=== PATIENT | male | born 1970 | race Caucasian/White ===

== ENCOUNTER 2021-10-07 09:37 | Outpatient (REF) | payer MEDICAID, SELFPAY ==
--- NOTE | ~2021-10-07 | XR_ITS ---
EXAMINATION: XR CERVICAL SPINE. XR LUMBAR SPINE. CLINICAL INFORMATION: Cervicalgia. Back pain. COMPARISON: Cervical spine 05/23/2016 TECHNIQUE: 5 views of the cervical spine. 3 views of the lumbar spine. FINDINGS: Cervical spine: Normal alignment. No fracture. No prevertebral soft tissue swelling. There is mild degenerative disc disease at C3-C4, C4-C5, and C5-C6 which is similar to the previous study. There is prominent facet arthrosis which has progressed, most prominent on the right at C3-C4 with neural foraminal narrowing. Lumbar spine: Normal alignment and lumbar lordosis with mild to moderate multilevel degenerative disc disease, most prominent at L3-L4. No spondylolisthesis. No acute osseous abnormality. XR/XR lumbar spine 2-3V IMPRESSION: Cervical spine: Mild multilevel degenerative disc disease. Prominent facet arthropathy, particularly on the right at C3-C4 with associated neural foraminal narrowing. Lumbar spine: Mild to moderate multilevel degenerative disc disease. Normal alignment.
--- NOTE | ~2021-10-07 | XR_ITS ---
EXAMINATION: XR CERVICAL SPINE. XR LUMBAR SPINE. CLINICAL INFORMATION: Cervicalgia. Back pain. COMPARISON: Cervical spine 05/23/2016 TECHNIQUE: 5 views of the cervical spine. 3 views of the lumbar spine. FINDINGS: Cervical spine: Normal alignment. No fracture. No prevertebral soft tissue swelling. There is mild degenerative disc disease at C3-C4, C4-C5, and C5-C6 which is similar to the previous study. There is prominent facet arthrosis which has progressed, most prominent on the right at C3-C4 with neural foraminal narrowing. Lumbar spine: Normal alignment and lumbar lordosis with mild to moderate multilevel degenerative disc disease, most prominent at L3-L4. No spondylolisthesis. No acute osseous abnormality. XR/XR cervical spine 4V IMPRESSION: Cervical spine: Mild multilevel degenerative disc disease. Prominent facet arthropathy, particularly on the right at C3-C4 with associated neural foraminal narrowing. Lumbar spine: Mild to moderate multilevel degenerative disc disease. Normal alignment.
--- NOTE | ~2021-10-07 | XR_ITS ---
EXAMINATION: XR KNEE, BILATERAL CLINICAL INFORMATION: Bilateral knee pain. COMPARISON: 04/03/2018 TECHNIQUE: 4 views of each knee. FINDINGS: RIGHT KNEE: Small marginal osteophytes of all 3 compartments with no significant narrowing or joint effusion. No fracture. No focal osseous lesion or soft tissue calcification. No new abnormality. LEFT KNEE: Postsurgical changes related to ACL reconstruction. There is moderate tricompartmental osteoarthritis which appears similar. Small joint effusion. No acute osseous abnormality. XR/XR knee RT 4V IMPRESSION: Degenerative findings of both knees as described, similar to previous. No new abnormality.
--- NOTE | ~2021-10-07 | XR_ITS ---
EXAMINATION: XR KNEE, BILATERAL CLINICAL INFORMATION: Bilateral knee pain. COMPARISON: 04/03/2018 TECHNIQUE: 4 views of each knee. FINDINGS: RIGHT KNEE: Small marginal osteophytes of all 3 compartments with no significant narrowing or joint effusion. No fracture. No focal osseous lesion or soft tissue calcification. No new abnormality. LEFT KNEE: Postsurgical changes related to ACL reconstruction. There is moderate tricompartmental osteoarthritis which appears similar. Small joint effusion. No acute osseous abnormality. XR/XR knee LT 4V IMPRESSION: Degenerative findings of both knees as described, similar to previous. No new abnormality.
== END 2021-10-07 09:38 | disposition home or self-care (01) ==
LOC: HO.XRAY 09:37
PROVIDERS: Visit Provider Emergency Medicine
DX: M25.561 Pain in right knee (principal); M25.562 Pain in left knee; M54.2 Cervicalgia; M54.42 Lumbago with sciatica, left side
CPT/HCPCS: 72050; 72100; 73564

== ENCOUNTER → 2021-11-08 10:17 | Outpatient (BNVA) | payer MEDICAID, SELFPAY | PROVIDERS: Visit Provider Orthopaedic Surgery | DX: M17.12 Unilateral primary osteoarthritis, left knee (principal); Z98.890 Other specified postprocedural states | CPT/HCPCS: 99212; J1100 ==

== ENCOUNTER 2021-11-29 00:40 | Inpatient (IN) | payer MEDICAID, SELFPAY ==
[2021-11-29] VITALS (8 sets, daily range): BP systolic 106–162; BP diastolic 65–87; PULSE 71–114; RESP 15–24; TEMP 36.2–37.3; O2SAT 92–98; BMI 28.1; BMI 27.2
--- NOTE | ~2021-11-29 | CT_ITS ---
EXAMINATION CT CHEST, ABDOMEN AND PELVIS WITH CONTRAST CLINICAL INFORMATION: Fall. Hypoxia and abdominal pain. COMPARISON: None. TECHNIQUE: Multidetector volumetric CT imaging of the chest, abdomen and pelvis was obtained after the administration of 85 mL of intravenous Omnipaque 350 without immediate adverse reactions. Coronal and sagittal reformats were reviewed. This CT examination was performed using dose optimization techniques as appropriate, variously including the following: *Automated exposure control *Adjustment of mA and/or kV according to patient size (this includes techniques or standardized protocols for targeted exams where dose is matched to indication/reason for exam; i.e. extremities or head) *Use of iterative reconstruction technique DLP: 951 mGy-cm. FINDINGS: CHEST LUNGS/PLEURA: Diffuse bronchial wall thickening and scattered endobronchial secretions, more pronounced within the lower lungs. There is consolidation within the lingula and middle lobe concerning for multifocal pneumonia. There is no pleural effusion. No pleural mass or thickening. MEDIASTINUM/JANINE: Normal heart size. No pericardial effusion. Great vessels normal caliber. No mediastinal or hilar lymphadenopathy by size criteria. CHEST WALL/AXILLA: Unremarkable. ABDOMEN/PELVIS HEPATOBILIARY: Liver normal in size, contour and morphology. No suspicious lesions. No intra or extrahepatic biliary dilation. Gallbladder unremarkable. PANCREAS: Unremarkable. SPLEEN: Unremarkable. ADRENAL GLANDS: Unremarkable. KIDNEYS, URETERS AND BLADDER: Kidneys normal in size, axis and morphology demonstrating symmetric enhancement. No hydronephrosis or urinary calculi. Ureters normal in course and caliber. Bladder grossly unremarkable.. GASTROINTESTINAL TRACT: No bowel related abnormalities. PELVIC VISCERA: Unremarkable. LYMPH NODES: No lymphadenopathy. PERITONEUM/BODY WALL: Unremarkable. VASCULAR STRUCTURES: Aorta is atherosclerotic but normal caliber. Patent venous structures. OSSEOUS STRUCTURES No acute or suspicious osseous abnormalities. CT/CT abdomen pelvis w con IMPRESSION: * Multifocal pneumonia with areas of consolidation within the middle lobe and lingula. * Background diffuse bronchial wall thickening and scattered and bronchial secretions, the latter predominating within the lower lobes bilaterally. * No acute findings within the abdomen or pelvis.
--- NOTE | ~2021-11-29 | XR_ITS ---
EXAMINATION: XR CHEST CLINICAL INFORMATION: Hypoxia COMPARISON: 05/22/2009 TECHNIQUE: Frontal view of the chest was obtained. FINDINGS: Streaky opacities particularly within the left lower lung. No pleural effusion or pneumothorax. Pulmonary venous congestion without overt edema. Normal heart size. No acute osseous abnormalities. XR/XR chest 1V IMPRESSION: Bilateral streaky opacities, predominantly perihilar, and within the lower lungs bilaterally most notably at the left lung base. This could represent an atypical pneumonitis and/or bronchitis with more focal infiltrate at the left lung base versus subsegmental atelectasis.
--- NOTE | ~2021-11-29 | CT_ITS ---
EXAMINATION: CT HEAD WITHOUT CONTRAST CLINICAL INFORMATION: History COMPARISON: None TECHNIQUE: Contiguous axial imaging was performed from the skull base to vertex without intravenous administration of contrast. This CT examination was performed using dose optimization techniques as appropriate, variously including the following: *Automated exposure control *Adjustment of mA and/or kV according to patient size (this includes techniques or standardized protocols for targeted exams where dose is matched to indication/reason for exam; i.e. extremities or head) *Use of iterative reconstruction technique DLP: 731 mGy-cm FINDINGS: There is no evidence of acute intracranial hemorrhage or territorial infarction. No abnormal mass effect or midline shift is seen. García to white matter differentiation is well preserved. No extra-axial fluid collections are identified. The ventricles are normal in size. Patchy subcortical and periventricular white matter low-attenuation changes statistically related to chronic microangiopathic gliosis, technically age indeterminate without available comparison. The osseous structures and soft tissues are normal. Mucoperiosteal thickening present within the bilateral maxillary sinuses throughout the paranasal sinuses. Mastoid air cells are clear. CT/CT head/brain wo con IMPRESSION: * No acute intracranial intracranial hemorrhage or extra-axial collection. * No transcortical infarct. * [id number]-[id number] white matter small vessel ischemic changes.
--- NOTE | 2021-11-29 00:59 | ED_ITS ---
HPI - General Adult General Chief complaint: ETOH/Substance Use <GABBY Hung Last Filed: 11/29/21 02:52> Stated complaint: drug use <GABBY Hung Last Filed: 11/29/21 02:52> Time Seen by Provider: 11/29/21 00:59 <GABBY Hung Last Filed: 11/29/21 02:52> Source: patient and EMS <GABBY Hung Last Filed: 11/29/21 02:52> Mode of arrival: EMS <GABBY Hung Last Filed: 11/29/21 02:52> Limitations: other (Patient under the influence of a substance) <GABBY Hung Last Filed: 11/29/21 02:52> History of Present Illness HPI narrative: This is a 51 yo m no significant pmhx presents to ED status post snorting fentanyl earlier today. According to patient and EMS patient snorted fentanyl passed out at the bar unsure if he hit his head or not or loss consciousness. Patient woke up, he walked himself to the police department and asked the police department for Narcan. The police department gave patient Narcan. Patient took the Narcan. EMS was called patient was brought into the hospital. He tells me that he wants to leave and he does not want to be here however he continues to ask for Narcan. He denies SI and HI. He is denying chest pain, shortness of breath, headache, vision changes, neck pain, nausea, vomiting, abdominal pain, weakness. Not on thinners <GABBY Hung Last Filed: 11/29/21 02:52> Onset (ago): day(s) (1) <GABBY Hung Last Filed: 11/29/21 02:52> Severity: mild <GABBY Hung Last Filed: 11/29/21 02:52> Relieving factors: none <GABBY Hung Last Filed: 11/29/21 02:52> Exacerbating factors: none <GABBY Hung Last Filed: 11/29/21 02:52> Associated symptoms: denies other symptoms <GABBY Hung Last Filed: 11/29/21 02:52> Treatments prior to arrival: none <GABBY Hung Last Filed: 11/29/21 02:52> Related Data Home medications: Home Medications Medication Instructions Recorded Confirmed amlodipine 2.5 mg tablet 1 tab PO DAILY 11/29/21 11/29/21 clonidine HCl 0.1 mg tablet 1 tab PO BID 11/29/21 11/29/21 hydroxyzine HCl 25 mg tablet 1 tab PO BID PRN 11/29/21 11/29/21 naloxone 4 mg/actuation nasal INTRANASAL 11/29/21 spray (Narcan) nicotine 21 mg/24 hr daily TOPICAL 11/29/21 transdermal patch ondansetron 4 mg disintegrating 1 tab PO Q8H PRN 11/29/21 11/29/21 tablet quetiapine 200 mg tablet 1 tab PO BEDTIME 11/29/21 11/29/21 <GABBY Hung Last Filed: 11/29/21 02:52> Allergies/adverse reactions: Allergies Allergy/AdvReac Type Severity Reaction Status Date / Time diclofenac [From Voltaren] Allergy Mild NAUSEA, Verified 11/29/21 01:46 nausea and vomiting naproxen Allergy Unknown nausea and Verified 11/29/21 01:46 vomiting fluoxetine [From Prozac] Allergy Rash Verified 11/29/21 01:46 VELVET Allergy Mild HIVES Uncoded 05/14/20 14:58 Diclofenac Sodium Allergy Unknown unknown Uncoded 11/08/21 10:21 <GABBY Hung Last Filed: 11/29/21 02:52> Review of Systems Review of Systems: Constitutional : No Weight loss, No Fever, No Chills, No Fatigue, No Malaise ENT/Mouth : No sore throat, No Rhinorrhea Eyes: No Eye Pain, No Swelling, No Redness Cardiovascular : No Chest Pain, No SOB, No Dyspnea on Exertion, No Orthopnea, No Edema, No Palpitations Respiratory : No Cough, No Sputum, No Wheezing Gastrointestinal : No Nausea, No Vomiting, No Diarrhea, No Constipation, No abdominal Pain, No Hematochezia, No Melena Genitourinary : No Dysuria, No Urinary Frequency, No Hematuria, Musculoskeletal : No joint pain, No Myalgias, No Joint Swelling Skin : No Skin Lesions, No rash Neuro : No Weakness, No Numbness, No Dizziness, No Headache Psych : No Anxiety/Panic, No Depression All other systems reviewed and are negative <GABBY Hung - Last Filed: 11/29/21 02:52> Yes all other systems are reviewed and are negative <GABBY Hung - Last Filed: 11/29/21 02:52> [facility] Past Medical History Attestation statement: The following information was validated with the patient. <GABBY Hung - Last Filed: 11/29/21 02:52> Source: old records reviewed and nursing notes reviewed <GABBY Hung - Last Filed: 11/29/21 02:52> Surgical History: Surgical History S/P ACL reconstruction <GABBY Hung - Last Filed: 11/29/21 02:52> Social History Social History: Social History Advance Directives: No Current occupational status: disabled <GABBY Hung - Last Filed: 11/29/21 02:52> Physical Exam ED Vital Signs: Vital Signs - 24 hr 11/29/21 00:47 11/29/21 01:48 Temperature 98.7 F Pulse Rate 105 H 94 Respiratory Rate 24 H 20 Blood Pressure 139/87 Pulse Oximetry 93 92 BMI result Body Mass Index 28.1 Slightly tachycardic likely secondary to opiate use. Slightly hypoxic. <GABBY Hung - Last Filed: 11/29/21 02:52> Vital Signs - 24 hr 11/29/21 00:47 11/29/21 01:48 Temperature 98.7 F Pulse Rate 105 H 94 Respiratory Rate 24 H 20 Blood Pressure 139/87 Pulse Oximetry 93 92 BMI result Body Mass Index 28.1 <Sandy Bettencourt MD - Last Filed: 11/29/21 03:21> Appearance: Alert.? Oriented X3.? No acute distress.? Head: Normocephalic, atraumatic, no step-offs or deformities Eyes: Pupils equal, round and reactive to light.? ENT: Pharynx normal.? Neck: Normal inspection.? Neck supple.? CVS: Normal heart rate and rhythm.? Pulses normal.? Respiratory: No respiratory distress.? + crackles b/l Abdomen: Soft and nontender.? Skin: Skin warm and dry.? Normal skin color.? Normal skin turgor.? Extremities: No lower extremity edema.? No calf ttp. 5/5 strength to bilateral upper and lower extremities Back: No midline tenderness, no C-spine tenderness, full range of motion, no CVA tenderness bilaterally Neuro: Oriented X 3.? No motor deficit.? No sensory deficit. CN 2-12 intact <GABBY Hung - Last Filed: 11/29/21 02:52> Course Reevaluation(s) Reevaluation #1: patient noted to have a leukocytosis he was given ceftriaxone and Zosyn as I am suspecting aspiration pneumonia. Patient noted to have a potassium of 3.1 he was given 40 of potassium by mouth. BNP 318 given 20 of IV Lasix. OTTO positive for opiates, fentanyl and cocaine. Ethanol negative. COVID negative. Chest x-ray concerning for pneumonia. Lactic within normal limits. Cultures pending. EKG pending, CT of Chest & abd pending. Dimer pending. Sign out given to . <GABBY Hung - Last Filed: 11/29/21 02:52> Time: 02:47 <GABBY Hung - Last Filed: 11/29/21 02:52> Reevaluation #2: Reviewed all imaging results which demonstrate multifocal pneumonia with consolidations. This information was communicated with the inpatient hospitalist. Patient is otherwise admitted. <Sandy Bettencourt MD - Last Filed: 11/29/21 03:21> Time: 03:19 <Sandy Bettencourt MD - Last Filed: 11/29/21 03:21> Medical Decision Making MDM Narrative Medical decision making narrative: 0100 51 yo m presents s/p snorting fentanyl earlier today, passed out at the bar likely hit his head. Denies SI and Hi PE. Patient noted to be 93% on RA. Crackles to b/l lower lobes. RRR. Abdomen soft non tender. Neuro nonfocal Plan- labs, cxr, covid, ethanol, ct head/brain <GABBY Hung - Last Filed: 11/29/21 02:52> Lab Data Result diagrams: : 11/29/21 01:20 11/29/21 01:20 <GABBY Hung - Last Filed: 11/29/21 02:52> Labs: Lab Results 11/29/21 11/29/21 11/29/21 Range/Units 01:20 01:20 01:20 WBC 17.5 H (4.8-10.8) X10*3/uL RBC 3.61 L (4.60-5.80) X10*6/uL Hgb 11.1 L (14.0-18.0) g/dl Hct 32.5 L (42.0-52.0) % MCV 90.0 (80.0-98.0) fL MCH 30.7 (27.0-33.0) pg MCHC 34.2 (31.0-36.0) g/dl RDW 13.2 (11.0-16.0) % Plt Count 262 (160-400) X10*3/uL MPV 8.7 L (9.4-12.4) fL Immature Gran % (Auto) 0.5 H (0.0-0.4) % Neut % (Auto) 85.2 H (45-73) % Lymph % (Auto) 7.9 L (20-40) % [place] % (Auto) 5.5 (2-11) % Eos % (Auto) 0.7 (0-4) % Baso % (Auto) 0.2 (0-2) % Lymph # (Auto) 1.4 (1.2-4.9) X10*3/uL [place] # (Auto) 1.0 (0.1-1.2) X10*3/uL Eos # (Auto) 0.1 (0.0-0.4) X10*3/uL Baso # (Auto) 0.0 (0.0-0.2) X10*3/uL Abs Immat Gran (auto) 0.08 H (0.00-0.03) X10*3/uL Absolute Neuts (auto) 14.9 H (2.0-8.3) x10*3/uL Absolute Nucleated RBC 0.000 (0.0-0.012) X10*3/uL Nucleated RBC % (auto) 0.0 (0.0-0.2) /100WBC D-Dimer High Sensitivty NG/ML Sodium 135 (135-145) mmol/L Potassium 3.1 L (3.3-5.1) mmol/L Chloride 101 (96-108) mmol/L Carbon Dioxide 23 (22-29) mmol/L Anion Gap 14 (12-20) BUN 15 (9-16) mg/dL Creatinine 0.70 (0.5-1.4) mg/dL Estim Creat Clear Calc 124.8 Estimated GFR > 60 Random Glucose 101 (60-115) mg/dL Lactic Acid (0.5-2.0) mmol/L Calcium 8.5 (8.4-10.2) mg/dL Total Bilirubin 0.6 (0.0-1.0) mg/dL AST 25 (5-37) U/L ALT 32 (0-40) U/L Alkaline Phosphatase 73 (39-117) U/L Troponin I High Sens (<3.5-35.0) ng/L B-Natriuretic Peptide (<100) pg/mL Total Protein 6.6 (6.5-8.0) g/dL Albumin 3.9 (3.5-5.0) g/dL Urine Color Urine Appearance Urine pH (5.0-8.0) Ur Specific [place] (1.005-1.025) Urine Protein (NEG-TRACE) MG/DL Urine Glucose (UA) (NEG) MG/DL Urine Ketones (NEG) MG/DL Urine Blood (NEG) Urine Nitrite (NEG) Ur Leukocyte Esterase (NEG) Urine Opiates Screen (Not Detect) Urine Fentanyl Screen (Not Detect) Ur Barbiturates Screen (Not Detect) Ur Phencyclidine Scrn (Not Detect) Ur Amphetamines Screen (Not Detect) U Benzodiazepines Scrn (Not Detect) Urine Cocaine Screen (Not Detect) U Marijuana (THC) Screen (Not Detect) Ethyl Alcohol mg/dL COVID-19 ([facility]) Negative (Negative) COVID-19 Clin Com See Note 11/29/21 11/29/21 11/29/21 Range/Units 01:20 01:20 01:57 WBC (4.8-10.8) X10*3/uL RBC (4.60-5.80) X10*6/uL Hgb (14.0-18.0) g/dl Hct (42.0-52.0) % MCV (80.0-98.0) fL MCH (27.0-33.0) pg MCHC (31.0-36.0) g/dl RDW (11.0-16.0) % Plt Count (160-400) X10*3/uL MPV (9.4-12.4) fL Immature Gran % (Auto) (0.0-0.4) % Neut % (Auto) (45-73) % Lymph % (Auto) (20-40) % [place] % (Auto) (2-11) % Eos % (Auto) (0-4) % Baso % (Auto) (0-2) % Lymph # (Auto) (1.2-4.9) X10*3/uL [place] # (Auto) (0.1-1.2) X10*3/uL Eos # (Auto) (0.0-0.4) X10*3/uL Baso # (Auto) (0.0-0.2) X10*3/uL Abs Immat Gran (auto) (0.00-0.03) X10*3/uL Absolute Neuts (auto) (2.0-8.3) x10*3/uL Absolute Nucleated RBC (0.0-0.012) X10*3/uL Nucleated RBC % (auto) (0.0-0.2) /100WBC D-Dimer High Sensitivty NG/ML Sodium (135-145) mmol/L Potassium (3.3-5.1) mmol/L Chloride (96-108) mmol/L Carbon Dioxide (22-29) mmol/L Anion Gap (12-20) BUN (9-16) mg/dL Creatinine (0.5-1.4) mg/dL Estim Creat Clear Calc Estimated GFR Random Glucose (60-115) mg/dL Lactic Acid 0.8 (0.5-2.0) mmol/L Calcium (8.4-10.2) mg/dL Total Bilirubin (0.0-1.0) mg/dL AST (5-37) U/L ALT (0-40) U/L Alkaline Phosphatase (39-117) U/L Troponin I High Sens 5.4 (<3.5-35.0) ng/L B-Natriuretic Peptide 318 H (<100) pg/mL Total Protein (6.5-8.0) g/dL Albumin (3.5-5.0) g/dL Urine Color Urine Appearance Urine pH (5.0-8.0) Ur Specific [place] (1.005-1.025) Urine Protein (NEG-TRACE) MG/DL Urine Glucose (UA) (NEG) MG/DL Urine Ketones (NEG) MG/DL Urine Blood (NEG) Urine Nitrite (NEG) Ur Leukocyte Esterase (NEG) Urine Opiates Screen (Not Detect) Urine Fentanyl Screen (Not Detect) Ur Barbiturates Screen (Not Detect) Ur Phencyclidine Scrn (Not Detect) Ur Amphetamines Screen (Not Detect) U Benzodiazepines Scrn (Not Detect) Urine Cocaine Screen (Not Detect) U Marijuana (THC) Screen (Not Detect) Ethyl Alcohol < 10 mg/dL COVID-19 ([facility]) (Negative) COVID-19 Clin Com 11/29/21 11/29/21 11/29/21 Range/Units 02:20 02:20 02:35 WBC (4.8-10.8) X10*3/uL RBC (4.60-5.80) X10*6/uL Hgb (14.0-18.0) g/dl Hct (42.0-52.0) % MCV (80.0-98.0) fL MCH (27.0-33.0) pg MCHC (31.0-36.0) g/dl RDW (11.0-16.0) % Plt Count (160-400) X10*3/uL MPV (9.4-12.4) fL Immature Gran % (Auto) (0.0-0.4) % Neut % (Auto) (45-73) % Lymph % (Auto) (20-40) % [place] % (Auto) (2-11) % Eos % (Auto) (0-4) % Baso % (Auto) (0-2) % Lymph # (Auto) (1.2-4.9) X10*3/uL [place] # (Auto) (0.1-1.2) X10*3/uL Eos # (Auto) (0.0-0.4) X10*3/uL Baso # (Auto) (0.0-0.2) X10*3/uL Abs Immat Gran (auto) (0.00-0.03) X10*3/uL Absolute Neuts (auto) (2.0-8.3) x10*3/uL Absolute Nucleated RBC (0.0-0.012) X10*3/uL Nucleated RBC % (auto) (0.0-0.2) /100WBC D-Dimer High Sensitivty 529 NG/ML Sodium (135-145) mmol/L Potassium (3.3-5.1) mmol/L Chloride (96-108) mmol/L Carbon Dioxide (22-29) mmol/L Anion Gap (12-20) BUN (9-16) mg/dL Creatinine (0.5-1.4) mg/dL Estim Creat Clear Calc Estimated GFR Random Glucose (60-115) mg/dL Lactic Acid (0.5-2.0) mmol/L Calcium (8.4-10.2) mg/dL Total Bilirubin (0.0-1.0) mg/dL AST (5-37) U/L ALT (0-40) U/L Alkaline Phosphatase (39-117) U/L Troponin I High Sens (<3.5-35.0) ng/L B-Natriuretic Peptide (<100) pg/mL Total Protein (6.5-8.0) g/dL Albumin (3.5-5.0) g/dL Urine Color YELLOW Urine Appearance CLEAR Urine pH 6.0 (5.0-8.0) Ur Specific [place] 1.015 (1.005-1.025) Urine Protein NEG (NEG-TRACE) MG/DL Urine Glucose (UA) NEG (NEG) MG/DL Urine Ketones 40 (NEG) MG/DL Urine Blood NEG (NEG) Urine Nitrite NEG (NEG) Ur Leukocyte Esterase NEG (NEG) Urine Opiates Screen POSITIVE H (Not Detect) Urine Fentanyl Screen POSITIVE H (Not Detect) Ur Barbiturates Screen Not Detected (Not Detect) Ur Phencyclidine Scrn Not Detected (Not Detect) Ur Amphetamines Screen Not Detected (Not Detect) U Benzodiazepines Scrn Not Detected (Not Detect) Urine Cocaine Screen POSITIVE H (Not Detect) U Marijuana (THC) Screen Not Detected (Not Detect) Ethyl Alcohol mg/dL COVID-19 ([facility]) (Negative) COVID-19 Clin Com <GABBY Hung - Last Filed: 11/29/21 02:52> Lab Results 11/29/21 11/29/21 11/29/21 Range/Units 01:20 01:20 01:20 WBC 17.5 H (4.8-10.8) X10*3/uL RBC 3.61 L (4.60-5.80) X10*6/uL Hgb 11.1 L (14.0-18.0) g/dl Hct 32.5 L (42.0-52.0) % MCV 90.0 (80.0-98.0) fL MCH 30.7 (27.0-33.0) pg MCHC 34.2 (31.0-36.0) g/dl RDW 13.2 (11.0-16.0) % Plt Count 262 (160-400) X10*3/uL MPV 8.7 L (9.4-12.4) fL Immature Gran % (Auto) 0.5 H (0.0-0.4) % Neut % (Auto) 85.2 H (45-73) % Lymph % (Auto) 7.9 L (20-40) % [place] % (Auto) 5.5 (2-11) % Eos % (Auto) 0.7 (0-4) % Baso % (Auto) 0.2 (0-2) % Lymph # (Auto) 1.4 (1.2-4.9) X10*3/uL [place] # (Auto) 1.0 (0.1-1.2) X10*3/uL Eos # (Auto) 0.1 (0.0-0.4) X10*3/uL Baso # (Auto) 0.0 (0.0-0.2) X10*3/uL Abs Immat Gran (auto) 0.08 H (0.00-0.03) X10*3/uL Absolute Neuts (auto) 14.9 H (2.0-8.3) x10*3/uL Absolute Nucleated RBC 0.000 (0.0-0.012) X10*3/uL Nucleated RBC % (auto) 0.0 (0.0-0.2) /100WBC D-Dimer High Sensitivty NG/ML Sodium 135 (135-145) mmol/L Potassium 3.1 L (3.3-5.1) mmol/L Chloride 101 (96-108) mmol/L Carbon Dioxide 23 (22-29) mmol/L Anion Gap 14 (12-20) BUN 15 (9-16) mg/dL Creatinine 0.70 (0.5-1.4) mg/dL Estim Creat Clear Calc 124.8 Estimated GFR > 60 Random Glucose 101 (60-115) mg/dL Lactic Acid (0.5-2.0) mmol/L Calcium 8.5 (8.4-10.2) mg/dL Total Bilirubin 0.6 (0.0-1.0) mg/dL AST 25 (5-37) U/L ALT 32 (0-40) U/L Alkaline Phosphatase 73 (39-117) U/L Troponin I High Sens (<3.5-35.0) ng/L B-Natriuretic Peptide (<100) pg/mL Total Protein 6.6 (6.5-8.0) g/dL Albumin 3.9 (3.5-5.0) g/dL Urine Color Urine Appearance Urine pH (5.0-8.0) Ur Specific [place] (1.005-1.025) Urine Protein (NEG-TRACE) MG/DL Urine Glucose (UA) (NEG) MG/DL Urine Ketones (NEG) MG/DL Urine Blood (NEG) Urine Nitrite (NEG) Ur Leukocyte Esterase (NEG) Urine Opiates Screen (Not Detect) Urine Fentanyl Screen (Not Detect) Ur Barbiturates Screen (Not Detect) Ur Phencyclidine Scrn (Not Detect) Ur Amphetamines Screen (Not Detect) U Benzodiazepines Scrn (Not Detect) Urine Cocaine Screen (Not Detect) U Marijuana (THC) Screen (Not Detect) Ethyl Alcohol mg/dL COVID-19 ([facility]) Negative (Negative) COVID-19 Clin Com See Note 11/29/21 11/29/21 11/29/21 Range/Units 01:20 01:20 01:57 WBC (4.8-10.8) X10*3/uL RBC (4.60-5.80) X10*6/uL Hgb (14.0-18.0) g/dl Hct (42.0-52.0) % MCV (80.0-98.0) fL MCH (27.0-33.0) pg MCHC (31.0-36.0) g/dl RDW (11.0-16.0) % Plt Count (160-400) X10*3/uL MPV (9.4-12.4) fL Immature Gran % (Auto) (0.0-0.4) % Neut % (Auto) (45-73) % Lymph % (Auto) (20-40) % [place] % (Auto) (2-11) % Eos % (Auto) (0-4) % Baso % (Auto) (0-2) % Lymph # (Auto) (1.2-4.9) X10*3/uL [place] # (Auto) (0.1-1.2) X10*3/uL Eos # (Auto) (0.0-0.4) X10*3/uL Baso # (Auto) (0.0-0.2) X10*3/uL Abs Immat Gran (auto) (0.00-0.03) X10*3/uL Absolute Neuts (auto) (2.0-8.3) x10*3/uL Absolute Nucleated RBC (0.0-0.012) X10*3/uL Nucleated RBC % (auto) (0.0-0.2) /100WBC D-Dimer High Sensitivty NG/ML Sodium (135-145) mmol/L Potassium (3.3-5.1) mmol/L Chloride (96-108) mmol/L Carbon Dioxide (22-29) mmol/L Anion Gap (12-20) BUN (9-16) mg/dL Creatinine (0.5-1.4) mg/dL Estim Creat Clear Calc Estimated GFR Random Glucose (60-115) mg/dL Lactic Acid 0.8 (0.5-2.0) mmol/L Calcium (8.4-10.2) mg/dL Total Bilirubin (0.0-1.0) mg/dL AST (5-37) U/L ALT (0-40) U/L Alkaline Phosphatase (39-117) U/L Troponin I High Sens 5.4 (<3.5-35.0) ng/L B-Natriuretic Peptide 318 H (<100) pg/mL Total Protein (6.5-8.0) g/dL Albumin (3.5-5.0) g/dL Urine Color Urine Appearance Urine pH (5.0-8.0) Ur Specific [place] (1.005-1.025) Urine Protein (NEG-TRACE) MG/DL Urine Glucose (UA) (NEG) MG/DL Urine Ketones (NEG) MG/DL Urine Blood (NEG) Urine Nitrite (NEG) Ur Leukocyte Esterase (NEG) Urine Opiates Screen (Not Detect) Urine Fentanyl Screen (Not Detect) Ur Barbiturates Screen (Not Detect) Ur Phencyclidine Scrn (Not Detect) Ur Amphetamines Screen (Not Detect) U Benzodiazepines Scrn (Not Detect) Urine Cocaine Screen (Not Detect) U Marijuana (THC) Screen (Not Detect) Ethyl Alcohol < 10 mg/dL COVID-19 ([facility]) (Negative) COVID-19 Clin Com 11/29/21 11/29/21 11/29/21 Range/Units 02:20 02:20 02:35 WBC (4.8-10.8) X10*3/uL RBC (4.60-5.80) X10*6/uL Hgb (14.0-18.0) g/dl Hct (42.0-52.0) % MCV (80.0-98.0) fL MCH (27.0-33.0) pg MCHC (31.0-36.0) g/dl RDW (11.0-16.0) % Plt Count (160-400) X10*3/uL MPV (9.4-12.4) fL Immature Gran % (Auto) (0.0-0.4) % Neut % (Auto) (45-73) % Lymph % (Auto) (20-40) % [place] % (Auto) (2-11) % Eos % (Auto) (0-4) % Baso % (Auto) (0-2) % Lymph # (Auto) (1.2-4.9) X10*3/uL [place] # (Auto) (0.1-1.2) X10*3/uL Eos # (Auto) (0.0-0.4) X10*3/uL Baso # (Auto) (0.0-0.2) X10*3/uL Abs Immat Gran (auto) (0.00-0.03) X10*3/uL Absolute Neuts (auto) (2.0-8.3) x10*3/uL Absolute Nucleated RBC (0.0-0.012) X10*3/uL Nucleated RBC % (auto) (0.0-0.2) /100WBC D-Dimer High Sensitivty 529 NG/ML Sodium (135-145) mmol/L Potassium (3.3-5.1) mmol/L Chloride (96-108) mmol/L Carbon Dioxide (22-29) mmol/L Anion Gap (12-20) BUN (9-16) mg/dL Creatinine (0.5-1.4) mg/dL Estim Creat Clear Calc Estimated GFR Random Glucose (60-115) mg/dL Lactic Acid (0.5-2.0) mmol/L Calcium (8.4-10.2) mg/dL Total Bilirubin (0.0-1.0) mg/dL AST (5-37) U/L ALT (0-40) U/L Alkaline Phosphatase (39-117) U/L Troponin I High Sens (<3.5-35.0) ng/L B-Natriuretic Peptide (<100) pg/mL Total Protein (6.5-8.0) g/dL Albumin (3.5-5.0) g/dL Urine Color YELLOW Urine Appearance CLEAR Urine pH 6.0 (5.0-8.0) Ur Specific [place] 1.015 (1.005-1.025) Urine Protein NEG (NEG-TRACE) MG/DL Urine Glucose (UA) NEG (NEG) MG/DL Urine Ketones 40 (NEG) MG/DL Urine Blood NEG (NEG) Urine Nitrite NEG (NEG) Ur Leukocyte Esterase NEG (NEG) Urine Opiates Screen POSITIVE H (Not Detect) Urine Fentanyl Screen POSITIVE H (Not Detect) Ur Barbiturates Screen Not Detected (Not Detect) Ur Phencyclidine Scrn Not Detected (Not Detect) Ur Amphetamines Screen Not Detected (Not Detect) U Benzodiazepines Scrn Not Detected (Not Detect) Urine Cocaine Screen POSITIVE H (Not Detect) U Marijuana (THC) Screen Not Detected (Not Detect) Ethyl Alcohol mg/dL COVID-19 ([facility]) (Negative) COVID-19 Clin Com <Sandy Bettencourt MD - Last Filed: 11/29/21 03:21> ECG Data Attestation: I personally reviewed and interpreted this ECG as follows: <Sandy Bettencourt MD - Last Filed: 11/29/21 03:21> Prior ECG tracings: available for review <Sandy Bettencourt MD - Last Filed: 11/29/21 03:21> Interpretation: NSR, HR-88, no STEMI, KS/QRS/QTC are within normal limits. <Sandy Bettencourt MD - Last Filed: 11/29/21 03:21> Critical Care Time Critical Care Time Critical Care Time: No <GABBY Hung - Last Filed: 11/29/21 02:52> Discharge Plan Discharge Clinical Impression: Pneumonia, Hypoxia, Fall, Polysubstance abuse <GABBY Hung - Last Filed: 11/29/21 02:52> Patient Disposition: Admitted As Inpatient <GABBY Hung - Last Filed: 11/29/21 02:52>
--- NOTE | 2021-11-29 01:09 | PC.NURSE ---
PT complaining of SOB and continues to request narcan. PT has rhonchi bilaterally throughout the lungs. Awaiting chest xray.
[2021-11-29 01:28] LABS: Basophils Percent Auto 0.2 % (0-2); Eosinophils Absolute Auto 0.1 X10*3/uL (0.0-0.4); Eosinophils Percent Auto 0.7 % (0-4); Hematocrit 32.5 % (42.0-52.0); Hemoglobin 11.1 g/dl (14.0-18.0); Imm Gran Abs Auto 0.08 X10*3/uL (0.00-0.03); Imm Gran Pct Auto 0.5 % (0.0-0.4); Lymphocytes Absolute Auto 1.4 X10*3/uL (1.2-4.9); Lymphocytes Percent Auto 7.9 % (20-40); MANUAL DIFF FLAG NO; Mean Corpuscular HGB Conc 34.2 g/dl (31.0-36.0); Mean Corpuscular Hemoglobin 30.7 pg (27.0-33.0); Mean Platelet Volume 8.7 fL (9.4-12.4); Monocytes Percent Auto 5.5 % (2-11); Neutrophils Absolute Auto 14.9 x10*3/uL (2.0-8.3); Neutrophils Percent Auto 85.2 % (45-73); Platelet Count 262 X10*3/uL (160-400); Red Blood Count 3.61 X10*6/uL (4.60-5.80); Red Cell Distribution Width 13.2 % (11.0-16.0); White Blood Count 17.5 X10*3/uL (4.8-10.8)
[2021-11-29 01:40] LABS: COVID-19 Test Negative (Negative); Ethanol < 10 mg/dL
[2021-11-29 01:45] LABS: Alanine Aminotransferase 32 U/L (0-40); Albumin Level 3.9 g/dL (3.5-5.0); Alkaline Phosphatase 73 U/L (39-117); Anion Gap 14 (12-20); Aspartate Amino Transferase 25 U/L (5-37); Bilirubin Total 0.6 mg/dL (0.0-1.0); Blood Urea Nitrogen 15 mg/dL (9-16); Calcium 8.5 mg/dL (8.4-10.2); Carbon Dioxide 23 mmol/L (22-29); Chloride 101 mmol/L (96-108); Creatinine Clr Calc Pharmacy 124.8; Estimated Glomerular Filt Rate > 60; Glucose Random 101 mg/dL (60-115); Potassium 3.1 mmol/L (3.3-5.1); Sodium 135 mmol/L (135-145); Total Protein 6.6 g/dL (6.5-8.0)
[2021-11-29] MEDS: Ondansetron ODT 4 MG TAB.RAPDIS TRANSLINGU (01:47)
--- NOTE | 2021-11-29 01:47 | PC.NURSE ---
PT O2 sat decreased to 87% on RA. PT placed on O2 at 4 L/min via NC with sat increased to 92%
[2021-11-29 02:13] LABS: Lactic Acid 0.8 mmol/L (0.5-2.0)
[2021-11-29] MEDS: Potassium Chloride ER 20 MEQ TAB.ER.PRT 40 MEQ PO (02:26)
[2021-11-29] MEDS: 0.9 % Sodium Chloride 1,000 ML 999 ML IV (02:26)
[2021-11-29] MEDS: iohexoL 350 MG/ML 100 ML INFUS..BTL 85 ML IV (02:27)
[2021-11-29 02:28] LABS: B Type Natriuretic Peptide 318 pg/mL (<100)
[2021-11-29] MEDS: cefTRIAXone sodium 1 GM in 0.9 % Sodium Chloride 50 ML IV (02:29)
--- NOTE | 2021-11-29 02:32 | P.HPHOSP_ITS ---
History of Present Illness Date of Service: 11/29/21 Chief Complaint: Syncope 51-year-old male with no significant past medical history presented to the hospital with a chief complaint of fentanyl overdose. Patient reports that for the past 1 week he has been using fentanyl; today if had fentanyl overdose; mentioned he lost consciousness; later mention he received Narcan at the field; EMS was called in and came to the hospital for further evaluation. Reports he has been having shortness of breath, chest discomfort. Denies any cough or sputum production. Denies any chest pain or palpitations. Denies any lightheadedness dizziness. Denies any fever chills cough. Denies any GI symptoms. Review of all other systems is negative except mentioned above ER course: Per ER team mentioned that patient got Narcan by the police; subsequently EMS was called in and brought him to the hospital for further evaluation. Patient on presentation noted to be tachycardic; while he was in the ER he is oxygen dropped to mid 80s; chest x-ray showed bilateral opacities; CT head showed no acute intracranial process. Admitted to the hospital for further management PMFSH Pertinent family history: Father had liver cancer Prostate cancer in the family Surgical History S/P ACL reconstruction Social History Advance Directives: No Current occupational status: disabled Meds Allergies Allergy/AdvReac Type Severity Reaction Status Date / Time diclofenac [From Voltaren] Allergy Mild NAUSEA, Verified 11/29/21 01:46 nausea and vomiting naproxen Allergy Unknown nausea and Verified 11/29/21 01:46 vomiting fluoxetine [From Prozac] Allergy Rash Verified 11/29/21 01:46 VELVET Allergy Mild HIVES Uncoded 05/14/20 14:58 Diclofenac Sodium Allergy Unknown unknown Uncoded 11/08/21 10:21 Active Medications: Current Medications Sodium Chloride (Ns) 1,000 mls @ 999 mls/hr IV .Q1H1M EMIGDIO Stop: 11/29/21 03:15 Last Admin: 11/29/21 02:26 Dose: 999 mls/hr Documented by: Piperacillin Sod/Tazobactam (Sod 3.375 gm/ Sodium Chloride) 50 mls @ 100 mls/hr IV ONCE ONE Stop: 11/29/21 02:43 Home Medications Medication Instructions Recorded Confirmed Last Taken Type amlodipine 2.5 mg tablet 1 tab PO DAILY 11/29/21 11/29/21 Unknown History clonidine HCl 0.1 mg tablet 1 tab PO BID 11/29/21 11/29/21 Unknown History hydroxyzine HCl 25 mg tablet 1 tab PO BID PRN 11/29/21 11/29/21 Unknown History naloxone 4 mg/actuation nasal INTRANASAL 11/29/21 Unknown History spray (Narcan) nicotine 21 mg/24 hr daily TOPICAL 11/29/21 Unknown History transdermal patch ondansetron 4 mg disintegrating 1 tab PO Q8H PRN 11/29/21 11/29/21 Unknown History tablet quetiapine 200 mg tablet 1 tab PO BEDTIME 11/29/21 11/29/21 Unknown History Physical Exam Vital Signs and Narrative: Vital Signs: Last Vital Signs Temp 98.7 F 11/29/21 00:47 Pulse 94 11/29/21 01:48 Resp 20 11/29/21 01:48 BP 139/87 11/29/21 00:47 Pulse Ox 92 11/29/21 01:48 BMI result Body Mass Index 28.1 Gen: Appears be in no acute distress HEENT: NCAT, Moist mucosa. Pulmonary: Coarse breath sounds CVS: Normal S1-S2 Abdomen: BS+, Soft, Nontender Extremities: Warm well perfused Neuro: Alert and awake. Grossly nonfocal Results Labs CBC and Chem 7: 11/29/21 01:20 11/29/21 01:20 Labs: Laboratory Results - last 24 hr 11/29/21 11/29/21 11/29/21 01:20 01:20 01:20 MCV 90.0 MCH 30.7 MCHC 34.2 RDW 13.2 Plt Count 262 MPV 8.7 L Immature Gran % (Auto) 0.5 H Neut % (Auto) 85.2 H Lymph % (Auto) 7.9 L [place] % (Auto) 5.5 Eos % (Auto) 0.7 Baso % (Auto) 0.2 Lymph # (Auto) 1.4 [place] # (Auto) 1.0 Eos # (Auto) 0.1 Baso # (Auto) 0.0 Abs Immat Gran (auto) 0.08 H Absolute Neuts (auto) 14.9 H Absolute Nucleated RBC 0.000 Nucleated RBC % (auto) 0.0 Anion Gap 14 Estim Creat Clear Calc 124.8 Estimated GFR > 60 Random Glucose 101 Lactic Acid Calcium 8.5 Total Bilirubin 0.6 AST 25 ALT 32 Alkaline Phosphatase 73 B-Natriuretic Peptide Total Protein 6.6 Albumin 3.9 Ethyl Alcohol COVID-19 (LAZARA) Negative COVID-19 Clin Com See Note 11/29/21 11/29/21 11/29/21 01:20 01:20 01:57 MCV MCH MCHC RDW Plt Count MPV Immature Gran % (Auto) Neut % (Auto) Lymph % (Auto) [place] % (Auto) Eos % (Auto) Baso % (Auto) Lymph # (Auto) [place] # (Auto) Eos # (Auto) Baso # (Auto) Abs Immat Gran (auto) Absolute Neuts (auto) Absolute Nucleated RBC Nucleated RBC % (auto) Anion Gap Estim Creat Clear Calc Estimated GFR Random Glucose Lactic Acid 0.8 Calcium Total Bilirubin AST ALT Alkaline Phosphatase B-Natriuretic Peptide 318 H Total Protein Albumin Ethyl Alcohol < 10 COVID-19 (LAZARA) COVID-19 Clin Com Imaging Radiologist's Impressions: Impressions Chest X-Ray 11/29/21 01:25 IMPRESSION: Bilateral streaky opacities, predominantly perihilar, and within the lower lungs bilaterally most notably at the left lung base. This could represent an atypical pneumonitis and/or bronchitis with more focal infiltrate at the left lung base versus subsegmental atelectasis. Head CT 11/29/21 01:28 IMPRESSION: * No acute intracranial intracranial hemorrhage or extra-axial collection. * No transcortical infarct. * [id number] white matter small vessel ischemic changes. Assessment and Plan (1) Pneumonia: Status: Acute (2) Hypoxia: Status: Acute Plan 51-year-old male with a past medical history of hypertension, anxiety, depression, opiate dependence, osteoarthritis presented to the hospital with a chief complaint of opiate overdose. Noted to be in acute hypoxia. Admitted for following Acute hypoxic respiratory failure: Chest x-ray showed bilateral opacities concerning for atypical pneumonitis. Patient currently saturating well on supplemental oxygen. Theresa cooper Pneumonitis: Question drug inhalation injury. Empirically cover with ceftriaxone and azithromycin. Will obtain procalcitonin levels. Follow up cultures. Pulmonary consult Syncope: In the setting of drug overdose. U tox positive for cocaine, fentanyl, opiates. CT head showed no acute findings. EKG showed no ischemia or bradycardia. Troponin x2 negative. Telemetry. Opiate dependence: Patient reports he uses fentanyl. Has been using for the past 1 week. Also on methadone maintenance program-reports he takes methadone 50 mg daily. Has not taken dose on 11/28/2021. Addiction Medicine consult History of hypertension: Continue home amlodipine History of anxiety: Continue home Atarax p.r.n. DVT prophylaxis: Lovenox Code status: Full code Quality Stroke Does the patient have a stroke diagnosis?: No VTE Prior VTE?: No VTE Risk Level:: Medical - moderate - high VTE Device Contraindication: Treatment Not Indicated VTE Drug Contraindication: N/A - Med Ordered
[2021-11-29 02:40] LABS: Amphetamine Screen Urine Not Detected (Not Detect); Barbiturates, Urine Not Detected (Not Detect); Benzodiazepines Screen Urine Not Detected (Not Detect); Cannabinoid Screen Urine Not Detected (Not Detect); Cocaine Screen Urine POSITIVE (Not Detect); Fentanyl, urine POSITIVE (Not Detect); Opiate Screen Urine POSITIVE (Not Detect); Phencyclidine Screen Urine Not Detected (Not Detect)
--- NOTE | 2021-11-29 02:45 | ECG_ITS ---
Test Reason : CHEST DISCOMFORT Blood Pressure : / mmHG Vent. Rate : 088 BPM Atrial Rate : 088 BPM P-R Int : 174 ms QRS Dur : 086 ms QT Int : 360 ms P-R-T Axes : 047 058 047 degrees QTc Int : 435 ms Normal sinus rhythm Normal ECG When compared with ECG of 03-APR-2018 08:28, No significant change was found Referred By: Albino Mitchell Electronically Signed By:TONYA MANN MD
[2021-11-29 02:50] LABS: D Dimer High Sensitivity 529 NG/ML
[2021-11-29 03:03] LABS: Troponin-I High Sensitivity 5.4 ng/L (<3.5-35.0)
[2021-11-29 03:09] LABS: Appearance Urine CLEAR; Color Urine YELLOW; Glucose Urine UA NEG (NEG); Leukocyte Esterase Urine NEG (NEG); Nitrite Urine NEG (NEG); Specific Gravity - Urine 1.015 (1.005-1.025); Urine Blood NEG (NEG); Urine Ketones 40 MG/DL (NEG); Urine Protein NEG (NEG-TRACE)
[2021-11-29] MEDS: Furosemide 20 MG/2 ML VIAL IVPUSH (03:19)
[2021-11-29] MEDS: Piperacillin Sodium/Tazobactam 3.375 GM in 0.9 % Sodium Chloride 50 ML IV (03:20)
[2021-11-29 03:43] LABS: Troponin-I High Sensitivity 4.3 ng/L (<3.5-35.0)
[2021-11-29] MEDS: Azithromycin 500 MG TABLET PO (03:52)
[2021-11-29 05:02] LABS: Basophils Percent Auto 0.2 % (0-2); Eosinophils Absolute Auto 0.1 X10*3/uL (0.0-0.4); Eosinophils Percent Auto 0.3 % (0-4); Hematocrit 33.5 % (42.0-52.0); Hemoglobin 11.5 g/dl (14.0-18.0); Imm Gran Abs Auto 0.11 X10*3/uL (0.00-0.03); Imm Gran Pct Auto 0.6 % (0.0-0.4); Lymphocytes Absolute Auto 1.3 X10*3/uL (1.2-4.9); Lymphocytes Percent Auto 7.1 % (20-40); MANUAL DIFF FLAG NO; Mean Corpuscular HGB Conc 34.3 g/dl (31.0-36.0); Mean Corpuscular Hemoglobin 31.2 pg (27.0-33.0); Mean Corpuscular Volume 90.8 fL (80.0-98.0); Mean Platelet Volume 8.4 fL (9.4-12.4); Monocytes Absolute Auto 0.8 X10*3/uL (0.1-1.2); Monocytes Percent Auto 4.6 % (2-11); Neutrophils Absolute Auto 15.9 x10*3/uL (2.0-8.3); Neutrophils Percent Auto 87.2 % (45-73); Platelet Count 273 X10*3/uL (160-400); Red Blood Count 3.69 X10*6/uL (4.60-5.80); Red Cell Distribution Width 13.2 % (11.0-16.0); White Blood Count 18.2 X10*3/uL (4.8-10.8)
[2021-11-29 05:17] LABS: Anion Gap 13 (12-20); Blood Urea Nitrogen 13 mg/dL (9-16); Calcium 8.3 mg/dL (8.4-10.2); Carbon Dioxide 27 mmol/L (22-29); Chloride 99 mmol/L (96-108); Estimated Glomerular Filt Rate > 60; Glucose Random 105 mg/dL (60-115); Potassium 3.4 mmol/L (3.3-5.1); Sodium 136 mmol/L (135-145)
[2021-11-29] MEDS: Enoxaparin Sodium 40 MG/0.4 ML SYRINGE SUBCUT (06:10)
[2021-11-29] MEDS: cloNIDine HCL 0.1 MG TABLET PO (08:53)
[2021-11-29] MEDS: amLODIPine Besylate 2.5 MG TABLET PO (08:53)
[2021-11-29] MEDS: Famotidine/PF 20 MG/2 ML VIAL IVPUSH ×2 (08:53→22:08)
[2021-11-29] MEDS: 0.9 % Sodium Chloride Flush 3 ML SYRINGE IVFLUSH ×2 (08:54→22:15)
--- NOTE | 2021-11-29 09:00 | HO.SUDE ---
SUDE Patient is a 51 year old Iraqi speaking male who presented to [facility] after using fentanyl and requesting narcan. This real estate underwriter met with patient to complete SUDE. Patient reports this is his second overdose, with the first occurring over a year ago. Reports no alcohol or other substances used aside from heroin/fentanyl. Patient reports he started using opiates 8 years ago and has had significant periods of sobriety. Patient indicates he relapsed around 3 months ago due to homelessness and not wanting to live in a residential. Patient states he has been using up to ten bags a day, nasally. Patient is currently on 50mg of methadone and last dosed on 11/28/21. [facility] at [facility] confirms this. Dose verification sent to pharmacy. Patient reports the methadone has been helpful but acknowledges he still uses in addition to the methadone. Patient reports a history of ATS and psychiatric admissions however none within the last year. Patient reports anxiety and depression diagnoses. Patient reports he has been working with his brother on getting into a program however has been unsuccessful. This real estate underwriter discussed CSS level of care with patient. Patient is interested in referrals being made to CSS facilities however understands that a bed may not be available prior to discharge. Recovery Support Team will follow up with patient later on in his hospital stay to provide information on CSS and initiate referrals if appropriate. Discussed case with Syl JEAN-BAPTISTE.
--- NOTE | 2021-11-29 13:23 | MHC.CM.PN ---
reviewed medical record pt has been seen and being followed by care team pt hasa a hcp on file cm will follow
[2021-11-29] MEDS: methADONE HCl 20 MG/2 ML ORAL.CONC 50 MG PO (15:56)
--- NOTE | 2021-11-29 20:07 | PM.CNPUL ---
History of Present Illness History of Present Illness Consult date: 11/29/21 Chief complaint: Acute hypoxia Narrative: This is an inpatient pulmonary consultation. The patient is a 51-year-old male with no significant past medical history presented to the hospital with a chief complaint of fentanyl overdose.?Patient reports that for the past 1 week he has been using fentanyl; today if had fentanyl overdose; mentioned he lost consciousness; later mention he received Narcan at the field; EMS was called in and came to the hospital for further evaluation.? the patient states that he has been having worsening nausea and vomiting. He feels like some of the vomiting did aspirate into the lungs. While he was in the ER he is oxygen dropped to mid 80s; chest x-ray showed bilateral opacities; CT head showed no acute intracranial process.? I personally reviewed his CT scan of the chest really out PE. But, demonstrating bibasilar consolidations likely from aspiration. Patient still coughing. Denies any pleuritic chest discomfort. Review of Systems Review of Systems: Yes all other systems are reviewed and are negative Constitutional: Constitutional: Reports body ache(s), Reports fatigue, Denies fever(s) and Reports weakness Eyes: Eyes: Denies change in vision ENT: Denies dysphagia Cardiovascular: Cardiovascular: Denies chest pain and Reports dyspnea Respiratory: Respiratory: Reports chest congestion, Reports cough, Denies hemoptysis, Denies pain on inspiration, Denies pain with cough and Reports dyspnea Gastrointestinal: Gastrointestinal: Denies dysphagia Musculoskeletal: Musculoskeletal: Reports no additional musculoskeletal complaints Neurologic: Reports weakness Endocrine: Endocrine: Reports fatigue [facility] Surgical History Surgical History S/P ACL reconstruction Social History Social History Household Members: Other Housing: Homeless Do you presently have visiting nurse or other home services: No Patient Tobacco Use Status: Current everyday Tobacco user Tobacco use type: Cigarette Substance Use Type: Crack/Cocaine and Opiates service: No Current occupational status: disabled Meds Allergies Allergy/AdvReac Type Severity Reaction Status Date / Time diclofenac [From Voltaren] Allergy Mild NAUSEA, Verified 11/29/21 01:46 nausea and vomiting naproxen Allergy Unknown nausea and Verified 11/29/21 01:46 vomiting fluoxetine [From Prozac] Allergy Rash Verified 11/29/21 01:46 VELVET Allergy Mild HIVES Uncoded 05/14/20 14:58 Diclofenac Sodium Allergy Unknown unknown Uncoded 11/08/21 10:21 Active Medications: Current Medications Acetaminophen (Acetaminophen 325 Mg Tablet) 650 mg PO Q6H PRN PRN Reason: Pain, Mild (Pain Scale 1-3) Albuterol/Ipratropium (Albuterol/Iprat 2.5/0.5mg 3 Ml Ampul.Neb) 3 ml INHALE RQ4H WHILE AWAKE PRN PRN Reason: Shortness of Breath/Wheezing Amlodipine Besylate (Amlodipine Besylate 2.5 Mg Tablet) 2.5 mg PO DAILY [facility]; Protocol Last Admin: 11/29/21 08:53 Dose: 2.5 mg Documented by: Azithromycin (Azithromycin 500 Mg Tablet) 500 mg PO Q24H [facility] Last Admin: 11/29/21 03:52 Dose: 500 mg Documented by: Clonidine HCl (Clonidine Hcl 0.1 Mg Tablet) 0.1 mg PO BID [facility]; Protocol Last Admin: 11/29/21 08:53 Dose: 0.1 mg Documented by: Enoxaparin Sodium (Enoxaparin Sodium 40 Mg/0.4 Ml Syringe) 40 mg SUBCUT Q24H [facility] Last Admin: 11/29/21 06:10 Dose: 40 mg Documented by: Famotidine (Famotidine/Pf 20 Mg/2 Ml Vial) 20 mg IVPUSH BID [facility] Last Admin: 11/29/21 08:53 Dose: 20 mg Documented by: Hydroxyzine HCl (Hydroxyzine Hcl 25 Mg Tablet) 25 mg PO BID PRN PRN Reason: anxiety Ceftriaxone Sodium 1 gm/ (Sodium Chloride) 100 mls @ 200 mls/hr IV Q24H [facility] Methadone HCl (Methadone Hcl 20 Mg/2 Ml Oral.Conc) 50 mg PO DAILY [facility] Last Admin: 11/29/21 15:56 Dose: 50 mg Documented by: Quetiapine Fumarate (Quetiapine Fumarate 200 Mg Tablet) 200 mg PO BEDTIME EMIGDIO Senna (Sennosides 8.6 Mg Tablet) 17.2 mg PO BEDTIME PRN PRN Reason: Constipation Sodium Chloride (0.9 % Sodium Chloride Flush 3 Ml Syringe) 3 ml IVFLUSH QSHIFT [facility] Last Admin: 11/29/21 15:49 Dose: Not Given Documented by: Home Medications Medication Instructions Recorded Confirmed Last Taken Type amlodipine 2.5 mg tablet 1 tab PO DAILY 11/29/21 11/29/21 Unknown History clonidine HCl 0.1 mg tablet 1 tab PO BID 11/29/21 11/29/21 Unknown History gabapentin 300 mg capsule 300 mg PO TID 11/29/21 11/29/21 Unknown History hydroxyzine HCl 25 mg tablet 1 tab PO BID PRN 11/29/21 11/29/21 Unknown History methadone 10 mg/mL oral concentrate 0 mg PO DAILY 11/29/21 Unknown History naloxone 4 mg/actuation nasal 1 spray INTRANASAL ONCE PRN 11/29/21 11/29/21 Unknown History spray (Narcan) nicotine 21 mg/24 hr daily 21 mg TOPICAL DAILY 11/29/21 11/29/21 Unknown History transdermal patch ondansetron 4 mg disintegrating 1 tab PO Q8H PRN 11/29/21 11/29/21 Unknown History tablet quetiapine 200 mg tablet 1 tab PO BEDTIME 11/29/21 11/29/21 Unknown History Physical Exam Vital Signs: Vital Signs: Last Vital Signs Temp 97.2 F 11/29/21 19:32 Pulse 98 11/29/21 19:32 Resp 17 11/29/21 19:32 BP 123/69 11/29/21 19:32 Pulse Ox 96 11/29/21 19:32 BMI result Body Mass Index 27.2 Const: General: alert Neck: Neck: Yes normal visual inspection, Yes full ROM and Yes no lymphadenopathy Chest: Chest palpation & inspection: normal inspection of the chest Resp: Effort & Inspection: Actively coughing Auscultation: crackles bilateral at the base and diminished lung sounds Cardio: Rate: regular rate Rhythm: regular rhythm Heart sounds: S1 normal heart sound present and S2 normal heart sound present GI: Palpation (GI): Soft to palpation and nontender Auscultation: normal bowel sounds Skin: General skin exam: rashes and/or lesions noted Results Laboratory Findings CBC and BMP: 11/29/21 04:57 11/29/21 04:57 Abnormal lab findings: Abnormal Labs 11/29/21 11/29/21 11/29/21 01:20 01:20 01:20 WBC 17.5 H RBC 3.61 L Hgb 11.1 L Hct 32.5 L MPV 8.7 L Immature Gran % (Auto) 0.5 H Neut % (Auto) 85.2 H Lymph % (Auto) 7.9 L Abs Immat Gran (auto) 0.08 H Absolute Neuts (auto) 14.9 H Potassium 3.1 L Calcium B-Natriuretic Peptide 318 H Urine Opiates Screen Urine Fentanyl Screen Urine Cocaine Screen 11/29/21 11/29/21 11/29/21 02:20 04:57 04:57 WBC 18.2 H RBC 3.69 L Hgb 11.5 L Hct 33.5 L MPV 8.4 L Immature Gran % (Auto) 0.6 H Neut % (Auto) 87.2 H Lymph % (Auto) 7.1 L Abs Immat Gran (auto) 0.11 H Absolute Neuts (auto) 15.9 H Potassium Calcium 8.3 L B-Natriuretic Peptide Urine Opiates Screen POSITIVE H Urine Fentanyl Screen POSITIVE H Urine Cocaine Screen POSITIVE H Assessment and Plan (1) Aspiration pneumonia: Status: Acute (2) Acute respiratory failure: Status: Acute Plan Continue oxygen supplementation to maintain a pulse ox above 90% keep head of bed elevated at least 30 degrees to minimize micro aspirations add Mucinex for cough expectorant continue ceftriaxone and azithromycin. If his white count continues to be elevated will switch his ceftriaxone to Zosyn to have better anaerobic coverage Procedures Date of Service Date of Service: 11/29/21
[2021-11-29] MEDS: QUEtiapine Fumarate 200 MG TABLET PO (22:08)
[2021-11-29] MEDS: cefTRIAXone sodium 1 GM in 0.9 % Sodium Chloride 100 ML IV (22:08)
[2021-11-30] VITALS (7 sets, daily range): BP systolic 98–134; BP diastolic 61–82; PULSE 72–87; RESP 16–20; TEMP 36.4–37.3; O2SAT 93–100
[2021-11-30] MEDS: Azithromycin 500 MG TABLET PO (03:44)
[2021-11-30 07:02] LABS: Hemoglobin 12.3 g/dl (14.0-18.0); Mean Corpuscular HGB Conc 33.2 g/dl (31.0-36.0); Mean Corpuscular Hemoglobin 30.7 pg (27.0-33.0); Mean Corpuscular Volume 92.3 fL (80.0-98.0); Mean Platelet Volume 9.3 fL (9.4-12.4); Platelet Count 307 X10*3/uL (160-400); Red Blood Count 4.01 X10*6/uL (4.60-5.80); Red Cell Distribution Width 13.1 % (11.0-16.0)
[2021-11-30 07:21] LABS: Anion Gap 13 (12-20); Blood Urea Nitrogen 12 mg/dL (9-16); Calcium 8.8 mg/dL (8.4-10.2); Carbon Dioxide 28 mmol/L (22-29); Chloride 105 mmol/L (96-108); Creatinine Clr Calc Pharmacy 106.4; Estimated Glomerular Filt Rate > 60; Glucose Fasting 77 mg/dL (60-99); Potassium 3.8 mmol/L (3.3-5.1); Sodium 142 mmol/L (135-145)
[2021-11-30] MEDS: amLODIPine Besylate 2.5 MG TABLET PO (09:24)
[2021-11-30] MEDS: methADONE HCl 20 MG/2 ML ORAL.CONC 50 MG PO (09:24)
[2021-11-30] MEDS: Famotidine/PF 20 MG/2 ML VIAL IVPUSH ×2 (09:24→21:28)
[2021-11-30] MEDS: 0.9 % Sodium Chloride Flush 3 ML SYRINGE IVFLUSH ×3 (09:25→21:29)
--- NOTE | 2021-11-30 09:35 | PM.PNPUL ---
Subjective Subjective Date of Service: 11/30/21 Interval history: The patient was seen on exam. Having significant coughing and wheezing more than yesterday. Still on oxygen supplementation at 3 L. Objective Data Labs CBC & Chem 7: 11/30/21 06:18 11/30/21 06:18 Labs: Laboratory Results - last 24 hr 11/30/21 11/30/21 06:18 06:18 WBC 11.0 H RBC 4.01 L Hgb 12.3 L Hct 37.0 L MCV 92.3 MCH 30.7 MCHC 33.2 RDW 13.1 Plt Count 307 MPV 9.3 L Absolute Nucleated RBC 0.000 Nucleated RBC % (auto) 0.0 Sodium 142 Potassium 3.8 Chloride 105 Carbon Dioxide 28 Anion Gap 13 BUN 12 Creatinine 0.75 Estim Creat Clear Calc 106.4 Estimated GFR > 60 Fasting Glucose 77 Calcium 8.8 D Microbiology Microbiology Results: Microbiology 11/29/21 01:59 Blood - Venous Blood Culture - Preliminary No growth after 24 hours. 11/29/21 01:57 Blood - Venous Blood Culture - Preliminary No growth after 24 hours. Review of Systems Review of Systems Yes all other systems are reviewed and are negative Constitutional: Reports body ache(s), Reports fatigue, Denies fever(s) and Reports weakness Eyes: Denies change in vision Denies dysphagia Cardiovascular: Denies chest pain and Reports dyspnea Respiratory: Reports chest congestion, Reports cough, Denies hemoptysis, Denies pain on inspiration, Denies pain with cough and Reports dyspnea Gastrointestinal: Denies dysphagia Musculoskeletal: Reports no additional musculoskeletal complaints Reports weakness Endocrine: Reports fatigue Physical Exam Vital Signs: Vital Signs: Last Vital Signs Temp 98.9 F 11/30/21 07:19 Pulse 82 11/30/21 07:19 Resp 20 11/30/21 07:19 BP 125/74 11/30/21 07:19 Pulse Ox 95 11/30/21 07:19 BMI result Body Mass Index 27.2 Const: General: alert Neck: Neck: Yes normal visual inspection, Yes full ROM and Yes no lymphadenopathy Chest: Chest palpation & inspection: normal inspection of the chest Resp: Auscultation: rhonchi, wheezes and diminished lung sounds Cardio: Rate: regular rate Rhythm: regular rhythm Heart sounds: S1 normal heart sound present and S2 normal heart sound present GI: Palpation (GI): Soft to palpation and nontender Auscultation: normal bowel sounds Skin: General skin exam: rashes and/or lesions noted Procedures Date of Service Date of Service: 11/30/21 Assessment and Plan Assessment and plan (1) Acute respiratory failure: Status: Acute (2) Aspiration pneumonia: Status: Acute (3) Polysubstance abuse: Status: Acute (4) COPD exacerbation: Status: Acute Plan Continue antibiotic therapy with ceftriaxone azithromycin. His white count has been coming down Start DuoNebs q.i.d. and as needed Start Solu-Medrol Head of bed elevated Titrate oxygen to maintain a pulse ox above 90% Time Spent With Patient Time: Total time spent is greater than 50% in coordination of care (as documented) at patient's floor/unit and/or counseling patient: Progress Note: Quality Stroke Does the patient have a stroke diagnosis?: No
--- NOTE | 2021-11-30 09:46 | HO.PM.IMPN ---
Subjective Subjective Date of Service: 11/30/21 Interval History: cc: ams, hypxia interval history:weak, sob Cardiovascular Cardiovascular: Reports no additional cardiovascular complaints Gastrointestinal Gastrointestinal: Reports no additional gastrointestinal complaints Physical Exam Vital Signs: Vital Signs: Last Vital Signs Temp 98.9 F 11/30/21 07:19 Pulse 82 11/30/21 07:19 Resp 20 11/30/21 07:19 BP 125/74 11/30/21 07:19 Pulse Ox 95 11/30/21 07:19 BMI result Body Mass Index 27.2 General: lethargic O X 3, dyspneic Resp: Crackles bilateral, mild accessory muscles used CVS: S1,S2,RRR GI: soft, non tender, non distended Neuro: motor grossly intact, alert Psych: appropriate affect, appropriate insight Objective Data Active Medications Acetaminophen (Acetaminophen 325 Mg Tablet) 650 mg PO Q6H PRN PRN Reason: Pain, Mild (Pain Scale 1-3) Albuterol/Ipratropium (Albuterol/Iprat 2.5/0.5mg 3 Ml Ampul.Neb) 3 ml INHALE RQ4H WHILE AWAKE PRN PRN Reason: Shortness of Breath/Wheezing Albuterol/Ipratropium (Albuterol/Iprat 2.5/0.5mg 3 Ml Ampul.Neb) 3 ml INHALE RQ6H WHILE AWAKE [facility] Amlodipine Besylate (Amlodipine Besylate 2.5 Mg Tablet) 2.5 mg PO DAILY [facility]; Protocol Last Admin: 11/30/21 09:24 Dose: 2.5 mg Documented by: MARCELLO Azithromycin (Azithromycin 500 Mg Tablet) 500 mg PO Q24H [facility] Last Admin: 11/30/21 03:44 Dose: 500 mg Documented by: SAM Clonidine HCl (Clonidine Hcl 0.1 Mg Tablet) 0.1 mg PO BID [facility]; Protocol Last Admin: 11/30/21 09:24 Dose: Not Given Documented by: MARCELLO Non-Admin Reason: Patient Refused Enoxaparin Sodium (Enoxaparin Sodium 40 Mg/0.4 Ml Syringe) 40 mg SUBCUT Q24H [facility] Last Admin: 11/30/21 05:37 Dose: Not Given Documented by: SAM Non-Admin Reason: Patient Refused Famotidine (Famotidine/Pf 20 Mg/2 Ml Vial) 20 mg IVPUSH BID [facility] Last Admin: 11/30/21 09:24 Dose: 20 mg Documented by: MARCELLO Hydroxyzine HCl (Hydroxyzine Hcl 25 Mg Tablet) 25 mg PO BID PRN PRN Reason: anxiety Ceftriaxone Sodium 1 gm/ (Sodium Chloride) 100 mls @ 200 mls/hr IV Q24H [facility] Last Infusion: 11/29/21 22:31 Dose: 0 mls/hr Documented by: SAM Methadone HCl (Methadone Hcl 20 Mg/2 Ml Oral.Conc) 50 mg PO DAILY [facility] Last Admin: 11/30/21 09:24 Dose: 50 mg Documented by: MARCELLO Methylprednisolone Sodium Succinate (Methylprednisolone Sod Succ 40 Mg/Ml Vial) 40 mg IVPUSH Q8H [facility] Quetiapine Fumarate (Quetiapine Fumarate 200 Mg Tablet) 200 mg PO BEDTIME [facility] Last Admin: 11/29/21 22:08 Dose: 200 mg Documented by: SAM Senna (Sennosides 8.6 Mg Tablet) 17.2 mg PO BEDTIME PRN PRN Reason: Constipation Sodium Chloride (0.9 % Sodium Chloride Flush 3 Ml Syringe) 3 ml IVFLUSH QSHIFT [facility] Last Admin: 11/30/21 09:25 Dose: 3 ml Documented by: MARCELLO Labs CBC & Chem 7: 11/30/21 06:18 11/30/21 06:18 Labs: Laboratory Results - last 24 hr 11/30/21 11/30/21 06:18 06:18 MCV 92.3 MCH 30.7 MCHC 33.2 RDW 13.1 Plt Count 307 MPV 9.3 L Absolute Nucleated RBC 0.000 Nucleated RBC % (auto) 0.0 Anion Gap 13 Estim Creat Clear Calc 106.4 Estimated GFR > 60 Fasting Glucose 77 Calcium 8.8 D Microbiology Microbiology Results: Microbiology 11/29/21 01:59 Blood Culture - Preliminary Blood - Venous No growth after 24 hours. 11/29/21 01:57 Blood Culture - Preliminary Blood - Venous No growth after 24 hours. Assessment and Plan (1) COPD exacerbation: Status: Acute Plan 51M presented with ams after opiate overdose, found to have hypoxia toxic metabolic encephalopathy due to opiate overdose compllicated by acute hypoxic respiratory failure due to pneumonitis/aspiration pneuomonia, copd with acute decompensation continue rocephin, azithro start solumedrol, duonebs pulm following wean o2 as tolerated mental status back to baseline opiate dependence methadone htn amlodipine clonidine nicotine dependence nicoderm mood disorder seroquel dvt prophylaxis - lovenox full code reason for continued hospitalization: ill appearing with hypoxia still requiring O2 Quality Stroke Does the patient have a stroke diagnosis?: No VTE Prior VTE?: No VTE Risk Level:: Medical - moderate - high VTE Device Contraindication: Treatment Not Indicated VTE Drug Contraindication: N/A - Med Ordered
--- NOTE | 2021-11-30 11:08 | MHC.RECOVRN ---
Met with pt to f/u regarding desire for HEATH tx. Pt reports brother has been assisting to find CSS LOC, specifically at [facility]. Pt aware [facility] may not take pts insurance. Pt informed t/w that brother is willing to help financially and is requesting t/w reach out to [facility] to determine the cost. Will follow up with pt after information is gathered.
[2021-11-30] MEDS: methylPREDNISolone Sod Succ 40 MG/ML VIAL IVPUSH ×2 (11:12→16:46)
--- NOTE | 2021-11-30 14:57 | MHC.RECOVRN ---
Pt provided with information regarding cost of tx at [facility] as well as contact lens inspector if needed. Pt would like to explore other CSS facilities. T/w will assist and send referrals. Will continue to follow.
[2021-11-30] MEDS: Albuterol/Iprat 2.5/0.5MG 3 ML AMPUL.NEB INHALE ×2 (15:04→19:38)
[2021-11-30] MEDS: Gabapentin 300 MG CAPSULE PO ×2 (15:27→21:28)
--- NOTE | 2021-11-30 15:52 | MHC.RECOVRN ---
Referral sent to [facility] for CSS placement. Will continue to follow.
[2021-11-30] MEDS: cefTRIAXone sodium 1 GM in 0.9 % Sodium Chloride 100 ML IV (21:28)
[2021-11-30] MEDS: QUEtiapine Fumarate 200 MG TABLET PO (21:28)
[2021-11-30] MEDS: cloNIDine HCL 0.1 MG TABLET PO (21:28)
[2021-12-01] MEDS: methylPREDNISolone Sod Succ 40 MG/ML VIAL IVPUSH ×3 (01:44→15:56)
[2021-12-01] MEDS: Azithromycin 500 MG TABLET PO (01:44)
[2021-12-01 03:22] VITALS: BP 104/62; PULSE 90; RESP 18; TEMP 37.2; O2SAT 95
[2021-12-01] MEDS: Enoxaparin Sodium 40 MG/0.4 ML SYRINGE SUBCUT (06:03)
[2021-12-01 06:43] LABS: Hematocrit 39.5 % (42.0-52.0); Hemoglobin 13.2 g/dl (14.0-18.0); Mean Corpuscular HGB Conc 33.4 g/dl (31.0-36.0); Mean Corpuscular Hemoglobin 30.3 pg (27.0-33.0); Mean Corpuscular Volume 90.8 fL (80.0-98.0); Mean Platelet Volume 8.8 fL (9.4-12.4); Platelet Count 366 X10*3/uL (160-400); Red Blood Count 4.35 X10*6/uL (4.60-5.80); Red Cell Distribution Width 12.7 % (11.0-16.0); White Blood Count 11.1 X10*3/uL (4.8-10.8)
[2021-12-01 07:06] VITALS: BP 112/67; PULSE 79; RESP 18; TEMP 36.9; O2SAT 93
[2021-12-01 07:32] LABS: Anion Gap 16 (12-20); Blood Urea Nitrogen 17 mg/dL (9-16); Calcium 9.2 mg/dL (8.4-10.2); Carbon Dioxide 23 mmol/L (22-29); Chloride 106 mmol/L (96-108); Creatinine Clr Calc Pharmacy 103.7; Estimated Glomerular Filt Rate > 60; Glucose Fasting 113 mg/dL (60-99); Potassium 4.2 mmol/L (3.3-5.1); Sodium 141 mmol/L (135-145)
[2021-12-01] MEDS: Gabapentin 300 MG CAPSULE PO ×3 (10:12→21:43)
[2021-12-01] MEDS: amLODIPine Besylate 2.5 MG TABLET PO (10:12)
[2021-12-01] MEDS: cloNIDine HCL 0.1 MG TABLET PO ×2 (10:13→21:44)
[2021-12-01] MEDS: Nicotine 21 MG PATCH.TD24 TRANSDERMA (10:13)
[2021-12-01] MEDS: Famotidine/PF 20 MG/2 ML VIAL IVPUSH ×2 (10:13→21:43)
[2021-12-01] MEDS: methADONE HCl 20 MG/2 ML ORAL.CONC 50 MG PO (10:14)
[2021-12-01] MEDS: 0.9 % Sodium Chloride Flush 3 ML SYRINGE IVFLUSH ×3 (10:14→21:46)
[2021-12-01 11:01] VITALS: BP 106/67; PULSE 76; RESP 18; TEMP 36.7; O2SAT 96
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
[2021-12-01] MEDS: Ketorolac Tromethamine 15 MG/ML VIAL IVPUSH (11:43)
[2021-12-01] MEDS: ondansetron HCL 4 MG/2 ML VIAL IVPUSH (11:43)
--- NOTE | 2021-12-01 14:13 | MHC.CM.PN ---
Male 51 DX Acute Hypoxia The Recovery team is actively searching for a Bed. See note Oma Milner flooring sales manager nurse. She reports a facility is looking at him. They have requested 12/02/21 am Labs for review. CM will follow.
--- NOTE | 2021-12-01 14:23 | P.PNIM_ITS ---
Subjective Subjective Date of Service: 12/01/21 Interval History: the patient was seen and evaluated this morning Laying in bed, reported feeling short of breath on Exertion increased anxiety and pain in his abdomen Denies any fever, chills or shortness of breath feels depressed with low mood and thinking about being Systemic review: No fever, chills or weakness No chest pain, palpitation No shortness of breath or coughing but has dyspnea on exertion reporting gallbladder pain No urinary symptoms No any rash or wounds Physical Exam Vital Signs: Vital Signs: Last Vital Signs Temp 98.1 F 12/01/21 11:01 Pulse 76 12/01/21 11:01 Resp 18 12/01/21 11:01 BP 106/67 12/01/21 11:01 Pulse Ox 96 12/01/21 11:01 BMI result Body Mass Index 27.2 Const: Other: Constitutional : Alert, oriented, mildly an distress Neck : Normal inspection, Supple Cardiovascular : RRR, S1 S2, no lower extremity edema Respiratory : Fares bilateral air entry, no crackles, expiratory wheezes or rhonchi Gastrointestinal: soft, lax, Normal bowel sounds, mild epigastric tenderness with no surgical signs Skin : Warm, Dry Neurological : Alert & oriented x3, No focal deficit Objective Data Active Medications Acetaminophen (Acetaminophen 325 Mg Tablet) 650 mg PO Q6H PRN PRN Reason: Pain, Mild (Pain Scale 1-3) Albuterol/Ipratropium (Albuterol/Iprat 2.5/0.5mg 3 Ml Ampul.Neb) 3 ml INHALE RQ4H WHILE AWAKE PRN PRN Reason: Shortness of Breath/Wheezing Albuterol/Ipratropium (Albuterol/Iprat 2.5/0.5mg 3 Ml Ampul.Neb) 3 ml INHALE RQ6H WHILE AWAKE [facility] Last Admin: 12/01/21 07:33 Dose: Not Given Documented by: EDD Non-Admin Reason: Patient Asleep Amlodipine Besylate (Amlodipine Besylate 2.5 Mg Tablet) 2.5 mg PO DAILY [facility]; Protocol Last Admin: 12/01/21 10:12 Dose: 2.5 mg Documented by: DEEDEE Azithromycin (Azithromycin 500 Mg Tablet) 500 mg PO Q24H [facility] Last Admin: 12/01/21 01:44 Dose: 500 mg Documented by: LATOYA Clonidine HCl (Clonidine Hcl 0.1 Mg Tablet) 0.1 mg PO BID [facility]; Protocol Last Admin: 12/01/21 10:13 Dose: 0.1 mg Documented by: DEEDEE Enoxaparin Sodium (Enoxaparin Sodium 40 Mg/0.4 Ml Syringe) 40 mg SUBCUT Q24H [facility] Last Admin: 12/01/21 06:03 Dose: 40 mg Documented by: LATOYA Famotidine (Famotidine/Pf 20 Mg/2 Ml Vial) 20 mg IVPUSH BID [facility] Last Admin: 12/01/21 10:13 Dose: 20 mg Documented by: DEEDEE Gabapentin (Gabapentin 300 Mg Capsule) 300 mg PO TID [facility] Last Admin: 12/01/21 10:12 Dose: 300 mg Documented by: DEEDEE Hydroxyzine HCl (Hydroxyzine Hcl 25 Mg Tablet) 25 mg PO BID PRN PRN Reason: anxiety Ceftriaxone Sodium 1 gm/ (Sodium Chloride) 100 mls @ 200 mls/hr IV Q24H [facility] Last Infusion: 11/30/21 22:11 Dose: 0 mls/hr Documented by: LATOYA Methadone HCl (Methadone Hcl 20 Mg/2 Ml Oral.Conc) 50 mg PO DAILY [facility] Last Admin: 12/01/21 10:14 Dose: 50 mg Documented by: DEEDEE Methylprednisolone Sodium Succinate (Methylprednisolone Sod Succ 40 Mg/Ml Vial) 40 mg IVPUSH Q8H [facility] Last Admin: 12/01/21 10:13 Dose: 40 mg Documented by: DEEDEE Nicotine (Nicotine 21 Mg Patch.Td24) 21 mg TRANSDERMA DAILY [facility] Last Admin: 12/01/21 10:13 Dose: 21 mg Documented by: DEEDEE Quetiapine Fumarate (Quetiapine Fumarate 200 Mg Tablet) 200 mg PO BEDTIME [facility] Last Admin: 11/30/21 21:28 Dose: 200 mg Documented by: LATOYA Senna (Sennosides 8.6 Mg Tablet) 17.2 mg PO BEDTIME PRN PRN Reason: Constipation Sodium Chloride (0.9 % Sodium Chloride Flush 3 Ml Syringe) 3 ml IVFLUSH QSHIFT [facility] Last Admin: 12/01/21 10:14 Dose: 3 ml Documented by: DEEDEE Labs CBC & Chem 7: 12/01/21 06:05 12/01/21 06:05 Labs: Laboratory Results - last 24 hr 12/01/21 12/01/21 06:05 06:05 MCV 90.8 MCH 30.3 MCHC 33.4 RDW 12.7 Plt Count 366 MPV 8.8 L Absolute Nucleated RBC 0.000 Nucleated RBC % (auto) 0.0 Anion Gap 16 Estim Creat Clear Calc 103.7 Estimated GFR > 60 Fasting Glucose 113 H D Calcium 9.2 Microbiology Microbiology Results: Microbiology 11/29/21 01:59 Blood Culture - Preliminary Blood - Venous No growth after 48 hours. 11/29/21 01:57 Blood Culture - Preliminary Blood - Venous No growth after 48 hours. Assessment and Plan (1) COPD exacerbation: Status: Acute (2) Acute respiratory failure: Status: Acute (3) Aspiration pneumonia: Status: Acute Plan 51M presented with ams after opiate overdose, found to have hypoxia toxic metabolic encephalopathy, resolved due to opiate overdose compllicated by acute hypoxic respiratory failure due to pneumonitis/aspiration pneuomonia, copd with acute decompensation continue rocephin, azithro continue solumedrol, duonebs pulm following wean o2 as tolerated mental status back to baseline depression To get care team evaluation opiate dependence Addiction team input appreciated , plan to place in [facility] facility methadone htn amlodipine clonidine nicotine dependence nicoderm mood disorder seroquel dvt prophylaxis - lovenox full code reason for continued hospitalization: increased anxiety and feeling unsafe , still requiring treatment for his respiratory symptoms, pending safe discharge plan and placement. Quality Stroke Does the patient have a stroke diagnosis?: No VTE Prior VTE?: No VTE Risk Level:: Medical - moderate - high VTE Device Contraindication: Treatment Not Indicated VTE Drug Contraindication: N/A - Med Ordered
[2021-12-01] MEDS: hydrOXYzine HCL 25 MG TABLET PO (15:02)
[2021-12-01 15:31] VITALS: BP 123/74; PULSE 64; RESP 16; TEMP 37; O2SAT 96
--- NOTE | 2021-12-01 16:03 | MHC.CARE ---
Patient evaluated by CARE Team, at this time he appears too unstable for discharge to [facility] and wants inpatient psychiatric instead. Will be seen again tomorrow to determine final disposition.
[2021-12-01 19:15] VITALS: BP 116/69; PULSE 64; RESP 16; TEMP 36.8; O2SAT 92
[2021-12-01] MEDS: QUEtiapine Fumarate 200 MG TABLET PO (21:43)
[2021-12-01] MEDS: cefTRIAXone sodium 1 GM in 0.9 % Sodium Chloride 100 ML IV (21:51)
[2021-12-01 23:31] VITALS: BP 103/70; PULSE 72; RESP 18; TEMP 36.4; O2SAT 93
[2021-12-02] MEDS: Azithromycin 500 MG TABLET PO (03:29)
[2021-12-02] MEDS: methylPREDNISolone Sod Succ 40 MG/ML VIAL IVPUSH ×2 (03:29→09:06)
[2021-12-02 03:54] VITALS: PULSE 69; RESP 18; TEMP 37.1; O2SAT 94
[2021-12-02] MEDS: Enoxaparin Sodium 40 MG/0.4 ML SYRINGE SUBCUT (05:32)
[2021-12-02 07:10] VITALS: BP 129/76; PULSE 77; RESP 19; TEMP 36.7; O2SAT 94
--- NOTE | 2021-12-02 08:45 | MHC.CARE ---
Plan for Pt to be psychiatrically admitted.
[2021-12-02] MEDS: amLODIPine Besylate 2.5 MG TABLET PO (09:06)
[2021-12-02] MEDS: Gabapentin 300 MG CAPSULE PO (09:06)
[2021-12-02] MEDS: Famotidine/PF 20 MG/2 ML VIAL IVPUSH (09:06)
[2021-12-02] MEDS: Nicotine 21 MG PATCH.TD24 TRANSDERMA (09:06)
[2021-12-02] MEDS: methADONE HCl 20 MG/2 ML ORAL.CONC 50 MG PO (09:07)
[2021-12-02] MEDS: 0.9 % Sodium Chloride Flush 3 ML SYRINGE IVFLUSH (09:07)
--- NOTE | 2021-12-02 11:21 | MHC.CM.PN ---
Per ROUNDS discussion, Patient will be dc to Psych/[facility] today.
[2021-12-02 11:46] VITALS: BP 124/78; PULSE 69; RESP 19; TEMP 37.1; O2SAT 96
--- NOTE | 2021-12-02 12:07 | PM.DS ---
DS: Providers Provider Date of Service: 12/02/21 Date of admission: 11/29/21 02:29 Primary care physician: [facility] Consults: 11/29/21 01:00 Consult to Care Team Stat Comment: Reason for consultation: SUDS 11/29/21 02:29 Consult to Pulmonology Routine Consulting Provider: Stacey Lockett Reason for consultation: pneumonitis 11/29/21 02:45 Addiction Medicine Routine Consulting Provider: Justa Guillen Reason for consultation: Substance abuse 12/01/21 10:13 Consult to Care Team Routine Comment: Reason for consultation: depressed mode, feels like dying for your kind lorriane DS: Diagnosis Discharge Diagnosis (1) COPD exacerbation: Status: Acute (2) Acute respiratory failure: Status: Acute (3) Aspiration pneumonia: Status: Acute (4) Polysubstance abuse: Status: Acute (5) Anxiety: Status: Acute DS: Summary Hospital Course Hospital Course: admission note HPI 51-year-old male with no significant past medical history presented to the hospital with a chief complaint of fentanyl overdose.? Patient reports that for the past 1 week he has been using fentanyl; today if had fentanyl overdose; mentioned he lost consciousness; later mention he received Narcan at the field; EMS was called in and came to the hospital for further evaluation.? Reports he has been having shortness of breath, chest discomfort.?Denies any cough or sputum production.?Denies ? any chest pain or palpitations.? Denies any lightheadedness dizziness.? Denies any fever chills cough.? Denies any GI symptoms.? Per ER team mentioned that patient got Narcan by the police; subsequently EMS was called in and brought him to the hospital for further evaluation.? Patient on presentation noted to be tachycardic; while he was in the ER he is oxygen dropped to mid 80s; chest x-ray showed bilateral opacities; CT head showed no acute intracranial process.? Admitted to the hospital for further management Hospital course The patient was admitted to the hospital for episode of syncope in altered mentation after abusing fentanyl. Was found to have evidence of aspiration pneumonia and COPD exacerbation that was treated with IV antibiotics, steroids and bronchodilator nebulizers with good response over the course of hospital stay as he was weaned of oxygen and was able to ambulate on room air with no reported shortness of breath. The patient was seen by the Addiction Team for history of polysubstance abuse and continued on his methadone with primary plan to discharge him to facility to help with the abuse but he reported feeling very anxious and worried about so he was evaluated by the care team who decided to take him to the psych unit for further evaluation and treatment. Plan to continue azithromycin, cefuroxime mean and steroids for the next 3 days. Time Spent with Patient Time attestation: Total time spent providing and/or coordinating discharge services: Discharge coordination time: Greater than 30 minutes Quality: Safe Use of Opioids Does Pt have an Active Cancer Diagnosis on the Problem List?: No Quality: Stroke Does the patient have a stroke diagnosis?: No Physical Exam Vital Signs: Vital Signs: Last Vital Signs Temp 98.7 F 12/02/21 11:46 Pulse 69 12/02/21 11:46 Resp 19 12/02/21 11:46 BP 124/78 12/02/21 11:46 Pulse Ox 96 12/02/21 11:46 BMI result Body Mass Index 27.2 Const: Other: Constitutional : Alert, oriented, Not in distress Neck : Normal inspection, Supple Cardiovascular : RRR, S1 S2, no lower extremity edema Respiratory : Fares bilateral air entry, no crackles, expiratory wheezes or rhonchi Gastrointestinal: soft, lax, Normal bowel sounds, no tenderness Skin : Warm, Dry Neurological : Alert & oriented x3, No focal deficit DS: Data Data Completed and Pending Labs on day of discharge: Preliminary micro results at discharge 11/29/21 01:59 Blood Culture - Preliminary Blood - Venous No growth after 48 hours. 11/29/21 01:57 Blood Culture - Preliminary Blood - Venous No growth after 48 hours. Discharge Plan Discharge Disposition: Xfer Psychiatric Hosp Referrals: [facility] [Primary Care Provider] - 1 Week Discharge Medications: New ipratropium-albuterol 0.5 mg-3 mg(2.5 mg base)/3 mL Solution For Nebulization 3 ml inhalation RQ4H WHILE AWAKE PRN (Reason: Shortness Of Breath/Wheezing) 7 Days 0RF azithromycin 500 mg Tablet 500 mg PO Q24H Qty: 3 0RF cefuroxime axetil 250 mg tablet 250 mg PO BID 3 Days Qty: 6 0RF prednisone 20 mg tablet 40 mg PO DAILY 3 Days Qty: 6 0RF omeprazole 20 mg capsule,delayed release(DR/EC) 20 mg PO DAILY Qty: 30 0RF Continued clonidine HCl 0.1 mg tablet 1 tab PO BID 0RF quetiapine 200 mg tablet 1 tab PO BEDTIME 0RF amlodipine 2.5 mg tablet 1 tab PO DAILY 0RF nicotine 21 mg/24 hr patch 24 hour 21 mg topical DAILY 0RF hydroxyzine HCl 25 mg tablet 1 tab PO BID PRN (Reason: anxiety) 0RF ondansetron 4 mg tablet,disintegrating 1 tab PO Q8H PRN (Reason: nausea/vomiting) 0RF naloxone [Narcan] 4 mg/actuation spray,non-aerosol 1 spray intranasal ONCE PRN (Reason: Opioid Overdose) 0RF gabapentin 300 mg Capsule 300 mg PO TID 0RF methadone 10 mg/mL Concentrate 0 mg PO DAILY 0RF Rx Instructions: WILL NEED TO VERIFY WITH [facility] Discharge Orders: Discharge Order (Routine); Ordered 12/02/21 Ordered By: Perico Stephenson Forms: Patient Portal Discharge page
[2021-12-02 12:36] LABS: COVID-19 Test Negative (Negative); IDNOW Serial# 55D5AD1C
== END 2021-12-02 14:24 | DRG 812 ==
LOC: HO.ED 02:52 → HO.EDOVER 03:37 → HO.IMC 16:25
PROVIDERS: Internal Medicine; Physician Assistant; Admitting Provider Hospitalist; Emergency Provider Student in an Organized Health Care Education/Training Program; Visit Provider Student in an Organized Health Care Education/Training Program
DX: T40.411A Poisoning by fentanyl or fentanyl analogs, accidental (unintentional), initial encounter (principal); J96.01 Acute respiratory failure with hypoxia; G92.8 Other toxic encephalopathy; I10 Essential (primary) hypertension; J68.0 Bronchitis and pneumonitis due to chemicals, gases, fumes and vapors; F41.9 Anxiety disorder, unspecified; F39 Unspecified mood [affective] disorder; J44.1 Chronic obstructive pulmonary disease with (acute) exacerbation; F11.20 Opioid dependence, uncomplicated; F17.210 Nicotine dependence, cigarettes, uncomplicated; Z71.6 Tobacco abuse counseling; Z20.822 Contact with and (suspected) exposure to COVID-19; Z59.02 Unsheltered homelessness; Z79.52 Long term (current) use of systemic steroids; Z79.899 Other long term (current) drug therapy
CPT/HCPCS: 36415; 70450; 71045; 71260; 74177; 80048; 80053; 80307; 81003; 82077; 83605; 83880; 84145; 84484; 85025; 85027; 85379; 87040; 87635; 93005; 96365; 96367; 96375; 99285; J0696; J1650; J1885; J1940; J2405; J2543; J2920; Q9967

== ENCOUNTER 2021-12-02 14:34 | Inpatient (IN) | payer OTHER, SELFPAY ==
--- NOTE | ~2021-12-02 | CT_ITS ---
EXAMINATION: CT CHEST WITHOUT CONTRAST CLINICAL INFORMATION: Cough and leukocytosis COMPARISON: CT chest, abdomen and pelvis 11/29/2021 TECHNIQUE: Multidetector volumetric CT imaging of the chest was done. Axial MIP volume rendering provided. Sagittal and coronal reformatted images were obtained. This CT examination was performed using dose optimization techniques as appropriate, variously including the following: *Automated exposure control *Adjustment of mA and/or kV according to patient size (this includes techniques or standardized protocols for targeted exams where dose is matched to indication/reason for exam; i.e. extremities or head) *Use of iterative reconstruction technique DLP: 338 mGy-cm FINDINGS: LUNGS: There is been resolution of the right middle lobe consolidation and lingular consolidation since the prior study. There is new extensive tree-in-bud type opacities in the right upper lobe with surrounding groundglass changes suggestive of bronchopneumonia. Some new similar findings are present in the right lower lobe as well. MEDIASTINUM: A mildly enlarged right precarinal lymph node has decreased in size since the prior study. There is no mediastinal or hilar lymphadenopathy. PLEURA: There is no pleural effusion. No pleural mass or thickening. AXILLA: No lymphadenopathy. UPPER ABDOMEN: Unremarkable. OSSEOUS STRUCTURES: Unremarkable. CT/CT chest wo con IMPRESSION: Resolution of prior consolidations in the lingula and middle lobe with new bronchovascular distribution opacities with surrounding groundglass changes right upper lobe. Findings are suggestive of bronchopneumonia. Fleischner guidelines were followed.
--- NOTE | ~2021-12-02 | XR_ITS ---
EXAMINATION: XR FOOT, RIGHT CLINICAL INFORMATION: Trauma to the small toe COMPARISON: None TECHNIQUE: AP, lateral, and oblique views of the right foot. FINDINGS: The bones and soft tissues are normal. No fracture. Alignment is anatomic. Joint spaces are maintained. XR/XR foot RT 2V IMPRESSION: Normal right foot.
--- NOTE | ~2021-12-02 | XR_ITS ---
EXAMINATION: XR ABDOMEN KUB CLINICAL INDICATION: Bloating; constipation COMPARISON: None TECHNIQUE: AP view of the abdomen. FINDINGS: The bowel gas pattern is normal with no evidence of ileus or obstruction. No unusual soft tissue calcifications are noted. The bones are unremarkable. XR/XR KUB IMPRESSION: Unremarkable examination.
--- NOTE | 2021-12-02 14:50 | HO.PSYADMNOT ---
HPI Date of Service: 12/02/21 Chief Complaint: PTSD Sources of Information: patient interviewed, chart reviewed and crisis/core team assessment reviewed HPI Subjective Notes: Pandey Warning and Conditional Voluntary Narrative: Mr. Rodriguez is a 51 year-old male with hx of opioid use disorder, MDD who was brought via EMS on 11/29/21 to [facility] Per ED note, pt had reported that he used fentanyl and accidentally OD, when woke up he went to police and asked them to give him more narcan. Police sent him to [facility] [place]. In the ED his utox was positive for fentanyl, opioids and cocaine. He was found to have aspiration pneumonia and acute axacerbation of COPD. He was admitted medically, treated with combination of antibiotics, nebulizers and prednisone. Pt has been successfully weaned of oxygen for past 2 days, and able to ambulate on room air without shortness of breath. He is to be continued on azithromycin, cefuroxim and prednisone for next 3 days. While on medical floor, pt reported feeling anxious, passive SI. On the unit, Mr. Rodriguez reports that he feels paranoid. Pt reports that day he was brought to hospital he was feeling as if I was already and people were laughing at me. Pt reports hearing voices since 2009. He reports voices at times independent of substance use. He reports fair sleep. He reports poor appetite. He reports feeling tired. He endorses feeling anxious. He denies SI/HI. He continues to report feeling anxious as he states being on unit with people he does not know makes him feel more anxious. He also becomes tearful as he talks about his brothers with whom he has limited contact due to his ongoing substance use. He endorses feeling depressed. Past Psychiatric History: Inpatient: 2020 [facility]; [facility] 2020; M5 2018 OP: none currently, PCP prescribing seroquel Suicide attempts: 2018 cut his wrist. Past medication trials: seroquel. Medical Evaluation Reviewed: Yes PMFSH Surgical History S/P ACL reconstruction Family History: mother with AD Social History: currently homeless. No children. Completed GED, not working. Source of income is SSI. He has 2 brothers with whom he has limited contact due to ongoing use of substances. Substance History: OPioids- on and off for the past 30 years, reports sniffing fentanyl daily about one bundle a day. reports methadone helps. Cocaine: sporadic use, just one line Alcohol: reports no use for past 9 years. Trauma History: unknown Meds/Allergies Meds Home Medications Acetaminophen (Acetaminophen 325 Mg Tablet) 650 mg PO Q6H PRN PRN Reason: Headache/Pain Mild Scale (1-3) Al Hydroxide/Mg Hydroxide (Magnesium Hydrox/Alum Hydrox 30 Ml Oral.Susp) 30 ml PO Q6H PRN PRN Reason: Heartburn/Nausea Albuterol/Ipratropium (Albuterol/Iprat 2.5/0.5mg 3 Ml Ampul.Neb) 3 ml INHALE RQ4H WHILE AWAKE PRN PRN Reason: Shortness of Breath/Wheezing Amlodipine Besylate (Amlodipine Besylate 2.5 Mg Tablet) 2.5 mg PO DAILY [facility]; Protocol Azithromycin (Azithromycin 500 Mg Tablet) 500 mg PO Q24H [facility] Stop: 12/05/21 09:01 Cefuroxime Axetil (Cefuroxime Axetil 250 Mg Tablet) 250 mg PO Q12H [facility] Stop: 12/05/21 07:01 Clonidine HCl (Clonidine Hcl 0.1 Mg Tablet) 0.1 mg PO BID [facility]; Protocol Gabapentin (Gabapentin 300 Mg Capsule) 300 mg PO TID [facility] Hydroxyzine HCl (Hydroxyzine Hcl 25 Mg Tablet) 25 mg PO BID PRN PRN Reason: anxiety Magnesium Hydroxide (Milk Of Magnesia 30 Ml Oral.Susp) 30 ml PO DAILY PRN PRN Reason: Constipation Methadone HCl (Methadone Hcl 20 Mg/2 Ml Oral.Conc) 50 mg PO DAILY [facility] Nicotine (Nicotine 21 Mg Patch.Td24) 21 mg TRANSDERMA DAILY [facility] Omeprazole (Omeprazole 20 Mg Capsule.Dr) 20 mg PO DAILY@0630 [facility] Prednisone (Prednisone 20 Mg Tablet) 40 mg PO DAILY [facility] Stop: 12/06/21 08:59 Quetiapine Fumarate (Quetiapine Fumarate 200 Mg Tablet) 200 mg PO BEDTIME [facility] Senna (Sennosides 8.6 Mg Tablet) 17.2 mg PO BEDTIME PRN PRN Reason: Constipation Trazodone HCl (Trazodone Hcl 50 Mg Tablet) 50 mg PO BEDTIME PRN PRN Reason: Insomnia Allergies Allergies Allergy/AdvReac Type Severity Reaction Status Date / Time diclofenac [From Voltaren] Allergy Mild NAUSEA, Verified 11/29/21 01:46 nausea and vomiting naproxen Allergy Unknown nausea and Verified 11/29/21 01:46 vomiting fluoxetine [From Prozac] Allergy Rash Verified 11/29/21 01:46 VELVET Allergy Mild HIVES Uncoded 05/14/20 14:58 Diclofenac Sodium Allergy Unknown unknown Uncoded 11/08/21 10:21 Mental Status Exam Mental Status Exam Narrative: Appearance: appears stated age, wearing hospital gown, fair hygiene in NAD Behavior:cooperative psychomotor:no agitation or retardation noted Speech:clear, normal rate/rhythm/volume, spontaneous Thought process:mostly linear Thought content:hearing voices, feeling paranoid Mood: anxious Affect: congruent, somewhat restless SI:passive no plan or intent HI:none VH/AH:AH- no command in nature Delusions:paranoia- more suspiciousness than well formed delusional system Insight/judgment:fair x 2. Memory/cog: alert, oriented x 3. may benefit from MOCA. Assessment & Plan Assessment & Plan (1) Opioid use disorder, severe, dependence: Status: Acute Code(s): F11.20 - Opioid dependence, uncomplicated (2) MDD (major depressive disorder), recurrent, severe, with psychosis: Status: Acute Code(s): F33.3 - Major depressive disorder, recurrent, severe with psychotic symptoms Plan Mr. Rodriguez is a 51 year-old male with hx of opiod use disorder, cocaine use disorder, MDD with psychosis who was brought via ems to [facility] [place] after he contacted police and reported accidental OD on fentanyl. Pt admitted medically for aspiration pneumonia and exacerbation of COPD. Pt presents as anxious, reports he thought he was and people were talking about him. We discussed probable delirium due to hypoxia. However, he also reports he has been hearing voices of people who are not there since 2009. He continues to endorse anxious mood, feeling paranoid, although it appears more suspiciousness than complex delusional system. we discussed risks, benefits and alternative treatment options. Pt agrees to start risperidone for psychosis. He states in the past he has been on seroquel mostly for sleep- although not as effective for voices. PLAN 1. Admit to M3, CV, 15 minutes checks for safety 2. Start risperidone 0.5mg po BID- titrate as tolerated. 3. continue seroquel 100mg po qhs 4. obtain collateral information 5. after care planning. Patient educated on: diagnosis and substance abuse Reason for continued inpatient stay Substantial Risk for: harm to self and inability to function
[2021-12-02] MEDS: polyethylene glycoL 3350 17 GM POWD.PACK PO (16:07)
[2021-12-02] MEDS: risperiDONE 0.5 MG TABLET PO ×2 (16:08→21:07)
[2021-12-02] MEDS: Gabapentin 300 MG CAPSULE PO ×2 (16:08→21:07)
[2021-12-02 16:14] VITALS: PULSE 72; RESP 18; O2SAT 95
[2021-12-02] MEDS: Albuterol/Iprat 2.5/0.5MG 3 ML AMPUL.NEB INHALE (16:14)
[2021-12-02 17:32] VITALS: BMI 26.9
--- NOTE | 2021-12-02 18:05 | PC.NURSE ---
Ronaldo is admitted to M3 on CV from IM at [facility] [place] following an overdose on fentanyl on 11/29/21. He was evaluated in our ED with CAT scans and CXR indicating pnuemonitis, COPD, and moderate white matter ischemic changes. HE was admitted medically for tx of his respiratory issues including nebulizer treatments, IV abx, and IV steroids. He was medically cleared today but assessed to be in need of IPLOC for depression and suicidality. On arrival to the unit Ronaldo is alert, fully oriented, pleasant and cooperative with admission process. He is dressed in hospital garb and belongings were sent to [facility] per hospital policy. Ronaldo confirms a passive wish but no active ideation, plan or intent to harm himself or others. He reports he is struggling with disturbing vivid memories and repetitive thoughts about his experience during his overdose. Ronaldo is homeless, has little contact with family and is unemployed. He quit drinking 9 years ago. He has been on suboxone and methadone in the past and was able to maintain sobriety during that treatment. He is interested in continuing MAT, establishing providers, possibly going to [facility] after discharge. Ronaldo continues to cough, wheeze and report SOB with exertion. He has an albuterol neb treatment at 1614 with little effect on his subjective experience but o2 sat is 96% on room aior.
[2021-12-02 21:04] VITALS: BP 139/84; PULSE 62; RESP 18; TEMP 36.2; O2SAT 98
[2021-12-02] MEDS: QUEtiapine Fumarate 200 MG TABLET PO (21:07)
[2021-12-02] MEDS: cloNIDine HCL 0.1 MG TABLET PO (21:07)
[2021-12-03 08:06] VITALS: BP 112/65; PULSE 68; RESP 18; TEMP 36.7; O2SAT 97
[2021-12-03] MEDS: cloNIDine HCL 0.1 MG TABLET PO ×2 (08:12→20:38)
[2021-12-03] MEDS: risperiDONE 0.5 MG TABLET PO (08:12)
[2021-12-03] MEDS: Azithromycin 500 MG TABLET PO (08:12)
[2021-12-03] MEDS: Gabapentin 300 MG CAPSULE PO ×3 (08:13→20:37)
[2021-12-03] MEDS: Omeprazole 20 MG CAPSULE.DR PO (08:13)
[2021-12-03] MEDS: predniSONE 20 MG TABLET 40 MG PO (08:14)
[2021-12-03] MEDS: amLODIPine Besylate 2.5 MG TABLET PO (08:14)
[2021-12-03] MEDS: Nicotine 21 MG PATCH.TD24 TRANSDERMA (08:15)
[2021-12-03] MEDS: polyethylene glycoL 3350 17 GM POWD.PACK PO (08:15)
[2021-12-03] MEDS: methADONE HCl 20 MG/2 ML ORAL.CONC 50 MG PO (08:19)
[2021-12-03 08:53] LABS: Estimated Average Glucose 103 mg/dL; Hemoglobin A1c % 5.2 %
[2021-12-03 08:56] LABS: Alanine Aminotransferase 30 U/L (0-40); Albumin Level 4.3 g/dL (3.5-5.0); Alkaline Phosphatase 72 U/L (39-117); Anion Gap 11 (12-20); Aspartate Amino Transferase 14 U/L (5-37); Bilirubin Total 0.3 mg/dL (0.0-1.0); Blood Urea Nitrogen 23 mg/dL (9-16); Calcium 9.6 mg/dL (8.4-10.2); Carbon Dioxide 30 mmol/L (22-29); Chloride 103 mmol/L (96-108); Cholesterol 206 mg/dL; Creatinine Clr Calc Pharmacy 87.7; Estimated Glomerular Filt Rate > 60; Glucose Fasting 67 mg/dL (60-99); HDL Cholesterol 32 mg/dL; LDL Cholesterol Calculated 144 mg/dl; Potassium 4.4 mmol/L (3.3-5.1); Sodium 140 mmol/L (135-145); Total Protein 7.6 g/dL (6.5-8.0); Triglycerides 152 mg/dL
[2021-12-03 09:18] LABS: Thyroid Stimulating Hormone 2.92 uIU/mL (0.32-4.0)
[2021-12-03 09:30] LABS: Folate 12.2 ng/mL (> or = 4.0); Vitamin B12 454 pg/mL (200-900)
[2021-12-03] MEDS: hydrOXYzine HCL 25 MG TABLET PO ×2 (11:55→20:37)
--- NOTE | 2021-12-03 12:25 | HO.PSYCHPN ---
Subjective Subjective Date of Service: 12/03/21 Reason For Visit: PTSD Subjective Notes: Conditional Voluntary Interim History: Pt reports feeling slightly calmer today. He reports yesterday was last time he heard voices was yesterday, mostly male voice telling him you're stuck here. He reports he slept better but roommate snores. He reports feeling more optimistic about his future. He denies SI/HI. He reports feeling less paranoia. He reports feeling anxious at times, using atarax with fair effect. Per nursing, no behavioral concerns. Medication Compliance: Yes Review of Systems Constitutional: Reports fatigue and Reports poor appetite Eyes: Reports no additional eye complaints Reports sore throat Cardiovascular: Denies chest pain, Denies leg edema, Denies lightheadedness and Denies dyspnea Respiratory: Reports cough and Denies dyspnea Gastrointestinal: Reports constipation Musculoskeletal: Reports arthralgias (left knee) Endocrine: Reports fatigue Mental Status Exam Mental Status Exam Narrative: Appearance: appears stated age, wearing hospital gown, fair hygiene in NAD Behavior:cooperative psychomotor:no agitation or retardation noted Speech:clear, normal rate/rhythm/volume, spontaneous Thought process:mostly linear Thought content:hearing voices, feeling paranoid Mood: anxious Affect: congruent, somewhat restless SI:passive no plan or intent HI:none VH/AH:AH- no command in nature Delusions:paranoia- more suspiciousness than well formed delusional system Insight/judgment:fair x 2. Memory/cog: alert, oriented x 3. may benefit from MOCA. Diagnostics Vital Signs (24Hr): Vital Signs - 24 hr 12/02/21 16:14 12/02/21 21:04 12/03/21 08:06 Temperature 97.2 F 98.0 F Pulse Rate 72 62 68 Respiratory Rate 18 18 18 Blood Pressure 139/84 112/65 Pulse Oximetry 98 97 BMI result Body Mass Index 26.9 Labs Results: 12/03/21 08:24 Labs: Laboratory Results - last 48 hr 12/03/21 12/03/21 12/03/21 08:24 08:24 08:24 Sodium 140 Potassium 4.4 Chloride 103 Carbon Dioxide 30 H Anion Gap 11 L BUN 23 H Creatinine 0.91 Estim Creat Clear Calc 87.7 Estimated GFR > 60 Fasting Glucose 67 D Estimat Average Glucose 103 Hemoglobin A1c % 5.2 Calcium 9.6 Total Bilirubin 0.3 AST 14 D ALT 30 Alkaline Phosphatase 72 Total Protein 7.6 Albumin 4.3 Triglycerides 152 Cholesterol 206 LDL Cholesterol, Calc 144 HDL Cholesterol 32 Vitamin B12 454 Folate 12.2 TSH 2.92 Medications Medications Current Medications Acetaminophen (Acetaminophen 325 Mg Tablet) 650 mg PO Q6H PRN PRN Reason: Headache/Pain Mild Scale (1-3) Al Hydroxide/Mg Hydroxide (Magnesium Hydrox/Alum Hydrox 30 Ml Oral.Susp) 30 ml PO Q6H PRN PRN Reason: Heartburn/Nausea Albuterol/Ipratropium (Albuterol/Iprat 2.5/0.5mg 3 Ml Ampul.Neb) 3 ml INHALE RQ4H WHILE AWAKE PRN PRN Reason: Shortness of Breath/Wheezing Last Admin: 12/02/21 16:14 Dose: 3 ml Documented by: Amlodipine Besylate (Amlodipine Besylate 2.5 Mg Tablet) 2.5 mg PO DAILY [facility]; Protocol Last Admin: 12/03/21 08:14 Dose: 2.5 mg Documented by: Azithromycin (Azithromycin 500 Mg Tablet) 500 mg PO Q24H [facility] Stop: 12/05/21 09:01 Last Admin: 12/03/21 08:12 Dose: 500 mg Documented by: Cefuroxime Axetil (Cefuroxime Axetil 250 Mg Tablet) 250 mg PO Q12H [facility] Stop: 12/05/21 07:01 Last Admin: 12/03/21 08:14 Dose: 250 mg Documented by: Clonidine HCl (Clonidine Hcl 0.1 Mg Tablet) 0.1 mg PO BID [facility]; Protocol Last Admin: 12/03/21 08:12 Dose: 0.1 mg Documented by: Gabapentin (Gabapentin 300 Mg Capsule) 300 mg PO TID [facility] Last Admin: 12/03/21 08:13 Dose: 300 mg Documented by: Hydroxyzine HCl (Hydroxyzine Hcl 25 Mg Tablet) 25 mg PO BID PRN PRN Reason: anxiety Last Admin: 12/03/21 11:55 Dose: 25 mg Documented by: Magnesium Hydroxide (Milk Of Magnesia 30 Ml Oral.Susp) 30 ml PO DAILY PRN PRN Reason: Constipation Methadone HCl (Methadone Hcl 20 Mg/2 Ml Oral.Conc) 50 mg PO DAILY [facility] Last Admin: 12/03/21 08:19 Dose: 50 mg Documented by: Nicotine (Nicotine 21 Mg Patch.Td24) 21 mg TRANSDERMA DAILY [facility] Last Admin: 12/03/21 08:15 Dose: 21 mg Documented by: Nicotine Polacrilex (Nicotine Polacrilex 2 Mg Gum) 2 mg BUCCAL Q1H PRN PRN Reason: Nicotine Cravings Omeprazole (Omeprazole 20 Mg Capsule.Dr) 20 mg PO DAILY@0630 [facility] Last Admin: 12/03/21 08:13 Dose: 20 mg Documented by: Polyethylene Glycol (Polyethylene Glycol 3350 17 Gm Powd.Pack) 17 gm PO DAILY [facility] Last Admin: 12/03/21 08:15 Dose: 17 gm Documented by: Prednisone (Prednisone 20 Mg Tablet) 40 mg PO DAILY [facility] Stop: 12/06/21 08:59 Last Admin: 12/03/21 08:14 Dose: 40 mg Documented by: Quetiapine Fumarate (Quetiapine Fumarate 200 Mg Tablet) 200 mg PO BEDTIME [facility] Last Admin: 12/02/21 21:07 Dose: 200 mg Documented by: Risperidone (Risperidone 0.5 Mg Tablet) 0.5 mg PO BID [facility] Last Admin: 12/03/21 08:12 Dose: 0.5 mg Documented by: Senna (Sennosides 8.6 Mg Tablet) 17.2 mg PO BEDTIME PRN PRN Reason: Constipation Trazodone HCl (Trazodone Hcl 50 Mg Tablet) 50 mg PO BEDTIME PRN PRN Reason: Insomnia Allergies Allergies Allergy/AdvReac Type Severity Reaction Status Date / Time diclofenac [From Voltaren] Allergy Mild NAUSEA, Verified 11/29/21 01:46 nausea and vomiting naproxen Allergy Unknown nausea and Verified 11/29/21 01:46 vomiting fluoxetine [From Prozac] Allergy Rash Verified 11/29/21 01:46 VELVET Allergy Mild HIVES Uncoded 05/14/20 14:58 Diclofenac Sodium Allergy Unknown unknown Uncoded 11/08/21 10:21 Assessment & Plan Assessment & Plan (1) Opioid use disorder, severe, dependence: Status: Acute Code(s): F11.20 - Opioid dependence, uncomplicated (2) MDD (major depressive disorder), recurrent, severe, with psychosis: Status: Acute Code(s): F33.3 - Major depressive disorder, recurrent, severe with psychotic symptoms Plan Mr. Rodriguez is a 51 year-old male with hx of opiod use disorder, cocaine use disorder, MDD with psychosis who was brought via ems to [facility] ED after he contacted police and reported accidental OD on fentanyl. Pt admitted medically for aspiration pneumonia and exacerbation of COPD. Pt presents as anxious, reports he thought he was and people were talking about him. We discussed probable delirium due to hypoxia. However, he also reports he has been hearing voices of people who are not there since 2009. He continues to endorse anxious mood, feeling paranoid, although it appears more suspiciousness than complex delusional system. we discussed risks, benefits and alternative treatment options. Pt agrees to start risperidone for psychosis. He states in the past he has been on seroquel mostly for sleep- although not as effective for voices. PLAN 1. Admit to M3, CV, 15 minutes checks for safety 2. Start risperidone 0.5mg po BID- titrate as tolerated. 3. continue seroquel 200mg po qhs 4. obtain collateral information 5. after care planning. 12/03- increase risperidone to 1mg po BID, continue seroquel. prn seroquel 12.5mg po q6hrs anxiety and atarax prn. I spent minutes with the patient and/or on the patient floor today, greater than?50% of which was spent counseling/coordinating care. Reason for contiued inpatient stay Substantial Risk for: inability to function
[2021-12-03 20:33] VITALS: BP 138/83; PULSE 66; TEMP 36.4; O2SAT 98
[2021-12-03] MEDS: QUEtiapine Fumarate 200 MG TABLET PO (20:37)
[2021-12-03] MEDS: risperiDONE 1 MG TABLET PO (20:38)
[2021-12-04] MEDS: Omeprazole 20 MG CAPSULE.DR PO (06:44)
[2021-12-04 08:10] VITALS: BP 92/63; PULSE 76; RESP 18; TEMP 36.6; O2SAT 98
[2021-12-04] MEDS: cloNIDine HCL 0.1 MG TABLET PO ×2 (08:12→21:08)
[2021-12-04] MEDS: risperiDONE 1 MG TABLET PO ×2 (08:12→21:08)
[2021-12-04] MEDS: amLODIPine Besylate 2.5 MG TABLET PO (08:12)
[2021-12-04] MEDS: Nicotine 21 MG PATCH.TD24 TRANSDERMA (08:12)
[2021-12-04] MEDS: Gabapentin 300 MG CAPSULE PO ×3 (08:12→21:08)
[2021-12-04] MEDS: polyethylene glycoL 3350 17 GM POWD.PACK PO (08:12)
[2021-12-04] MEDS: Azithromycin 500 MG TABLET PO (08:12)
[2021-12-04] MEDS: predniSONE 20 MG TABLET 40 MG PO (08:12)
[2021-12-04] MEDS: methADONE HCl 20 MG/2 ML ORAL.CONC 50 MG PO (08:13)
--- NOTE | 2021-12-04 12:04 | P.PNPSI_ITS ---
Subjective Subjective Date of Service: 12/04/21 Reason For Visit: PTSD Subjective Notes: Conditional Voluntary Interim History: Pt reports feeling calmer today. He denies auditory hallucintions today. reports yesterday was last time he heard voices was 2 days ago. He reports he slept well. Denies SI or HI Medication Compliance: Yes Side effects from medications: No Attending Groups: No Review of Systems Acute medical concerns: No Review of Systems Review of Systems unchanged Constitutional: Reports fatigue and Reports poor appetite Eyes: Reports no additional eye complaints Reports sore throat Cardiovascular: Denies chest pain, Denies leg edema, Denies lightheadedness and Denies dyspnea Respiratory: Reports cough and Denies dyspnea Gastrointestinal: Reports constipation Musculoskeletal: Reports arthralgias (left knee) Endocrine: Reports fatigue Mental Status Exam Mental Status Exam Narrative: Appearance: appears stated age, wearing hospital gown, fair hygiene in NAD Behavior:cooperative psychomotor:no agitation or retardation noted Speech:clear, normal rate/rhythm/volume, spontaneous Thought process:mostly linear Thought content: not hearing voices today, feel worried about health Mood: anxious Affect: congruent, somewhat restless SI:passive no plan or intent HI:none VH/AH:AH- no command in nature Delusions:paranoia- more suspiciousness than well formed delusional system Insight/judgment:fair x 2. Memory/cog: alert, oriented x 3. Diagnostics Vital Signs (24Hr): Vital Signs - 24 hr 12/03/21 20:33 12/04/21 08:10 Temperature 97.6 F 97.9 F Pulse Rate 66 76 Respiratory Rate 18 Blood Pressure 138/83 92/63 Pulse Oximetry 98 98 BMI result Body Mass Index 26.9 Labs Results: 12/03/21 08:24 Labs: Laboratory Results - last 48 hr 12/03/21 12/03/21 12/03/21 08:24 08:24 08:24 Sodium 140 Potassium 4.4 Chloride 103 Carbon Dioxide 30 H Anion Gap 11 L BUN 23 H Creatinine 0.91 Estim Creat Clear Calc 87.7 Estimated GFR > 60 Fasting Glucose 67 D Estimat Average Glucose 103 Hemoglobin A1c % 5.2 Calcium 9.6 Total Bilirubin 0.3 AST 14 D ALT 30 Alkaline Phosphatase 72 Total Protein 7.6 Albumin 4.3 Triglycerides 152 Cholesterol 206 LDL Cholesterol, Calc 144 HDL Cholesterol 32 Vitamin B12 454 Folate 12.2 TSH 2.92 Medications Medications Current Medications Acetaminophen (Acetaminophen 325 Mg Tablet) 650 mg PO Q6H PRN PRN Reason: Headache/Pain Mild Scale (1-3) Al Hydroxide/Mg Hydroxide (Magnesium Hydrox/Alum Hydrox 30 Ml Oral.Susp) 30 ml PO Q6H PRN PRN Reason: Heartburn/Nausea Albuterol/Ipratropium (Albuterol/Iprat 2.5/0.5mg 3 Ml Ampul.Neb) 3 ml INHALE RQ4H WHILE AWAKE PRN PRN Reason: Shortness of Breath/Wheezing Last Admin: 12/02/21 16:14 Dose: 3 ml Documented by: Amlodipine Besylate (Amlodipine Besylate 2.5 Mg Tablet) 2.5 mg PO DAILY [facility]; Protocol Last Admin: 12/04/21 08:12 Dose: 2.5 mg Documented by: Azithromycin (Azithromycin 500 Mg Tablet) 500 mg PO Q24H [facility] Stop: 12/05/21 09:01 Last Admin: 12/04/21 08:12 Dose: 500 mg Documented by: Cefuroxime Axetil (Cefuroxime Axetil 250 Mg Tablet) 250 mg PO Q12H [facility] Stop: 12/05/21 07:01 Last Admin: 12/04/21 06:44 Dose: 250 mg Documented by: Clonidine HCl (Clonidine Hcl 0.1 Mg Tablet) 0.1 mg PO BID [facility]; Protocol Last Admin: 12/04/21 08:12 Dose: 0.1 mg Documented by: Gabapentin (Gabapentin 300 Mg Capsule) 300 mg PO TID [facility] Last Admin: 12/04/21 08:12 Dose: 300 mg Documented by: Hydroxyzine HCl (Hydroxyzine Hcl 25 Mg Tablet) 25 mg PO BID PRN PRN Reason: anxiety Last Admin: 12/03/21 20:37 Dose: 25 mg Documented by: Magnesium Hydroxide (Milk Of Magnesia 30 Ml Oral.Susp) 30 ml PO DAILY PRN PRN Reason: Constipation Methadone HCl (Methadone Hcl 20 Mg/2 Ml Oral.Conc) 50 mg PO DAILY [facility] Last Admin: 12/04/21 08:13 Dose: 50 mg Documented by: Nicotine (Nicotine 21 Mg Patch.Td24) 21 mg TRANSDERMA DAILY [facility] Last Admin: 12/04/21 08:12 Dose: 21 mg Documented by: Nicotine Polacrilex (Nicotine Polacrilex 2 Mg Gum) 2 mg BUCCAL Q1H PRN PRN Reason: Nicotine Cravings Omeprazole (Omeprazole 20 Mg Capsule.) 20 mg PO DAILY@0630 [facility] Last Admin: 12/04/21 06:44 Dose: 20 mg Documented by: Polyethylene Glycol (Polyethylene Glycol 3350 17 Gm Powd.Pack) 17 gm PO DAILY [facility] Last Admin: 12/04/21 08:12 Dose: 17 gm Documented by: Prednisone (Prednisone 20 Mg Tablet) 40 mg PO DAILY [facility] Stop: 12/06/21 08:59 Last Admin: 12/04/21 08:12 Dose: 40 mg Documented by: Quetiapine Fumarate (Quetiapine Fumarate 200 Mg Tablet) 200 mg PO BEDTIME [facility] Last Admin: 12/03/21 20:37 Dose: 200 mg Documented by: Quetiapine Fumarate (Quetiapine Fumarate 25 Mg Tablet) 12.5 mg PO Q4H PRN PRN Reason: anxiety Risperidone (Risperidone 1 Mg Tablet) 1 mg PO BID [facility] Last Admin: 12/04/21 08:12 Dose: 1 mg Documented by: Senna (Sennosides 8.6 Mg Tablet) 17.2 mg PO BEDTIME PRN PRN Reason: Constipation Trazodone HCl (Trazodone Hcl 50 Mg Tablet) 50 mg PO BEDTIME PRN PRN Reason: Insomnia Allergies Allergies Allergy/AdvReac Type Severity Reaction Status Date / Time diclofenac [From Voltaren] Allergy Mild NAUSEA, Verified 11/29/21 01:46 nausea and vomiting naproxen Allergy Unknown nausea and Verified 11/29/21 01:46 vomiting fluoxetine [From Prozac] Allergy Rash Verified 11/29/21 01:46 VELVET Allergy Mild HIVES Uncoded 05/14/20 14:58 Diclofenac Sodium Allergy Unknown unknown Uncoded 11/08/21 10:21 Assessment & Plan Assessment & Plan (1) Opioid use disorder, severe, dependence: Status: Acute Code(s): F11.20 - Opioid dependence, uncomplicated (2) MDD (major depressive disorder), recurrent, severe, with psychosis: Status: Acute Code(s): F33.3 - Major depressive disorder, recurrent, severe with psychotic symptoms Plan Mr. Rodriguez is a 51 year-old male with hx of opiod use disorder, cocaine use disorder, MDD with psychosis who was brought via ems [place] [facility] [place] he contacted police and reported accidental OD on fentanyl. Pt admitted medically for aspiration pneumonia and exacerbation of COPD. Pt presents as anxious, reports he thought he was and people were talking about him. We discussed probable delirium due to hypoxia. However, he also reports he has been hearing voices of people who are not there since 2009. He continues to endorse anxious mood, feeling paranoid, although it appears more suspiciousness than complex delusional system. we discussed risks, benefits and alternative treatment options. Pt agrees to start risperidone for psychosis. He states in the past he has been on seroquel mostly for sleep- although not as effective for voices. PLAN 1. Admit to M3, CV, 15 minutes checks for safety 2. Start risperidone 0.5mg po BID- titrate as tolerated. 3. continue seroquel 200mg po qhs 4. obtain collateral information 5. after care planning. 12/03- increase risperidone to 1mg po BID, continue seroquel. prn seroquel 12.5mg po q6hrs anxiety and atarax prn. 12/04- continue current treatment plan. I spent ___15___ minutes with the patient and/or on the patient floor today, greater than?50% of which was spent counseling/coordinating care. Reason for contiued inpatient stay Substantial Risk for: harm to self, inability to function, rapid decompensation and med/psych decompensation
[2021-12-04] MEDS: hydrOXYzine HCL 25 MG TABLET PO ×2 (13:28→21:08)
[2021-12-04 21:04] VITALS: BP 109/75; PULSE 65; TEMP 36.4; O2SAT 95
[2021-12-04] MEDS: QUEtiapine Fumarate 200 MG TABLET PO (21:08)
[2021-12-05] MEDS: Omeprazole 20 MG CAPSULE.DR PO (06:49)
[2021-12-05] MEDS: polyethylene glycoL 3350 17 GM POWD.PACK PO (08:49)
[2021-12-05] MEDS: Nicotine 21 MG PATCH.TD24 TRANSDERMA (08:49)
[2021-12-05] MEDS: cloNIDine HCL 0.1 MG TABLET PO ×2 (08:50→21:05)
[2021-12-05] MEDS: Gabapentin 300 MG CAPSULE PO ×3 (08:50→21:04)
[2021-12-05] MEDS: Azithromycin 500 MG TABLET PO (08:50)
[2021-12-05] MEDS: amLODIPine Besylate 2.5 MG TABLET PO (08:50)
[2021-12-05] MEDS: risperiDONE 1 MG TABLET PO ×2 (08:51→21:05)
[2021-12-05] MEDS: predniSONE 20 MG TABLET 40 MG PO (08:51)
[2021-12-05] MEDS: methADONE HCl 20 MG/2 ML ORAL.CONC 50 MG PO (08:51)
[2021-12-05 09:05] VITALS: BP 110/80; PULSE 95; RESP 20; TEMP 36.6; O2SAT 95
[2021-12-05] MEDS: hydrOXYzine HCL 25 MG TABLET PO ×2 (11:20→21:05)
--- NOTE | 2021-12-05 15:51 | HO.PSYCHPN ---
Subjective Subjective Date of Service: 12/05/21 Reason For Visit: PTSD Subjective Notes: Conditional Voluntary Interim History: Pt reports feeling calmer today. He denies auditory hallucinations today. Reports worries and negative thinking about future. He reports he slept well. Denies SI or HI Medication Compliance: Yes Side effects from medications: No Attending Groups: Intermittent Review of Systems Acute medical concerns: No Review of Systems Review of Systems unchanged Constitutional: Reports fatigue and Reports poor appetite Eyes: Reports no additional eye complaints Reports sore throat Cardiovascular: Denies chest pain, Denies leg edema, Denies lightheadedness and Denies dyspnea Respiratory: Reports cough and Denies dyspnea Gastrointestinal: Reports constipation Musculoskeletal: Reports arthralgias (left knee) Endocrine: Reports fatigue Mental Status Exam Mental Status Exam Narrative: Appearance: appears stated age, wearing hospital gown, fair hygiene in NAD Behavior:cooperative psychomotor:no agitation or retardation noted Speech:clear, normal rate/rhythm/volume, spontaneous Thought process:mostly linear Thought content: not hearing voices today, feel worried about health Mood: anxious Affect: congruent, somewhat restless SI:passive no plan or intent HI:none VH/AH:AH- no command in nature Delusions:paranoia- more suspiciousness than well formed delusional system Insight/judgment:fair x 2. Memory/cog: alert, oriented x 3. Diagnostics Vital Signs (24Hr): Vital Signs - 24 hr 12/04/21 21:04 12/05/21 09:05 Temperature 97.6 F 97.8 F Pulse Rate 65 95 Respiratory Rate 20 Blood Pressure 109/75 110/80 Pulse Oximetry 95 95 BMI result Body Mass Index 26.9 Labs Results: 12/03/21 08:24 Medications Medications Current Medications Acetaminophen (Acetaminophen 325 Mg Tablet) 650 mg PO Q6H PRN PRN Reason: Headache/Pain Mild Scale (1-3) Al Hydroxide/Mg Hydroxide (Magnesium Hydrox/Alum Hydrox 30 Ml Oral.Susp) 30 ml PO Q6H PRN PRN Reason: Heartburn/Nausea Albuterol/Ipratropium (Albuterol/Iprat 2.5/0.5mg 3 Ml Ampul.Neb) 3 ml INHALE RQ4H WHILE AWAKE PRN PRN Reason: Shortness of Breath/Wheezing Last Admin: 12/02/21 16:14 Dose: 3 ml Documented by: Amlodipine Besylate (Amlodipine Besylate 2.5 Mg Tablet) 2.5 mg PO DAILY [facility]; Protocol Last Admin: 12/05/21 08:50 Dose: 2.5 mg Documented by: Clonidine HCl (Clonidine Hcl 0.1 Mg Tablet) 0.1 mg PO BID [facility]; Protocol Last Admin: 12/05/21 08:50 Dose: 0.1 mg Documented by: Gabapentin (Gabapentin 300 Mg Capsule) 300 mg PO TID [facility] Last Admin: 12/05/21 15:17 Dose: 300 mg Documented by: Hydroxyzine HCl (Hydroxyzine Hcl 25 Mg Tablet) 25 mg PO BID PRN PRN Reason: anxiety Last Admin: 12/05/21 11:20 Dose: 25 mg Documented by: Magnesium Hydroxide (Milk Of Magnesia 30 Ml Oral.Susp) 30 ml PO DAILY PRN PRN Reason: Constipation Methadone HCl (Methadone Hcl 20 Mg/2 Ml Oral.Conc) 50 mg PO DAILY [facility] Last Admin: 12/05/21 08:51 Dose: 50 mg Documented by: Nicotine (Nicotine 21 Mg Patch.Td24) 21 mg TRANSDERMA DAILY [facility] Last Admin: 12/05/21 08:49 Dose: 21 mg Documented by: Nicotine Polacrilex (Nicotine Polacrilex 2 Mg Gum) 2 mg BUCCAL Q1H PRN PRN Reason: Nicotine Cravings Omeprazole (Omeprazole 20 Mg Capsule.Dr) 20 mg PO DAILY@0630 [facility] Last Admin: 12/05/21 06:49 Dose: 20 mg Documented by: Polyethylene Glycol (Polyethylene Glycol 3350 17 Gm Powd.Pack) 17 gm PO DAILY [facility] Last Admin: 12/05/21 08:49 Dose: 17 gm Documented by: Prednisone (Prednisone 20 Mg Tablet) 40 mg PO DAILY [facility] Stop: 12/06/21 08:59 Last Admin: 12/05/21 08:51 Dose: 40 mg Documented by: Quetiapine Fumarate (Quetiapine Fumarate 200 Mg Tablet) 200 mg PO BEDTIME [facility] Last Admin: 12/04/21 21:08 Dose: 200 mg Documented by: Quetiapine Fumarate (Quetiapine Fumarate 25 Mg Tablet) 12.5 mg PO Q4H PRN PRN Reason: anxiety Risperidone (Risperidone 1 Mg Tablet) 1 mg PO BID [facility] Last Admin: 12/05/21 08:51 Dose: 1 mg Documented by: Senna (Sennosides 8.6 Mg Tablet) 17.2 mg PO BEDTIME PRN PRN Reason: Constipation Trazodone HCl (Trazodone Hcl 50 Mg Tablet) 50 mg PO BEDTIME PRN PRN Reason: Insomnia Allergies Allergies Allergy/AdvReac Type Severity Reaction Status Date / Time diclofenac [From Voltaren] Allergy Mild NAUSEA, Verified 11/29/21 01:46 nausea and vomiting naproxen Allergy Unknown nausea and Verified 11/29/21 01:46 vomiting fluoxetine [From Prozac] Allergy Rash Verified 11/29/21 01:46 VELVET Allergy Mild HIVES Uncoded 05/14/20 14:58 Diclofenac Sodium Allergy Unknown unknown Uncoded 11/08/21 10:21 Assessment & Plan Assessment & Plan (1) Opioid use disorder, severe, dependence: Status: Acute Code(s): F11.20 - Opioid dependence, uncomplicated (2) MDD (major depressive disorder), recurrent, severe, with psychosis: Status: Acute Code(s): F33.3 - Major depressive disorder, recurrent, severe with psychotic symptoms Plan Mr. Rodriguez is a 51 year-old male with hx of opiod use disorder, cocaine use disorder, MDD with psychosis who was brought via ems to [facility] [place] ED after he contacted police and reported accidental OD on fentanyl. Pt admitted medically for aspiration pneumonia and exacerbation of COPD. Pt presents as anxious, reports he thought he was and people were talking about him. We discussed probable delirium due to hypoxia. However, he also reports he has been hearing voices of people who are not there since 2009. He continues to endorse anxious mood, feeling paranoid, although it appears more suspiciousness than complex delusional system. we discussed risks, benefits and alternative treatment options. Pt agrees to start risperidone for psychosis. He states in the past he has been on seroquel mostly for sleep- although not as effective for voices. PLAN 1. Admit to M3, CV, 15 minutes checks for safety 2. Start risperidone 0.5mg po BID- titrate as tolerated. 3. continue seroquel 200mg po qhs 4. obtain collateral information 5. after care planning. 12/03- increase risperidone to 1mg po BID, continue seroquel. prn seroquel 12.5mg po q6hrs anxiety and atarax prn. 12/04- continue current treatment plan. 12/05 continue tx plan I spent minutes with the patient and/or on the patient floor today, greater than?50% of which was spent counseling/coordinating care. Reason for contiued inpatient stay Substantial Risk for: harm to self, inability to function and rapid decompensation
[2021-12-05 21:02] VITALS: BP 140/77; PULSE 71; RESP 16; TEMP 36.3; O2SAT 95
[2021-12-05] MEDS: QUEtiapine Fumarate 200 MG TABLET PO (21:04)
[2021-12-05] MEDS: bisacodyL 5 MG TABLET.DR 10 MG PO (22:09)
[2021-12-06 08:11] VITALS: BP 114/79; PULSE 69; RESP 14; TEMP 36.2; O2SAT 98
[2021-12-06] MEDS: Nicotine 21 MG PATCH.TD24 TRANSDERMA (08:12)
[2021-12-06] MEDS: Gabapentin 300 MG CAPSULE PO ×3 (08:13→21:02)
[2021-12-06] MEDS: cloNIDine HCL 0.1 MG TABLET PO ×2 (08:13→21:02)
[2021-12-06] MEDS: amLODIPine Besylate 2.5 MG TABLET PO (08:13)
[2021-12-06] MEDS: Omeprazole 20 MG CAPSULE.DR PO (08:14)
[2021-12-06] MEDS: methADONE HCl 20 MG/2 ML ORAL.CONC 50 MG PO (08:14)
[2021-12-06] MEDS: risperiDONE 1 MG TABLET PO ×2 (08:14→21:02)
--- NOTE | 2021-12-06 11:57 | HO.PSYCHPN ---
Subjective Subjective Date of Service: 12/06/21 Reason For Visit: PTSD Subjective Notes: Conditional Voluntary Interim History: Pt reports less AH, less anxious mood and less paranoia. He reports sleeping better. Some SOb when walking- using incentive spirometry. He denies SI/HI. Per nursing, he has been visible in the unit, social with select peers. We discussed increasing risperidone but he declines at this moment. He is not sure about going to [facility] as he reports those programs don't work for me. But he is homeless and open to go to one program. Medication Compliance: Yes Side effects from medications: No Review of Systems Review of Systems unchanged Constitutional: Reports fatigue and Reports poor appetite Eyes: Reports no additional eye complaints Reports sore throat Cardiovascular: Denies chest pain, Denies leg edema, Denies lightheadedness and Denies dyspnea Respiratory: Reports cough and Denies dyspnea Gastrointestinal: Reports constipation Musculoskeletal: Reports arthralgias (left knee) Endocrine: Reports fatigue Mental Status Exam Mental Status Exam Narrative: Appearance: appears stated age, wearing hospital gown, fair hygiene in NAD Behavior:cooperative psychomotor:no agitation or retardation noted Speech:clear, normal rate/rhythm/volume, spontaneous Thought process:mostly linear Thought content: not hearing voices today, feel worried about health Mood: anxious Affect: congruent, somewhat restless SI:passive no plan or intent HI:none VH/AH:AH- no command in nature Delusions:paranoia- more suspiciousness than well formed delusional system Insight/judgment:fair x 2. Memory/cog: alert, oriented x 3. Diagnostics Vital Signs (24Hr): Vital Signs - 24 hr 12/05/21 21:02 12/06/21 08:11 Temperature 97.3 F 97.2 F Pulse Rate 71 69 Respiratory Rate 16 14 Blood Pressure 140/77 H 114/79 Pulse Oximetry 95 98 BMI result Body Mass Index 26.9 Labs Results: 12/03/21 08:24 Medications Medications Current Medications Acetaminophen (Acetaminophen 325 Mg Tablet) 650 mg PO Q6H PRN PRN Reason: Headache/Pain Mild Scale (1-3) Al Hydroxide/Mg Hydroxide (Magnesium Hydrox/Alum Hydrox 30 Ml Oral.Susp) 30 ml PO Q6H PRN PRN Reason: Heartburn/Nausea Albuterol/Ipratropium (Albuterol/Iprat 2.5/0.5mg 3 Ml Ampul.Neb) 3 ml INHALE RQ4H WHILE AWAKE PRN PRN Reason: Shortness of Breath/Wheezing Last Admin: 12/02/21 16:14 Dose: 3 ml Documented by: Amlodipine Besylate (Amlodipine Besylate 2.5 Mg Tablet) 2.5 mg PO DAILY [facility]; Protocol Last Admin: 12/06/21 08:13 Dose: 2.5 mg Documented by: Clonidine HCl (Clonidine Hcl 0.1 Mg Tablet) 0.1 mg PO BID [facility]; Protocol Last Admin: 12/06/21 08:13 Dose: 0.1 mg Documented by: Gabapentin (Gabapentin 300 Mg Capsule) 300 mg PO TID [facility] Last Admin: 12/06/21 08:13 Dose: 300 mg Documented by: Guaifenesin (Guaifenesin La 600 Mg Tab.Er.12h) 600 mg PO BID [facility] Hydroxyzine HCl (Hydroxyzine Hcl 25 Mg Tablet) 25 mg PO BID PRN PRN Reason: anxiety Last Admin: 12/05/21 21:05 Dose: 25 mg Documented by: Magnesium Hydroxide (Milk Of Magnesia 30 Ml Oral.Susp) 30 ml PO DAILY PRN PRN Reason: Constipation Methadone HCl (Methadone Hcl 20 Mg/2 Ml Oral.Conc) 50 mg PO DAILY [facility] Last Admin: 12/06/21 08:14 Dose: 50 mg Documented by: Nicotine (Nicotine 21 Mg Patch.Td24) 21 mg TRANSDERMA DAILY [facility] Last Admin: 12/06/21 08:12 Dose: 21 mg Documented by: Nicotine Polacrilex (Nicotine Polacrilex 2 Mg Gum) 2 mg BUCCAL Q1H PRN PRN Reason: Nicotine Cravings Omeprazole (Omeprazole 20 Mg Capsule.Dr) 20 mg PO DAILY@0630 [facility] Last Admin: 12/06/21 08:14 Dose: 20 mg Documented by: Polyethylene Glycol (Polyethylene Glycol 3350 17 Gm Powd.Pack) 17 gm PO DAILY [facility] Last Admin: 12/06/21 08:23 Dose: Not Given Documented by: Quetiapine Fumarate (Quetiapine Fumarate 200 Mg Tablet) 200 mg PO BEDTIME [facility] Last Admin: 12/05/21 21:04 Dose: 200 mg Documented by: Quetiapine Fumarate (Quetiapine Fumarate 25 Mg Tablet) 12.5 mg PO Q4H PRN PRN Reason: anxiety Risperidone (Risperidone 1 Mg Tablet) 1 mg PO BID [facility] Last Admin: 12/06/21 08:14 Dose: 1 mg Documented by: Senna (Sennosides 8.6 Mg Tablet) 17.2 mg PO BEDTIME PRN PRN Reason: Constipation Trazodone HCl (Trazodone Hcl 50 Mg Tablet) 50 mg PO BEDTIME PRN PRN Reason: Insomnia Allergies Allergies Allergy/AdvReac Type Severity Reaction Status Date / Time diclofenac [From Voltaren] Allergy Mild NAUSEA, Verified 11/29/21 01:46 nausea and vomiting naproxen Allergy Unknown nausea and Verified 11/29/21 01:46 vomiting fluoxetine [From Prozac] Allergy Rash Verified 11/29/21 01:46 VELVET Allergy Mild HIVES Uncoded 05/14/20 14:58 Diclofenac Sodium Allergy Unknown unknown Uncoded 11/08/21 10:21 Assessment & Plan Assessment & Plan (1) Opioid use disorder, severe, dependence: Status: Acute Code(s): F11.20 - Opioid dependence, uncomplicated (2) MDD (major depressive disorder), recurrent, severe, with psychosis: Status: Acute Code(s): F33.3 - Major depressive disorder, recurrent, severe with psychotic symptoms Plan Mr. Rodriguez is a 51 year-old male with hx of opiod use disorder, cocaine use disorder, MDD with psychosis who was brought via ems to [facility] ED after he contacted police and reported accidental OD on fentanyl. Pt admitted medically for aspiration pneumonia and exacerbation of COPD. Pt presents as anxious, reports he thought he was and people were talking about him. We discussed probable delirium due to hypoxia. However, he also reports he has been hearing voices of people who are not there since 2009. He continues to endorse anxious mood, feeling paranoid, although it appears more suspiciousness than complex delusional system. we discussed risks, benefits and alternative treatment options. Pt agrees to start risperidone for psychosis. He states in the past he has been on seroquel mostly for sleep- although not as effective for voices. PLAN 1. Admit to M3, CV, 15 minutes checks for safety 2. Start risperidone 0.5mg po BID- titrate as tolerated. 3. continue seroquel 200mg po qhs 4. obtain collateral information 5. after care planning. 12/03- increase risperidone to 1mg po BID, continue seroquel. prn seroquel 12.5mg po q6hrs anxiety and atarax prn. 12/04- continue current treatment plan. 12/05 continue tx plan 12/06 continue current medications, tentative D/C 12/09-12/10 I spent _25 minutes with the patient and/or on the patient floor today, greater than?50% of which was spent counseling/coordinating care. Reason for contiued inpatient stay Substantial Risk for: harm to self and inability to function
[2021-12-06] MEDS: Magnesium Citrate 300 ML SOLUTION PO (12:02)
[2021-12-06] MEDS: guaiFENesin LA 600 MG TAB.ER.12H PO ×2 (12:38→21:02)
[2021-12-06] MEDS: hydrOXYzine HCL 25 MG TABLET PO ×2 (13:43→21:02)
[2021-12-06] MEDS: Acetaminophen 325 MG TABLET 650 MG PO (18:34)
[2021-12-06 20:59] VITALS: BP 103/69; PULSE 69; RESP 16; TEMP 36.4; O2SAT 99
[2021-12-06] MEDS: QUEtiapine Fumarate 200 MG TABLET PO (21:02)
[2021-12-07 08:00] VITALS: BP 107/77; PULSE 75; RESP 16; TEMP 36.6; O2SAT 98
[2021-12-07] MEDS: Nicotine 21 MG PATCH.TD24 TRANSDERMA (08:17)
[2021-12-07] MEDS: polyethylene glycoL 3350 17 GM POWD.PACK PO (08:18)
[2021-12-07] MEDS: Acetaminophen 325 MG TABLET 650 MG PO (08:19)
[2021-12-07] MEDS: Throat Lozenge, Medicated LOZENGE 1 LOZENGE MUCOUS MEM (08:19)
[2021-12-07] MEDS: Omeprazole 20 MG CAPSULE.DR PO (08:20)
[2021-12-07] MEDS: guaiFENesin LA 600 MG TAB.ER.12H PO ×2 (08:20→21:29)
[2021-12-07] MEDS: risperiDONE 1 MG TABLET PO (08:20)
[2021-12-07] MEDS: amLODIPine Besylate 2.5 MG TABLET PO (08:20)
[2021-12-07] MEDS: cloNIDine HCL 0.1 MG TABLET PO ×2 (08:20→21:30)
[2021-12-07] MEDS: Gabapentin 300 MG CAPSULE PO ×3 (08:21→21:29)
[2021-12-07] MEDS: methADONE HCl 20 MG/2 ML ORAL.CONC 50 MG PO (08:22)
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
[2021-12-07] MEDS: hydrOXYzine HCL 25 MG TABLET PO ×2 (11:41→21:33)
[2021-12-07] MEDS: Loratadine 10 MG TABLET PO (16:40)
[2021-12-07] MEDS: Hydrocortisone 1 % Ointment 28.35 GM TUBE 1 APPL TOPICAL ×2 (17:06→21:30)
[2021-12-07 21:00] VITALS: BP 132/82; PULSE 75; RESP 16; TEMP 36.9; O2SAT 99
[2021-12-07] MEDS: QUEtiapine Fumarate 200 MG TABLET PO (21:29)
[2021-12-07] MEDS: risperiDONE 2 MG TABLET PO (21:30)
[2021-12-08 08:45] VITALS: BP 120/82; PULSE 75; RESP 16; TEMP 36.7; O2SAT 97
[2021-12-08] MEDS: Nicotine 21 MG PATCH.TD24 TRANSDERMA (08:45)
[2021-12-08] MEDS: Gabapentin 300 MG CAPSULE PO ×3 (08:45→21:37)
[2021-12-08] MEDS: risperiDONE 1 MG TABLET PO (08:45)
[2021-12-08] MEDS: Loratadine 10 MG TABLET PO (08:46)
[2021-12-08] MEDS: methADONE HCl 20 MG/2 ML ORAL.CONC 50 MG PO (08:46)
[2021-12-08] MEDS: amLODIPine Besylate 2.5 MG TABLET PO (08:46)
[2021-12-08] MEDS: Omeprazole 20 MG CAPSULE.DR PO (08:46)
[2021-12-08] MEDS: cloNIDine HCL 0.1 MG TABLET PO ×2 (08:46→21:37)
[2021-12-08] MEDS: guaiFENesin LA 600 MG TAB.ER.12H PO (08:46)
[2021-12-08] MEDS: polyethylene glycoL 3350 17 GM POWD.PACK PO (08:47)
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
--- NOTE | 2021-12-08 13:47 | HO.PSYCHPN ---
Subjective Subjective Date of Service: 12/08/21 Reason For Visit: PTSD Subjective Notes: Conditional Voluntary Interim History: Pt reports difficulty staying and falling asleep last night, mostly because he has been coughing. Pt reports less AH. Pt reports feeling tired, somewhat hopeless but denies SI/HI. He has been more visible in the unit and ahs attended some groups. we discussed adding remeron for depression/sleep; cough suppressant, O2 sat improving afebrile. Medication Compliance: Yes Side effects from medications: No Review of Systems Review of Systems unchanged Yes all other systems are reviewed and are negative Constitutional: Reports fatigue and Reports poor appetite Eyes: Reports no additional eye complaints Reports sore throat Cardiovascular: Denies chest pain, Denies leg edema, Denies lightheadedness and Denies dyspnea Respiratory: Reports cough and Denies dyspnea Gastrointestinal: Reports constipation Musculoskeletal: Reports arthralgias (left knee) Endocrine: Reports fatigue Mental Status Exam Mental Status Exam Narrative: Appearance: appears stated age, wearing hospital gown, fair hygiene in NAD Behavior:cooperative psychomotor:no agitation or retardation noted Speech:clear, normal rate/rhythm/volume, spontaneous Thought process:mostly linear Thought content: not hearing voices today, feel worried about health Mood: anxious Affect: congruent, somewhat restless SI:passive no plan or intent HI:none VH/AH:AH- no command in nature Delusions:paranoia- more suspiciousness than well formed delusional system Insight/judgment:fair x 2. Memory/cog: alert, oriented x 3. Diagnostics Vital Signs (24Hr): Vital Signs - 24 hr 12/07/21 21:00 Temperature 98.4 F Pulse Rate 75 Respiratory Rate 16 Blood Pressure 132/82 Pulse Oximetry 99 BMI result Body Mass Index 26.9 Labs Results: 12/03/21 08:24 Imaging Radiology Impressions: ITS Impressions Foot X-Ray 12/07/21 11:30 IMPRESSION: Normal right foot. Medications Medications Current Medications Acetaminophen (Acetaminophen 325 Mg Tablet) 650 mg PO Q6H PRN PRN Reason: Headache/Pain Mild Scale (1-3) Last Admin: 12/07/21 08:19 Dose: 650 mg Documented by: Al Hydroxide/Mg Hydroxide (Magnesium Hydrox/Alum Hydrox 30 Ml Oral.Susp) 30 ml PO Q6H PRN PRN Reason: Heartburn/Nausea Albuterol/Ipratropium (Albuterol/Iprat 2.5/0.5mg 3 Ml Ampul.Neb) 3 ml INHALE RQ4H WHILE AWAKE PRN PRN Reason: Shortness of Breath/Wheezing Last Admin: 12/02/21 16:14 Dose: 3 ml Documented by: Amlodipine Besylate (Amlodipine Besylate 2.5 Mg Tablet) 2.5 mg PO DAILY [facility]; Protocol Last Admin: 12/08/21 08:46 Dose: 2.5 mg Documented by: Benzocaine (Throat Lozenge, Medicated Lozenge) 1 lozenge MUCOUS MEM Q2H PRN PRN Reason: Sore Throat Last Admin: 12/07/21 08:19 Dose: 1 lozenge Documented by: Clonidine HCl (Clonidine Hcl 0.1 Mg Tablet) 0.1 mg PO BID [facility]; Protocol Last Admin: 12/08/21 08:46 Dose: 0.1 mg Documented by: Gabapentin (Gabapentin 300 Mg Capsule) 300 mg PO TID [facility] Last Admin: 12/08/21 08:45 Dose: 300 mg Documented by: Guaifenesin/Dextromethorphan (Guaifenesin Dm 600/30 1 Tab Tab.Er.12h) 1 tab PO BID [facility] Hydrocortisone (Hydrocortisone 1 % Ointment 28.35 Gm Tube) 1 appl TOPICAL TID [facility]; Protocol Last Admin: 12/07/21 21:30 Dose: 1 appl Documented by: Hydroxyzine HCl (Hydroxyzine Hcl 25 Mg Tablet) 25 mg PO BID PRN PRN Reason: anxiety Last Admin: 12/07/21 21:33 Dose: 25 mg Documented by: Loratadine (Loratadine 10 Mg Tablet) 10 mg PO DAILY [facility] Last Admin: 12/08/21 08:46 Dose: 10 mg Documented by: Magnesium Hydroxide (Milk Of Magnesia 30 Ml Oral.Susp) 30 ml PO DAILY PRN PRN Reason: Constipation Methadone HCl (Methadone Hcl 20 Mg/2 Ml Oral.Conc) 50 mg PO DAILY [facility] Last Admin: 12/08/21 08:46 Dose: 50 mg Documented by: Mirtazapine (Mirtazapine 15 Mg Tablet) 15 mg PO BEDTIME [facility] Nicotine (Nicotine 21 Mg Patch.Td24) 21 mg TRANSDERMA DAILY [facility] Last Admin: 12/08/21 08:45 Dose: 21 mg Documented by: Nicotine Polacrilex (Nicotine Polacrilex 2 Mg Gum) 2 mg BUCCAL Q1H PRN PRN Reason: Nicotine Cravings Omeprazole (Omeprazole 20 Mg Capsule.Dr) 20 mg PO DAILY@0630 [facility] Last Admin: 12/08/21 08:46 Dose: 20 mg Documented by: Polyethylene Glycol (Polyethylene Glycol 3350 17 Gm Powd.Pack) 17 gm PO DAILY [facility] Last Admin: 12/08/21 08:47 Dose: 17 gm Documented by: Quetiapine Fumarate (Quetiapine Fumarate 200 Mg Tablet) 200 mg PO BEDTIME [facility] Last Admin: 12/07/21 21:29 Dose: 200 mg Documented by: Quetiapine Fumarate (Quetiapine Fumarate 25 Mg Tablet) 12.5 mg PO Q4H PRN PRN Reason: anxiety Risperidone (Risperidone 1 Mg Tablet) 1 mg PO DAILY [facility] Last Admin: 12/08/21 08:45 Dose: 1 mg Documented by: Risperidone (Risperidone 2 Mg Tablet) 2 mg PO BEDTIME [facility] Last Admin: 12/07/21 21:30 Dose: 2 mg Documented by: Senna (Sennosides 8.6 Mg Tablet) 17.2 mg PO BEDTIME PRN PRN Reason: Constipation Trazodone HCl (Trazodone Hcl 50 Mg Tablet) 50 mg PO BEDTIME PRN PRN Reason: Insomnia Allergies Allergies Allergy/AdvReac Type Severity Reaction Status Date / Time diclofenac [From Voltaren] Allergy Mild NAUSEA, Verified 11/29/21 01:46 nausea and vomiting naproxen Allergy Unknown nausea and Verified 11/29/21 01:46 vomiting fluoxetine [From Prozac] Allergy Rash Verified 11/29/21 01:46 VELVET Allergy Mild HIVES Uncoded 05/14/20 14:58 Diclofenac Sodium Allergy Unknown unknown Uncoded 11/08/21 10:21 Assessment & Plan Assessment & Plan (1) MDD (major depressive disorder), recurrent, severe, with psychosis: Status: Acute Code(s): F33.3 - Major depressive disorder, recurrent, severe with psychotic symptoms (2) Opioid use disorder, severe, dependence: Status: Acute Code(s): F11.20 - Opioid dependence, uncomplicated Plan PLAN 1. continue risperidone 1mg po daily and 2 mg po qhs. 2. start remeron 15mg po qhs for depression/sleep 3. cough suppressant, afebrile, o2sat improving on room air 4. aftercare planning. I spent __25____ minutes with the patient and/or on the patient floor today, greater than?50% of which was spent counseling/coordinating care. Reason for contiued inpatient stay Substantial Risk for: harm to self
[2021-12-08] MEDS: Hydrocortisone 1 % Ointment 28.35 GM TUBE 1 APPL TOPICAL ×3 (13:49→22:15)
[2021-12-08] MEDS: hydrOXYzine HCL 25 MG TABLET PO (15:31)
[2021-12-08 15:43] LABS: Syphilis Screen Nonreactive (Nonreactive)
[2021-12-08 16:55] LABS: COVID-19 Test Negative (Negative)
[2021-12-08] MEDS: Throat Lozenge, Medicated LOZENGE 1 LOZENGE MUCOUS MEM (17:16)
[2021-12-08 18:10] LABS: Hematocrit 38.7 % (42.0-52.0); Hemoglobin 13.1 g/dl (14.0-18.0); Mean Corpuscular HGB Conc 33.9 g/dl (31.0-36.0); Mean Corpuscular Hemoglobin 31.2 pg (27.0-33.0); Mean Corpuscular Volume 92.1 fL (80.0-98.0); Platelet Count 332 X10*3/uL (160-400); Red Cell Distribution Width 13.1 % (11.0-16.0); White Blood Count 28.8 X10*3/uL (4.8-10.8)
[2021-12-08 18:50] LABS: Atypical Lymph Absolute Manual 0.3 x10*3/uL; Atypical Lymphs Percent Manual 1 % (0-6); Band Neutrophils Percent 1 % (3-5); Eosinophils Absolute Manual 0.6 X10*3/uL (0.0-0.4); Eosinophils Percent Manual 2 % (0-4); Lymphocytes Absolute Manual 0.9 X10*3/uL (1.2-4.9); Lymphocytes Percent Manual 3 % (20-40); Monocytes Absolute Manual 1.7 X10*3/uL (0.1-1.2); Monocytes Percent Manual 6 % (2-11); Neutrophils Absolute Manual 25.3 X10*3/uL (2.0-8.3); Neutrophils Percent Manual 87 % (45-73)
[2021-12-08 18:51] LABS: Platelet Estimate NORMAL (NORMAL); Platelet Morphology Comment NORMAL; RBC Morphology NORMAL; Smudge Cells PRESENT; Tear Drop Cells 1+ (0-2) /OIF; Toxic Vacuolation PRESENT
[2021-12-08 20:09] LABS: Lactic Acid 2.1 mmol/L (0.5-2.0)
[2021-12-08 20:12] LABS: Alanine Aminotransferase 59 U/L (0-40); Albumin Level 3.9 g/dL (3.5-5.0); Alkaline Phosphatase 82 U/L (39-117); Anion Gap 13 (12-20); Aspartate Amino Transferase 35 U/L (5-37); Bilirubin Total 0.4 mg/dL (0.0-1.0); Blood Urea Nitrogen 18 mg/dL (9-16); Calcium 9.1 mg/dL (8.4-10.2); Carbon Dioxide 29 mmol/L (22-29); Chloride 95 mmol/L (96-108); Estimated Glomerular Filt Rate > 60; Glucose Random 91 mg/dL (60-115); Potassium 4.9 mmol/L (3.3-5.1); Sodium 132 mmol/L (135-145); Total Protein 6.9 g/dL (6.5-8.0)
[2021-12-08 20:23] VITALS: BP 123/73; PULSE 89; RESP 14; TEMP 36.8; O2SAT 96
--- NOTE | 2021-12-08 21:11 | PC.NURSE ---
being sceen by hospitalist
[2021-12-08] MEDS: QUEtiapine Fumarate 200 MG TABLET PO (21:37)
[2021-12-08] MEDS: Mirtazapine 15 MG TABLET PO (21:37)
[2021-12-08] MEDS: risperiDONE 2 MG TABLET PO (21:37)
--- NOTE | 2021-12-08 21:38 | PM.EVENT ---
Event Note Date of Service: 12/09/21 Event Note: ?PNA: Patient reports increased cough with greenish sputum for the past 1 day. Lab showed increased leukocytosis and lactic acidosis of 2.1. CT scan pending. Will empirically start the patient on Augmentin and doxycycline. Id follow-up in the morning. ordered repeat CBC/BMP/Blood cx
[2021-12-08 21:40] VITALS: BP 109/65; PULSE 84; TEMP 36.6; O2SAT 96
[2021-12-08 21:47] LABS: Reflex Lactate? Lactic Acid Added
[2021-12-08] MEDS: Amoxicillin/Potassium Clav 875 MG TABLET PO (22:14)
[2021-12-08] MEDS: guaiFENesin DM 600/30 1 TAB TAB.ER.12H PO (22:14)
[2021-12-08] MEDS: Magnesium Hydrox/Alum Hydrox 30 ML ORAL.SUSP PO (22:15)
--- NOTE | 2021-12-08 22:35 | PC.NURSE ---
dr. sanchez aware of chest CT-bronchopneumonia
[2021-12-09 00:17] VITALS: PULSE 84; RESP 18; O2SAT 95
[2021-12-09] MEDS: Albuterol/Iprat 2.5/0.5MG 3 ML AMPUL.NEB INHALE ×2 (00:17→21:08)
--- NOTE | 2021-12-09 02:42 | PC.NURSE ---
chart reviewed. message sent to hospitalist as WBC on medical floor when being treated for pneumonia at highest was 17.5 and lactic acid 0.8. hospitalist responded that he will f/u with day team members.
[2021-12-09 04:44] LABS: HIV AB/AG Nonreactive (Nonreactive); HIV Num 1 0.14 S/CO (0.00-0.99); ~HepC Num1 0.21 S/CO (0.00-0.79); ~Hepatitis C Antibody Nonreactive (Nonreactive)
[2021-12-09 07:00] VITALS: BMI 28.3
[2021-12-09] MEDS: methADONE HCl 20 MG/2 ML ORAL.CONC 50 MG PO (08:24)
[2021-12-09] MEDS: guaiFENesin DM 600/30 1 TAB TAB.ER.12H PO ×2 (08:28→21:34)
[2021-12-09] MEDS: cloNIDine HCL 0.1 MG TABLET PO ×2 (08:28→21:34)
[2021-12-09] MEDS: Gabapentin 300 MG CAPSULE PO ×3 (08:28→21:35)
[2021-12-09] MEDS: risperiDONE 1 MG TABLET PO (08:29)
[2021-12-09] MEDS: Loratadine 10 MG TABLET PO (08:29)
[2021-12-09] MEDS: Omeprazole 20 MG CAPSULE.DR PO (08:29)
[2021-12-09] MEDS: Amoxicillin/Potassium Clav 875 MG TABLET PO (08:30)
[2021-12-09] MEDS: Milk of Magnesia 30 ML ORAL.SUSP PO (08:32)
[2021-12-09] MEDS: Nicotine 21 MG PATCH.TD24 TRANSDERMA (08:38)
[2021-12-09] MEDS: amLODIPine Besylate 2.5 MG TABLET PO (08:38)
[2021-12-09 08:47] VITALS: BP 116/67; PULSE 66; RESP 14; TEMP 36.5; O2SAT 96
[2021-12-09 09:28] LABS: MANUAL DIFF FLAG NO
[2021-12-09 09:30] LABS: Basophils Percent Auto 0.1 % (0-2); Eosinophils Absolute Auto 0.2 X10*3/uL (0.0-0.4); Hematocrit 40.7 % (42.0-52.0); Hemoglobin 13.5 g/dl (14.0-18.0); Imm Gran Abs Auto 0.24 X10*3/uL (0.00-0.03); Imm Gran Pct Auto 1.2 % (0.0-0.4); Lymphocytes Absolute Auto 2.5 X10*3/uL (1.2-4.9); Lymphocytes Percent Auto 12.4 % (20-40); Mean Corpuscular HGB Conc 33.2 g/dl (31.0-36.0); Mean Corpuscular Hemoglobin 30.8 pg (27.0-33.0); Mean Corpuscular Volume 92.7 fL (80.0-98.0); Mean Platelet Volume 9.2 fL (9.4-12.4); Monocytes Absolute Auto 0.9 X10*3/uL (0.1-1.2); Monocytes Percent Auto 4.6 % (2-11); Neutrophils Absolute Auto 16.5 x10*3/uL (2.0-8.3); Neutrophils Percent Auto 80.7 % (45-73); Platelet Count 324 X10*3/uL (160-400); Red Blood Count 4.39 X10*6/uL (4.60-5.80); Red Cell Distribution Width 13.2 % (11.0-16.0); White Blood Count 20.4 X10*3/uL (4.8-10.8)
[2021-12-09 09:48] LABS: Anion Gap 15 (12-20); Blood Urea Nitrogen 14 mg/dL (9-16); Calcium 9.1 mg/dL (8.4-10.2); Carbon Dioxide 30 mmol/L (22-29); Chloride 97 mmol/L (96-108); Creatinine Clr Calc Pharmacy 99.4; Estimated Glomerular Filt Rate > 60; Glucose Random 103 mg/dL (60-115); Potassium 4.6 mmol/L (3.3-5.1); Sodium 137 mmol/L (135-145)
--- NOTE | 2021-12-09 11:33 | PM.EVENT ---
Event Note Date of Service: 12/09/21 Event Note: To whom it may concern: [facility] Mr. Ronaldo Ramachandran is a 51 year-old admitted to inpatient psychiatric unit for treatment of depression. Currently, Mr. Rodriguez has shown improvement in terms of psychiatric symptoms and there is no acute safety concerns in terms of suicidality. He is also recovering from bronchopneumonia. He is currently not showing any signs of respiratory failure or distress that requires medical admission. His oxygen saturation on room air has been stable in 97 or higher. He is afebrile. Currently on as needed medications for symptoms such as cough, congestion, headache. Please do not hesitate to contact me for further information on his medical and psychiatric conditions. Sincerely, Ciera Huff APRN
[2021-12-09 12:00] VITALS: BP 118/73; PULSE 83; RESP 16; TEMP 36.6; O2SAT 95
--- NOTE | 2021-12-09 12:40 | PM.EVENT ---
Event Note Date of Service: 12/09/21 Event Note: Patient complaining of continue cough. Overall much improved since recent admission for aspiration pneumonia in the setting of overdose. Lungs sound clear. Patient has undiagnosed COPD, continues to smoke. Would do another 5 days of prednisone 40 mg daily, can use albuterol inhaler as needed. Would not recommend further antibiotics at this time.
--- NOTE | 2021-12-09 13:55 | P.PNPSI_ITS ---
Subjective Subjective Date of Service: 12/09/21 Reason For Visit: PTSD Subjective Notes: Conditional Voluntary Interim History: Medically- pt had chest CT yesterday due to WBC 28, although pt afebrile, and o2 sats stable on room air which show new branchovascular opacities R middle lobe and upper. Started on 2 broad spectrum antibiotic, blood cultures ordered (pe nding at the time) due to slight elevation in lactid acid (reflex lactic acid <2). Pt continues afebrile, O2 sat on room air>94. Pt continues to have cough, mostly at night. He feels tired, as expected, but no signs of respiratory failure or acute distress. Pt seen by hospitalist, Dr. Gamez, today as follow up- recommended new course of prednisone 40mg po daily for 5 days, no antibiotics unless fever, WBC today trending down to 20. continue albuterol, VS q6h monitor respiratory fnx- RN aware. Psychiatrically- pt denies hearing voices. He reports feeling disappointed due to medical condition, but denies SI/HI. Pt has been visible in unit, despite recommendation to rest as needed as he recovers and has attended assigned groups. poor sleep last night due to cough. Medication Compliance: Yes Review of Systems Review of Systems unchanged Yes all other systems are reviewed and are negative Constitutional: Reports fatigue and Reports poor appetite Eyes: Reports no additional eye complaints Reports sore throat Cardiovascular: Denies chest pain, Denies leg edema, Denies lightheadedness and Denies dyspnea Respiratory: Reports cough and Denies dyspnea Gastrointestinal: Reports constipation Musculoskeletal: Reports arthralgias (left knee) Endocrine: Reports fatigue Mental Status Exam Mental Status Exam Narrative: Appearance: appears stated age, wearing hospital gown, fair hygiene in NAD Behavior:cooperative psychomotor:no agitation or retardation noted Speech:clear, normal rate/rhythm/volume, spontaneous Thought process:mostly linear Thought content: not hearing voices today, feel worried about health Mood: anxious Affect: congruent, somewhat restless SI:passive no plan or intent HI:none VH/AH:AH- no command in nature Delusions:paranoia- more suspiciousness than well formed delusional system Insight/judgment:fair x 2. Memory/cog: alert, oriented x 3. Diagnostics Vital Signs (24Hr): Vital Signs - 24 hr 12/08/21 20:23 12/08/21 21:40 12/09/21 00:17 Temperature 98.3 F 97.9 F Pulse Rate 89 84 84 Respiratory Rate 14 18 Blood Pressure 123/73 109/65 Pulse Oximetry 96 96 12/09/21 08:47 12/09/21 12:00 Temperature 97.7 F 97.8 F Pulse Rate 66 83 Respiratory Rate 14 16 Blood Pressure 116/67 118/73 Pulse Oximetry 96 95 BMI result Body Mass Index 28.3 Labs Results: 12/09/21 08:34 12/09/21 08:34 Labs: Laboratory Results - last 48 hr 12/08/21 12/08/21 12/08/21 14:38 14:38 16:15 WBC RBC Hgb Hct MCV MCH MCHC RDW Plt Count MPV Immature Gran % (Auto) Neut % (Auto) Lymph % (Auto) [place] % (Auto) Eos % (Auto) Baso % (Auto) Lymph # (Auto) [place] # (Auto) Eos # (Auto) Baso # (Auto) Abs Immat Gran (auto) Absolute Neuts (auto) Absolute Nucleated RBC Nucleated RBC % (auto) Neutrophils % (Manual) Band Neutrophils % Lymphocytes % (Manual) Atypical Lymphs % (Man) Monocytes % (Manual) Eosinophils % (Manual) Abs Neuts (Manual) Lymphocytes # (Manual) Atyp Lymphs # (Manual) Monocytes # (Manual) Eosinophils # (Manual) Smudge Cells Toxic Vacuolation Platelet Estimate Plt Morphology Comment RBC Morphology Tear Drop Cells Sodium Potassium Chloride Carbon Dioxide Anion Gap BUN Creatinine Estim Creat Clear Calc Estimated GFR Random Glucose Lactic Acid Lactic Acid F/U @ 2Hr Calcium Total Bilirubin AST ALT Alkaline Phosphatase Total Protein Albumin T.pallidum Ab (EIA) Nonreactive COVID-19 ([facility]) Negative COVID-19 Clin Com See Note Hepatitis C Ab (EIA) Nonreactive HIV 1&2 Ab/P24 Ag 4thGn Nonreactive 12/08/21 12/08/21 12/08/21 17:43 19:40 19:40 WBC 28.8 H RBC 4.20 L Hgb 13.1 L Hct 38.7 L MCV 92.1 MCH 31.2 MCHC 33.9 RDW 13.1 Plt Count 332 MPV 9.0 L Immature Gran % (Auto) Cancelled Neut % (Auto) Cancelled Lymph % (Auto) Cancelled [place] % (Auto) Cancelled Eos % (Auto) Cancelled Baso % (Auto) Cancelled Lymph # (Auto) Cancelled [place] # (Auto) Cancelled Eos # (Auto) Cancelled Baso # (Auto) Cancelled Abs Immat Gran (auto) Cancelled Absolute Neuts (auto) Cancelled Absolute Nucleated RBC 0.000 Nucleated RBC % (auto) 0.0 Neutrophils % (Manual) 87 H Band Neutrophils % 1 L Lymphocytes % (Manual) 3 L Atypical Lymphs % (Man) 1 Monocytes % (Manual) 6 Eosinophils % (Manual) 2 Abs Neuts (Manual) 25.3 H Lymphocytes # (Manual) 0.9 L Atyp Lymphs # (Manual) 0.3 Monocytes # (Manual) 1.7 H Eosinophils # (Manual) 0.6 H Smudge Cells PRESENT Toxic Vacuolation PRESENT Platelet Estimate NORMAL Plt Morphology Comment NORMAL RBC Morphology NORMAL Tear Drop Cells 1+ (0-2) Sodium 132 L Potassium 4.9 Chloride 95 L Carbon Dioxide 29 Anion Gap 13 BUN 18 H Creatinine 0.95 Estim Creat Clear Calc 84.0 Estimated GFR > 60 Random Glucose 91 Lactic Acid 2.1 H* Lactic Acid F/U @ 2Hr Calcium 9.1 Total Bilirubin 0.4 AST 35 D ALT 59 H Alkaline Phosphatase 82 Total Protein 6.9 Albumin 3.9 T.pallidum Ab (EIA) COVID-19 ([facility]) COVID-19 Clin Com Hepatitis C Ab (EIA) HIV 1&2 Ab/P24 Ag 4thGn 12/08/21 12/09/21 12/09/21 22:12 08:34 08:34 WBC 20.4 H RBC 4.39 L Hgb 13.5 L Hct 40.7 L MCV 92.7 MCH 30.8 MCHC 33.2 RDW 13.2 Plt Count 324 MPV 9.2 L Immature Gran % (Auto) 1.2 H Neut % (Auto) 80.7 H Lymph % (Auto) 12.4 L [place] % (Auto) 4.6 Eos % (Auto) 1.0 Baso % (Auto) 0.1 Lymph # (Auto) 2.5 [place] # (Auto) 0.9 Eos # (Auto) 0.2 Baso # (Auto) 0.0 Abs Immat Gran (auto) 0.24 H Absolute Neuts (auto) 16.5 H Absolute Nucleated RBC 0.000 Nucleated RBC % (auto) 0.0 Neutrophils % (Manual) Band Neutrophils % Lymphocytes % (Manual) Atypical Lymphs % (Man) Monocytes % (Manual) Eosinophils % (Manual) Abs Neuts (Manual) Lymphocytes # (Manual) Atyp Lymphs # (Manual) Monocytes # (Manual) Eosinophils # (Manual) Smudge Cells Toxic Vacuolation Platelet Estimate Plt Morphology Comment RBC Morphology Tear Drop Cells Sodium 137 Potassium 4.6 Chloride 97 Carbon Dioxide 30 H Anion Gap 15 BUN 14 Creatinine 0.88 Estim Creat Clear Calc 99.4 Estimated GFR > 60 Random Glucose 103 Lactic Acid Lactic Acid F/U @ 2Hr 2.0 Calcium 9.1 Total Bilirubin AST ALT Alkaline Phosphatase Total Protein Albumin T.pallidum Ab (EIA) COVID-19 ([facility]) COVID-19 Clin Com Hepatitis C Ab (EIA) HIV 1&2 Ab/P24 Ag 4thGn Imaging Radiology Impressions: ITS Impressions Foot X-Ray 12/07/21 11:30 IMPRESSION: Normal right foot. Chest CT 12/08/21 20:02 IMPRESSION: Resolution of prior consolidations in the lingula and middle lobe with new bronchovascular distribution opacities with surrounding groundglass changes right upper lobe. Findings are suggestive of bronchopneumonia. Fleischner guidelines were followed. Medications Medications Current Medications Acetaminophen (Acetaminophen 325 Mg Tablet) 650 mg PO Q6H PRN PRN Reason: Headache/Pain Mild Scale (1-3) Last Admin: 12/07/21 08:19 Dose: 650 mg Documented by: Al Hydroxide/Mg Hydroxide (Magnesium Hydrox/Alum Hydrox 30 Ml Oral.Susp) 30 ml PO Q6H PRN PRN Reason: Heartburn/Nausea Last Admin: 12/08/21 22:15 Dose: 30 ml Documented by: Albuterol/Ipratropium (Albuterol/Iprat 2.5/0.5mg 3 Ml Ampul.Neb) 3 ml INHALE RQ4H WHILE AWAKE PRN PRN Reason: Shortness of Breath/Wheezing Last Admin: 12/09/21 00:17 Dose: 3 ml Documented by: Amlodipine Besylate (Amlodipine Besylate 2.5 Mg Tablet) 2.5 mg PO DAILY [facility]; Protocol Last Admin: 12/09/21 08:38 Dose: 2.5 mg Documented by: Amoxicillin/Clavulanate Potassium (Amoxicillin/Potassium Clav 875 Mg Tablet) 875 mg PO Q12H EMIGDIO Last Admin: 12/09/21 08:30 Dose: 875 mg Documented by: Benzocaine (Throat Lozenge, Medicated Lozenge) 1 lozenge MUCOUS MEM Q2H PRN PRN Reason: Sore Throat Last Admin: 12/08/21 17:16 Dose: 1 lozenge Documented by: Clonidine HCl (Clonidine Hcl 0.1 Mg Tablet) 0.1 mg PO BID [facility]; Protocol Last Admin: 12/09/21 08:28 Dose: 0.1 mg Documented by: Doxycycline Hyclate (Doxycycline Hyclate 100 Mg Tablet) 100 mg PO Q12H [facility] Last Admin: 12/09/21 08:30 Dose: 100 mg Documented by: Gabapentin (Gabapentin 300 Mg Capsule) 300 mg PO TID [facility] Last Admin: 12/09/21 08:28 Dose: 300 mg Documented by: Guaifenesin/Dextromethorphan (Guaifenesin Dm 600/30 1 Tab Tab.Er.12h) 1 tab PO BID [facility] Last Admin: 12/09/21 08:28 Dose: 1 tab Documented by: Hydrocortisone (Hydrocortisone 1 % Ointment 28.35 Gm Tube) 1 appl TOPICAL TID [facility]; Protocol Last Admin: 12/09/21 09:44 Dose: Not Given Documented by: Hydroxyzine HCl (Hydroxyzine Hcl 25 Mg Tablet) 25 mg PO BID PRN PRN Reason: anxiety Last Admin: 12/08/21 15:31 Dose: 25 mg Documented by: Loratadine (Loratadine 10 Mg Tablet) 10 mg PO DAILY [facility] Last Admin: 12/09/21 08:29 Dose: 10 mg Documented by: Magnesium Hydroxide (Milk Of Magnesia 30 Ml Oral.Susp) 30 ml PO DAILY PRN PRN Reason: Constipation Last Admin: 12/09/21 08:32 Dose: 30 ml Documented by: Methadone HCl (Methadone Hcl 20 Mg/2 Ml Oral.Conc) 50 mg PO DAILY [facility] Last Admin: 12/09/21 08:24 Dose: 50 mg Documented by: Mirtazapine (Mirtazapine 15 Mg Tablet) 15 mg PO BEDTIME [facility] Last Admin: 12/08/21 21:37 Dose: 15 mg Documented by: Nicotine (Nicotine 21 Mg Patch.Td24) 21 mg TRANSDERMA DAILY [facility] Last Admin: 12/09/21 08:38 Dose: 21 mg Documented by: Nicotine Polacrilex (Nicotine Polacrilex 2 Mg Gum) 2 mg BUCCAL Q1H PRN PRN Reason: Nicotine Cravings Omeprazole (Omeprazole 20 Mg Capsule.Dr) 20 mg PO DAILY@0630 [facility] Last Admin: 12/09/21 08:29 Dose: 20 mg Documented by: Polyethylene Glycol (Polyethylene Glycol 3350 17 Gm Powd.Pack) 17 gm PO DAILY [facility] Last Admin: 12/09/21 09:42 Dose: Not Given Documented by: Quetiapine Fumarate (Quetiapine Fumarate 200 Mg Tablet) 200 mg PO BEDTIME [facility] Last Admin: 12/08/21 21:37 Dose: 200 mg Documented by: Quetiapine Fumarate (Quetiapine Fumarate 25 Mg Tablet) 12.5 mg PO Q4H PRN PRN Reason: anxiety Risperidone (Risperidone 1 Mg Tablet) 1 mg PO DAILY [facility] Last Admin: 12/09/21 08:29 Dose: 1 mg Documented by: Risperidone (Risperidone 2 Mg Tablet) 2 mg PO BEDTIME [facility] Last Admin: 12/08/21 21:37 Dose: 2 mg Documented by: Senna (Sennosides 8.6 Mg Tablet) 17.2 mg PO BEDTIME PRN PRN Reason: Constipation Trazodone HCl (Trazodone Hcl 50 Mg Tablet) 50 mg PO BEDTIME PRN PRN Reason: Insomnia Allergies Allergies Allergy/AdvReac Type Severity Reaction Status Date / Time diclofenac [From Voltaren] Allergy Mild NAUSEA, Verified 11/29/21 01:46 nausea and vomiting naproxen Allergy Unknown nausea and Verified 11/29/21 01:46 vomiting fluoxetine [From Prozac] Allergy Rash Verified 11/29/21 01:46 VELVET Allergy Mild HIVES Uncoded 05/14/20 14:58 Diclofenac Sodium Allergy Unknown unknown Uncoded 11/08/21 10:21 Assessment & Plan Assessment & Plan (1) MDD (major depressive disorder), recurrent, severe, with psychosis: Status: Acute Code(s): F33.3 - Major depressive disorder, recurrent, severe with psychotic symptoms (2) Opioid use disorder, severe, dependence: Status: Acute Code(s): F11.20 - Opioid dependence, uncomplicated Plan PLAN 1. continue risperidone 1mg po daily and 2 mg po qhs. 2. start remeron 15mg po qhs for depression/sleep 3. cough suppressant, afebrile, o2sat improving on room air 4. aftercare planning. 12/09/21 Medically- pt had chest CT yesterday due to WBC 28, although pt afebrile, and o2 sats stable on room air which show new branchovascular opacities R middle lobe and upper. Started on 2 broad spectrum antibiotic, blood cultures ordered (pending at the time) due to slight elevation in lactid acid (reflex lactic acid <2). Pt continues afebrile, O2 sat on room air>94. Pt continues to have cough, mostly at night. He feels tired, as expected, but no signs of respiratory failure or acute distress. Pt seen by hospitalist, Dr. Gamez, today as follow up- recommended new course of prednisone 40mg po daily for 5 days, no antibiotics unless fever, WBC today trending down to 20. continue albuterol, VS q6h monitor respiratory fnx- RN aware. psychiatrically- continue current medications. I spent ___25___ minutes with the patient and/or on the patient floor today, greater than?50% of which was spent counseling/coordinating care. Reason for contiued inpatient stay Substantial Risk for: harm to self
[2021-12-09] MEDS: predniSONE 20 MG TABLET 40 MG PO (14:25)
[2021-12-09] MEDS: hydrOXYzine HCL 25 MG TABLET PO (14:26)
[2021-12-09] MEDS: Magnesium Citrate 300 ML SOLUTION PO (15:18)
--- NOTE | 2021-12-09 19:06 | PC.NURSE ---
Pt reports constipation, last bowel movement was 3 days ago. Milk of magnesia and magnesium citrate administered with no effect.
[2021-12-09 20:47] VITALS: BP 118/63; PULSE 76; TEMP 36.4; O2SAT 94
[2021-12-09 21:08] VITALS: PULSE 74; RESP 16; O2SAT 96
[2021-12-09] MEDS: QUEtiapine Fumarate 200 MG TABLET PO (21:34)
[2021-12-09] MEDS: risperiDONE 2 MG TABLET PO (21:35)
[2021-12-09] MEDS: Mirtazapine 15 MG TABLET PO (21:35)
[2021-12-09 21:44] VITALS: BP 129/71; PULSE 109; TEMP 36.6; O2SAT 96
[2021-12-10] MEDS: Omeprazole 20 MG CAPSULE.DR PO (05:21)
[2021-12-10] MEDS: Milk of Magnesia 30 ML ORAL.SUSP PO (05:22)
[2021-12-10] MEDS: Hydrocortisone 1 % Ointment 28.35 GM TUBE 1 APPL TOPICAL ×2 (05:48→15:34)
[2021-12-10 08:44] VITALS: BP 119/68; PULSE 82; RESP 12; TEMP 36.3; O2SAT 94
[2021-12-10] MEDS: Nicotine 21 MG PATCH.TD24 TRANSDERMA (08:47)
[2021-12-10] MEDS: polyethylene glycoL 3350 17 GM POWD.PACK PO (08:48)
[2021-12-10] MEDS: Loratadine 10 MG TABLET PO (08:49)
[2021-12-10] MEDS: cloNIDine HCL 0.1 MG TABLET PO ×2 (08:49→21:29)
[2021-12-10] MEDS: predniSONE 20 MG TABLET 40 MG PO (08:50)
[2021-12-10] MEDS: risperiDONE 1 MG TABLET PO (08:50)
[2021-12-10] MEDS: Gabapentin 300 MG CAPSULE PO ×3 (08:50→21:30)
[2021-12-10] MEDS: amLODIPine Besylate 2.5 MG TABLET PO (08:50)
[2021-12-10] MEDS: guaiFENesin DM 600/30 1 TAB TAB.ER.12H PO ×2 (08:50→21:29)
[2021-12-10] MEDS: methADONE HCl 20 MG/2 ML ORAL.CONC 50 MG PO (08:51)
[2021-12-10] MEDS: hydrOXYzine HCL 25 MG TABLET PO ×2 (12:32→21:29)
[2021-12-10 13:23] VITALS: BP 117/74; PULSE 74; RESP 16; TEMP 36.4; O2SAT 94
--- NOTE | 2021-12-10 14:07 | HO.PSYCHPN ---
Subjective Subjective Date of Service: 12/10/21 Reason For Visit: PTSD Interim History: Medically- O2 sat on room air>94, pt reports SOb when talking, laying down in flat position. He reports feeling tired. Afebrile, less cough, reports sleeping better last night. Psychiatrically- pt continues to denie hearing voices. Pt denies SI/HI. visible in the unit, attends assigned groups. future oriented, hoping he will be able to go to [facility] on Monday. Medication Compliance: Yes Side effects from medications: No Review of Systems Review of Systems unchanged Yes all other systems are reviewed and are negative Constitutional: Reports fatigue and Reports poor appetite Eyes: Reports no additional eye complaints Reports sore throat Cardiovascular: Denies chest pain, Denies leg edema, Denies lightheadedness and Denies dyspnea Respiratory: Reports cough and Denies dyspnea Gastrointestinal: Reports constipation Musculoskeletal: Reports arthralgias (left knee) Endocrine: Reports fatigue Mental Status Exam Mental Status Exam Narrative: Appearance: appears stated age, wearing hospital gown, fair hygiene in NAD Behavior:cooperative psychomotor:no agitation or retardation noted Speech:clear, normal rate/rhythm/volume, spontaneous Thought process:mostly linear Thought content: not hearing voices today, feel worried about health Mood: anxious Affect: congruent, somewhat restless SI:passive no plan or intent HI:none VH/AH:AH- no command in nature Delusions:paranoia- more suspiciousness than well formed delusional system Insight/judgment:fair x 2. Memory/cog: alert, oriented x 3. Diagnostics Vital Signs (24Hr): Vital Signs - 24 hr 12/09/21 20:47 12/09/21 21:08 12/09/21 21:44 Temperature 97.6 F 97.8 F Pulse Rate 76 74 109 H Respiratory Rate 16 Blood Pressure 118/63 129/71 Pulse Oximetry 94 96 12/10/21 08:44 12/10/21 13:23 Temperature 97.4 F 97.6 F Pulse Rate 82 74 Respiratory Rate 12 16 Blood Pressure 119/68 117/74 Pulse Oximetry 94 94 BMI result Body Mass Index 28.3 Labs Results: 12/09/21 08:34 12/09/21 08:34 Labs: Laboratory Results - last 48 hr 12/08/21 12/08/21 12/08/21 14:38 14:38 16:15 WBC RBC Hgb Hct MCV MCH MCHC RDW Plt Count MPV Immature Gran % (Auto) Neut % (Auto) Lymph % (Auto) [place] % (Auto) Eos % (Auto) Baso % (Auto) Lymph # (Auto) [place] # (Auto) Eos # (Auto) Baso # (Auto) Abs Immat Gran (auto) Absolute Neuts (auto) Absolute Nucleated RBC Nucleated RBC % (auto) Neutrophils % (Manual) Band Neutrophils % Lymphocytes % (Manual) Atypical Lymphs % (Man) Monocytes % (Manual) Eosinophils % (Manual) Abs Neuts (Manual) Lymphocytes # (Manual) Atyp Lymphs # (Manual) Monocytes # (Manual) Eosinophils # (Manual) Smudge Cells Toxic Vacuolation Platelet Estimate Plt Morphology Comment RBC Morphology Tear Drop Cells Sodium Potassium Chloride Carbon Dioxide Anion Gap BUN Creatinine Estim Creat Clear Calc Estimated GFR Random Glucose Lactic Acid Lactic Acid F/U @ 2Hr Calcium Total Bilirubin AST ALT Alkaline Phosphatase Total Protein Albumin T.pallidum Ab (EIA) Nonreactive COVID-19 (LAZARA) Negative COVID-19 Clin Com See Note Hepatitis C Ab (EIA) Nonreactive HIV 1&2 Ab/P24 Ag 4thGn Nonreactive 12/08/21 12/08/21 12/08/21 17:43 19:40 19:40 WBC 28.8 H RBC 4.20 L Hgb 13.1 L Hct 38.7 L MCV 92.1 MCH 31.2 MCHC 33.9 RDW 13.1 Plt Count 332 MPV 9.0 L Immature Gran % (Auto) Cancelled Neut % (Auto) Cancelled Lymph % (Auto) Cancelled [place] % (Auto) Cancelled Eos % (Auto) Cancelled Baso % (Auto) Cancelled Lymph # (Auto) Cancelled [place] # (Auto) Cancelled Eos # (Auto) Cancelled Baso # (Auto) Cancelled Abs Immat Gran (auto) Cancelled Absolute Neuts (auto) Cancelled Absolute Nucleated RBC 0.000 Nucleated RBC % (auto) 0.0 Neutrophils % (Manual) 87 H Band Neutrophils % 1 L Lymphocytes % (Manual) 3 L Atypical Lymphs % (Man) 1 Monocytes % (Manual) 6 Eosinophils % (Manual) 2 Abs Neuts (Manual) 25.3 H Lymphocytes # (Manual) 0.9 L Atyp Lymphs # (Manual) 0.3 Monocytes # (Manual) 1.7 H Eosinophils # (Manual) 0.6 H Smudge Cells PRESENT Toxic Vacuolation PRESENT Platelet Estimate NORMAL Plt Morphology Comment NORMAL RBC Morphology NORMAL Tear Drop Cells 1+ (0-2) Sodium 132 L Potassium 4.9 Chloride 95 L Carbon Dioxide 29 Anion Gap 13 BUN 18 H Creatinine 0.95 Estim Creat Clear Calc 84.0 Estimated GFR > 60 Random Glucose 91 Lactic Acid 2.1 H* Lactic Acid F/U @ 2Hr Calcium 9.1 Total Bilirubin 0.4 AST 35 D ALT 59 H Alkaline Phosphatase 82 Total Protein 6.9 Albumin 3.9 T.pallidum Ab (EIA) COVID-19 (LAZARA) COVID-19 Clin Com Hepatitis C Ab (EIA) HIV 1&2 Ab/P24 Ag 4thGn 12/08/21 12/09/21 12/09/21 22:12 08:34 08:34 WBC 20.4 H RBC 4.39 L Hgb 13.5 L Hct 40.7 L MCV 92.7 MCH 30.8 MCHC 33.2 RDW 13.2 Plt Count 324 MPV 9.2 L Immature Gran % (Auto) 1.2 H Neut % (Auto) 80.7 H Lymph % (Auto) 12.4 L [place] % (Auto) 4.6 Eos % (Auto) 1.0 Baso % (Auto) 0.1 Lymph # (Auto) 2.5 [place] # (Auto) 0.9 Eos # (Auto) 0.2 Baso # (Auto) 0.0 Abs Immat Gran (auto) 0.24 H Absolute Neuts (auto) 16.5 H Absolute Nucleated RBC 0.000 Nucleated RBC % (auto) 0.0 Neutrophils % (Manual) Band Neutrophils % Lymphocytes % (Manual) Atypical Lymphs % (Man) Monocytes % (Manual) Eosinophils % (Manual) Abs Neuts (Manual) Lymphocytes # (Manual) Atyp Lymphs # (Manual) Monocytes # (Manual) Eosinophils # (Manual) Smudge Cells Toxic Vacuolation Platelet Estimate Plt Morphology Comment RBC Morphology Tear Drop Cells Sodium 137 Potassium 4.6 Chloride 97 Carbon Dioxide 30 H Anion Gap 15 BUN 14 Creatinine 0.88 Estim Creat Clear Calc 99.4 Estimated GFR > 60 Random Glucose 103 Lactic Acid Lactic Acid F/U @ 2Hr 2.0 Calcium 9.1 Total Bilirubin AST ALT Alkaline Phosphatase Total Protein Albumin T.pallidum Ab (EIA) COVID-19 ([facility]ARA) COVID-19 Clin Com Hepatitis C Ab (EIA) HIV 1&2 Ab/P24 Ag 4thGn Imaging Radiology Impressions: ITS Impressions Foot X-Ray 12/07/21 11:30 IMPRESSION: Normal right foot. Chest CT 12/08/21 20:02 IMPRESSION: Resolution of prior consolidations in the lingula and middle lobe with new bronchovascular distribution opacities with surrounding groundglass changes right upper lobe. Findings are suggestive of bronchopneumonia. Fleischner guidelines were followed. Medications Medications Current Medications Acetaminophen (Acetaminophen 325 Mg Tablet) 650 mg PO Q6H PRN PRN Reason: Headache/Pain Mild Scale (1-3) Last Admin: 12/07/21 08:19 Dose: 650 mg Documented by: Al Hydroxide/Mg Hydroxide (Magnesium Hydrox/Alum Hydrox 30 Ml Oral.Susp) 30 ml PO Q6H PRN PRN Reason: Heartburn/Nausea Last Admin: 12/08/21 22:15 Dose: 30 ml Documented by: Albuterol/Ipratropium (Albuterol/Iprat 2.5/0.5mg 3 Ml Ampul.Neb) 3 ml INHALE RQ4H WHILE AWAKE PRN PRN Reason: Shortness of Breath/Wheezing Last Admin: 12/09/21 21:08 Dose: 3 ml Documented by: Amlodipine Besylate (Amlodipine Besylate 2.5 Mg Tablet) 2.5 mg PO DAILY [facility]IG[facility]IO; Protocol Last Admin: 12/10/21 08:50 Dose: 2.5 mg Documented by: Benzocaine (Throat Lozenge, Medicated Lozenge) 1 lozenge MUCOUS MEM Q2H PRN PRN Reason: Sore Throat Last Admin: 12/08/21 17:16 Dose: 1 lozenge Documented by: Clonidine HCl (Clonidine Hcl 0.1 Mg Tablet) 0.1 mg PO BID [facility]IG[facility]IO; Protocol Last Admin: 12/10/21 08:49 Dose: 0.1 mg Documented by: Gabapentin (Gabapentin 300 Mg Capsule) 300 mg PO TID [facility] Last Admin: 12/10/21 08:50 Dose: 300 mg Documented by: Guaifenesin/Dextromethorphan (Guaifenesin Dm 600/30 1 Tab Tab.Er.12h) 1 tab PO BID [facility]IG[facility] Last Admin: 12/10/21 08:50 Dose: 1 tab Documented by: Hydrocortisone (Hydrocortisone 1 % Ointment 28.35 Gm Tube) 1 appl TOPICAL TID EIMGDIO; Protocol Last Admin: 12/10/21 08:51 Dose: Not Given Documented by: Hydroxyzine HCl (Hydroxyzine Hcl 25 Mg Tablet) 25 mg PO BID PRN PRN Reason: anxiety Last Admin: 12/10/21 12:32 Dose: 25 mg Documented by: Loratadine (Loratadine 10 Mg Tablet) 10 mg PO DAILY [facility] Last Admin: 12/10/21 08:49 Dose: 10 mg Documented by: Magnesium Hydroxide (Milk Of Magnesia 30 Ml Oral.Susp) 30 ml PO DAILY PRN PRN Reason: Constipation Last Admin: 12/10/21 05:22 Dose: 30 ml Documented by: Methadone HCl (Methadone Hcl 20 Mg/2 Ml Oral.Conc) 50 mg PO DAILY [facility] Last Admin: 12/10/21 08:51 Dose: 50 mg Documented by: Mirtazapine (Mirtazapine 15 Mg Tablet) 15 mg PO BEDTIME [facility] Last Admin: 12/09/21 21:35 Dose: 15 mg Documented by: Nicotine (Nicotine 21 Mg Patch.Td24) 21 mg TRANSDERMA DAILY [facility] Last Admin: 12/10/21 08:47 Dose: 21 mg Documented by: Nicotine Polacrilex (Nicotine Polacrilex 2 Mg Gum) 2 mg BUCCAL Q1H PRN PRN Reason: Nicotine Cravings Omeprazole (Omeprazole 20 Mg Capsule.Dr) 20 mg PO DAILY@0630 [facility] Last Admin: 12/10/21 05:21 Dose: 20 mg Documented by: Polyethylene Glycol (Polyethylene Glycol 3350 17 Gm Powd.Pack) 17 gm PO DAILY [facility] Last Admin: 12/10/21 08:48 Dose: 17 gm Documented by: Prednisone (Prednisone 20 Mg Tablet) 40 mg PO DAILY [facility] Stop: 12/14/21 14:09 Last Admin: 12/10/21 08:50 Dose: 40 mg Documented by: Quetiapine Fumarate (Quetiapine Fumarate 200 Mg Tablet) 200 mg PO BEDTIME [facility] Last Admin: 12/09/21 21:34 Dose: 200 mg Documented by: Quetiapine Fumarate (Quetiapine Fumarate 25 Mg Tablet) 12.5 mg PO Q4H PRN PRN Reason: anxiety Risperidone (Risperidone 1 Mg Tablet) 1 mg PO DAILY [facility] Last Admin: 12/10/21 08:50 Dose: 1 mg Documented by: Risperidone (Risperidone 2 Mg Tablet) 2 mg PO BEDTIME [facility] Last Admin: 12/09/21 21:35 Dose: 2 mg Documented by: Senna (Sennosides 8.6 Mg Tablet) 17.2 mg PO BEDTIME PRN PRN Reason: Constipation Trazodone HCl (Trazodone Hcl 50 Mg Tablet) 50 mg PO BEDTIME PRN PRN Reason: Insomnia Allergies Allergies Allergy/AdvReac Type Severity Reaction Status Date / Time diclofenac [From Voltaren] Allergy Mild NAUSEA, Verified 11/29/21 01:46 nausea and vomiting naproxen Allergy Unknown nausea and Verified 11/29/21 01:46 vomiting fluoxetine [From Prozac] Allergy Rash Verified 11/29/21 01:46 VELVET Allergy Mild HIVES Uncoded 05/14/20 14:58 Diclofenac Sodium Allergy Unknown unknown Uncoded 11/08/21 10:21 Assessment & Plan Assessment & Plan (1) MDD (major depressive disorder), recurrent, severe, with psychosis: Status: Acute Code(s): F33.3 - Major depressive disorder, recurrent, severe with psychotic symptoms (2) Opioid use disorder, severe, dependence: Status: Acute Code(s): F11.20 - Opioid dependence, uncomplicated Plan PLAN 1. continue risperidone 1mg po daily and 2 mg po qhs. 2. start remeron 15mg po qhs for depression/sleep 3. cough suppressant, afebrile, o2sat improving on room air 4. aftercare planning. 12/09/21 Medically- pt had chest CT yesterday due to WBC 28, although pt afebrile, and o2 sats stable on room air which show new branchovascular opacities R middle lobe and upper. Started on 2 broad spectrum antibiotic, blood cultures ordered (pending at the time) due to slight elevation in lactid acid (reflex lactic acid <2). Pt continues afebrile, O2 sat on room air>94. Pt continues to have cough, mostly at night. He feels tired, as expected, but no signs of respiratory failure or acute distress. Pt seen by hospitalist, Dr. Gamez, today as follow up- recommended new course of prednisone 40mg po daily for 5 days, no antibiotics unless fever, WBC today trending down to 20. continue albuterol, VS q6h monitor respiratory fnx- RN aware. psychiatrically- continue current medications. 12/10- medically stable, O2sat>94 on RA, no signs of respiratory distress although reports SOB when talking or walking too much. sleeping better, less cough, afebrile. psychiatrically stable. I spent minutes with the patient and/or on the patient floor today, greater than?50% of which was spent counseling/coordinating care. Reason for contiued inpatient stay Substantial Risk for: harm to self
[2021-12-10 15:10] LABS: Basophils Percent Auto 0.1 % (0-2); Eosinophils Percent Auto 0.1 % (0-4); Hematocrit 38.5 % (42.0-52.0); Hemoglobin 12.5 g/dl (14.0-18.0); Imm Gran Abs Auto 0.34 X10*3/uL (0.00-0.03); Imm Gran Pct Auto 1.4 % (0.0-0.4); Lymphocytes Absolute Auto 0.9 X10*3/uL (1.2-4.9); Lymphocytes Percent Auto 3.7 % (20-40); MANUAL DIFF FLAG SCAN; Mean Corpuscular HGB Conc 32.5 g/dl (31.0-36.0); Mean Corpuscular Hemoglobin 30.3 pg (27.0-33.0); Mean Corpuscular Volume 93.2 fL (80.0-98.0); Mean Platelet Volume 9.2 fL (9.4-12.4); Monocytes Absolute Auto 0.5 X10*3/uL (0.1-1.2); Monocytes Percent Auto 1.9 % (2-11); Neutrophils Percent Auto 92.8 % (45-73); Platelet Count 334 X10*3/uL (160-400); Red Blood Count 4.13 X10*6/uL (4.60-5.80); Red Cell Distribution Width 13.5 % (11.0-16.0); SCAN SMEAR FLAG 1; White Blood Count 23.7 X10*3/uL (4.8-10.8)
[2021-12-10 15:30] LABS: Alanine Aminotransferase 90 U/L (0-40); Alkaline Phosphatase 109 U/L (39-117); Anion Gap 16 (12-20); Aspartate Amino Transferase 54 U/L (5-37); Bilirubin Total 0.4 mg/dL (0.0-1.0); Blood Urea Nitrogen 15 mg/dL (9-16); Calcium 9.5 mg/dL (8.4-10.2); Carbon Dioxide 24 mmol/L (22-29); Chloride 102 mmol/L (96-108); Creatinine Clr Calc Pharmacy 104.2; Estimated Glomerular Filt Rate > 60; Glucose Random 142 mg/dL (60-115); Potassium 5.4 mmol/L (3.3-5.1); Sodium 137 mmol/L (135-145); Total Protein 7.4 g/dL (6.5-8.0)
[2021-12-10 15:33] LABS: SLIDE REVIEW VERIFIED
[2021-12-10] MEDS: QUEtiapine Fumarate 25 MG TABLET 12.5 MG PO (18:23)
[2021-12-10 21:25] VITALS: BP 119/75; PULSE 69; RESP 17; TEMP 36.6; O2SAT 96
[2021-12-10] MEDS: risperiDONE 2 MG TABLET PO (21:29)
[2021-12-10] MEDS: Mirtazapine 15 MG TABLET PO (21:29)
[2021-12-10] MEDS: QUEtiapine Fumarate 200 MG TABLET PO (21:30)
[2021-12-11 08:28] VITALS: BP 133/76; PULSE 75; RESP 18; TEMP 36.1; O2SAT 97
[2021-12-11] MEDS: predniSONE 20 MG TABLET 40 MG PO (08:29)
[2021-12-11] MEDS: Omeprazole 20 MG CAPSULE.DR PO (08:30)
[2021-12-11] MEDS: cloNIDine HCL 0.1 MG TABLET PO ×2 (08:30→21:17)
[2021-12-11] MEDS: guaiFENesin DM 600/30 1 TAB TAB.ER.12H PO ×2 (08:31→21:16)
[2021-12-11] MEDS: Gabapentin 300 MG CAPSULE PO ×3 (08:31→21:17)
[2021-12-11] MEDS: risperiDONE 1 MG TABLET PO (08:31)
[2021-12-11] MEDS: polyethylene glycoL 3350 17 GM POWD.PACK PO (08:32)
[2021-12-11] MEDS: amLODIPine Besylate 2.5 MG TABLET PO (08:32)
[2021-12-11] MEDS: Nicotine 21 MG PATCH.TD24 TRANSDERMA (08:32)
[2021-12-11] MEDS: Loratadine 10 MG TABLET PO (08:32)
[2021-12-11] MEDS: methADONE HCl 20 MG/2 ML ORAL.CONC 50 MG PO (08:34)
[2021-12-11] MEDS: hydrOXYzine HCL 25 MG TABLET PO (12:17)
[2021-12-11 14:00] VITALS: BP 142/76; PULSE 77; RESP 20; TEMP 36.4; O2SAT 97
[2021-12-11] MEDS: QUEtiapine Fumarate 25 MG TABLET 12.5 MG PO (15:16)
--- NOTE | 2021-12-11 18:07 | P.PNPSI_ITS ---
Subjective Subjective Date of Service: 12/11/21 Reason For Visit: PTSD Interim History: Afebrile, reports feeling weak at times in recovery from recent pneumonia. Pt known to this lead technical writer, he reviewed current symptoms, circumstances. Reports poor sleep due to cough and room-mate activity. Believes that at times he awakens due to shortness of breath and worry about if he will be able to fully participate at [facility] due to rigorous schedule, however, acknowledged need for treatment. Reports medications are intact and requests no changes at this time. Medication Compliance: Yes Side effects from medications: No Attending Groups: Yes Review of Systems Recovering from pneumonia Medical Review of Systems: unchanged Mental Status Exam Mental Status Exam Narrative: Appearance: appears stated age, wearing hospital gown, fair hygiene in NAD Behavior:cooperative psychomotor:no agitation or retardation noted Speech:clear, normal rate/rhythm/volume, spontaneous Thought process:mostly linear Thought content: not hearing voices today, feel worried about health Mood: anxious Affect: congruent, somewhat restless SI:passive no plan or intent HI:none VH/AH:AH- no command in nature Delusions:paranoia- more suspiciousness than well formed delusional system Insight/judgment:fair x 2. Memory/cog: alert, oriented x 3. Diagnostics Vital Signs (24Hr): Vital Signs - 24 hr 12/10/21 21:25 12/11/21 08:28 12/11/21 14:00 Temperature 97.8 F 97.0 F 97.6 F Pulse Rate 69 75 77 Respiratory Rate 17 18 20 Blood Pressure 119/75 133/76 142/76 H Pulse Oximetry 96 97 97 BMI result Body Mass Index 28.3 Labs Results: 12/10/21 14:56 12/10/21 14:56 Labs: Laboratory Results - last 48 hr 12/10/21 12/10/21 14:56 14:56 WBC 23.7 H RBC 4.13 L Hgb 12.5 L Hct 38.5 L MCV 93.2 MCH 30.3 MCHC 32.5 RDW 13.5 Plt Count 334 MPV 9.2 L Immature Gran % (Auto) 1.4 H Neut % (Auto) 92.8 H Lymph % (Auto) 3.7 L [place] % (Auto) 1.9 L Eos % (Auto) 0.1 Baso % (Auto) 0.1 Lymph # (Auto) 0.9 L [place] # (Auto) 0.5 Eos # (Auto) 0.0 Baso # (Auto) 0.0 Abs Immat Gran (auto) 0.34 H Absolute Neuts (auto) 22.0 H Absolute Nucleated RBC 0.000 Nucleated RBC % (auto) 0.0 Smear Tech's Comments VERIFIED Sodium 137 Potassium 5.4 H Chloride 102 Carbon Dioxide 24 Anion Gap 16 BUN 15 Creatinine 0.84 Estim Creat Clear Calc 104.2 Estimated GFR > 60 Random Glucose 142 H D Calcium 9.5 Total Bilirubin 0.4 AST 54 H ALT 90 H Alkaline Phosphatase 109 D Total Protein 7.4 Albumin 4.0 Imaging Radiology Impressions: ITS Impressions Foot X-Ray 12/07/21 11:30 IMPRESSION: Normal right foot. Chest CT 12/08/21 20:02 IMPRESSION: Resolution of prior consolidations in the lingula and middle lobe with new bronchovascular distribution opacities with surrounding groundglass changes right upper lobe. Findings are suggestive of bronchopneumonia. Fleischner guidelines were followed. Medications Medications Current Medications Acetaminophen (Acetaminophen 325 Mg Tablet) 650 mg PO Q6H PRN PRN Reason: Headache/Pain Mild Scale (1-3) Last Admin: 12/07/21 08:19 Dose: 650 mg Documented by: Al Hydroxide/Mg Hydroxide (Magnesium Hydrox/Alum Hydrox 30 Ml Oral.Susp) 30 ml PO Q6H PRN PRN Reason: Heartburn/Nausea Last Admin: 12/08/21 22:15 Dose: 30 ml Documented by: Albuterol Sulfate (Albuterol Sulfate 90 Mcg 8 Gm Inhaler) 1 puff INHALE Q4H PRN PRN Reason: SOB/wheezing Albuterol/Ipratropium (Albuterol/Iprat 2.5/0.5mg 3 Ml Ampul.Neb) 3 ml INHALE RQ4H WHILE AWAKE PRN PRN Reason: Shortness of Breath/Wheezing Last Admin: 12/09/21 21:08 Dose: 3 ml Documented by: Amlodipine Besylate (Amlodipine Besylate 2.5 Mg Tablet) 2.5 mg PO DAILY [facility]; Protocol Last Admin: 12/11/21 08:32 Dose: 2.5 mg Documented by: Benzocaine (Throat Lozenge, Medicated Lozenge) 1 lozenge MUCOUS MEM Q2H PRN PRN Reason: Sore Throat Last Admin: 12/08/21 17:16 Dose: 1 lozenge Documented by: Clonidine HCl (Clonidine Hcl 0.1 Mg Tablet) 0.1 mg PO BID [facility]; Protocol Last Admin: 12/11/21 08:30 Dose: 0.1 mg Documented by: Gabapentin (Gabapentin 300 Mg Capsule) 300 mg PO TID [facility] Last Admin: 12/11/21 14:19 Dose: 300 mg Documented by: Guaifenesin/Dextromethorphan (Guaifenesin Dm 600/30 1 Tab Tab.Er.12h) 1 tab PO BID [facility] Last Admin: 12/11/21 08:31 Dose: 1 tab Documented by: Hydrocortisone (Hydrocortisone 1 % Ointment 28.35 Gm Tube) 1 appl TOPICAL TID [facility]; Protocol Last Admin: 12/11/21 16:53 Dose: Not Given Documented by: Hydroxyzine HCl (Hydroxyzine Hcl 25 Mg Tablet) 25 mg PO BID PRN PRN Reason: anxiety Last Admin: 12/11/21 12:17 Dose: 25 mg Documented by: Loratadine (Loratadine 10 Mg Tablet) 10 mg PO DAILY [facility] Last Admin: 12/11/21 08:32 Dose: 10 mg Documented by: Magnesium Hydroxide (Milk Of Magnesia 30 Ml Oral.Susp) 30 ml PO DAILY PRN PRN Reason: Constipation Last Admin: 12/10/21 05:22 Dose: 30 ml Documented by: Methadone HCl (Methadone Hcl 20 Mg/2 Ml Oral.Conc) 50 mg PO DAILY [facility] Last Admin: 12/11/21 08:34 Dose: 50 mg Documented by: Mirtazapine (Mirtazapine 15 Mg Tablet) 15 mg PO BEDTIME [facility] Last Admin: 12/10/21 21:29 Dose: 15 mg Documented by: Nicotine (Nicotine 21 Mg Patch.Td24) 21 mg TRANSDERMA DAILY [facility] Last Admin: 12/11/21 08:32 Dose: 21 mg Documented by: Nicotine Polacrilex (Nicotine Polacrilex 2 Mg Gum) 2 mg BUCCAL Q1H PRN PRN Reason: Nicotine Cravings Omeprazole (Omeprazole 20 Mg Capsule.Dr) 20 mg PO DAILY@0630 [facility] Last Admin: 12/11/21 08:30 Dose: 20 mg Documented by: Polyethylene Glycol (Polyethylene Glycol 3350 17 Gm Powd.Pack) 17 gm PO DAILY [facility] Last Admin: 12/11/21 08:32 Dose: 17 gm Documented by: Prednisone (Prednisone 20 Mg Tablet) 40 mg PO DAILY [facility] Stop: 12/14/21 14:09 Last Admin: 12/11/21 08:29 Dose: 40 mg Documented by: Quetiapine Fumarate (Quetiapine Fumarate 200 Mg Tablet) 200 mg PO BEDTIME [facility] Last Admin: 12/10/21 21:30 Dose: 200 mg Documented by: Quetiapine Fumarate (Quetiapine Fumarate 25 Mg Tablet) 12.5 mg PO Q4H PRN PRN Reason: anxiety Last Admin: 12/11/21 15:16 Dose: 12.5 mg Documented by: Risperidone (Risperidone 1 Mg Tablet) 1 mg PO DAILY [facility] Last Admin: 12/11/21 08:31 Dose: 1 mg Documented by: Risperidone (Risperidone 2 Mg Tablet) 2 mg PO BEDTIME [facility] Last Admin: 12/10/21 21:29 Dose: 2 mg Documented by: Senna (Sennosides 8.6 Mg Tablet) 17.2 mg PO BEDTIME PRN PRN Reason: Constipation Trazodone HCl (Trazodone Hcl 50 Mg Tablet) 50 mg PO BEDTIME PRN PRN Reason: Insomnia Allergies Allergies Allergy/AdvReac Type Severity Reaction Status Date / Time diclofenac [From Voltaren] Allergy Mild NAUSEA, Verified 11/29/21 01:46 nausea and vomiting naproxen Allergy Unknown nausea and Verified 11/29/21 01:46 vomiting fluoxetine [From Prozac] Allergy Rash Verified 11/29/21 01:46 VELVET Allergy Mild HIVES Uncoded 05/14/20 14:58 Diclofenac Sodium Allergy Unknown unknown Uncoded 11/08/21 10:21 Assessment & Plan Assessment & Plan (1) MDD (major depressive disorder), recurrent, severe, with psychosis: Status: Acute Code(s): F33.3 - Major depressive disorder, recurrent, severe with psychotic symptoms (2) Opioid use disorder, severe, dependence: Status: Acute Code(s): F11.20 - Opioid dependence, uncomplicated Plan PLAN 1. continue risperidone 1mg po daily and 2 mg po qhs. 2. start remeron 15mg po qhs for depression/sleep 3. cough suppressant, afebrile, o2sat improving on room air 4. aftercare planning. 12/09/21 Medically- pt had chest CT yesterday due to WBC 28, although pt afebrile, and o2 sats stable on room air which show new branchovascular opacities R middle lobe and upper. Started on 2 broad spectrum antibiotic, blood cultures ordered (pending at the time) due to slight elevation in lactid acid (reflex lactic acid <2). Pt continues afebrile, O2 sat on room air>94. Pt continues to have cough, mostly at night. He feels tired, as expected, but no signs of respiratory failure or acute distress. Pt seen by hospitalist, Dr. Gamez, today as follow up- recommended new course of prednisone 40mg po daily for 5 days, no antibiotics unless fever, WBC today trending down to 20. continue albuterol, VS q6h monitor respiratory fnx- RN aware. psychiatrically- continue current medications. 12/10- medically stable, O2sat>94 on RA, no signs of respiratory distress altho ugh reports SOB when talking or walking too much. sleeping better, less cough, afebrile. psychiatrically stable. 12/11/21- continue current plan of care. Currently afebrile, no respiratory distress. Psychiatrically stable. I spent minutes with the patient and/or on the patient floor today, greater than?50% of which was spent counseling/coordinating care. Patient educated on: medication risk/benefits, therapeutic strategies and medical condition Informed Consent: understands and further education needed Reason for contiued inpatient stay Substantial Risk for: harm to self, inability to function, rapid decompensation and med/psych decompensation
[2021-12-11 21:09] VITALS: BP 117/78; PULSE 73; RESP 18; TEMP 36.7; O2SAT 93
[2021-12-11] MEDS: Mirtazapine 15 MG TABLET PO (21:16)
[2021-12-11] MEDS: risperiDONE 2 MG TABLET PO (21:16)
[2021-12-11] MEDS: QUEtiapine Fumarate 200 MG TABLET PO (21:17)
[2021-12-12 00:25] VITALS: RESP 18
[2021-12-12] MEDS: Loratadine 10 MG TABLET PO (08:29)
[2021-12-12 08:30] VITALS: BP 132/81; PULSE 74; RESP 20; TEMP 36.7; O2SAT 97
[2021-12-12] MEDS: guaiFENesin DM 600/30 1 TAB TAB.ER.12H PO ×2 (08:30→21:51)
[2021-12-12] MEDS: amLODIPine Besylate 2.5 MG TABLET PO (08:30)
[2021-12-12] MEDS: Gabapentin 300 MG CAPSULE PO ×3 (08:30→21:50)
[2021-12-12] MEDS: cloNIDine HCL 0.1 MG TABLET PO ×2 (08:30→21:50)
[2021-12-12] MEDS: risperiDONE 1 MG TABLET PO (08:31)
[2021-12-12] MEDS: predniSONE 20 MG TABLET 40 MG PO (08:31)
[2021-12-12] MEDS: Nicotine 21 MG PATCH.TD24 TRANSDERMA (08:32)
[2021-12-12] MEDS: polyethylene glycoL 3350 17 GM POWD.PACK PO (08:32)
[2021-12-12] MEDS: methADONE HCl 20 MG/2 ML ORAL.CONC 50 MG PO (08:33)
[2021-12-12] MEDS: Omeprazole 20 MG CAPSULE.DR PO (09:00)
[2021-12-12 12:00] VITALS: BP 118/73; PULSE 85; RESP 18; TEMP 36.7; O2SAT 95
[2021-12-12] MEDS: hydrOXYzine HCL 25 MG TABLET PO ×2 (12:24→21:51)
--- NOTE | 2021-12-12 16:18 | P.PNPSI_ITS ---
Subjective Subjective Date of Service: 12/12/21 Reason For Visit: PTSD Interim History: Ronaldo continues to struggle with respiratory sx. T 98.1; O2 saturation ranges 93- 97 this weekend. WBC remains at 23.7 from 12/09. Ronaldo reports SOB, with exertion, dialogue, and when lying flat. Respiratory treatments he finds helpful but with resulting vertigo. Reports poor sleep last night due to room-mate being up and flushing the toilet several times. He has moved to a different room today. States I feel dizzy all of the time and winded . Throat is sore- COVID negative 12/08. Medication Compliance: Yes Side effects from medications: No Attending Groups: Yes Review of Systems Acute medical concerns: Yes as noted above Medical Review of Systems: unchanged Mental Status Exam Mental Status Exam Patient Appearance: Appropriate Patient Orientation: Person, Place, Time and Situation Level of Consciousness: Alert Patient Behavior: Talkative and Good Eye Contact Mood Description: Flat Affect Description: Flat Patient Cognition Impaired: No Ability to Follow Directions: Good Speech Pattern: Spontaneous Speech Memory Description: Intact Hallucinations: None Delusions: Not Present Thought Process: Intact Thought Content: positive for Intact Depressive Symptoms: Increased Anxiety Judgement: Good Diagnostics Vital Signs (24Hr): Vital Signs - 24 hr 12/11/21 21:09 12/12/21 00:25 12/12/21 08:30 Temperature 98.0 F 98.0 F Pulse Rate 73 74 Respiratory Rate 18 18 20 Blood Pressure 117/78 132/81 Pulse Oximetry 93 97 12/12/21 12:00 Temperature 98.1 F Pulse Rate 85 Respiratory Rate 18 Blood Pressure 118/73 Pulse Oximetry 95 BMI result Body Mass Index 28.3 Labs Results: 12/13/21 08:05 12/13/21 08:05 Imaging Radiology Impressions: ITS Impressions Foot X-Ray 12/07/21 11:30 IMPRESSION: Normal right foot. Chest CT 12/08/21 20:02 IMPRESSION: Resolution of prior consolidations in the lingula and middle lobe with new bronchovascular distribution opacities with surrounding groundglass changes right upper lobe. Findings are suggestive of bronchopneumonia. Fleischner guidelines were followed. Medications Medications Current Medications Acetaminophen (Acetaminophen 325 Mg Tablet) 650 mg PO Q6H PRN PRN Reason: Headache/Pain Mild Scale (1-3) Last Admin: 12/07/21 08:19 Dose: 650 mg Documented by: Al Hydroxide/Mg Hydroxide (Magnesium Hydrox/Alum Hydrox 30 Ml Oral.Susp) 30 ml PO Q6H PRN PRN Reason: Heartburn/Nausea Last Admin: 12/08/21 22:15 Dose: 30 ml Documented by: Albuterol Sulfate (Albuterol Sulfate 90 Mcg 8 Gm Inhaler) 1 puff INHALE Q4H PRN PRN Reason: SOB/wheezing Albuterol/Ipratropium (Albuterol/Iprat 2.5/0.5mg 3 Ml Ampul.Neb) 3 ml INHALE RQ4H WHILE AWAKE PRN PRN Reason: Shortness of Breath/Wheezing Last Admin: 12/09/21 21:08 Dose: 3 ml Documented by: Amlodipine Besylate (Amlodipine Besylate 2.5 Mg Tablet) 2.5 mg PO DAILY [facility]; Protocol Last Admin: 12/12/21 08:30 Dose: 2.5 mg Documented by: Benzocaine (Throat Lozenge, Medicated Lozenge) 1 lozenge MUCOUS MEM Q2H PRN PRN Reason: Sore Throat Last Admin: 12/08/21 17:16 Dose: 1 lozenge Documented by: Clonidine HCl (Clonidine Hcl 0.1 Mg Tablet) 0.1 mg PO BID [facility]; Protocol Last Admin: 12/12/21 08:30 Dose: 0.1 mg Documented by: Gabapentin (Gabapentin 300 Mg Capsule) 300 mg PO TID [facility] Last Admin: 12/12/21 14:39 Dose: 300 mg Documented by: Guaifenesin/Dextromethorphan (Guaifenesin Dm 600/30 1 Tab Tab.Er.12h) 1 tab PO BID [facility] Last Admin: 12/12/21 08:30 Dose: 1 tab Documented by: Hydrocortisone (Hydrocortisone 1 % Ointment 28.35 Gm Tube) 1 appl TOPICAL TID [facility]; Protocol Last Admin: 12/12/21 12:26 Dose: Not Given Documented by: Hydroxyzine HCl (Hydroxyzine Hcl 25 Mg Tablet) 25 mg PO BID PRN PRN Reason: anxiety Last Admin: 12/12/21 12:24 Dose: 25 mg Documented by: Loratadine (Loratadine 10 Mg Tablet) 10 mg PO DAILY [facility] Last Admin: 12/12/21 08:29 Dose: 10 mg Documented by: Magnesium Hydroxide (Milk Of Magnesia 30 Ml Oral.Susp) 30 ml PO DAILY PRN PRN Reason: Constipation Last Admin: 12/10/21 05:22 Dose: 30 ml Documented by: Methadone HCl (Methadone Hcl 20 Mg/2 Ml Oral.Conc) 50 mg PO DAILY [facility] Last Admin: 12/12/21 08:33 Dose: 50 mg Documented by: Mirtazapine (Mirtazapine 15 Mg Tablet) 15 mg PO BEDTIME [facility] Last Admin: 12/11/21 21:16 Dose: 15 mg Documented by: Nicotine (Nicotine 21 Mg Patch.Td24) 21 mg TRANSDERMA DAILY [facility] Last Admin: 12/12/21 08:32 Dose: 21 mg Documented by: Nicotine Polacrilex (Nicotine Polacrilex 2 Mg Gum) 2 mg BUCCAL Q1H PRN PRN Reason: Nicotine Cravings Omeprazole (Omeprazole 20 Mg Capsule.Dr) 20 mg PO DAILY@0630 [facility] Last Admin: 12/12/21 09:00 Dose: 20 mg Documented by: Polyethylene Glycol (Polyethylene Glycol 3350 17 Gm Powd.Pack) 17 gm PO DAILY [facility] Last Admin: 12/12/21 08:32 Dose: 17 gm Documented by: Prednisone (Prednisone 20 Mg Tablet) 40 mg PO DAILY [facility] Stop: 12/14/21 14:09 Last Admin: 12/12/21 08:31 Dose: 40 mg Documented by: Quetiapine Fumarate (Quetiapine Fumarate 200 Mg Tablet) 200 mg PO BEDTIME [facility] Last Admin: 12/11/21 21:17 Dose: 200 mg Documented by: Quetiapine Fumarate (Quetiapine Fumarate 25 Mg Tablet) 12.5 mg PO Q4H PRN PRN Reason: anxiety Last Admin: 12/11/21 15:16 Dose: 12.5 mg Documented by: Risperidone (Risperidone 1 Mg Tablet) 1 mg PO DAILY [facility] Last Admin: 12/12/21 08:31 Dose: 1 mg Documented by: Risperidone (Risperidone 2 Mg Tablet) 2 mg PO BEDTIME [facility] Last Admin: 12/11/21 21:16 Dose: 2 mg Documented by: Senna (Sennosides 8.6 Mg Tablet) 17.2 mg PO BEDTIME PRN PRN Reason: Constipation Trazodone HCl (Trazodone Hcl 50 Mg Tablet) 50 mg PO BEDTIME PRN PRN Reason: Insomnia Allergies Allergies Allergy/AdvReac Type Severity Reaction Status Date / Time diclofenac [From Voltaren] Allergy Mild NAUSEA, Verified 11/29/21 01:46 nausea and vomiting naproxen Allergy Unknown nausea and Verified 11/29/21 01:46 vomiting fluoxetine [From Prozac] Allergy Rash Verified 11/29/21 01:46 VELVET Allergy Mild HIVES Uncoded 05/14/20 14:58 Diclofenac Sodium Allergy Unknown unknown Uncoded 11/08/21 10:21 Assessment & Plan Assessment & Plan (1) MDD (major depressive disorder), recurrent, severe, with psychosis: Status: Acute Code(s): F33.3 - Major depressive disorder, recurrent, severe with psychotic symptoms (2) Opioid use disorder, severe, dependence: Status: Acute Code(s): F11.20 - Opioid dependence, uncomplicated Plan PLAN 1. continue risperidone 1mg po daily and 2 mg po qhs. 2. start remeron 15mg po qhs for depression/sleep 3. cough suppressant, afebrile, o2sat improving on room air 4. aftercare planning. 12/09/21 Medically- pt had chest CT yesterday due to WBC 28, although pt afebrile, and o2 sats stable on room air which show new branchovascular opacities R middle lobe and upper. Started on 2 broad spectrum antibiotic, blood cultures ordered (pending at the time) due to slight elevation in lactid acid (reflex lactic acid <2). Pt continues afebrile, O2 sat on room air>94. Pt continues to have cough, mostly at night. He feels tired, as expected, but no signs of respiratory failure or acute distress. Pt seen by hospitalist, Dr. Gamez, today as follow up- recommended new course of prednisone 40mg po daily for 5 days, no antibiotics unless fever, WBC today trending down to 20. continue albuterol, VS q6h monitor respiratory fnx- RN aware. psychiatrically- continue current medications. 12/10- medically stable, O2sat>94 on RA, no signs of respiratory distress although reports SOB when talking or walking too much. sleeping better, less cough, afebrile. psychiatrically stable. 12/11/21- continue current plan of care. Currently afebrile, no respiratory d istress. Psychiatrically stable. 12/12/21- continue to monitor respiratory status. Tentative discharge for 12/13 which is uncertain with current sx. I spent minutes with the patient and/or on the patient floor today, greater than?50% of which was spent counseling/coordinating care. Patient educated on: therapeutic strategies and medical condition Informed Consent: understands Reason for contiued inpatient stay Substantial Risk for: inability to function and med/psych decompensation
[2021-12-12 21:50] VITALS: BP 139/88; PULSE 76; RESP 18; TEMP 36.4; O2SAT 96
[2021-12-12] MEDS: Mirtazapine 15 MG TABLET PO (21:50)
[2021-12-12] MEDS: risperiDONE 2 MG TABLET PO (21:50)
[2021-12-12] MEDS: QUEtiapine Fumarate 200 MG TABLET PO (21:51)
[2021-12-12] MEDS: Albuterol Sulfate 90 MCG 8 GM INHALER 1 PUFF INHALE (21:52)
[2021-12-13] VITALS: RESP 17
[2021-12-13] MEDS: guaiFENesin 100 MG/5 ML LIQUID PO ×3 (00:53→21:13)
[2021-12-13 08:17] LABS: MANUAL DIFF FLAG NO
[2021-12-13 08:25] VITALS: BP 114/73; PULSE 92; RESP 20; TEMP 36.7; O2SAT 95
[2021-12-13 08:25] LABS: Basophils Percent Auto 0.1 % (0-2); Eosinophils Absolute Auto 0.1 X10*3/uL (0.0-0.4); Eosinophils Percent Auto 0.3 % (0-4); Hematocrit 39.4 % (42.0-52.0); Hemoglobin 12.9 g/dl (14.0-18.0); Imm Gran Pct Auto 1.3 % (0.0-0.4); Lymphocytes Absolute Auto 3.8 X10*3/uL (1.2-4.9); Lymphocytes Percent Auto 16.7 % (20-40); Mean Corpuscular HGB Conc 32.7 g/dl (31.0-36.0); Mean Corpuscular Hemoglobin 30.6 pg (27.0-33.0); Mean Corpuscular Volume 93.4 fL (80.0-98.0); Mean Platelet Volume 8.8 fL (9.4-12.4); Monocytes Absolute Auto 1.3 X10*3/uL (0.1-1.2); Monocytes Percent Auto 5.5 % (2-11); Neutrophils Absolute Auto 17.5 x10*3/uL (2.0-8.3); Neutrophils Percent Auto 76.1 % (45-73); Platelet Count 343 X10*3/uL (160-400); Red Blood Count 4.22 X10*6/uL (4.60-5.80); Red Cell Distribution Width 13.4 % (11.0-16.0); White Blood Count 22.9 X10*3/uL (4.8-10.8)
[2021-12-13] MEDS: methADONE HCl 20 MG/2 ML ORAL.CONC 50 MG PO (08:37)
[2021-12-13] MEDS: polyethylene glycoL 3350 17 GM POWD.PACK PO (08:37)
[2021-12-13] MEDS: cloNIDine HCL 0.1 MG TABLET PO ×2 (08:40→21:13)
[2021-12-13] MEDS: guaiFENesin DM 600/30 1 TAB TAB.ER.12H PO ×2 (08:40→21:14)
[2021-12-13] MEDS: Loratadine 10 MG TABLET PO (08:40)
[2021-12-13] MEDS: predniSONE 20 MG TABLET 40 MG PO (08:41)
[2021-12-13] MEDS: risperiDONE 1 MG TABLET PO (08:41)
[2021-12-13] MEDS: Gabapentin 300 MG CAPSULE PO ×3 (08:41→21:13)
[2021-12-13] MEDS: Nicotine 21 MG PATCH.TD24 TRANSDERMA (08:42)
[2021-12-13] MEDS: amLODIPine Besylate 2.5 MG TABLET PO (08:42)
[2021-12-13] MEDS: Albuterol Sulfate 90 MCG 8 GM INHALER 1 PUFF INHALE ×2 (08:43→13:51)
[2021-12-13] MEDS: Omeprazole 20 MG CAPSULE.DR PO (08:47)
[2021-12-13 08:56] LABS: Alanine Aminotransferase 108 U/L (0-40); Albumin Level 3.6 g/dL (3.5-5.0); Alkaline Phosphatase 91 U/L (39-117); Anion Gap 14 (12-20); Aspartate Amino Transferase 26 U/L (5-37); Bilirubin Total 0.4 mg/dL (0.0-1.0); Blood Urea Nitrogen 14 mg/dL (9-16); Calcium 9.2 mg/dL (8.4-10.2); Carbon Dioxide 29 mmol/L (22-29); Chloride 102 mmol/L (96-108); Creatinine Clr Calc Pharmacy 106.7; Estimated Glomerular Filt Rate > 60; Glucose Random 86 mg/dL (60-115); Potassium 4.8 mmol/L (3.3-5.1); Sodium 140 mmol/L (135-145); Total Protein 6.4 g/dL (6.5-8.0)
--- NOTE | 2021-12-13 09:00 | ECG_ITS ---
Test Reason : SOB Blood Pressure : / mmHG Vent. Rate : 076 BPM Atrial Rate : 076 BPM P-R Int : 154 ms QRS Dur : 086 ms QT Int : 384 ms P-R-T Axes : 058 053 035 degrees QTc Int : 432 ms Normal sinus rhythm Normal ECG When compared with ECG of 29-NOV-2021 02:58, No significant change was found Referred By: Josey Camacho Electronically Signed By:TONYA MANN MD
[2021-12-13 12:00] VITALS: BP 121/73; PULSE 92; RESP 24; TEMP 36.3; O2SAT 97
[2021-12-13] MEDS: hydrOXYzine HCL 25 MG TABLET PO ×2 (12:22→21:14)
[2021-12-13] MEDS: Magnesium Citrate 300 ML SOLUTION PO (12:58)
--- NOTE | 2021-12-13 17:21 | P.PNPSI_ITS ---
Subjective Subjective Date of Service: 12/13/21 Reason For Visit: PTSD Interim History: Ronaldo reports another difficult night with SOB, poor sleep, sensations of choking, vertigo/dizziness, feeling like he is not getting enough air. Cough is productive he reports. T 97.4 R24, O2Sat 97. EKG WNL, WBC 22.9 a decrease from 23.7. Pulmonary consult requested. Discharge postponed due to pt's report of feeling physically ill. Medication Compliance: Yes Side effects from medications: No Attending Groups: Yes Review of Systems Acute medical concerns: Yes Respiratory distress Medical Review of Systems: unchanged Mental Status Exam Mental Status Exam Patient Appearance: Appropriate Patient Orientation: Person, Place, Time and Situation Level of Consciousness: Alert Patient Behavior: Talkative and Good Eye Contact Mood Description: Flat Affect Description: Flat Patient Cognition Impaired: No Ability to Follow Directions: Good Speech Pattern: Spontaneous Speech Memory Description: Intact Hallucinations: None Delusions: Not Present Thought Process: Intact Thought Content: positive for Intact Depressive Symptoms: Increased Anxiety Judgement: Good Diagnostics Vital Signs (24Hr): Vital Signs - 24 hr 12/12/21 21:50 12/13/21 00:00 12/13/21 08:25 Temperature 97.6 F 98.1 F Pulse Rate 76 92 Respiratory Rate 18 17 20 Blood Pressure 139/88 114/73 Pulse Oximetry 96 95 12/13/21 12:00 Temperature 97.4 F Pulse Rate 92 Respiratory Rate 24 H Blood Pressure 121/73 Pulse Oximetry 97 BMI result Body Mass Index 28.3 Labs Results: 12/13/21 08:05 12/13/21 08:05 Labs: Laboratory Results - last 48 hr 12/13/21 12/13/21 08:05 08:05 WBC 22.9 H RBC 4.22 L Hgb 12.9 L Hct 39.4 L MCV 93.4 MCH 30.6 MCHC 32.7 RDW 13.4 Plt Count 343 MPV 8.8 L Immature Gran % (Auto) 1.3 H Neut % (Auto) 76.1 H Lymph % (Auto) 16.7 L [place] % (Auto) 5.5 Eos % (Auto) 0.3 Baso % (Auto) 0.1 Lymph # (Auto) 3.8 [place] # (Auto) 1.3 H Eos # (Auto) 0.1 Baso # (Auto) 0.0 Abs Immat Gran (auto) 0.30 H Absolute Neuts (auto) 17.5 H Absolute Nucleated RBC 0.000 Nucleated RBC % (auto) 0.0 Sodium 140 Potassium 4.8 Chloride 102 Carbon Dioxide 29 Anion Gap 14 BUN 14 Creatinine 0.82 Estim Creat Clear Calc 106.7 Estimated GFR > 60 Random Glucose 86 D Calcium 9.2 Total Bilirubin 0.4 AST 26 D ALT 108 H Alkaline Phosphatase 91 Total Protein 6.4 L Albumin 3.6 Imaging Radiology Impressions: ITS Impressions Foot X-Ray 12/07/21 11:30 IMPRESSION: Normal right foot. Chest CT 12/08/21 20:02 IMPRESSION: Resolution of prior consolidations in the lingula and middle lobe with new bronchovascular distribution opacities with surrounding groundglass changes right upper lobe. Findings are suggestive of bronchopneumonia. Fleischner guidelines were followed. Medications Medications Current Medications Acetaminophen (Acetaminophen 325 Mg Tablet) 650 mg PO Q6H PRN PRN Reason: Headache/Pain Mild Scale (1-3) Last Admin: 12/07/21 08:19 Dose: 650 mg Documented by: Al Hydroxide/Mg Hydroxide (Magnesium Hydrox/Alum Hydrox 30 Ml Oral.Susp) 30 ml PO Q6H PRN PRN Reason: Heartburn/Nausea Last Admin: 12/08/21 22:15 Dose: 30 ml Documented by: Albuterol Sulfate (Albuterol Sulfate 90 Mcg 8 Gm Inhaler) 1 puff INHALE Q4H PRN PRN Reason: SOB/wheezing Last Admin: 12/13/21 13:51 Dose: 1 puff Documented by: Albuterol/Ipratropium (Albuterol/Iprat 2.5/0.5mg 3 Ml Ampul.Neb) 3 ml INHALE RQ4H WHILE AWAKE PRN PRN Reason: Shortness of Breath/Wheezing Last Admin: 12/09/21 21:08 Dose: 3 ml Documented by: Amlodipine Besylate (Amlodipine Besylate 2.5 Mg Tablet) 2.5 mg PO DAILY [facility]; Protocol Last Admin: 12/13/21 08:42 Dose: 2.5 mg Documented by: Benzocaine (Throat Lozenge, Medicated Lozenge) 1 lozenge MUCOUS MEM Q2H PRN PRN Reason: Sore Throat Last Admin: 12/08/21 17:16 Dose: 1 lozenge Documented by: Clonidine HCl (Clonidine Hcl 0.1 Mg Tablet) 0.1 mg PO BID [facility]; Protocol Last Admin: 12/13/21 08:40 Dose: 0.1 mg Documented by: Gabapentin (Gabapentin 300 Mg Capsule) 300 mg PO TID [facility] Last Admin: 12/13/21 14:21 Dose: 300 mg Documented by: Guaifenesin (Guaifenesin 100 Mg/5 Ml Liquid) 5 ml PO Q4H PRN PRN Reason: Cough Last Admin: 12/13/21 12:22 Dose: 5 ml Documented by: Guaifenesin/Dextromethorphan (Guaifenesin Dm 600/30 1 Tab Tab.Er.12h) 1 tab PO BID [facility] Last Admin: 12/13/21 08:40 Dose: 1 tab Documented by: Hydrocortisone (Hydrocortisone 1 % Ointment 28.35 Gm Tube) 1 appl TOPICAL TID [facility]; Protocol Last Admin: 12/13/21 16:21 Dose: Not Given Documented by: Hydroxyzine HCl (Hydroxyzine Hcl 25 Mg Tablet) 25 mg PO BID PRN PRN Reason: anxiety Last Admin: 12/13/21 12:22 Dose: 25 mg Documented by: Loratadine (Loratadine 10 Mg Tablet) 10 mg PO DAILY [facility] Last Admin: 12/13/21 08:40 Dose: 10 mg Documented by: Magnesium Hydroxide (Milk Of Magnesia 30 Ml Oral.Susp) 30 ml PO DAILY PRN PRN Reason: Constipation Last Admin: 12/10/21 05:22 Dose: 30 ml Documented by: Methadone HCl (Methadone Hcl 20 Mg/2 Ml Oral.Conc) 50 mg PO DAILY [facility] Last Admin: 12/13/21 08:37 Dose: 50 mg Documented by: Mirtazapine (Mirtazapine 15 Mg Tablet) 15 mg PO BEDTIME [facility] Last Admin: 12/12/21 21:50 Dose: 15 mg Documented by: Nicotine (Nicotine 21 Mg Patch.Td24) 21 mg TRANSDERMA DAILY [facility] Last Admin: 12/13/21 08:42 Dose: 21 mg Documented by: Nicotine Polacrilex (Nicotine Polacrilex 2 Mg Gum) 2 mg BUCCAL Q1H PRN PRN Reason: Nicotine Cravings Omeprazole (Omeprazole 20 Mg Capsule.Dr) 20 mg PO DAILY@0630 [facility] Last Admin: 12/13/21 08:47 Dose: 20 mg Documented by: Polyethylene Glycol (Polyethylene Glycol 3350 17 Gm Powd.Pack) 17 gm PO DAILY [facility] Last Admin: 12/13/21 08:37 Dose: 17 gm Documented by: Prednisone (Prednisone 20 Mg Tablet) 40 mg PO DAILY [facility] Stop: 12/14/21 14:09 Last Admin: 12/13/21 08:41 Dose: 40 mg Documented by: Quetiapine Fumarate (Quetiapine Fumarate 200 Mg Tablet) 200 mg PO BEDTIME [facility] Last Admin: 12/12/21 21:51 Dose: 200 mg Documented by: Quetiapine Fumarate (Quetiapine Fumarate 25 Mg Tablet) 12.5 mg PO Q4H PRN PRN Reason: anxiety Last Admin: 12/11/21 15:16 Dose: 12.5 mg Documented by: Risperidone (Risperidone 1 Mg Tablet) 1 mg PO DAILY [facility] Last Admin: 12/13/21 08:41 Dose: 1 mg Documented by: Risperidone (Risperidone 2 Mg Tablet) 2 mg PO BEDTIME [facility] Last Admin: 12/12/21 21:50 Dose: 2 mg Documented by: Senna (Sennosides 8.6 Mg Tablet) 17.2 mg PO BEDTIME PRN PRN Reason: Constipation Trazodone HCl (Trazodone Hcl 50 Mg Tablet) 50 mg PO BEDTIME PRN PRN Reason: Insomnia Allergies Allergies Allergy/AdvReac Type Severity Reaction Status Date / Time diclofenac [From Voltaren] Allergy Mild NAUSEA, Verified 11/29/21 01:46 nausea and vomiting naproxen Allergy Unknown nausea and Verified 11/29/21 01:46 vomiting fluoxetine [From Prozac] Allergy Rash Verified 11/29/21 01:46 VELVET Allergy Mild HIVES Uncoded 05/14/20 14:58 Diclofenac Sodium Allergy Unknown unknown Uncoded 11/08/21 10:21 Assessment & Plan Assessment & Plan (1) MDD (major depressive disorder), recurrent, severe, with psychosis: Status: Acute Code(s): F33.3 - Major depressive disorder, recurrent, severe with psychotic symptoms (2) Opioid use disorder, severe, dependence: Status: Acute Code(s): F11.20 - Opioid dependence, uncomplicated Plan PLAN 1. continue risperidone 1mg po daily and 2 mg po qhs. 2. start remeron 15mg po qhs for depression/sleep 3. cough suppressant, afebrile, o2sat improving on room air 4. aftercare planning. 12/09/21 Medically- pt had chest CT yesterday due to WBC 28, although pt afebrile, and o2 sats stable on room air which show new branchovascular opacities R middle lobe and upper. Started on 2 broad spectrum antibiotic, blood cultures ordered (pending at the time) due to slight elevation in lactid acid (reflex lactic acid <2). Pt continues afebrile, O2 sat on room air>94. Pt continues to have cough, mostly at night. He feels tired, as expected, but no signs of respiratory failure or acute distress. Pt seen by hospitalist, Dr. Gamez, today as follow up- recommended new course of prednisone 40mg po daily for 5 days, no antibiotics unless fever, WBC today trending down to 20. continue albuterol, VS q6h monitor respiratory fnx- RN aware. psychiatrically- continue current medications. 12/10- medically stable, O2sat>94 on RA, no signs of respiratory distress although reports SOB when talking or walking too much. sleeping better, less cough, afebrile. psychiatrically stable. 12/11/21- continue current plan of care. Currently afebrile, no respiratory distress. Psychiatrically stable. 12/13/21- Monitor respiratory status. Pulmonary consultation requested. I spent minutes with the patient and/or on the patient floor today, greater than?50% of which was spent counseling/coordinating care. Patient educated on: therapeutic strategies and medical condition Informed Consent: understands Reason for contiued inpatient stay Substantial Risk for: med/psych decompensation
[2021-12-13 17:36] VITALS: PULSE 71; RESP 18; O2SAT 99
[2021-12-13] MEDS: Albuterol/Iprat 2.5/0.5MG 3 ML AMPUL.NEB INHALE (17:36)
[2021-12-13 18:00] VITALS: BP 124/71; PULSE 70; RESP 18; TEMP 36.6; O2SAT 98
--- NOTE | 2021-12-13 19:29 | PC.NURSE ---
Late entry: Patient reported in the afternoon continued SOB. Resp unlabored, lungs clear, respiratory called for nebulizer w/ good effect, patient using incentive spirometer as ordered. Patient reporting constipation and bloating, provider contacted, Magnesium citrate given without effect. Provider contacted, patient to Xray for KUB, returned without incident.
[2021-12-13] MEDS: Mirtazapine 15 MG TABLET PO (21:13)
[2021-12-13] MEDS: QUEtiapine Fumarate 200 MG TABLET PO (21:13)
[2021-12-13] MEDS: Milk of Magnesia 30 ML ORAL.SUSP PO (21:13)
[2021-12-13] MEDS: risperiDONE 2 MG TABLET PO (21:14)
[2021-12-13] MEDS: Sennosides 8.6 MG TABLET 17.2 MG PO (21:14)
[2021-12-14] VITALS: RESP 16
[2021-12-14] MEDS: Gabapentin 300 MG CAPSULE PO ×3 (08:35→20:44)
[2021-12-14] MEDS: cloNIDine HCL 0.1 MG TABLET PO ×2 (08:35→20:43)
[2021-12-14] MEDS: Omeprazole 20 MG CAPSULE.DR PO (08:35)
[2021-12-14] MEDS: guaiFENesin DM 600/30 1 TAB TAB.ER.12H PO ×2 (08:35→20:44)
[2021-12-14] MEDS: Loratadine 10 MG TABLET PO (08:35)
[2021-12-14] MEDS: amLODIPine Besylate 2.5 MG TABLET PO (08:35)
[2021-12-14] MEDS: risperiDONE 1 MG TABLET PO (08:35)
[2021-12-14] MEDS: predniSONE 20 MG TABLET 40 MG PO (08:35)
[2021-12-14] MEDS: methADONE HCl 20 MG/2 ML ORAL.CONC 50 MG PO (08:36)
[2021-12-14] MEDS: polyethylene glycoL 3350 17 GM POWD.PACK PO (08:36)
[2021-12-14] MEDS: Nicotine 21 MG PATCH.TD24 TRANSDERMA (08:36)
[2021-12-14 08:47] VITALS: BP 122/74; PULSE 77; TEMP 36.3; O2SAT 95
[2021-12-14 12:00] VITALS: BP 103/65; PULSE 76; TEMP 36.4; O2SAT 96
[2021-12-14] MEDS: hydrOXYzine HCL 25 MG TABLET PO (12:49)
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
[2021-12-14] MEDS: Amoxicillin/Potassium Clav 875 MG TABLET PO (17:19)
[2021-12-14] MEDS: QUEtiapine Fumarate 25 MG TABLET 12.5 MG PO (17:28)
[2021-12-14] MEDS: Albuterol Sulfate 90 MCG 8 GM INHALER 1 PUFF INHALE (17:30)
[2021-12-14 18:00] VITALS: BP 123/79; PULSE 75; RESP 18; TEMP 36.4; O2SAT 94
--- NOTE | 2021-12-14 18:27 | P.PNPSI_ITS ---
Subjective Subjective Date of Service: 12/14/21 Reason For Visit: PTSD Interim History: pt c/o feling unwell physically. SOB and dizziness, Sx not getting better despite being on antibiotics the past several days. emphasizes her came here for mental health treatment and he remains suicidal and he needs help. he states, i'd rather be . he endorses a plan to overdose on drugs. he is ambivalent about his life. per staff, c/o SOB, especially in the morning. pulmonary consult pending. passive SI. attending art [employer]. med-compliant. WBC remains elevated at 22.9K. per pulm bilingual sales consultant, pt should remain under observation for the near term as additional antibx are started. Mental Status Exam Mental Status Exam Patient Appearance: Appropriate Patient Orientation: Person, Place, Time and Situation Level of Consciousness: Alert Patient Behavior: Talkative and Good Eye Contact Mood Description: Depressed Affect Description: Constricted and Labile Patient Cognition Impaired: No Ability to Follow Directions: Good Speech Pattern: Spontaneous Speech Memory Description: Intact Hallucinations: None Delusions: Not Present Thought Process: Intact Thought Content: positive for Suicidal Ideation Depressive Symptoms: Increased Anxiety, Increased Irritability, Crying Spells, Unhappiness and Thoughts of /Suicide Diagnostics Vital Signs (24Hr): Vital Signs - 24 hr 12/14/21 00:00 12/14/21 08:47 12/14/21 12:00 Temperature 97.3 F 97.6 F Pulse Rate 77 76 Respiratory Rate 16 Blood Pressure 122/74 103/65 Pulse Oximetry 95 96 BMI result Body Mass Index 28.3 Labs Results: 12/13/21 08:05 12/13/21 08:05 Labs: Laboratory Results - last 48 hr 12/13/21 12/13/21 08:05 08:05 WBC 22.9 H RBC 4.22 L Hgb 12.9 L Hct 39.4 L MCV 93.4 MCH 30.6 MCHC 32.7 RDW 13.4 Plt Count 343 MPV 8.8 L Immature Gran % (Auto) 1.3 H Neut % (Auto) 76.1 H Lymph % (Auto) 16.7 L [place] % (Auto) 5.5 Eos % (Auto) 0.3 Baso % (Auto) 0.1 Lymph # (Auto) 3.8 [place] # (Auto) 1.3 H Eos # (Auto) 0.1 Baso # (Auto) 0.0 Abs Immat Gran (auto) 0.30 H Absolute Neuts (auto) 17.5 H Absolute Nucleated RBC 0.000 Nucleated RBC % (auto) 0.0 Sodium 140 Potassium 4.8 Chloride 102 Carbon Dioxide 29 Anion Gap 14 BUN 14 Creatinine 0.82 Estim Creat Clear Calc 106.7 Estimated GFR > 60 Random Glucose 86 D Calcium 9.2 Total Bilirubin 0.4 AST 26 D ALT 108 H Alkaline Phosphatase 91 Total Protein 6.4 L Albumin 3.6 Imaging Radiology Impressions: ITS Impressions Foot X-Ray 12/07/21 11:30 IMPRESSION: Normal right foot. Chest CT 12/08/21 20:02 IMPRESSION: Resolution of prior consolidations in the lingula and middle lobe with new bronchovascular distribution opacities with surrounding groundglass changes right upper lobe. Findings are suggestive of bronchopneumonia. Fleischner guidelines were followed. KUB X-Ray 12/13/21 19:15 IMPRESSION: Unremarkable examination. Medications Medications Current Medications Acetaminophen (Acetaminophen 325 Mg Tablet) 650 mg PO Q6H PRN PRN Reason: Headache/Pain Mild Scale (1-3) Last Admin: 12/07/21 08:19 Dose: 650 mg Documented by: Al Hydroxide/Mg Hydroxide (Magnesium Hydrox/Alum Hydrox 30 Ml Oral.Susp) 30 ml PO Q6H PRN PRN Reason: Heartburn/Nausea Last Admin: 12/08/21 22:15 Dose: 30 ml Documented by: Albuterol Sulfate (Albuterol Sulfate 90 Mcg 8 Gm Inhaler) 1 puff INHALE Q4H PRN PRN Reason: SOB/wheezing Last Admin: 12/14/21 17:30 Dose: 1 puff Documented by: Albuterol/Ipratropium (Albuterol/Iprat 2.5/0.5mg 3 Ml Ampul.Neb) 3 ml INHALE RQ4H WHILE AWAKE PRN PRN Reason: Shortness of Breath/Wheezing Last Admin: 12/13/21 17:36 Dose: 3 ml Documented by: Amlodipine Besylate (Amlodipine Besylate 2.5 Mg Tablet) 2.5 mg PO DAILY [facility]IG[facility]; Protocol Last Admin: 12/14/21 08:35 Dose: 2.5 mg Documented by: Amoxicillin/Clavulanate Potassium (Amoxicillin/Potassium Clav 875 Mg Tablet) 875 mg PO Q12H EMIGDIO Last Admin: 12/14/21 17:19 Dose: 875 mg Documented by: Benzocaine (Throat Lozenge, Medicated Lozenge) 1 lozenge MUCOUS MEM Q2H PRN PRN Reason: Sore Throat Last Admin: 12/08/21 17:16 Dose: 1 lozenge Documented by: Bisacodyl (Bisacodyl 10 Mg Supp.Rect) 10 mg OH ONCE PRN PRN Reason: constipation,bloating Clonidine HCl (Clonidine Hcl 0.1 Mg Tablet) 0.1 mg PO BID [facility]; Protocol Last Admin: 12/14/21 08:35 Dose: 0.1 mg Documented by: Gabapentin (Gabapentin 300 Mg Capsule) 300 mg PO TID [facility] Last Admin: 12/14/21 14:55 Dose: 300 mg Documented by: Guaifenesin (Guaifenesin 100 Mg/5 Ml Liquid) 5 ml PO Q4H PRN PRN Reason: Cough Last Admin: 12/13/21 21:13 Dose: 5 ml Documented by: Guaifenesin/Dextromethorphan (Guaifenesin Dm 600/30 1 Tab Tab.Er.12h) 1 tab PO BID [facility] Last Admin: 12/14/21 08:35 Dose: 1 tab Documented by: Hydrocortisone (Hydrocortisone 1 % Ointment 28.35 Gm Tube) 1 appl TOPICAL TID [facility]; Protocol Last Admin: 12/14/21 14:57 Dose: Not Given Documented by: Hydroxyzine HCl (Hydroxyzine Hcl 25 Mg Tablet) 25 mg PO BID PRN PRN Reason: anxiety Last Admin: 12/14/21 12:49 Dose: 25 mg Documented by: Loratadine (Loratadine 10 Mg Tablet) 10 mg PO DAILY [facility] Last Admin: 12/14/21 08:35 Dose: 10 mg Documented by: Magnesium Hydroxide (Milk Of Magnesia 30 Ml Oral.Susp) 30 ml PO DAILY PRN PRN Reason: Constipation Last Admin: 12/13/21 21:13 Dose: 30 ml Documented by: Methadone HCl (Methadone Hcl 20 Mg/2 Ml Oral.Conc) 50 mg PO DAILY [facility] Last Admin: 12/14/21 08:36 Dose: 50 mg Documented by: Mirtazapine (Mirtazapine 15 Mg Tablet) 15 mg PO BEDTIME [facility] Last Admin: 12/13/21 21:13 Dose: 15 mg Documented by: Nicotine (Nicotine 21 Mg Patch.Td24) 21 mg TRANSDERMA DAILY [facility] Last Admin: 12/14/21 08:36 Dose: 21 mg Documented by: Nicotine Polacrilex (Nicotine Polacrilex 2 Mg Gum) 2 mg BUCCAL Q1H PRN PRN Reason: Nicotine Cravings Omeprazole (Omeprazole 20 Mg Capsule.Dr) 20 mg PO DAILY@0630 [facility] Last Admin: 12/14/21 08:35 Dose: 20 mg Documented by: Polyethylene Glycol (Polyethylene Glycol 3350 17 Gm Powd.Pack) 17 gm PO DAILY [facility] Last Admin: 12/14/21 08:36 Dose: 17 gm Documented by: Quetiapine Fumarate (Quetiapine Fumarate 200 Mg Tablet) 200 mg PO BEDTIME [facility] Last Admin: 12/13/21 21:13 Dose: 200 mg Documented by: Quetiapine Fumarate (Quetiapine Fumarate 25 Mg Tablet) 12.5 mg PO Q4H PRN PRN Reason: anxiety Last Admin: 12/14/21 17:28 Dose: 12.5 mg Documented by: Risperidone (Risperidone 1 Mg Tablet) 1 mg PO DAILY [facility] Last Admin: 12/14/21 08:35 Dose: 1 mg Documented by: Risperidone (Risperidone 2 Mg Tablet) 2 mg PO BEDTIME [facility] Last Admin: 12/13/21 21:14 Dose: 2 mg Documented by: Senna (Sennosides 8.6 Mg Tablet) 17.2 mg PO BEDTIME PRN PRN Reason: Constipation Last Admin: 12/13/21 21:14 Dose: 17.2 mg Documented by: Trazodone HCl (Trazodone Hcl 50 Mg Tablet) 50 mg PO BEDTIME PRN PRN Reason: Insomnia Allergies Allergies Allergy/AdvReac Type Severity Reaction Status Date / Time diclofenac [From Voltaren] Allergy Mild NAUSEA, Verified 11/29/21 01:46 nausea and vomiting naproxen Allergy Unknown nausea and Verified 11/29/21 01:46 vomiting fluoxetine [From Prozac] Allergy Rash Verified 11/29/21 01:46 VELVET Allergy Mild HIVES Uncoded 05/14/20 14:58 Assessment & Plan Assessment & Plan (1) Bronchopneumonia: Status: Acute Code(s): J18.0 - Bronchopneumonia, unspecified organism Assessment and Plan: This patient had infiltrates in the right middle lobe and lingula about 2 weeks ago, and was treated for possible aspiration pneumonia. He has history of intermittent spells of dysphagia. Current CT scan shows bronchopneumonia right upper lobe, I think he may have had a silent aspiration event, resulting in bronchopneumonia right upper lobe. His symptoms are relatively minimal at this time,( mild cough and feeling warm ) He does have leukocytosis. RECC . I think he should be treated with a course of antibiotic. I would suggest Augmentin 875 mg b.i.d. for 10 days, if he can tolerate it without any significant gastric side effects. He should be counseled to stop smoking completely. He may benefit from speech therapy, to instruct him for the proper consistency of the diet and proper swallowing technique. The above noted treatment plan can be undertaken as outpatient, provided the patient can be followed as outpatient . After completion of the course of antibiotic he should have a repeat CT scan of the chest to make sure that the infiltrates have resolved. (2) MDD (major depressive disorder), recurrent, severe, with psychosis: Status: Acute Code(s): F33.3 - Major depressive disorder, recurrent, severe with psychotic symptoms Plan 1. continue risperidone 1mg po daily and 2 mg po qhs. 2. start remeron 15mg po qhs for depression/sleep 3. cough suppressant, afebrile, o2sat improving on room air 4. aftercare planning. 12/09/21 Medically- pt had chest CT yesterday due to WBC 28, although pt afebrile, and o2 sats stable on room air which show new branchovascular opacities R middle lobe and upper. Started on 2 broad spectrum antibiotic, blood cultures ordered (pending at the time) due to slight elevation in lactid acid (reflex lactic acid <2). Pt continues afebrile, O2 sat on room air>94. Pt continues to have cough, mostly at night. He feels tired, as expected, but no signs of respiratory failure or acute distress. Pt seen by hospitalist, Dr. Gamez, today as follow up- recommended new course of prednisone 40mg po daily for 5 days, no antibiotics unless fever, WBC today trending down to 20. continue albuterol, VS q6h monitor respiratory fnx- RN aware. psychiatrically- continue current medications. 12/10- medically stable, O2sat>94 on RA, no signs of respiratory distress although reports SOB when talking or walking too much. sleeping better, less cough, afebrile. psychiatrically stable. 12/11/21- continue current plan of care. Currently afebrile, no respiratory distress. Psychiatrically stable. 12/13/21- Monitor respiratory status. Pulmonary consultation requested. 12/14: pulm started on additional antibiotic. pt c/o SI with plan to overdose. D/C on hold for the moment. I spent __35____ minutes with the patient and/or on the patient floor today, greater than?50% of which was spent counseling/coordinating care. Reason for contiued inpatient stay Substantial Risk for: harm to self, inability to function, rapid decompensation and med/psych decompensation
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
[2021-12-14 20:40] VITALS: BP 119/80; PULSE 73; RESP 18; TEMP 36.4; O2SAT 95
[2021-12-14] MEDS: risperiDONE 2 MG TABLET PO (20:44)
[2021-12-14] MEDS: QUEtiapine Fumarate 200 MG TABLET PO (20:44)
[2021-12-14] MEDS: Mirtazapine 15 MG TABLET PO (20:45)
[2021-12-14] MEDS: bisacodyL 10 MG SUPP.RECT PR (20:53)
[2021-12-15] MEDS: Omeprazole 20 MG CAPSULE.DR PO (06:06)
[2021-12-15] MEDS: Amoxicillin/Potassium Clav 875 MG TABLET PO (06:06)
[2021-12-15 08:26] VITALS: BP 131/84; PULSE 84; RESP 18; TEMP 36.3; O2SAT 96
[2021-12-15] MEDS: Nicotine 21 MG PATCH.TD24 TRANSDERMA (08:35)
[2021-12-15] MEDS: methADONE HCl 20 MG/2 ML ORAL.CONC 50 MG PO (08:36)
[2021-12-15] MEDS: polyethylene glycoL 3350 17 GM POWD.PACK PO (08:37)
[2021-12-15] MEDS: amLODIPine Besylate 2.5 MG TABLET PO (08:38)
[2021-12-15] MEDS: cloNIDine HCL 0.1 MG TABLET PO (08:38)
[2021-12-15] MEDS: Gabapentin 300 MG CAPSULE PO (08:38)
[2021-12-15] MEDS: Loratadine 10 MG TABLET PO (08:38)
[2021-12-15] MEDS: guaiFENesin DM 600/30 1 TAB TAB.ER.12H PO (08:38)
[2021-12-15] MEDS: risperiDONE 1 MG TABLET PO (08:38)
[2021-12-15] MEDS: Albuterol Sulfate 90 MCG 8 GM INHALER 1 PUFF INHALE (09:15)
--- NOTE | 2021-12-15 11:37 | PM.PSYDC ---
DS: Providers Provider Date of Service: 12/15/21 Date of admission: 12/02/21 14:34 Primary care physician: Unknown Physician Consults: 12/08/21 10:46 Consult to Infectious Diseases Routine Consulting Provider: Moni Naik Reason for consultation: back rash- staph infection? Has provider been notified: Yes 12/13/21 11:26 Consult to Pulmonology Routine Consulting Provider: Romulo Davis Reason for consultation: SOB, no response to breathing rx, high WBC, fatigue Has provider been notified: No DS: Diagnosis Discharge Diagnosis (1) MDD (major depressive disorder), recurrent, severe, with psychosis: Status: Acute (2) Opioid use disorder, severe, dependence: Status: Acute (3) Bronchopneumonia: Status: Acute DS: Medications Discharge Medications Home Medications: Home Medications Medication Instructions Recorded Confirmed methadone 10 mg/mL oral concentrate 0 mg PO DAILY 11/29/21 naloxone 4 mg/actuation nasal 1 spray INTRANASAL ONCE PRN 11/29/21 11/29/21 spray (Narcan) Previous Rx's Medication Instructions Recorded albuterol sulfate 90 mcg/actuation 1 puff INHALATION Q4H PRN 30 Days 12/15/21 aerosol inhaler (Ventolin HFA) #1 g amlodipine 2.5 mg tablet 2.5 mg PO DAILY 30 Days #30 tab 12/15/21 amoxicillin 875 mg-potassium 875 mg PO Q12H 9 Days #16 tab 12/15/21 clavulanate 125 mg tablet benzocaine 15 mg-menthol 3.6 mg 1 dary MUCOUS MEMBRANE Q2H PRN 30 12/15/21 lozenges (Cepacol Sore Throat Days #60 ea (benzocaine-menthol)) bisacodyl 5 mg tablet,delayed 5 mg PO BEDTIME PRN 30 Days #30 tab 12/15/21 release (Dulcolax (bisacodyl)) clonidine HCl 0.1 mg tablet 0.1 mg PO BID 30 Days #60 tab 12/15/21 dextromethorphan-guaifenesin 30 1 tab PO BID 10 Days #20 tab 12/15/21 mg-600 mg tablet extended [id number] hr (Mucus DM) gabapentin 300 mg capsule 300 mg PO TID 30 Days #90 cap 12/15/21 hydrocortisone 1 % topical ointment 1 appl TOPICAL TID #0 g 04/20/22 loratadine 10 mg tablet 10 mg PO DAILY 30 Days #30 tab 12/15/21 mirtazapine 15 mg tablet 15 mg PO BEDTIME 30 Days #30 tab 12/15/21 nicotine (polacrilex) 2 mg gum 2 mg BUCCAL Q1H PRN 30 Days #60 ea 12/15/21 nicotine 21 mg/24 hr daily 21 mg TRANSDERMAL DAILY 28 Days 12/15/21 transdermal patch #28 ea omeprazole 20 mg capsule,delayed 20 mg PO DAILY@0630 30 Days #30 cap 12/15/21 release quetiapine 200 mg tablet 200 mg PO BEDTIME 30 Days #30 tab 12/15/21 risperidone 1 mg tablet 1 mg PO DAILY 30 Days #30 tab 12/15/21 risperidone 2 mg tablet 2 mg PO BEDTIME 30 Days #30 tab 12/15/21 Mental Status Exam Mental Status Exam Patient Appearance: Appropriate Patient Orientation: Person, Place, Time and Situation Level of Consciousness: Alert Patient Behavior: Talkative and Good Eye Contact Mood Description: Depressed Affect Description: Constricted and Labile Patient Cognition Impaired: No Ability to Follow Directions: Good Speech Pattern: Spontaneous Speech Memory Description: Intact Hallucinations: None Delusions: Not Present Thought Process: Intact Thought Content: positive for Suicidal Ideation (chronic, at baseline. having thoughts to overdose. no intent.) Depressive Symptoms: Increased Anxiety, Increased Irritability, Crying Spells, Unhappiness and Thoughts of /Suicide Data Data Completed and Pending Completed studies during hospitalization [Text1]: 12/08/21 12/08/21 12/08/21 14:38 14:38 16:15 WBC RBC Hgb Hct MCV MCH MCHC RDW Plt Count MPV Immature Gran % (Auto) Neut % (Auto) Lymph % (Auto) Kaufman % (Auto) Eos % (Auto) Baso % (Auto) Lymph # (Auto) Kaufman # (Auto) Eos # (Auto) Baso # (Auto) Abs Immat Gran (auto) Absolute Neuts (auto) Absolute Nucleated RBC Nucleated RBC % (auto) Neutrophils % (Manual) Band Neutrophils % Lymphocytes % (Manual) Atypical Lymphs % (Man) Monocytes % (Manual) Eosinophils % (Manual) Abs Neuts (Manual) Lymphocytes # (Manual) Atyp Lymphs # (Manual) Monocytes # (Manual) Eosinophils # (Manual) Smudge Cells Toxic Vacuolation Platelet Estimate Plt Morphology Comment RBC Morphology Tear Drop Cells Smear Tech's Comments Sodium Potassium Chloride Carbon Dioxide Anion Gap BUN Creatinine Estim Creat Clear Calc Estimated GFR Random Glucose Lactic Acid Lactic Acid F/U @ 2Hr Calcium Total Bilirubin AST ALT Alkaline Phosphatase Total Protein Albumin T.pallidum Ab (EIA) Nonreactive COVID-19 (LAZARA) Negative COVID-19 Clin Com See Note Hepatitis C Ab (EIA) Nonreactive HIV 1&2 Ab/P24 Ag 4thGn Nonreactive 12/08/21 12/08/21 12/08/21 17:43 19:40 19:40 WBC 28.8 H RBC 4.20 L Hgb 13.1 L Hct 38.7 L MCV 92.1 MCH 31.2 MCHC 33.9 RDW 13.1 Plt Count 332 MPV 9.0 L Immature Gran % (Auto) Cancelled Neut % (Auto) Cancelled Lymph % (Auto) Cancelled Kaufman % (Auto) Cancelled Eos % (Auto) Cancelled Baso % (Auto) Cancelled Lymph # (Auto) Cancelled Kaufman # (Auto) Cancelled Eos # (Auto) Cancelled Baso # (Auto) Cancelled Abs Immat Gran (auto) Cancelled Absolute Neuts (auto) Cancelled Absolute Nucleated RBC 0.000 Nucleated RBC % (auto) 0.0 Neutrophils % (Manual) 87 H Band Neutrophils % 1 L Lymphocytes % (Manual) 3 L Atypical Lymphs % (Man) 1 Monocytes % (Manual) 6 Eosinophils % (Manual) 2 Abs Neuts (Manual) 25.3 H Lymphocytes # (Manual) 0.9 L Atyp Lymphs # (Manual) 0.3 Monocytes # (Manual) 1.7 H Eosinophils # (Manual) 0.6 H Smudge Cells PRESENT Toxic Vacuolation PRESENT Platelet Estimate NORMAL Plt Morphology Comment NORMAL RBC Morphology NORMAL Tear Drop Cells 1+ (0-2) Smear Tech's Comments Sodium 132 L Potassium 4.9 Chloride 95 L Carbon Dioxide 29 Anion Gap 13 BUN 18 H Creatinine 0.95 Estim Creat Clear Calc 84.0 Estimated GFR > 60 Random Glucose 91 Lactic Acid 2.1 H* Lactic Acid F/U @ 2Hr Calcium 9.1 Total Bilirubin 0.4 AST 35 D ALT 59 H Alkaline Phosphatase 82 Total Protein 6.9 Albumin 3.9 T.pallidum Ab (EIA) COVID-19 (LAZARA) COVID-19 Clin Com Hepatitis C Ab (EIA) HIV 1&2 Ab/P24 Ag 4thGn 12/08/21 12/09/21 12/09/21 22:12 08:34 08:34 WBC 20.4 H RBC 4.39 L Hgb 13.5 L Hct 40.7 L MCV 92.7 MCH 30.8 MCHC 33.2 RDW 13.2 Plt Count 324 MPV 9.2 L Immature Gran % (Auto) 1.2 H Neut % (Auto) 80.7 H Lymph % (Auto) 12.4 L Kaufman % (Auto) 4.6 Eos % (Auto) 1.0 Baso % (Auto) 0.1 Lymph # (Auto) 2.5 Kaufman # (Auto) 0.9 Eos # (Auto) 0.2 Baso # (Auto) 0.0 Abs Immat Gran (auto) 0.24 H Absolute Neuts (auto) 16.5 H Absolute Nucleated RBC 0.000 Nucleated RBC % (auto) 0.0 Neutrophils % (Manual) Band Neutrophils % Lymphocytes % (Manual) Atypical Lymphs % (Man) Monocytes % (Manual) Eosinophils % (Manual) Abs Neuts (Manual) Lymphocytes # (Manual) Atyp Lymphs # (Manual) Monocytes # (Manual) Eosinophils # (Manual) Smudge Cells Toxic Vacuolation Platelet Estimate Plt Morphology Comment RBC Morphology Tear Drop Cells Smear Tech's Comments Sodium 137 Potassium 4.6 Chloride 97 Carbon Dioxide 30 H Anion Gap 15 BUN 14 Creatinine 0.88 Estim Creat Clear Calc 99.4 Estimated GFR > 60 Random Glucose 103 Lactic Acid Lactic Acid F/U @ 2Hr 2.0 Calcium 9.1 Total Bilirubin AST ALT Alkaline Phosphatase Total Protein Albumin T.pallidum Ab (EIA) COVID-19 (LAZARA) COVID-19 Clin Com Hepatitis C Ab (EIA) HIV 1&2 Ab/P24 Ag 4thGn 12/10/21 12/10/21 12/13/21 14:56 14:56 08:05 WBC 23.7 H RBC 4.13 L Hgb 12.5 L Hct 38.5 L MCV 93.2 MCH 30.3 MCHC 32.5 RDW 13.5 Plt Count 334 MPV 9.2 L Immature Gran % (Auto) 1.4 H Neut % (Auto) 92.8 H Lymph % (Auto) 3.7 L Kaufman % (Auto) 1.9 L Eos % (Auto) 0.1 Baso % (Auto) 0.1 Lymph # (Auto) 0.9 L Kaufman # (Auto) 0.5 Eos # (Auto) 0.0 Baso # (Auto) 0.0 Abs Immat Gran (auto) 0.34 H Absolute Neuts (auto) 22.0 H Absolute Nucleated RBC 0.000 Nucleated RBC % (auto) 0.0 Neutrophils % (Manual) Band Neutrophils % Lymphocytes % (Manual) Atypical Lymphs % (Man) Monocytes % (Manual) Eosinophils % (Manual) Abs Neuts (Manual) Lymphocytes # (Manual) Atyp Lymphs # (Manual) Monocytes # (Manual) Eosinophils # (Manual) Smudge Cells Toxic Vacuolation Platelet Estimate Plt Morphology Comment RBC Morphology Tear Drop Cells Smear Tech's Comments VERIFIED Sodium 137 140 Potassium 5.4 H 4.8 Chloride 102 102 Carbon Dioxide 24 29 Anion Gap 16 14 BUN 15 14 Creatinine 0.84 0.82 Estim Creat Clear Calc 104.2 106.7 Estimated GFR > 60 > 60 Random Glucose 142 H D 86 D Lactic Acid Lactic Acid F/U @ 2Hr Calcium 9.5 9.2 Total Bilirubin 0.4 0.4 AST 54 H 26 D ALT 90 H 108 H Alkaline Phosphatase 109 D 91 Total Protein 7.4 6.4 L Albumin 4.0 3.6 T.pallidum Ab (EIA) COVID-19 (LAZARA) COVID-19 Clin Com Hepatitis C Ab (EIA) HIV 1&2 Ab/P24 Ag 4thGn 12/13/21 08:05 WBC 22.9 H RBC 4.22 L Hgb 12.9 L Hct 39.4 L MCV 93.4 MCH 30.6 MCHC 32.7 RDW 13.4 Plt Count 343 MPV 8.8 L Immature Gran % (Auto) 1.3 H Neut % (Auto) 76.1 H Lymph % (Auto) 16.7 L Kaufman % (Auto) 5.5 Eos % (Auto) 0.3 Baso % (Auto) 0.1 Lymph # (Auto) 3.8 Kaufman # (Auto) 1.3 H Eos # (Auto) 0.1 Baso # (Auto) 0.0 Abs Immat Gran (auto) 0.30 H Absolute Neuts (auto) 17.5 H Absolute Nucleated RBC 0.000 Nucleated RBC % (auto) 0.0 Neutrophils % (Manual) Band Neutrophils % Lymphocytes % (Manual) Atypical Lymphs % (Man) Monocytes % (Manual) Eosinophils % (Manual) Abs Neuts (Manual) Lymphocytes # (Manual) Atyp Lymphs # (Manual) Monocytes # (Manual) Eosinophils # (Manual) Smudge Cells Toxic Vacuolation Platelet Estimate Plt Morphology Comment RBC Morphology Tear Drop Cells Smear Tech's Comments Sodium Potassium Chloride Carbon Dioxide Anion Gap BUN Creatinine Estim Creat Clear Calc Estimated GFR Random Glucose Lactic Acid Lactic Acid F/U @ 2Hr Calcium Total Bilirubin AST ALT Alkaline Phosphatase Total Protein Albumin T.pallidum Ab (EIA) COVID-19 (LAZARA) COVID-19 Clin Com Hepatitis C Ab (EIA) HIV 1&2 Ab/P24 Ag 4thGn 12/09/21 08:34 Blood - Venous Blood Culture - Final No growth after 5 days. 12/09/21 08:34 Blood - Venous Blood Culture - Final No growth after 5 days. Imaging Diagnostic Imaging Impressions Foot X-Ray 12/07/21 11:30 IMPRESSION: Normal right foot. Chest CT 12/08/21 20:02 IMPRESSION: Resolution of prior consolidations in the lingula and middle lobe with new bronchovascular distribution opacities with surrounding groundglass changes right upper lobe. Findings are suggestive of bronchopneumonia. Fleischner guidelines were followed. KUB X-Ray 12/13/21 19:15 IMPRESSION: Unremarkable examination. DS: Summary Hospital Course Hospital Course: per 12/02 admission note: Mr. Rodriguez is a 51 year-old male with hx of opioid use disorder, MDD who was brought via EMS on 11/29/21 to [facility]. Per ED note, pt had reported that he used fentanyl and accidentally OD, when woke up he went to police and asked them to give him more narcan. Police sent him to [facility] ED. In the ED his utox was positive for fentanyl, opioids and cocaine. He was found to have aspiration pneumonia and acute axacerbation of COPD. He was admitted medically, treated with combination of antibiotics, nebulizers and prednisone. Pt has been successfully weaned of oxygen for past 2 days, and able to ambulate on room air without shortness of breath. He is to be continued on azithromycin, cefuroxim and prednisone for next 3 days. While on medical floor, pt reported feeling anxious, passive SI. On the unit, Mr. Rodriguez reports that he feels paranoid. Pt reports that day he was brought to hospital he was feeling as if I was already and people were laughing at me. Pt reports hearing voices since 2009. He reports voices at times independent of substance use. He reports fair sleep. He reports poor appetite. He reports feeling tired. He endorses feeling anxious. He denies SI/HI. He continues to report feeling anxious as he states being on unit with people he does not know makes him feel more anxious. He also becomes tearful as he talks about his brothers with whom he has limited contact due to his ongoing substance use. He endorses feeling depressed. Past Psychiatric History: Inpatient: 2019 [facility]; APTU 2019; M5 2017 ? OP: none currently, PCP prescribing seroquel ? Suicide attempts: 2018 cut his wrist. Past medication trials: seroquel. Medical Evaluation Reviewed: Yes [facility] Surgical History? S/P ACL reconstruction Family History: mother with AD Social History: currently homeless. No children. Completed GED, not working. Source of income is [employer]. He has 2 brothers with whom he has limited contact due to ongoing use of substances. Substance History: OPioids- on and off for the past 30 years, reports sniffing fentanyl daily about one bundle a day. reports methadone helps.? Cocaine: sporadic use, just one line Alcohol: reports no use for past 9 years. Trauma History: unknown Precis: MDD (major depressive disorder), recurrent, severe, with psychosis: Major depressive disorder, recurrent, severe with psychotic symptoms 1. continued risperidone 1mg po daily and 2 mg po qhs. 2. started remeron 15mg po qhs for depression/sleep 3. cough suppressant, afebrile, o2sat improving on room air 4. aftercare planning. 12/09/21 Medically- pt had chest CT yesterday due to WBC 28, although pt afebrile, and o2 sats stable on room air which show new branchovascular opacities R middle lobe and upper. Started on 2 broad spectrum antibiotic, blood cultures ordered (pending at the time) due to slight elevation in lactid acid (reflex lactic acid <2). Pt continues afebrile, O2 sat on room air>94. Pt continues to have cough, mostly at night. He feels tired, as expected, but no signs of respiratory failure or acute distress. Pt seen by hospitalist, Dr. Gamez, today as follow up- recommended new course of prednisone 40mg po daily for 5 days, no antibiotics unless fever, WBC today trending down to 20. continue albuterol, VS q6h monitor respiratory fnx- RN aware. psychiatrically- continue current medications. 12/10- medically stable, O2sat>94 on RA, no signs of respiratory distress although reports SOB when talking or walking too much. sleeping better, less cough, afebrile. psychiatrically stable. 12/11/21- continue current plan of care. Currently afebrile, no respiratory distress. Psychiatrically stable. 12/13/21- Monitor respiratory status. Pulmonary consultation requested. 12/14: pulm started on additional antibiotic.? pt c/o SI with plan to overdose.? D/C on hold for the moment. 12/15: discharged to [facility]. chronic SI/SIBI, at baseline. Bronchopneumonia: This patient had infiltrates in the right middle lobe and lingula about 2 weeks ago, and was treated for possible aspiration pneumonia. He has history of intermittent spells of dysphagia. Current CT scan shows bronchopneumonia right upper lobe, I think he may have had a silent aspiration event, resulting in bronchopneumonia right upper lobe. His symptoms are relatively minimal at this time,( mild cough and feeling warm ) He does have leukocytosis. RECC .? I think he should be treated with a course of antibiotic. ? I would suggest Augmentin 875 mg b.i.d. for 10 days,? if he can tolerate it without any significant gastric side effects. ? He should be counseled to stop smoking completely. ? He may benefit from speech therapy, to instruct him for the proper consistency of the diet and proper swallowing technique. ? The above noted treatment plan can be undertaken as outpatient, provided the patient can be followed as outpatient . ? After completion of the course of antibiotic he should have a repeat CT scan of the chest to make sure that the infiltrates have resolved. Time Spent with Patient Time attestation: Total time spent providing and/or coordinating discharge services: Time spent: Greater than 30 minutes Discharge Plan Discharge Patient Disposition: er Other Discharge Diagnosis: Major Depressive Disorder, Severe, Recurrent Referrals: Therapy & Psychiatry [Other] (A referral was submitted from the hospital. As you are nearing the end of the CSS program, have staff reach out to [facility] to let them know when you will finish the program and they can provide therapy & psychiatry appointments) [facility] CSS [Other] [facility] (correction) [Other] Department of Mental Health ([facility]) [Other] - 1 Week (Application submitted, they will be following up via phone to conduct a needs assessment and discuss services. Please reach out if you do not hear from them within one week of discharge) Catherine Conklin FNP [Nurse Practitioner] - 12/17/21 9:00 am Discharge Medications: New clonidine HCl 0.1 mg Tablet 0.1 mg PO BID 30 Days Qty: 60 0RF Protocol: Hold for SBP< HOLD for SBP < : 90 nicotine (polacrilex) 2 mg Gum 2 mg buccal Q1H PRN (Reason: Nicotine Cravings) 30 Days Qty: 60 0RF quetiapine 200 mg Tablet 200 mg PO BEDTIME 30 Days Qty: 30 0RF amlodipine 2.5 mg Tablet 2.5 mg PO DAILY 30 Days Qty: 30 0RF Protocol: Hold for SBP< HOLD for SBP < : 90 risperidone 2 mg Tablet 2 mg PO BEDTIME 30 Days Qty: 30 0RF nicotine 21 mg/24 hr Patch 24 Hour 21 mg transdermal DAILY 28 Days Qty: 28 0RF gabapentin 300 mg Capsule 300 mg PO TID 30 Days Qty: 90 0RF mirtazapine 15 mg Tablet 15 mg PO BEDTIME 30 Days Qty: 30 0RF albuterol sulfate [Ventolin HFA] 90 mcg/actuation Hfa Aerosol Inhaler 1 puff inhalation Q4H PRN (Reason: SOB/wheezing) 30 Days Qty: 1 0RF risperidone 1 mg Tablet 1 mg PO DAILY 30 Days Qty: 30 0RF loratadine 10 mg Tablet 10 mg PO DAILY 30 Days Qty: 30 0RF amoxicillin-pot clavulanate 875-125 mg Tablet 875 mg PO Q12H 9 Days Qty: 16 0RF hydrocortisone 1 % Ointment 1 appl topical TID Qty: 0 0RF Protocol: Apply to: Apply to: back on rash Rx Instructions: provide pt with open tube from unit omeprazole 20 mg Capsule,Delayed Release(Dr/Ec) 20 mg PO DAILY@0630 30 Days Qty: 30 0RF Mucus DM 30-600 mg Tablet Extended Release 12 Hr 1 tab PO BID 10 Days Qty: 20 0RF Cepacol Sore Throat (alonzo-men) 15-3.6 mg Lozenge 1 dary mucous membrane Q2H PRN (Reason: Sore Throat) 30 Days Qty: 60 0RF bisacodyl [Dulcolax (bisacodyl)] 5 mg tablet,delayed release (DR/EC) 5 mg PO BEDTIME PRN (Reason: constipation) 30 Days Qty: 30 0RF Continued methadone 10 mg/mL Concentrate 0 mg PO DAILY 0RF Rx Instructions: WILL NEED TO VERIFY WITH [facility]ETHADONE CLINIC naloxone [Narcan] 4 mg/actuation spray,non-aerosol 1 spray intranasal ONCE PRN (Reason: Opioid Overdose) 1 Days Qty: 1 0RF Discontinued clonidine HCl 0.1 mg tablet 1 tab PO BID 0RF quetiapine 200 mg tablet 1 tab PO BEDTIME 0RF amlodipine 2.5 mg tablet 1 tab PO DAILY 0RF nicotine 21 mg/24 hr patch 24 hour 21 mg topical DAILY 0RF hydroxyzine HCl 25 mg tablet 1 tab PO BID PRN (Reason: anxiety) 0RF ondansetron 4 mg tablet,disintegrating 1 tab PO Q8H PRN (Reason: nausea/vomiting) 0RF gabapentin 300 mg Capsule 300 mg PO TID 0RF ipratropium-albuterol 0.5 mg-3 mg(2.5 mg base)/3 mL Solution For Nebulization 3 ml inhalation RQ4H WHILE AWAKE PRN (Reason: Shortness Of Breath/Wheezing) 7 Days 0RF azithromycin 500 mg Tablet 500 mg PO Q24H Qty: 3 0RF cefuroxime axetil 250 mg tablet 250 mg PO BID 3 Days Qty: 6 0RF prednisone 20 mg tablet 40 mg PO DAILY 3 Days Qty: 6 0RF omeprazole 20 mg capsule,delayed release(DR/EC) 20 mg PO DAILY Qty: 30 0RF Discharge Orders: Discharge Order (Routine); Ordered 12/15/21 Ordered By: Ciera Huff Diet: advance to usual diet Activity on Discharge: As tolerated Stand Alone Forms: Patient Portal Discharge page, Community Support Care Plan Goals: maintain safe and sober living in the outpatient treatment setting Health Concerns: bronchopneumonia Plan of Treatment: take medications as prescribed, attend appointments as scheduled Assessment: not at imminent risk of harm to self or others Patient Instructions: Pneumonia (DC) Discharge Date/Time: 12/15/21 13:23
--- NOTE | 2021-12-15 14:19 | PC.NURSE ---
Patient is alert and oriented x4. Patient is pleasant and cooperative upon approach. Patient denies SI/HI/AH/VH. Patient is reporting that he has mild anxiety. Patients is looking forward to getting some assistance with furthering appointment arrangements at the [facility]. Patient denies acute physical complainants at this time.
== END 2021-12-15 13:23 | disposition other institution (70) | DRG 751 ==
PROVIDERS: Clinical Nurse Specialist Psychiatric/Mental Health, Adult; Hospitalist; Internal Medicine; Admitting Provider Psychiatry & Neurology Psychiatry; Visit Provider Social Worker
DX: F33.3 Major depressive disorder, recurrent, severe with psychotic symptoms (principal); J18.0 Bronchopneumonia, unspecified organism; F11.20 Opioid dependence, uncomplicated; Z59.02 Unsheltered homelessness; F43.10 Post-traumatic stress disorder, unspecified; R21 Rash and other nonspecific skin eruption; Z20.822 Contact with and (suspected) exposure to COVID-19; F17.290 Nicotine dependence, other tobacco product, uncomplicated; Z91.51 Personal history of suicidal behavior; Z71.6 Tobacco abuse counseling; Z88.5 Allergy status to narcotic agent; Z88.8 Allergy status to other drugs, medicaments and biological substances; Z79.899 Other long term (current) drug therapy
CPT/HCPCS: 36415; 71250; 73620; 74018; 80048; 80053; 80061; 82607; 82746; 83036; 83605; 84443; 85007; 85025; 85027; 86780; 86803; 87040; 87389; 87635; 93005

== ENCOUNTER 2022-02-11 18:29 | Emergency (ER) | payer MEDICAID, SELFPAY ==
--- NOTE | ~2022-02-11 | XR_ITS ---
EXAMINATION: XR CHEST CLINICAL INFORMATION: Cough COMPARISON: 11/29/2021 TECHNIQUE: 2 views of the chest were obtained. FINDINGS: Heart and pulmonary vessels appear normal. Some patchy densities seen at both lung bases have improved since the prior study. There is some minimal linear atelectasis at the left lung base. No infiltrates, effusions or lung masses are seen XR/XR chest 2V IMPRESSION: No acute intrathoracic disease.
[2022-02-11 18:36] VITALS: BP 123/74; PULSE 87; RESP 18; TEMP 37.1; O2SAT 96; BMI 31.3
--- NOTE | 2022-02-11 19:13 | ED.GENADULT ---
HPI - General Adult General Chief complaint: General Medical Stated complaint: Bronchopneumonia Time Seen by Provider: 02/11/22 18:48 Source: patient Limitations: no limitations History of Present Illness HPI narrative: This is a 51-year-old male with a history of opioid use disorder, who was diagnosed in November with pneumonia. The patient had a follow-up CT done 2 days ago, and was called by his primary care physician today since the CT showed bronchopneumonia. Patient has noted in the last 3 or 4 days he has had a productive cough and has had sweats out of the blue. He denies fever per se. Feels mildly short of breath at times. He denies any pain or swelling in his leg. He denies any vomiting or diarrhea, or abdominal pain. Related Data Home Medications Medication Instructions Recorded Confirmed methadone 10 mg/mL oral concentrate 0 mg PO DAILY 11/29/21 Previous Rx's Medication Instructions Recorded albuterol sulfate 90 mcg/actuation 1 puff inhalation Q4H PRN 12/15/21 aerosol inhaler (Ventolin HFA) SOB/wheezing 30 days #1 g amlodipine 2.5 mg tablet 2.5 mg PO DAILY 30 days #30 tabs 12/15/21 amoxicillin 875 mg-potassium 875 mg PO Q12H 9 days #16 tabs 12/15/21 clavulanate 125 mg tablet benzocaine 15 mg-menthol 3.6 mg 1 dary mucous membrane Q2H PRN Sore 12/15/21 lozenges (Cepacol Sore Throat Throat 30 days #60 ea (benzocaine-menthol)) bisacodyl 5 mg tablet,delayed 5 mg PO BEDTIME PRN constipation 12/15/21 release (Dulcolax (bisacodyl)) 30 days #30 tabs clonidine HCl 0.1 mg tablet 0.1 mg PO BID 30 days #60 tabs 12/15/21 dextromethorphan-guaifenesin 30 1 tab PO BID 10 days #20 tabs 12/15/21 mg-600 mg tablet extended hr (Mucus DM) gabapentin 300 mg capsule 300 mg PO TID 30 days #90 caps 12/15/21 hydrocortisone 1 % topical ointment 1 appl topical TID #0 grams 12/15/21 loratadine 10 mg tablet 10 mg PO DAILY 30 days #30 tabs 12/15/21 mirtazapine 15 mg tablet 15 mg PO BEDTIME 30 days #30 tabs 12/15/21 naloxone 4 mg/actuation nasal 1 spray intranasal ONCE PRN Opioid 12/15/21 spray (Narcan) Overdose 1 day #1 ea nicotine (polacrilex) 2 mg gum 2 mg buccal Q1H PRN Nicotine 12/15/21 Cravings 30 days #60 ea nicotine 21 mg/24 hr daily 21 mg transdermal DAILY 28 days 12/15/21 transdermal patch #28 ea omeprazole 20 mg capsule,delayed 20 mg PO DAILY@0630 30 days #30 12/15/21 release caps quetiapine 200 mg tablet 200 mg PO BEDTIME 30 days #30 tabs 12/15/21 risperidone 1 mg tablet 1 mg PO DAILY 30 days #30 tabs 12/15/21 risperidone 2 mg tablet 2 mg PO BEDTIME 30 days #30 tabs 12/15/21 azithromycin 250 mg tablet See Rx Instructions PO .COMPLEX #6 02/11/22 (Zithromax Z-Nikko) tabs cefpodoxime 200 mg tablet 200 mg PO BID #14 tabs 02/11/22 Allergies Allergy/AdvReac Type Severity Reaction Status Date / Time diclofenac [From Voltaren] Allergy Mild NAUSEA, Verified 11/29/21 01:46 nausea and vomiting naproxen Allergy Unknown nausea and Verified 11/29/21 01:46 vomiting fluoxetine [From Prozac] Allergy Rash Verified 11/29/21 01:46 VELVET Allergy Mild HIVES Uncoded 05/14/20 14:58 Review of Systems Review of Systems: Yes all other systems are reviewed and are negative Constitutional: Constitutional: Reports as per HPI and Denies fever(s) Comments: Sweats Eyes: Eyes: Reports as per HPI and Reports no additional eye complaints ENT: Reports system reviewed and no additional complaints, except as documented, Reports as per HPI, Denies nasal congestion, Denies nasal discharge and Denies sore throat Cardiovascular: Cardiovascular: Reports as per HPI, Denies chest pain and Denies dyspnea Respiratory: Respiratory: Reports as per HPI, Denies cough, Denies hemoptysis and Denies dyspnea Gastrointestinal: Gastrointestinal: Reports as per HPI, Denies abdominal pain, Denies diarrhea and Denies vomiting Genitourinary: Genitourinary: Reports as per HPI, Denies hematuria, Denies dysuria and Denies urinary frequency Musculoskeletal: Musculoskeletal: Reports no additional musculoskeletal complaints and Denies numbness Integumentary/Breasts: Skin/Breast: Reports as per HPI and Denies rash Neurologic: Reports as per HPI, Denies focal weakness and Denies numbness Psychiatric: Psychiatric: Reports no additional psychiatric complaints and Reports as per HPI Endocrine: Endocrine: Reports no additional endocrine complaints and Reports as per HPI Hematologic/Lymphatic: Hematologic/Lymphatic: Reports no additional hematologic/lymphatic complaints, Reports as per HPI and Reports other (No peripheral edema) [facility] Past Medical History Medical History (Updated 02/11/22 @ 19:13 by Walter Tay MD) Fall Polysubstance abuse Rash Social History Social History Household Members: None Housing: Homeless Do you presently have visiting nurse or other home services: No Patient Tobacco Use Status: Current everyday Tobacco user Tobacco use type: Cigarette and Cigar Cigarette Packs Per Day: 1 Cigarettes Per Day: 20.0 Years Smoked: 34 e-Cigarette/Vaping Use: Never Used Second Hand Smoke Exposure: No Substance Use Type: Crack/Cocaine and Opiates Advance Directives: No Advance Directives Information Provided: No service: No Current occupational status: disabled Sexual orientation: Straight/Heterosexual Physical Exam ED Vital Signs: Vital Signs - 24 hr 02/11/22 18:36 Temperature 98.8 F Pulse Rate 87 Respiratory Rate 18 Blood Pressure 123/74 Pulse Oximetry 96 Oxygen Delivery Method Room Air BMI result Body Mass Index 31.3 Const General: no acute distress Orientation/consciousness: patient oriented x3 HENMT Head: Yes normal to inspection General nose exam: Normal external nose present Mouth: moist mucous membranes Throat: Yes posterior oropharynx normal, Yes tonsils normal and Yes uvula midline Eyes Eyelids: Yes eyelids normal Conjunctivae: conjunctivae normal Pupils: Equal, round and reactive pupils present Neck Neck: Yes supple Resp Effort & Inspection: normal respiratory effort Auscultation: clear to auscultation bilaterally Cardio Rate: regular rate Rhythm: regular rhythm Heart sounds: S1 normal heart sound present, S2 normal heart sound present, no gallops, no murmurs and no rubs GI Inspection: No distended Palpation (GI): Soft to palpation and nontender Auscultation: normal bowel sounds Skin General skin exam: other (Warm and dry) Neuro General: patient oriented x3 and CN's II-XI intact bilaterally Cranial nerves: Yes Equal, round and reactive pupils present Extrem General: Yes no pedal edema Psych Affect: normal affect Attitude: cooperative Medical Decision Making MDM Narrative Medical decision making narrative: CT scan report was faxed over. It was done at [facility] radiology on February 09 and was compared to 1 dated 12/08/2021. Was dizzy CT the chest without contrast. Impression: There is significant interim improvement in previously noted bronchovascular opacities and tree-in-bud and peribronchiolar nodules, consistent with resolving bronchopneumonia. There is mild residual, improved broncho pneumonia within the right upper and lower lobes. There is a stable mildly enlarged paratracheal lymph node. No pleural effusion is seen. This CT does not show any new pneumonia but rather improvement in the prior pneumonia. Given the patient has some recurrence of symptoms in the last 4 days, will prescribe another course of antibiotics. Patient appears well clinically, has normal vital signs, normal pulse oximetry. Discharge Plan Discharge Clinical Impression: Bronchopneumonia Patient Disposition: Home, Self-Care Instructions: Pneumonia (ED) Additional Instructions: Your CT from a few days ago showed that your broncho pneumonia is improving compared to your prior CT from November. He still have some residual broncho pneumonia. Given your recent worsening of symptoms, we will re-treat you with antibiotics. Return for any new or worsened symptoms. Follow up with your primary care physician. Prescriptions: New cefpodoxime 200 mg tablet 200 mg PO BID Qty: 14 0RF Rx Instructions: must administer with a meal/food azithromycin [Zithromax Z-Nikko] 250 mg tablet See Rx Instructions .ROUTE .COMPLEX Qty: 6 0RF Rx Instructions: For 250 mg dose pack: take 500 mg today (day 1), then 250 mg for 4 days (days 2-5) No Action methadone 10 mg/mL Concentrate 0 mg PO DAILY Rx Instructions: WILL NEED TO VERIFY WITH [facility] clonidine HCl 0.1 mg Tablet 0.1 mg PO BID 30 Days Qty: 60 0RF Protocol: Hold for SBP< HOLD for SBP < : 90 nicotine (polacrilex) 2 mg Gum 2 mg buccal Q1H PRN (Reason: Nicotine Cravings) 30 Days Qty: 60 0RF quetiapine 200 mg Tablet 200 mg PO BEDTIME 30 Days Qty: 30 0RF amlodipine 2.5 mg Tablet 2.5 mg PO DAILY 30 Days Qty: 30 0RF Protocol: Hold for SBP< HOLD for SBP < : 90 risperidone 2 mg Tablet 2 mg PO BEDTIME 30 Days Qty: 30 0RF nicotine 21 mg/24 hr Patch 24 Hour 21 mg transdermal DAILY 28 Days Qty: 28 0RF gabapentin 300 mg Capsule 300 mg PO TID 30 Days Qty: 90 0RF mirtazapine 15 mg Tablet 15 mg PO BEDTIME 30 Days Qty: 30 0RF albuterol sulfate [Ventolin HFA] 90 mcg/actuation Hfa Aerosol Inhaler 1 puff inhalation Q4H PRN (Reason: SOB/wheezing) 30 Days Qty: 1 0RF risperidone 1 mg Tablet 1 mg PO DAILY 30 Days Qty: 30 0RF loratadine 10 mg Tablet 10 mg PO DAILY 30 Days Qty: 30 0RF amoxicillin-pot clavulanate 875-125 mg Tablet 875 mg PO Q12H 9 Days Qty: 16 0RF hydrocortisone 1 % Ointment 1 appl topical TID Qty: 0 0RF Protocol: Apply to: Apply to: back on rash Rx Instructions: provide pt with open tube from unit omeprazole 20 mg Capsule,Delayed Release(Dr/Ec) 20 mg PO DAILY@0630 30 Days Qty: 30 0RF Mucus DM 30-600 mg Tablet Extended Release 12 Hr 1 tab PO BID 10 Days Qty: 20 0RF Cepacol Sore Throat (alonzo-men) 15-3.6 mg Lozenge 1 dary mucous membrane Q2H PRN (Reason: Sore Throat) 30 Days Qty: 60 0RF bisacodyl [Dulcolax (bisacodyl)] 5 mg tablet,delayed release (DR/EC) 5 mg PO BEDTIME PRN (Reason: constipation) 30 Days Qty: 30 0RF naloxone [Narcan] 4 mg/actuation spray,non-aerosol 1 spray intranasal ONCE PRN (Reason: Opioid Overdose) 1 Days Qty: 1 0RF
== END 2022-02-11 19:26 | disposition home or self-care (01) ==
PROVIDERS: Emergency Provider Emergency Medicine
DX: J18.0 Bronchopneumonia, unspecified organism (principal)
CPT/HCPCS: 71046; 99282; 99283

== ENCOUNTER 2023-07-13 08:14 | Outpatient (REF) | payer MEDICAID, SELFPAY ==
--- NOTE | 2023-07-13 | ECG_ITS ---
Test Reason : opoid use disorder Blood Pressure : / mmHG Vent. Rate : 067 BPM Atrial Rate : 067 BPM P-R Int : 218 ms QRS Dur : 084 ms QT Int : 382 ms P-R-T Axes : 061 059 055 degrees QTc Int : 403 ms Sinus rhythm with 1st degree A-V block Otherwise normal ECG When compared with ECG of 13-DEC-2021 09:20, SD interval has increased Referred By: Debo Addison Electronically Signed By:VIOLET MONTE MD
[2023-07-13 08:35] LABS: MANUAL DIFF FLAG NO
[2023-07-13 10:33] LABS: Basophils Percent Auto 0.3 % (0-2); Eosinophils Absolute Auto 0.1 X10*3/uL (0.0-0.4); Eosinophils Percent Auto 1.7 % (0-4); Hematocrit 43.3 % (42.0-52.0); Hemoglobin 15.2 g/dl (14.0-18.0); Imm Gran Abs Auto 0.03 X10*3/uL (0.00-0.03); Imm Gran Pct Auto 0.4 % (0.0-0.4); Lymphocytes Percent Auto 25.4 % (20-40); Mean Corpuscular HGB Conc 35.1 g/dl (31.0-36.0); Mean Corpuscular Hemoglobin 30.4 pg (27.0-33.0); Mean Corpuscular Volume 86.6 fL (80.0-98.0); Mean Platelet Volume 8.6 fL (9.4-12.4); Monocytes Absolute Auto 0.6 X10*3/uL (0.1-1.2); Monocytes Percent Auto 8.2 % (2-11); Platelet Count 318 X10*3/uL (160-400); Red Cell Distribution Width 12.4 % (11.0-16.0); White Blood Count 7.8 X10*3/uL (4.8-10.8)
[2023-07-13 11:05] LABS: Alanine Aminotransferase 18 U/L (0-40); Albumin Level 4.5 g/dL (3.5-5.0); Alkaline Phosphatase 87 U/L (39-117); Anion Gap 12 (12-20); Aspartate Amino Transferase 19 U/L (5-37); Bilirubin Total 0.3 mg/dL (0.0-1.0); Blood Urea Nitrogen 9 mg/dL (9-16); Calcium 9.2 mg/dL (8.4-10.2); Carbon Dioxide 29 mmol/L (22-29); Chloride 94 mmol/L (96-108); Estimated Glomerular Filt Rate > 60; Glucose Random 89 mg/dL (60-115); Potassium 4.5 mmol/L (3.3-5.1); Sodium 130 mmol/L (135-145); Total Protein 7.3 g/dL (6.5-8.0)
== END 2023-07-13 08:15 | disposition home or self-care (01) ==
LOC: HO.LAB 08:14
PROVIDERS: Visit Provider Nurse Practitioner Psychiatric/Mental Health
DX: F11.20 Opioid dependence, uncomplicated (principal); F19.259 Other psychoactive substance dependence with psychoactive substance-induced psychotic disorder, unspecified; F31.9 Bipolar disorder, unspecified; F41.1 Generalized anxiety disorder
CPT/HCPCS: 36415; 80053; 85025; 93005

== ENCOUNTER 2023-07-31 13:57 | Outpatient (AMB) | payer MEDICAID, SELFPAY ==
--- NOTE | 2023-07-31 14:02 | A.OFFVIS_ITS ---
Intake Intake Visit Reasons: OV- B/L knee OA last one-11/08/21 Left knee worse Intake Note: Ronaldo is a 53 year old male who presents today for a follow up of his bilateral knee pain. Left Knee injection done 11/08/22. He reports that this injection was not very helpful. He would like to repeat left knee cortisone today, and he would like to also discuss gel. Allergies diclofenac [From Voltaren] Allergy (Mild, Verified 11/29/21 01:46) NAUSEA, nausea and vomiting naproxen Allergy (Unknown, Verified 11/29/21 01:46) nausea and vomiting fluoxetine [From Prozac] Allergy (Verified 11/29/21 01:46) Rash VELVET Allergy (Mild, Uncoded 05/14/20 14:58) HIVES HPI OV- B/L knee OA last one-11/08/21 Left knee worse HPI Details Ronaldo is a 53 year old man who returns with complaints of left knee pain. He complains of pain with daily activity, along with swelling. His pain is worse with activity, especially prolonged walking. He says he doesn't own a car and has to walk everywhere. He walks ~[address] to the grocery store regularly, which increases his pain. He says his pain is worst at the end of the day, where he has swelling and a sharp & throbbing pain that radiates from his knee down into his ankle. He has a hx of a left ACL reconstruction ~25-30 years ago, and a torn right ACL from an injury ~6 years ago. He has some increased right knee pain at times, but not as bad as his left knee. He found little to no relief from a previous steroid injection on 11/08/21, saying he had only several days without pain. He is unsure if he would like a repeat steroid injection or to discuss possible gel injections. He is under stress as a recent fecal test showed markers for possible colon cancer, but he is not able to get a colonoscopy done for ~2 months still. He has a family hx of cancer so he is more concerned about this. [facility] Medical History (Updated 02/11/22 @ 19:13 by Walter Tay MD) Bronchopneumonia Rash Polysubstance abuse Fall Surgical History S/P ACL reconstruction Social History Household Members: None Housing: Homeless Do you presently have visiting nurse or other home services: No Comment: Pt refusing bed alarm Patient Tobacco Use Status: Current everyday Tobacco user Tobacco use type: Cigarette and Cigar Cigarette Packs Per Day: 1 Cigarettes Per Day: 20.0 Years Smoked: 34 e-Cigarette/Vaping Use: Never Used Second Hand Smoke Exposure: No Substance Use Type: Crack/Cocaine and Opiates service: No Current occupational status: disabled Sexual orientation: Straight/Heterosexual Review of Systems Const All systems reviewed & are unremarkable except as noted in HPI and below Physical Exam Const General: no acute distress, alert and awake Orientation/consciousness: patient oriented x3 HEENT Head: Yes normocephalic and Yes atraumatic Eyes EOM: EOMs intact bilaterally Resp Effort & Inspection: normal respiratory effort and able to speak in complete sentences Cardio Jugular venous distension: no JVD Skin General skin exam: turgor normal Rashes: no rashes Neuro General: patient oriented x3 Extrem Other: left knee with mild effusion ttp medial compartment with negative steinmen's Psych Appearance: grossly normal Affect: normal affect Attitude: cooperative Office Procedures Joint Injection/Drain Joint Injection/Drain Details: Injected 1 mL of Decadron and 3 mL 1% lidocaine and 3 mL of 0.25% Marcaine. Site was prepped using aseptic technique. Patient tolerated the procedure well. Primary Site: left knee Approach Used: anterolateral Coding - Large joint Procedure code (CPT) selection complete Results Reviewed Results Reviewed: I personally reviewed relevant radiographs. Prior ACL interference screws and moderate arthritic changes of the medial and anterior compartment most notably. Assessment & Plan Assessment & Plan (1) Osteoarthritis of left knee: Code(s): M17.12 - Unilateral primary osteoarthritis, left knee Plan: Left knee OA that has responded to steroids I injected his left knee again He will contact me as needed Plan Scribed for Isreal Lal MD by Franklin Teixeira, spanish medical interpreter, on 07/31/23 at 2:20 PM, EST. Coding Level of Care Code Est Pt Level 3 (97861) Diagnoses Osteoarthritis of left knee M17.12 CPT Codes Coding - Large joint: 27506 - Large joint ([id number])
== END 2023-07-31 15:03 | disposition home or self-care (01) ==
PROVIDERS: Visit Provider Orthopaedic Surgery
DX: M17.12 Unilateral primary osteoarthritis, left knee (principal)
CPT/HCPCS: 20610; 99213

== ENCOUNTER → 2023-07-31 13:57 | Outpatient (BNVA) | payer MEDICAID, SELFPAY | PROVIDERS: Visit Provider Orthopaedic Surgery | DX: M17.12 Unilateral primary osteoarthritis, left knee (principal) | CPT/HCPCS: 20610; 99212; J0665; J1100 ==

== ENCOUNTER 2023-09-06 12:07 | Day surgery (SDC) | payer MEDICAID, SELFPAY ==
--- NOTE | 2023-09-05 09:49 | HO.ANESPROP2 ---
Documented by User: Ksenia Dnagelo NP 09/05/23 09:51 HPI - Anesthesia Eval Consult details Narrative: 53yo M for Upper Endoscopy and Colonoscopy Methadone daily PMFSH Active Problems Active Problems: All Active Problems (Updated 02/11/22 @ 19:13 by Walter Tay MD) Bronchopneumonia (Acute) MDD (major depressive disorder), recurrent, severe, with psychosis (Acute) Opioid use disorder, severe, dependence (Acute) MDD (major depressive disorder), recurrent episode, moderate (Acute) Anxiety (Acute) S/P ACL reconstruction (Acute) Osteoarthritis of left knee (Acute) Past Medical History Medical History Bronchopneumonia Rash Polysubstance abuse Fall Surgical History Surgical History S/P ACL reconstruction Social History Social History Household Members: None Housing: Homeless Do you presently have visiting nurse or other home services: No Comment: Pt refusing bed alarm Patient Tobacco Use Status: Current everyday Tobacco user Tobacco use type: Cigarette Cigarette Packs Per Day: 1 Cigarettes Per Day: 20.0 Years Smoked: 34 e-Cigarette/Vaping Use: Never Used Second Hand Smoke Exposure: No Substance Use Type: Crack/Cocaine and Opiates service: No Current occupational status: disabled Sexual orientation: Straight/Heterosexual Meds Allergies Allergy/AdvReac Type Severity Reaction Status Date / Time diclofenac [From Voltaren] Allergy Mild NAUSEA, Verified 11/29/21 01:46 nausea and vomiting naproxen Allergy Unknown nausea and Verified 11/29/21 01:46 vomiting fluoxetine [From Prozac] Allergy Rash Verified 11/29/21 01:46 VELVET Allergy Mild HIVES Uncoded 05/14/20 14:58 Home Medications Medication Instructions Recorded Confirmed Last Taken Type methadone 10 mg/mL oral concentrate 0 mg PO DAILY 11/29/21 Unknown History buprenorphine 8 mg-naloxone 2 mg 10 mg sublingual DAILY 09/06/23 09/06/23 09/06/23 08:30 History sublingual film (Suboxone) Exam Pertinent Lab Results Pertinent Lab Results: Laboratory Tests 07/13/23 08:34 WBC 7.8 Hgb 15.2 Hct 43.3 Plt Count 318 Sodium 130 L Potassium 4.5 Chloride 94 L Carbon Dioxide 29 BUN 9 Creatinine 0.79 Narrative Narrative: EKG 06/2023 Vent. Rate : 067 BPM Atrial Rate : 067 BPM P-R Int : 218 ms QRS Dur : 084 ms QT Int : 382 ms P-R-T Axes : 061 059 055 degrees QTc Int : 403 ms Sinus rhythm with 1st degree A-V block Otherwise normal ECG When compared with ECG of 13-DEC-2021 09:20, DE interval has increased Assessment and Plan Assessment Anesthesia Assessment: Chart Reviewed Documented by User: Bakari Walden MD 09/06/23 13:27 PMFSH Past Medical History Medical History Bronchopneumonia Rash Polysubstance abuse Fall Functional capacity: uses cane/walker Family History Family history of problems with anesthesia: No Surgical History Surgical History S/P ACL reconstruction History of Problems with Anesthesia: No Social History Social History Household Members: None Housing: Homeless Do you presently have visiting nurse or other home services: No Comment: Pt refusing bed alarm Patient Tobacco Use Status: Current everyday Tobacco user Tobacco use type: Cigarette Cigarette Packs Per Day: 1 Cigarettes Per Day: 20.0 Years Smoked: 34 e-Cigarette/Vaping Use: Never Used Second Hand Smoke Exposure: No Substance Use Type: Crack/Cocaine and Opiates service: No Current occupational status: disabled Sexual orientation: Straight/Heterosexual Meds Allergies Allergy/AdvReac Type Severity Reaction Status Date / Time diclofenac [From Voltaren] Allergy Mild NAUSEA, Verified 11/29/21 01:46 nausea and vomiting naproxen Allergy Unknown nausea and Verified 11/29/21 01:46 vomiting fluoxetine [From Prozac] Allergy Rash Verified 11/29/21 01:46 VELVET Allergy Mild HIVES Uncoded 05/14/20 14:58 Home Medications Medication Instructions Recorded Confirmed Last Taken Type methadone 10 mg/mL oral concentrate 0 mg PO DAILY 11/29/21 Unknown History buprenorphine 8 mg-naloxone 2 mg 10 mg sublingual DAILY 09/06/23 09/06/23 09/06/23 08:30 History sublingual film (Suboxone) Exam Airway Mallampati Class: II TM Dist: <=3cm Neck ROM: Full Loose/Missing/Broken Teeth: Yes and Upper Heart: ok Lungs: ok Assessment and Plan Assessment Anesthesia Assessment: Anesthesia Plan Discussed Final Anesthetic Review Family History of Problems with Anesthesia: No History of Problems with Anesthesia: No NPO: Yes ASA Class: III Final Preanesthetic Review: No Changes in Pt Med Stat, Meds/Allgs Chart Reviewed, Consent Obtained/Reviewed and Anes Risks/Benef Reviewed Patient Risk: Intermediate Procedure Risk: Intermediate Anesthetic Plan Anesthetic Plan: Agree w/ Assess. and Plan and TIVA Disposition: Standard PACU
[2023-09-06 12:24] VITALS: BMI 30.1
[2023-09-06 12:28] VITALS: BMI 30.1
[2023-09-06 12:42] VITALS: BP 126/81; PULSE 78; RESP 16; TEMP 36.5; O2SAT 98
[2023-09-06] MEDS: Lactated Ringers 1,000 ML 100 ML IVCONT (12:54)
--- NOTE | 2023-09-06 13:05 | MHC.SHP ---
Pre-Procedural Eval Section A Date of Service: 09/06/23 Section B Chief Complaint: Gastro-esophageal reflux disease without esophagit Details of Present Illness: see H&P no changes Relevant Family History (Specify if Yes): No Relevant Social History: None Present Medications: see Short Stay Collaborative assessment Medical History: No relevant PMH History of Previous Operations: No relevant previous surgery Allergies: Allergies Allergy/AdvReac Type Severity Reaction Status Date / Time diclofenac [From Voltaren] Allergy Mild NAUSEA, Verified 11/29/21 01:46 nausea and vomiting naproxen Allergy Unknown nausea and Verified 11/29/21 01:46 vomiting fluoxetine [From Prozac] Allergy Rash Verified 11/29/21 01:46 VELVET Allergy Mild HIVES Uncoded 05/14/20 14:58 Review of Systems Sugical H&P ROS: Negative: Constitution, Cardiovascular, Respiratory, Neurological, Psychiatric, Hem-Onc, Allergic/Immunologic, Gastrointestinal, Genitourinary, Musculoskeletal, Integumentary, Endocrine and Eyes/Ears/Nose/Throat Exam Surgical H&P Exam: Normal: HEENT, Normal: Heart, Normal: Lungs, Normal: Extremities, Normal: Abdomen, Normal: Skin and Normal: Neurological Plan Diagnosis/Plan: Unchanged I have reviewed the history and physical and performed a pertinent physical examination on my patient. No changes have occurred unless specified. Time Spent With Patient Time: Total time managing care of this patient today ____ minutes.
[2023-09-06 14:04] VITALS: BP 119/68; PULSE 78; RESP 18; TEMP 36.1; O2SAT 97
[2023-09-06 14:19] VITALS: BP 137/91; PULSE 72; RESP 16; TEMP 36.1; O2SAT 97
--- NOTE | 2023-09-06 21:44 | OP_ITS ---
DATE OF SERVICE: 09/06/2023 SURGEON: Christiano Boswell MD INDICATIONS: Gastroesophageal reflux disease and abnormal findings in stool. PREOPERATIVE DIAGNOSIS: POSTOPERATIVE DIAGNOSIS: PROCEDURE PERFORMED: Upper endoscopy with biopsy, colonoscopy to the terminal ileum with biopsy and snare polypectomy. ESTIMATED BLOOD LOSS: COMPLICATIONS: ANESTHESIA: Monitored anesthesia care. ASSISTANTS: SPECIMENS: DESCRIPTION OF PROCEDURE: A history and physical was performed. The risks and benefits of the procedure were explained to the patient. Informed consent was obtained. The patient was placed in the left lateral decubitus position. The Olympus video gastroscope was introduced into the esophagus, stomach, and duodenum. Examination was performed. The scope was removed. He was repositioned for colonoscopy. Digital rectal exam was performed, and was found to be normal. The Olympus pediatric video colonoscope was introduced into the rectum and advanced to the cecum. The cecum was identified by transillumination, palpation, identification of ileocecal valve. Examination was performed. The scope was removed. He tolerated the procedure well and was taken to the recovery area in stable condition. FINDINGS: Upper endoscopy: 1. Esophagus: The esophagus was normal. There was no esophagitis. Biopsies were obtained from the EG junction which were slightly irregular. 2. Stomach: The stomach showed mild diffuse erythema consistent with gastritis. Biopsies were obtained from the antrum. 3. Duodenum: The bulb and 2nd portion were normal. Colonoscopy: The terminal ileum was normal. The visualized colonic mucosa was normal. The quality of the prep was good. Two polyps were identified. The 1st was located at 45 cm, measuring less than 5 mm was removed with the biopsy forceps. The 2nd was located at 30 cm, measuring approximately 8 mm was removed with a hot snare. There was scattered diverticulosis. Retroflexed examination showed moderate-sized internal hemorrhoids. IMPRESSION: 1. Gastroesophageal reflux disease. 2. Gastritis. 3. Colon polyps. RECOMMENDATION: Follow up the biopsy results. MD GARTH Gregory/BERNARD / [id number]
== END 2023-09-06 15:11 | disposition home or self-care (01) ==
PROVIDERS: Visit Provider Internal Medicine Gastroenterology
PROC: (CPT 45385; principal; 2023-09-06 13:50)
DX: R19.5 Other fecal abnormalities (principal); R19.7 Diarrhea, unspecified; K59.00 Constipation, unspecified; K63.5 Polyp of colon; K57.30 Diverticulosis of large intestine without perforation or abscess without bleeding; K64.8 Other hemorrhoids; R10.84 Generalized abdominal pain; K21.9 Gastro-esophageal reflux disease without esophagitis; K29.50 Unspecified chronic gastritis without bleeding; I10 Essential (primary) hypertension; F41.8 Other specified anxiety disorders; Z79.899 Other long term (current) drug therapy; F11.20 Opioid dependence, uncomplicated; F17.210 Nicotine dependence, cigarettes, uncomplicated
CPT/HCPCS: 45385; 45380; 43239; 88305; 88342; J1596; J2704

== ENCOUNTER 2023-10-25 10:43 | Outpatient (REF) | payer MEDICAID, SELFPAY ==
[2023-10-25 11:51] LABS: Prostate Specific Antigen 0.73 ng/mL (<0.05-4.0)
== END 2023-10-25 10:44 | disposition home or self-care (01) ==
LOC: HO.HHCL 10:43
PROVIDERS: Visit Provider Registered Nurse
DX: Z12.5 Encounter for screening for malignant neoplasm of prostate (principal)
CPT/HCPCS: 36415; 84153

== ENCOUNTER 2023-12-26 08:04 | Outpatient (AMB) | payer MEDICAID, SELFPAY ==
--- OUTSIDE RECORDS SUMMARY | 2023-12-26 08:06 | XMS_ITS | Patient Health Record ---
Author Organization [facility] Address [address] [facility] [address] [place] [phone] Care Team Providers Care Operations Program Manager Name Role Phone JEFFREY METZ, HEVER Primary Care Provider Unavaila ble Christiano Boswell Jr Unavailable ALLERGIES Allergen (clinical drug ingredient) Drug/Non Drug Allergy documented on EMR Reaction Allergy Type Onset Date Status PROzac Unknown Drug Allergy Active RESULTS Component Value Reference Range Notes Pathology Reviewed date:09/21/2023 09:23:16 AM Interpretation: Performing Lab:[facility], [address] [place] [phone] Notes/Report: REASON FOR REFERRAL Referring Provider First Name HEVER Referring Provider Last Name JEFFREY Referred Organization [facility] Referred Provider Christiano Boswell Jr Referred Address [address] [place] [address],[address],[phone], Referred Provider Specialty Gastroentero logy Referral Priority Routine MEDICATIONS Medication SIG (Take, Route, Frequency, Duration) Notes Start Date End Date Status MiraLax (colon prep) 8.3 ounce ((238) grams mixed with Gatorade or Crystal Light orally begin at 5:00 p.m. the day before the procedure for 1 day 08/03/2023 Active Omeprazole 20 MG Oral for 30 A ctive amLODIPine Besylate 2.5 MG Oral for 30 Active Remeron Active Trileptal Active BuSpar Active KlonoPIN Active Suboxone 4-1 MG Sublingual for 14 Active OLANZapine 5 MG Oral for 30 Ac tive Gabapentin 300 MG Oral for 30 Active SOCIAL HISTORY Tobacco Use: Social History Observation Description Date Details (start date - stop date) Current Smoker NA - NA Sex Assigned At : Social History Observation Description Sex Assigned At Unknown Tobacco Use/Smoking Question Answer Notes Patient is a current smoker How often do you smoke cigarettes? every day How many cigarettes a day do you smoke? 31 or mo re Alcohol Screen Question Answer Notes Did you have a drink containing alcohol in the p ast year? No Points 0 Interpretation Negative PROBLEMS Problem Type ICD Code Onset Dates Problem Status W/U Status Risk SNOMED Code Notes Problem Gastroesophageal reflux disease, unspecified whether esophagitis present (K21.9) Active confirmed 114904893 Problem Abnormal findings in stool (R19.5) Active confirmed 990456228 Problem Gastritis (K29.70) Active confirmed Gas tritis (3539364) Problem Chronic GERD (K21.9) Active confirmed Gastroesophagea l reflux disease (276729753) VITAL SIGNS Temperature 98.9 degrees Fahrenheit 08/03/2023 Blood pressure diastolic 00 mm Hg 08/03/2023 Height 5 ft 7 in in 08/03/2023 Blood pressure systolic 00 mm Hg 08/03/2023 Weight 195 lbs 08/03/2023 BMI 30.54 kg/m2 08/03/2023 Encounters Encounter Location Date Provider Diagnosis [facility] Outpatient [address] [place] [phone] 09/06/2023 Christiano Boswell Jr Colon polyps K63.5 ; Heme + stool R19.5 ; Gastritis K29.70 and Chronic GERD K21.9 [facility] [address] [place] [phone] 08/03/2023 Christiano Boswell Jr Gastroesophageal reflux disease, unspecified whether esophagitis present K21.9 and Abnormal findings in stool R19.5 [facility] [address] [place] [phone] 08/04/2023 Christiano Boswell Jr [facility] [address] [place] [phone] 09/21/2023 Christiano Boswell Jr ASSESSMENTS Encounter Date Diagnosis Assessment Notes Treatment Notes Treatment Clinical Notes 09/06/2023 Colon polyps (ICD-10 - K63.5) 09/06/2023 Heme + stool (ICD-10 - R19.5) 08/03/2023 Abnormal findings in stool (ICD-10 - R19.5) 08/03/2023 Gastroesophageal reflux disease, unspecified whether esophagitis present (ICD-10 - K21.9) Fecal immunochemical test (FIT) material was printed 09/06/2023 Gastritis (ICD-10 - K29.70) 09/06/2023 Chronic GERD (ICD-10 - K21.9) PLAN OF TREATMENT Future Test Test Name Order Date UPPER GI ENDOSCOPY 08/03/2023 COLONOSCOPY 08/03/2023 Insurance Providers Payer Name Payer Address Payer Phone Subscriber Number Group Number Insured Name Patient Relationship to Insured Coverage Start Date Coverage End Date MEDICAID OF [employer] [address] [place] [phone] [id number] TAHMINA LEIVA Self - patient is the insured MEDICAL (GENERAL) HISTORY Medical History History ICD Code Hypertension Anxiety/depression Constipation Osteoarthritis Gastroesophageal reflux disease Opioid dependence Surgical History Surgery Date(Month/Year) left knee ACL repair 1992
--- NOTE | 2023-12-26 08:13 | MHC.OFFWIV ---
Intake Vital Signs 12/26/23 08:23 Height 5 ft 7 in BP 132/80 Blood Pressure Location Rt brachial Position Sitting Pulse 78 Pulse Source Pulse Oximeter Temp 97.9 F Temp Source Temporal Artery Scan Pulse Oximetry (%) 97 Intake Visit Reasons: EP UTI Intake Note: pt is here for possible uti, states he has urgency but doesnt always urine Patient Tobacco Use Status: Current everyday Tobacco user Allergies diclofenac [From Voltaren] Allergy (Mild, Verified 12/26/23 09:06) NAUSEA, nausea and vomiting naproxen Allergy (Unknown, Verified 12/26/23 09:06) nausea and vomiting fluoxetine [From Prozac] Allergy (Verified 12/26/23 09:06) Rash VELVET Allergy (Mild, Uncoded 12/26/23 09:06) HIVES Medication List - Last Reconciled 12/26/23 by NEPTALI Decker amlodipine 2.5 mg See Protocol PO DAILY 30 days buprenorphine-naloxone 4-1 mg (Suboxone) 1 film sublingual DAILY buprenorphine-naloxone 8-2 mg (Suboxone) 4 film sublingual DAILY buspirone 7.5 mg PO TID melatonin mg PO mirtazapine 45 mg PO BEDTIME olanzapine 10 mg PO BEDTIME omeprazole 20 mg PO DAILY@30 30 days Do you need a note to return to daycare/school/sports/work: No HPI HPI Comments History of Present Illness Details Patient is a 53-year-old male in today for sick visit. The patient states that 1 day prior he developed symptoms of urinary urgency. Patient states that he has history of urinary tract infections in this feels similar. Patient denies fevers, chest pain, shortness a breath, nausea, vomiting, diarrhea patient denies back pain. Patient denies blood in his urine but states he has a hard time identifying is he is cover color blind. In office urinalysis demonstrated +15 leukocyte esterase. ON LICENSE OF [facility] Medical History Bronchopneumonia Rash Polysubstance abuse Fall Surgical History S/P ACL reconstruction Social History Household Members: None Housing: Homeless Do you presently have visiting nurse or other home services: No Comment: Pt refusing bed alarm Patient Tobacco Use Status: Current everyday Tobacco user Tobacco use type: Cigarette Cigarette Packs Per Day: 1 Cigarettes Per Day: 20.0 Years Smoked: 34 e-Cigarette/Vaping Use: Never Used Second Hand Smoke Exposure: No Substance Use Type: Crack/Cocaine and Opiates service: No Current occupational status: disabled Sexual orientation: Straight/Heterosexual Review of Systems Const All systems reviewed & are unremarkable except as noted in HPI and below Denies dysuria, Denies penile discharge, Denies testicular pain and Reports urinary urgency Physical Exam Vital Signs: Last Vital Signs Temp 97.9 F 12/26/23 08:23 Pulse 78 12/26/23 08:23 BP 132/80 12/26/23 08:23 Pulse Ox 97 12/26/23 08:23 Const Other: Appearance: Alert.? Oriented X3.? No acute distress.? Head: Normocephalic, atraumatic CVS: Normal heart rate and rhythm.? Pulses normal.? Respiratory: No respiratory distress.? Breath sounds normal.? Abdomen: Soft and nontender.? Back: No CVA tenderness bilaterally Neuro: Oriented X 3.? Results AMB Urinalysis, Automated UA Leukoctes 15 Claudine/uL Last Edit by Bruno Haines CMA on 12/26/23 08:35 UA Nitrite Negative Last Edit by Bruno Haines CMA on 12/26/23 08:35 UA Urobilinogen 0.2 mg/dL Last Edit by Bruno Haines CMA on 12/26/23 08:35 UA Protein 0 mg/dL Last Edit by Bruno Haines CMA on 12/26/23 08:35 UA pH 6.5 Last Edit by Bruno Haines CMA on 12/26/23 08:35 UA Blood 0 Jun/uL Last Edit by Bruno Haines CMA on 12/26/23 08:35 UA Specific [place] 1.015 Last Edit by Bruno Haines CMA on 12/26/23 08:35 UA Ketone Negative Last Edit by Bruno Haines CMA on 12/26/23 08:35 UA Bilirubin mg/dL Last Edit by Bruno Haines CMA on 12/26/23 08:35 UA Glucose 0 mg/dL Last Edit by Bruno Haines CMA on 12/26/23 08:35 Results Reviewed Results Reviewed: Laboratory Last Values Urine pH (Auto) 6.5 12/26/23 08:34 Specific [place] (Auto) 1.015 12/26/23 08:34 Urine Protein (Auto) 0 mg/dL 12/26/23 08:34 Glucose (UA)(Auto) 0 mg/dL 12/26/23 08:34 Urine Ketones (Auto) Negative 12/26/23 08:34 Urine Blood (Auto) 0 Jun/uL 12/26/23 08:34 Urine Nitrite (Auto) Negative 12/26/23 08:34 Urine Urobilinogen (Auto) 0.2 mg/dL 12/26/23 08:34 Leukocyte Esterase (Auto) 15 Claudine/uL 12/26/23 08:34 Assessment & Plan Assessment & Plan (1) UTI (urinary tract infection): Comment: Patient will be given Bactrim to be taken as prescribed. Patient understands he needs to take the entire course of the medication. Patient has been educated on signs of worsening symptoms and when to report to the emergency room or when to report back to the walk-in Code(s): N39.0 - Urinary tract infection, site not specified Qualifiers: Urinary tract infection type: site unspecified Hematuria presence: without hematuria Qualified Code(s): N39.0 - Urinary tract infection, site not specified Plan: Take your medications as prescribed. If you were prescribed antibiotics today, it is important that you take your medication to their entirety, do not skip any doses, do not finish them early. Follow-up with your primary care provider this week. Return to the emergency department with new or worsening symptoms. Such as fevers, chills, chest pain, shortness of breath, nausea, vomiting, dizziness, headache, vision changes, lethargy In case of emergency call 911 Plan Follow-up with PCP Orders: Orders AMB Urinalysis Automated Today Z13.9 - Encounter for screening, unspecified Medications: New sulfamethoxazole-trimethoprim 800-160 mg (Bactrim DS) 1 tab PO Q12H 14 tabs 0RF Coding Level of Care Code Est Pt Level 3 (38158) Diagnoses Urinary tract infection without hematuria, site unspecified N39.0 Urinary tract infection type: site unspecified Hematuria presence: without hematuria Time Spent (min) 21
[2023-12-26 08:23] VITALS: BP 132/80; PULSE 78; TEMP 36.6; O2SAT 97
== END 2023-12-26 09:20 | disposition home or self-care (01) ==
PROVIDERS: PCP Registered Nurse; Visit Provider Nurse Practitioner Primary Care
DX: N39.0 Urinary tract infection, site not specified (principal)
CPT/HCPCS: 81003; 99213

== ENCOUNTER 2023-12-27 15:03 | Inpatient (IN) | payer MEDICAID, SELFPAY ==
[2023-12-27] VITALS (7 sets, daily range): BP systolic 149–169; BP diastolic 83–103; PULSE 71–88; RESP 13–18; TEMP 36.4–37.2; O2SAT 92–94; BMI 30.5
--- NOTE | ~2023-12-27 | CT_ITS ---
EXAMINATION: CT ABDOMEN AND PELVIS WITHOUT CONTRAST CLINICAL INFORMATION: Abdominal pain. Unable to urinate. Rule out obstructive uropathy. COMPARISON: Previous CT of the abdomen and pelvis from 2021 TECHNIQUE: Multidetector volumetric imaging was performed from the superior aspect of the liver through the pubic symphysis. Sagittal and coronal reformatted images were obtained on the technologist's workstation. This CT examination was performed using dose optimization techniques as appropriate, variously including the following: *Automated exposure control *Adjustment of mA and/or kV according to patient size (this includes techniques or standardized protocols for targeted exams where dose is matched to indication/reason for exam; i.e. extremities or head) *Use of iterative reconstruction technique DLP: 613 mGy-cm FINDINGS: LUNG BASES: The visualized lung bases are unremarkable. LIVER, GALLBLADDER, AND BILIARY TREE: The liver is normal in size, shape, and attenuation. No focal hepatic lesion or biliary ductal dilatation is present. The gallbladder is unremarkable with no evidence of radiopaque gallstones, gallbladder wall thickening, or obvious pericholecystic inflammatory changes. PANCREAS: Unremarkable. SPLEEN: Unremarkable. ADRENAL GLANDS: Unremarkable. KIDNEYS AND URETERS: The kidneys are normal in size, shape, and attenuation. No hydronephrosis, hydroureter, or calculi seen. No perinephric stranding. BLADDER: Unremarkable. GASTROINTESTINAL TRACT: Mild diverticulosis of the colon. No evidence of diverticulitis. The small and large bowel are otherwise unremarkable. The appendix is unremarkable. ABDOMINAL WALL: Umbilical and bilateral inguinal hernias containing fat, right greater than left. LYMPH NODES: Normal. VASCULAR: Unremarkable. PELVIC VISCERA: Unremarkable. OSSEOUS STRUCTURES: Degenerative changes of the spine. CT/CT abdomen pelvis wo IV con IMPRESSION: Normal-appearing kidneys, prostate gland and bladder. Mild diverticulosis of the colon. Small umbilical and bilateral inguinal hernias containing fat. Fleischner guidelines were followed.
[2023-12-27 16:45] LABS: Basophils Percent Auto 0.2 % (0-2); Eosinophils Absolute Auto 0.1 X10*3/uL (0.0-0.4); Eosinophils Percent Auto 0.6 % (0-4); Hematocrit 37.1 % (42.0-52.0); Imm Gran Abs Auto 0.13 X10*3/uL (0.00-0.03); Imm Gran Pct Auto 1.1 % (0.0-0.4); Lymphocytes Absolute Auto 2.7 X10*3/uL (1.2-4.9); Lymphocytes Percent Auto 22.2 % (20-40); MANUAL DIFF FLAG SCAN; Mean Corpuscular Hemoglobin 32.3 pg (27.0-33.0); Mean Corpuscular Volume 85.5 fL (80.0-98.0); Mean Platelet Volume 8.1 fL (9.4-12.4); Neutrophils Absolute Auto 8.3 x10*3/uL (2.0-8.3); Neutrophils Percent Auto 67.9 % (45-73); Platelet Count 355 X10*3/uL (160-400); Red Blood Count 4.34 X10*6/uL (4.60-5.80); SCAN SMEAR FLAG 1; White Blood Count 12.2 X10*3/uL (4.8-10.8)
[2023-12-27 16:47] LABS: Appearance Urine Clear; Color Urine Yellow; Glucose Urine UA Negative (Negative); Leukocyte Esterase Urine Negative (Negative); Nitrite Urine Negative (Negative); PH 6.5 (5.0-9.0); Specific Gravity - Urine 1.025 (1.005-1.025); Urine Blood Negative (Negative); Urine Ketones Trace mg/dL (Negative); Urine Protein Trace mg/dL (Neg-Trace)
[2023-12-27 16:48] LABS: Alanine Aminotransferase 29 U/L (0-40); Albumin Level 4.7 g/dL (3.5-5.0); Alkaline Phosphatase 93 U/L (39-117); Anion Gap 13 (12-20); Aspartate Amino Transferase 22 U/L (5-37); Bilirubin Total 0.2 mg/dL (0.0-1.0); Blood Urea Nitrogen 10 mg/dL (9-16); Calcium 9.1 mg/dL (8.4-10.2); Carbon Dioxide 25 mmol/L (22-29); Chloride 87 mmol/L (96-108); Creatinine Clr Calc Pharmacy 105.4; Estimated Glomerular Filt Rate > 60; Glucose Random 97 mg/dL (60-115); Potassium 4.4 mmol/L (3.3-5.1); Sodium 121 mmol/L (135-145); Total Protein 8.1 g/dL (6.5-8.0)
[2023-12-27 16:56] LABS: Mean Corpuscular HGB Conc 37.7 g/dl (31.0-36.0)
[2023-12-27 17:03] LABS: SLIDE REVIEW VERIFIED
--- OUTSIDE RECORDS SUMMARY | 2023-12-27 18:51 | XMS_ITS | Continuity of Care Document ---
Author Organization [facility] Address [address] [place] [phone]- Care Team Providers Care Contact Person Name Role Phone Not on Staff, PCP Primary Care Physician Unavail able Encounter [facility] Date(s): 08/22/19 - 10/17/[address] [address]- [facility] Attending Physician: Ad Weiner MD Admitting Physician: Ad Weiner MD Referring Physician: Ad Weiner MD Allergies, Adverse Reactions, Alerts Substance Reaction Severity Status Other Environmental Allergy 1 Active PROzac Active 1Allergic to velvet and velour. Immunizations Not Given Vaccine Date Status Refusal Reason pneumococcal 23-valent vaccine 04/08/19 Not Given Patient Refuses Medications Bisacodyl Tablet 10 mg, By Mouth, Once, PRN, Refills 0, Maintenance, constipation, 09/19/19 16:32:00 EST Start Date: 09/19/19 Status: Ordered buPROPion 300 mg/24 hours (XL) oral tablet, extended release 1 tablet = 300 mg, By Mouth, Daily, # 30 tablet, 1 Refills, Maintenance, 04/12/19 14:46:41 EDT, ER Tablet Start Date: 04/12/19 Status: Ordered Cogentin Tablet 1 mg, By Mouth, 2 times a day, Refills 0, Maintenance, 09/19/19 16:36:00 EST Start Date: 09/19/19 Status: Ordered docusate sodium 100 mg oral capsule 200 mg, 2, capsule, By Mouth, Daily at bedtime, PRN, # 20 capsule, Refills 0, Maintenance, for constipation, 04/07/19 2:01:17 EDT Start Date: 04/07/19 Status: Ordered fenofibrate 160 mg oral tablet 1 tablet = 160 mg, By Mouth, Daily, # 30 tablet, 2 Refills, Maintenance, 04/12/19 14:46:15 EDT, Tablet Start Date: 04/12/19 Status: Ordered Golytely - oral powder for reconstitution 240 mL, By Mouth, Daily, PRN Constipation, # 480 mL, 0 Refills, Maintenance, 09/19/19 19:30:00 EST,REC Powder, [facility], 240 mL By Mouth Daily,PRN:Constipation, 170, cm, 09/19/19 16:59:00 EST, Height, 81.7, kg, 09/19/19 16:59:00 EST,... Start Date: 09/19/19 Status: Ordered melatonin 3 mg oral tablet 3 tablet = 9 mg, By Mouth, Daily at bedtime, PRN for insomnia, # 60 tablet, 0 Refills, Maintenance,09/19/19 16:37:00 EST, Tablet Start Date: 09/19/19 Status: Ordered Milk of Magnesia See Instructions, PRN constipation, 30 mL By Mouth daily, 0 Refills, Maintenance, 05/29/19 9:56:11 EDT Start Date: 05/29/19 Status: Ordered nicotine 21 mg/24 hr transdermal film, extended release 1 patch, Topically, Daily, # 30 patch, 1 Refills, Maintenance, 04/12/19 14:47:41 EDT, Patch, 1 patch Topically Daily Start Date: 04/12/19 Status: Ordered senna - oral tablet 2 tablet, By Mouth, Daily at bedtime, PRN for constipation, # 60 tablet, 0 Refills, Maintenance, 04/07/19 0:58:30 EDT, Tablet Start Date: 04/07/19 Status: Ordered SEROquel 300 mg oral tablet 1 tablet = 300 mg, By Mouth, Daily at bedtime, # 30 tablet, 0 Refills, Maintenance, 04/07/19 0:55:54 EDT, Tablet Start Date: 04/07/19 Status: Ordered tamsulosin 0.4 mg oral capsule 0.4 mg, 1, capsule, By Mouth, Daily, # 14 capsule, Refills 0, Tot. Refills 0, Maintenance, 09/19/2018:30:00 EST, Route to Pharmacy Electronically, [facility], 170, cm, 09/19/19 16:59:00 EST, Height, 81.7, kg, 09/19/19 16:59:00 EST, Dry... Start Date: 09/19/19 Status: Ordered thioridazine 25 mg oral tablet 1 tablet = 25 mg, By Mouth, Every 2 hours, max 3 pills per 24 hours; for racing thoughts, # 90 tablet, 0 Refills, Maintenance, 09/19/19 16:38:00 EST, Tablet Start Date: 09/19/19 Status: Ordered Tylenol 325 mg oral tablet 650 mg, By Mouth, Every 6 hours, PRN, # 35 tablet, Refills 0, Tot. Refills 0, Maintenance, Pain , Moderate, 04/12/19 14:47:03 EDT, Route to Pharmacy Electronically, [id number], [facility] Start Date: 04/12/19 Status: Ordered Social History Social History Type Response Tobacco Use: Current smoker. . Sex Male
--- OUTSIDE RECORDS SUMMARY | 2023-12-27 18:51 | XMS_ITS | Continuity of Care Document ---
Author Organization [facility] Address Unknown Care Team Providers Care Atomic Welder Name Role Phone Not on Staff, PCP Primary Care Physician Unavail able Encounter [facility] Date(s): 09/21/21 - 11/03/21 [facility] Attending Physician: Wolfgang Escobar Referring Physician: Bandar Min Allergies, Adverse Reactions, Alerts Substance Reaction Severity Status Other Environmental Allergy 1 Active PROzac Active 1Allergic to velvet and velour. Immunizations Not Given Vaccine Date Status Refusal Reason pneumococcal 23-valent vaccine 04/08/19 Not Given Patient Refuses Medications cloNIDine 0.1 mg oral tablet 0.1 mg, 1, tablet, By Mouth, 2 times a day, # 60 tablet, Refills 0, Tot. Refills 0, Maintenance, 09/19/21 11:28:00 EST, Route to Pharmacy Electronically, [facility]/pharmacy #[id number], Partial fill upon patientrequest if the prescription is for a schedule II op... Start Date: 09/19/21 Status: Ordered gabapentin 300 mg oral capsule 300 mg, 1, capsule, By Mouth, 3 times a day, # 90 capsule, Refills 0, Tot. Refills 0, Maintenance, 09/19/21 11:28:00 EST, Route to Pharmacy Electronically, [facility]/pharmacy #[id number], Partial fill upon patient request if the prescription is for a schedule II... Start Date: 09/19/21 Status: Ordered ondansetron 4 mg oral tablet, disintegrating 1 tablet = 4 mg, By Mouth, Every 8 hours, PRN as needed for nausea/vomiting, # 8 tablet, 0 Refills,Maintenance, 09/19/21 11:28:00 EST, DIS Tablet, [id number], Partial fill upon patient request if the prescription is for a schedule II opioid d... Start Date: 09/19/21 Status: Ordered QUEtiapine 300 mg oral tablet 1 tablet = 300 mg, By Mouth, Daily at bedtime, # 30 tablet, 0 Refills, Maintenance, 09/19/21 11:29:00 EST, Tablet, [facility]/pharmacy #[id number], Partial fill upon patient request if the prescription is for a schedule II opioid drug., 170, cm, 09/19/21 11:16:00... Start Date: 09/19/21 Status: Ordered Problem List Condition Effective Dates Status Health Status Inform ant Hypertrophy of prostate with urinary retention(Confirmed) Active Chronic idiopathic constipation(Confirmed) Active Homeless(Confirmed) Active Alcohol use disorder severe in remission(Confirmed) Active Opioid use disorder, moderate(Confirmed) Active MDD (major depressive disord er), recurrent episode, severe(Confirmed) Active Suicidal ideations(Confirmed) Active Urinary urgency(Confirmed) Active Social History Social History Type Response Smoking Status 10 or more cigarette s (1/2 pack or more)/day in last 30 days; Type: Cigarettes; Tobacco use times per day: Reports 1/2 ppd; entered on: 11/06/19 Sex
--- OUTSIDE RECORDS SUMMARY | 2023-12-27 18:51 | XMS_ITS | Patient Health Record ---
Author Organization [facility] Address [address] [facility] [address] [place] [phone] Care Team Providers Care Program Manager Name Role Phone JEFFREY METZ, HEVER Primary Care Provider Unavaila ble Christiano Boswell Jr Unavailable [phone] ALLERGIES Allergen (clinical drug ingredient) Drug/Non Drug Allergy documented on EMR Reaction Allergy Type Onset Date Status fluoxetine PROzac Unknown Drug Allergy Active RESULTS Component Value Reference Range Notes Pathology Reviewed date:09/21/2023 09:23:16 AM Interpretation: Performing Lab:[facility], [address] [place] [phone] Notes/Report: REASON FOR REFERRAL Referring Provider First Name HEVER Referring Provider Last Name JEFFREY Referred Organization [facility] Referred Provider Christiano Boswell Jr Referred Address [address] [place] [address],[address],[phone], Referred Provider Specialty Gastroentero logy Referral Priority [...] unspecified whether esophagitis present (K21.9) Active confirmed 558934708 Problem Abnormal findings in stool (R19.5) Active confirmed 969084768 Problem Gastritis (K29.70) Active confirmed Gas tritis (1295103) Problem Chronic GERD (K21.9) Active confirmed Gastroesophagea l reflux disease (263936791) VITAL SIGNS Temperature 98.9 degrees Fahrenheit 08/03/2023 Blood pressure diastolic 00 mm Hg 08/03/2023 Height 5 ft 7 in in 08/03/2023 Blood pressure systolic 00 mm Hg 08/03/2023 Weight 195 lbs 08/03/2023 BMI 30.54 kg/m2 08/03/2023 Encounters Encounter Location Date Provider Diagnosis [facility] [address] [place] [phone] 09/06/2023 Christiano Boswell Jr Colon polyps K63.5 ; Heme + stool R19.5 ; Gastritis K29.70 and Chronic GERD K21.9 [facility] [address] [place] [phone] 08/03/2023 Christiano Boswell Jr Gastroesophageal reflux disease, unspecified whether esophagitis present K21.9 and Abnormal findings in stool R19.5 [facility] [address] [place] [phone] 08/04/2023 Christiano Boswell Jr [facility] [address] [place] [phone] 09/21/2023 Christiano Boswell Jr ASSESSMENTS Encounter Date [...] Start Date Coverage End Date MED[place] OF [employer] [address] [place] [phone] [id number] TAHMINA LEIVA Self - patient is the insured MEDICAL (GENERAL) HISTORY Medical History History ICD Code Hypertension Anxiety/depression Constipation Osteoarthritis Gastroesophageal reflux disease Opioid dependence Surgical History Surgery Date(Month/Year) left knee ACL repair 1992
--- OUTSIDE RECORDS SUMMARY | 2023-12-27 18:51 | XMS_ITS | Continuity of Care Document ---
Author Organization [facility] ter Address [address] [place] [address]- Care Team Providers Care Director Meetings Name Role Phone Not on Staff, PCP Primary Care Physician Unavail able Encounter [facility] Date(s): 04/15/22 - 04/15/[address] [address]- Encounter Diagnosis Opioid overdose(Final) - 04/15/22 Discharge Disposition: A-D/C Home Attending Physician: Lamonte Pacheco DO Admitting Physician: Lamonte Pacheco DO Referring Physician: Not on Staff, Referring MD Allergies, Adverse Reactions, Alerts Substance Reaction Severity Status Other Environmental Allergy 1 Active PROzac Active 1Allergic to velvet and velour. Immunizations Not Given Vaccine Date Status Refusal Reason pneumococcal 23-valent vaccine 04/08/19 Not Given Patient Refuses Medications QUEtiapine 300 mg oral tablet 1 tablet = 300 mg, By Mouth, Daily at bedtime, # 30 tablet, 0 Refills, Maintenance, 09/19/21 11:29:00 EST, Tablet, [id number], Partial fill upon patient [...] Active Suicidal ideations(Confirmed) Active Urinary urgency(Confirmed) Active Vital Signs Most recent to oldest [Reference Range]: 1 2 3 Oxygen Saturation [94-100 %] 97 % (04/15/22 6:19 PM) 96 % (04/15/22 4:54 PM) 94 % (04/15/22 2:55 PM) Pulse Rate [55-90 bpm] 79 bpm (04/15/22 6:19 PM) 77 bpm (04/15/22 4:54 PM) 90 bpm (04/15/22 2:55 PM) Blood Pressure [90-138/55-84 mm Hg] 133/88mm Hg (04/15/22 6:19 PM) 121/79mm Hg (04/15/22 4:54 PM) 126/97mm Hg (04/15/22 2:55 PM) Respiratory Rate [16-30 br/min] 17 br/min (04/15/22 6:19 PM) 15 br/min *L* (04/15/22 4:54 PM) 17 br/min (04/15/22 2:55 PM) Temperature [96.8-100.4 DegF] 98.3 DegF (04/15/22 6:19 PM) 98.5 DegF (04/15/22 2:55 PM) Mode of Delivery (Oxygen) Room air (04/15/22 6:19 PM) Room air (04/15/22 4:54 PM) Room air (04/15/22 2:55 PM) Blood pressure sites Arm, right (04/15/22 6:19 PM) Arm, right (04/15/22 4:54 PM) Arm, right (04/15/22 2:55 PM) Temperature Route Oral (04/15/22 6:19 PM) Oral (04/15/22 2:55 PM) Social History Social History Type Response Smoking Status 10 or more cigarette s (1/2 pack or more)/day in last 30 days; Type: Cigarettes; Tobacco use times per day: Reports 1/2 ppd; entered on: 11/06/19 Sex
--- OUTSIDE RECORDS SUMMARY | 2023-12-27 18:52 | XMS_ITS | Continuity of Care Document ---
Author Organization [facility] Address Unknown Care Team Providers Care Aluminum Pourer Name Role Phone Not on Staff, PCP Primary Care Physician Unavail able Encounter [facility] Date(s): 10/04/21 - 11/03/21 [facility] Attending Physician: Deirdre Calderon Admitting Physician: Deirdre Calderon Referring Physician: Deirdre Calderon Allergies, Adverse Reactions, Alerts Substance Reaction Severity [...] 09/19/21 11:28:00 EST, Route to Pharmacy Electronically, [facility]/pharmacy #[id number], Partial fill upon patientrequest if the prescription is for a schedule II op... Start Date: 09/19/21 Status: Ordered gabapentin 300 mg oral capsule 300 mg, 1, capsule, By Mouth, 3 times a day, # 90 capsule, Refills 0, Tot. Refills 0, Maintenance, 09/19/21 11:28:00 EST, Route to Pharmacy Electronically, [id number], Partial fill upon patient request [...] 0 Refills, Maintenance, 09/19/21 11:29:00 EST, Tablet, [facility]/pharmacy #[id number], Partial fill upon patient request [...]
--- OUTSIDE RECORDS SUMMARY | 2023-12-27 18:52 | XMS_ITS | Continuity of Care Document ---
Author Organization [facility] Address [address] [place] [id number]- Care Team Providers Care Weigher Operator Name Role Phone Not on Staff, PCP Primary Care Physician Unavail able [place] [facility] [place] - 08/30/[address] [address]- [facility] Attending Physician: Deirdre Calderon Admitting Physician: Deirdre Calderon Referring Physician: AdmtrDeirdre Allergies, Adverse Reactions, Alerts Substance Reaction Severity Status Other Environmental Allergy 1 Active 1Allergic to velvet and velour. Immunizations Not Given Vaccine Date Status Refusal Reason pneumococcal 23-valent vaccine 04/08/19 Not Given Patient Refuses Medications buPROPion 300 mg/24 hours (XL) oral tablet, extended release 1 tablet = 300 mg, By Mouth, Daily, # 30 tablet, 1 Refills, Maintenance, 04/12/19 14:46:41 EDT, ER Tablet Start Date: 04/12/19 Status: Ordered clonazePAM 0.5 mg oral tablet 1 tablet = 0.5 mg, By Mouth, 4 times a day, PRN Anxiety, 0 Refills, Maintenance, 04/07/19 0:55:41 EDT, Tablet Start Date: 04/07/19 Status: Ordered docusate sodium 100 mg oral capsule 200 mg, 2, capsule, By Mouth, Daily at bedtime, PRN, # 20 capsule, Refills 0, Maintenance, for constipation, 04/07/19 2:01:17 EDT Start Date: 04/07/19 Status: Ordered fenofibrate 160 mg oral tablet 1 tablet = 160 mg, By Mouth, Daily, # 30 tablet, 2 Refills, Maintenance, 04/12/19 14:46:15 EDT, Tablet Start Date: 04/12/19 Status: Ordered gabapentin 300 mg oral capsule 300 mg, 1, capsule, By Mouth, Daily, # 90 capsule, Refills 0, Maintenance, 04/07/19 0:54:43 EDT Start Date: 04/07/19 Status: Ordered gabapentin 300 mg oral capsule 600 mg, 2, capsule, By Mouth, Daily at bedtime, # 90 capsule, Refills 0, Maintenance, 04/07/19 0:55:03 EDT Start Date: 04/07/19 Status: Ordered meloxicam 15 mg oral tablet 1 tablet = 15 mg, By Mouth, prn, # 30 tablet, 0 Refills, Maintenance, 04/07/19 2:00:30 EDT, Tablet Start Date: 04/07/19 Status: Ordered Milk of Magnesia By Mouth, prn, 0 Refills, Maintenance, 05/29/19 9:56:11 EDT Start Date: 05/29/19 Status: Ordered Nicorette Gum 4 mg Nicorette Gum 4 mg, Refills 0, Maintenance, every 2 to 4 hours as needed, 05/29/19 9:57:22 EDT, Compound Start Date: 05/29/19 Status: Ordered nicotine 21 [...] EDT, Tablet Start Date: 04/07/19 Status: Ordered Tylenol 325 mg oral tablet 650 mg, By Mouth, Every 6 hours, PRN, # 35 tablet, Refills 0, Tot. Refills 0, Maintenance, Pain , Moderate, 04/12/19 14:47:03 EDT, Route to Pharmacy Electronically, [id number], [facility] Start Date: 04/12/19 Status: Ordered Social History Social History Type Response Tobacco Use: Current smoker. . Sex Male
--- OUTSIDE RECORDS SUMMARY | 2023-12-27 18:52 | XMS_ITS | Continuity of Care Document ---
Author Organization [facility] Address [address] [place] [id number]- Care Team Providers Care Brazer Assembler Name Role Phone Not on Staff, PCP Primary Care Physician Unavail able Encounter [facility] Date(s): 09/19/19 - 09/19/[address] [address]- [facility] Encounter Diagnosis Urinary retention(Final) - 09/19/19 Urinary retention(Final) - 09/19/19 Discharge Disposition: A-D/C Home Attending Physician: Kelvin Camacho MD Admitting Physician: Kelvin Camacho MD Referring Physician: Not on Staff, Referring MD [...] 0 Refills, Maintenance, 09/19/19 19:30:00 EST,REC Powder, [facility], 240 mL By Mouth Daily,PRN:Constipation, 170, [...] Maintenance, 09/19/2018:30:00 EST, Route to Pharmacy Electronically, [facility], 170, cm, 09/19/19 16:59:00 EST, Height, [...] 04/12/19 14:47:03 EDT, Route to Pharmacy Electronically, [id number], [facility] Start Date: 04/12/19 Status: Ordered Vital Signs Most recent to oldest [Reference Range]: 1 2 Height 170 cm (09/19/19 4:59 PM) 170 cm (09/19/19 10:41 AM) Weight 81.7 kg (09/19/19 4:59 PM) 81.7 kg (09/19/19 10:40 AM) Oxygen Saturation [94-100 %] 100 % (09/19/19 4:59 PM) 100 % (09/19/19 10:40 AM) Pulse Rate [55-90 bpm] 97 bpm *H* (09/19/19 4:59 PM) 103 bpm *H* (09/19/19 10:40 AM) Body Mass Index [18.5-24.99] 28.27 *H* (09/19/19 4:59 PM) Blood Pressure [90-138/55-84 mm Hg] 137/ 88mm Hg (09/19/19 4:59 PM) 124/73mm Hg (09/19/19 10:40 AM) Respiratory Rate [16-30 br/min] 16 br/mi n (09/19/19 4:59 PM) 20 br/min (09/19/19 10:40 AM) Temperature [96.8-100.4 DegF] 98.2 DegF (09/19/19 10:40 AM) Mode of Delivery (Oxygen) Room air (09/19/19 4:59 PM) Room air (09/19/19 10:40 AM) Blood pressure sites Arm, right (09/19/19 4:59 PM) Arm, right (09/19/19 10:40 AM) Temperature Route Oral (09/19/19 10:40 AM) Dry Weight 81.7 kg (09/19/19 4:59 PM) 81.7 kg (09/19/19 10:40 AM) Weight Obtained Via Standing scale (09/19/19 10:40 AM) Dry Weight Obtained Via Standing scale (09/19/19 10:40 AM) Social History Social History Type Response Tobacco Use: Current smoker. . Sex Male
--- NOTE | 2023-12-27 19:08 | PC.NURSE ---
alert and oriented. comes to ED with dysuria - says he feels like he has to pee, but is unable to pee well. went to yesterday and was given a script for bactrim. comes back from [facility] after sodium comes back 121. On teletypesetter monitor, IV placed 20g to right AC
--- NOTE | 2023-12-27 19:15 | ED.MALEGU ---
HPI - Male Genitourinary General Chief complaint: Urogenital-Male Stated complaint: UTI, unable to urinate Time Seen by Provider: 12/27/23 18:55 Source: patient Mode of arrival: ambulatory Limitations: no limitations History of Present Illness HPI Narrative: 53-year-old male with no significant past medical history presented with complaint of 2-3 days of frequency urination with urgency to urinate with small amount of urination over the past 3 days patient stated that some days he does not urinate at all, feels bladder is distended which urge him to go to the bathroom but either past no urine or small amount, patient stated that he drinks normal amount of fluids throughout the day to cup of coffee and 4-5 cups of juice, patient like to eat salty pretzel which usually make him feels thirsty with dry mouth. Patient declined hematuria, history of kidney stone. Arrival to the ED patient had bladder scan showed 110 cc of urine and patient was able to give a urine sample for testing. Patient was seen at urgent care clinic yesterday was told that he has UTI and was started on Bactrim. Related Data Home Medications ?Medication ?Instructions ?Recorded ?Confirmed buprenorphine 4 mg-naloxone 1 mg 1 film sublingual DAILY 12/26/23 12/27/23 sublingual film (Suboxone) buprenorphine 8 mg-naloxone 2 mg 4 film sublingual DAILY 12/26/23 12/26/23 sublingual film (Suboxone) buspirone 7.5 mg tablet 7.5 mg PO TID 12/26/23 12/26/23 melatonin 5 mg tablet 10 mg PO BEDTIME PRN Insomnia 12/26/23 12/27/23 mirtazapine 45 mg tablet 45 mg PO BEDTIME 12/26/23 12/27/23 clonazepam 0.5 mg tablet mg PO 12/27/23 12/27/23 gabapentin 300 mg capsule mg PO 12/27/23 olanzapine 5 mg tablet mg PO 12/27/23 oxcarbazepine 300 mg tablet 300 mg PO TID 12/27/23 12/27/23 Previous Rx's ?Medication ?Instructions ?Recorded amlodipine 2.5 mg tablet 2.5 mg PO DAILY 30 days #30 tabs 12/15/21 omeprazole 20 mg capsule,delayed 20 mg PO DAILY@0630 30 days #30 12/15/21 release caps sulfamethoxazole 800 1 tab PO Q12H #14 tabs 12/26/23 mg-trimethoprim 160 mg tablet (Bactrim DS) Allergies Allergy/AdvReac Type Severity Reaction Status Date / Time diclofenac [From Voltaren] Allergy Mild NAUSEA, Verified 12/27/23 15:53 nausea and vomiting naproxen Allergy Unknown nausea and Verified 12/27/23 15:53 vomiting fluoxetine [From Prozac] Allergy Rash Verified 12/27/23 15:53 VELVET Allergy Mild HIVES Uncoded 12/26/23 09:06 Review of Systems Review of Systems: All other systems are reviewed and are negative Constitutional: Reports as per HPI and Reports no additional constitutional complaints Eyes: Reports as per HPI and Reports no additional eye complaints Reports system reviewed and no additional complaints, except as documented Cardiovascular: Reports as per HPI and Reports no additional cardiovascular complaints Respiratory: Reports as per HPI and Reports no additional respiratory complaints Gastrointestinal: Reports as per HPI and Reports no additional gastrointestinal complaints Genitourinary: Reports no additional female genitourinary complaints Musculoskeletal: Reports no additional musculoskeletal complaints Skin/Breast: Reports system reviewed and no additional complaints, except as docu Psychiatric: Reports no additional psychiatric complaints Endocrine: Reports no additional endocrine complaints Hematologic/Lymphatic: Reports no additional hematologic/lymphatic complaints Allergic/Immunologic: Reports no additional allergic/immunologic complaints Reports system reviewed and no additional complaints, except as documented and Reports Abnormal speech present [facility] Past Medical History Medical History Bronchopneumonia Rash Polysubstance abuse Fall Surgical History S/P ACL reconstruction Social History Social History Household Members: None Housing: Homeless Do you presently have visiting nurse or other home services: No Comment: Pt refusing bed alarm Patient Tobacco Use Status: Current everyday Tobacco user Tobacco use type: Cigarette Cigarette Packs Per Day: 1 Cigarettes Per Day: 20.0 Years Smoked: 34 Smoked in Last 30 Days: Yes e-Cigarette/Vaping Use: Never Used Second Hand Smoke Exposure: No Use of substances other than those prescribed or required for medical reasons: No Substance Use Type: Crack/Cocaine and Opiates Advance Directives: No Advance Directives Information Provided: No Do you have a plan to hurt others: No Plan service: No Current occupational status: disabled Sexual orientation: Straight/Heterosexual Physical Exam Vital Signs: Vital Signs: Last Vital Signs Temp 98.1 F 12/27/23 18:43 Pulse 80 12/27/23 18:43 Resp 16 12/27/23 18:43 BP 169/103 H 12/27/23 18:43 Pulse Ox 94 12/27/23 18:43 O2 Del Method Room Air 12/27/23 18:43 BMI result Body Mass Index 30.5 Vital signs have been reviewed and appear to be correct. Blood pressure elevated. Heart rate normal. Respiratory rate normal. Temperature normal. Oxygen saturation normal. Appearance: Alert. Oriented X3. No acute distress. Head: Normal external exam. Normocephalic. Atraumatic. No Valenzuela signs noted. No raccoon eyes noted Eyes: PERRLA. EOMI. Conjunctiva and sclera normal. Eyelids normal. ENT: TM's Normal. Pharynx normal. Uvula midline. Moist mucous membranes. No trismus noted. No drooling noted. No muffled voice noted. Neck: Normal inspection. Neck supple. FROM. No adenopathy. Thyroid Normal. No meningeal signs. No neck mass noted. CVS: Normal heart rate and rhythm. Heart sound normal. No murmurs noted. Pulses normal throughout. Respiratory: No respiratory distress. Painless inspiration. Breath sounds normal. No wheezes/rales/rhonchi noted. Chest nontender. No accessory muscle usage noted or decreased air movement noted. Abdomen: Soft and nontender. Bowel sounds normal in all 4 quadrants. No distention noted. No organomegaly noted. No visible injury noted. Back: No CVA tenderness. Full range of motion noted. Skin: Skin warm and dry. Normal skin color. Normal skin turgor. No rashes/lesions/lacerations noted. Extremities: No lower extremity edema. Extremities exhibit normal range of motion. Extremities nontender. Neuro: Oriented X 3. Cranial nerve exam: II-XII are grossly intact No motor deficit. No sensory deficit. Reflexes normal. Course Reevaluation(s) Reevaluation #1: 53-year-old male presented with hyponatremia with no neurological symptoms patient been having urogenital symptoms of frequency urination and hesitancy with some dysuria patient was started on Bactrim for possible UTI diagnosed 2 days ago at an urgent care, patient declined using any new medication, no psychogenic polydipsia issue, renal function with a normal, CT abdomen pelvis showing no obstructive uropathy. Will start the patient on normal saline at 100 cc/hour for slow correction of hyponatremia. Will admit for serial CMP. Time: 20:23 Medications Administered Generic Name Dose Route Start Last Admin Trade Name Freq PRN Reason Stop Dose Admin Enoxaparin Sodium 40 mg 12/27/23 20:00 12/27/23 20:41 Enoxaparin Sodium 40 Mg/0.4 Ml Syringe SUBCUT 40 mg Q24H EMIGDIO Administration Sodium Chloride 1,000 mls @ 100 mls/hr 12/27/23 19:15 12/27/23 20:28 Ns IVCONT 100 mls/hr .Q10H EMIGDIO Administration Medical Decision Making Differential Diagnosis Differential Diagnoses: The differential diagnosis associated with the presentation includes ( Obstructive uropathy, UTI, pyelonephritis, ASHIA, psychogenic polydipsia, SIADH, electrolyte derangement, severe anemia.) Admission/Observation Consideration of admission/observation: Escalation of care including admission/observation considered Consult Healthcare Provider Management of the patient was discussed with: Hospitalist (Dr. Iniguez) Lab Data MDM Lab Attestation statement: I reviewed the patient's lab results. 12/27/23 16:05 12/27/23 16:05 Labs: Lab Results 12/27/23 12/27/23 Range/Units 16:05 16:35 WBC 12.2 H (4.8-10.8) X10*3/uL RBC 4.34 L (4.60-5.80) X10*6/uL Hgb 14.0 (14.0-18.0) g/dl Hct 37.1 L (42.0-52.0) % MCV 85.5 (80.0-98.0) fL MCH 32.3 (27.0-33.0) pg MCHC 37.7 H (31.0-36.0) g/dl RDW 12.0 (11.0-16.0) % Plt Count 355 (160-400) X10*3/uL MPV 8.1 L (9.4-12.4) fL Immature Gran % (Auto) 1.1 H (0.0-0.4) % Neut % (Auto) 67.9 (45-73) % Lymph % (Auto) 22.2 (20-40) % Wilkes % (Auto) 8.0 (2-11) % Eos % (Auto) 0.6 (0-4) % Baso % (Auto) 0.2 (0-2) % Lymph # (Auto) 2.7 (1.2-4.9) X10*3/uL Wilkes # (Auto) 1.0 (0.1-1.2) X10*3/uL Eos # (Auto) 0.1 (0.0-0.4) X10*3/uL Baso # (Auto) 0.0 (0.0-0.2) X10*3/uL Abs Immat Gran (auto) 0.13 H (0.00-0.03) X10*3/uL Absolute Neuts (auto) 8.3 (2.0-8.3) x10*3/uL Absolute Nucleated RBC 0.000 (0.0-0.012) X10*3/uL Nucleated RBC % (auto) 0.0 (0.0-0.2) /100WBC Smear Tech's Comments VERIFIED Sodium 121 L (135-145) mmol/L Potassium 4.4 (3.3-5.1) mmol/L Chloride 87 L (96-108) mmol/L Carbon Dioxide 25 (22-29) mmol/L Anion Gap 13 (12-20) BUN 10 (9-16) mg/dL Creatinine 0.84 (0.5-1.4) mg/dL Estim Creat Clear Calc 105.4 Estimated GFR > 60 Random Glucose 97 (60-115) mg/dL Osmolality Cancelled Calcium 9.1 (8.4-10.2) mg/dL Total Bilirubin 0.2 (0.0-1.0) mg/dL AST 22 (5-37) U/L ALT 29 (0-40) U/L Alkaline Phosphatase 93 (39-117) U/L Total Protein 8.1 H (6.5-8.0) g/dL Albumin 4.7 (3.5-5.0) g/dL Urine Color Yellow Urine Appearance Clear Urine pH 6.5 (5.0-9.0) Ur Specific [place] 1.025 (1.005-1.025) Urine Protein Trace (Neg-Trace) mg/dL Urine Glucose (UA) Negative (Negative) mg/dL Urine Ketones Trace (Negative) mg/dL Urine Blood Negative (Negative) Urine Nitrite Negative (Negative) Ur Leukocyte Esterase Negative (Negative) Ur Random Sodium 73.0 mmol/L Ur Random Potassium 71.0 mmol/L Ur Random Chloride 47.0 mmol/L Independent Interpretation I performed an independent interpretation of an: CT Scan ( abdomen and pelvis:Normal-appearing kidneys, prostate gland and bladder. Mild diverticulosis of the colon. Small umbilical and bilateral inguinal hernias containing fat.) Discharge Plan Discharge Clinical Impression: Acute hyponatremia Patient Disposition: Admitted As Inpatient
[2023-12-27] MEDS: 0.9 % Sodium Chloride 1,000 ML 100 ML IVCONT (20:28)
--- NOTE | 2023-12-27 20:28 | PC.NURSE ---
IVF infusing per MAR. Pt extremely upset due to urinary frequency. Pt had an appt with Urology last Monday but was unable to make it due to an illness. Pt states his rescheduled appt isn't until 02/13. Pt ambulating to the bathroom with a steady gait.
[2023-12-27] MEDS: Enoxaparin Sodium 40 MG/0.4 ML SYRINGE SUBCUT (20:41)
[2023-12-27 20:45] LABS: Osmolality Urine 595 mosm/kg (373-1093)
--- NOTE | 2023-12-27 21:05 | PM.IMHP ---
History of Present Illness Date of Service: 12/27/23 Attending physician on admission: Monet Iniguez Chief Complaint: Difficulty urinating, polyuria Pt is a 53-year-old male with a PMH significant for?HTN, GERD, opiate use disorder on suboxone, MDD, and schizophrenia who presents to the ED for evaluation of urinary hesitancy and polyuria. Patient states has been experiencing urinary hesitancy and dribbling for a number of months, but since Monday has felt a constant urge to urinate yet has found it difficult to initiate urination. Reports feeling a ?dull soreness? in his bladder and penis, and is ?running to the bathroom every 15 minutes?. Does not feel like he is fully emptying his bladder. Presented to urgent care yesterday and was started on Bactrim for a UTI. Symptoms worsened further this morning when he found he could not urinate at all and decided to come to the ED for further evaluation. While here states he has been able to urinate 3 times. Has a strong family hx of prostate cancer -- a brother and half-brother diagnosed around his age -- though PSA on 10/25/2023 was WNL. Was scheduled to visit a urologist last week but missed appointment. Of note, reports was noted to be hyponatremic in June of last year, but does not recall any treatment or follow up. Most recent medication changes include starting oxcarbazepine in January 2024 and switching from Seroquel to olazapine in June 2024. Pt denies chest pain/pressure, palpitations. No SOB or difficulty breathing. Denies fever, chills, N/V/D, or abdominal pain. In the ED pt was hypertensive up to 169/103, vitals otherwise WNL. Labs were significant for leukocytosis of 12.2 (chronically elevated), sodium of 121, and chloride 87. Stable H&H. Renal and hepatic function WNL.UA negative for UTI. CT?of abd/pelvis negative for acute abdomen, finding normal-appearing kidneys, prostate gland, and bladder. Pt was treated with IVF. Pt will be admitted to the hospital for treatment and further evaluation of hyponatremia. Review of Systems Review of Systems: Negative except for that stated in the HPI. [facility] Medical History (Updated 12/27/23 @ 22:00 by GABBY Pizarro) Chronic constipation Schizophrenia Bronchopneumonia Rash Polysubstance abuse Fall Surgical History S/P ACL reconstruction Social History Household Members: None Housing: Homeless Do you presently have visiting nurse or other home services: No Comment: Pt refusing bed alarm Patient Tobacco Use Status: Current everyday Tobacco user Tobacco use type: Cigarette Cigarette Packs Per Day: 1 Cigarettes Per Day: 20.0 Years Smoked: 34 Smoked in Last 30 Days: Yes e-Cigarette/Vaping Use: Never Used Second Hand Smoke Exposure: No Use of substances other than those prescribed or required for medical reasons: No Substance Use Type: Crack/Cocaine and Opiates Advance Directives: No Advance Directives Information Provided: No Do you have a plan to hurt others: No Plan service: No Current occupational status: disabled Sexual orientation: Straight/Heterosexual Meds Allergies Allergy/AdvReac Type Severity Reaction Status Date / Time diclofenac [From Voltaren] Allergy Mild NAUSEA, Verified 12/27/23 15:53 nausea and vomiting naproxen Allergy Unknown nausea and Verified 12/27/23 15:53 vomiting fluoxetine [From Prozac] Allergy Rash Verified 12/27/23 15:53 VELVET Allergy Mild HIVES Uncoded 12/26/23 09:06 Active Medications: Current Medications Acetaminophen (Acetaminophen 325 Mg Tablet) 650 mg PO Q6H PRN PRN Reason: Pain, Mild (Pain Scale 1-3) Enoxaparin Sodium (Enoxaparin Sodium 40 Mg/0.4 Ml Syringe) 40 mg SUBCUT Q24H [facility] Last Admin: 12/27/23 20:41 Dose: 40 mg Melatonin (Melatonin 3 Mg Tablet) 6 mg PO BEDTIME PRN PRN Reason: Insomnia Ondansetron HCl (Ondansetron Hcl 4 Mg/2 Ml Vial) 4 mg IVPUSH Q8H PRN PRN Reason: Nausea and Vomiting Sodium Chloride (0.9 % Sodium Chloride Flush 3 Ml Syringe) 3 ml IVFLUSH QSHIFT [facility] Home Medications ?Medication ?Instructions ?Recorded ?Confirmed ?Last Taken ?Type buprenorphine 4 mg-naloxone 1 mg 1 film sublingual DAILY 12/26/23 12/27/23 12/27/23 History sublingual film (Suboxone) melatonin 5 mg tablet 10 mg PO BEDTIME Insomnia 12/26/23 12/27/23 12/26/23 History mirtazapine 45 mg tablet 45 mg PO BEDTIME 12/26/23 12/27/23 12/26/23 History clonazepam 0.5 mg tablet 0.5 mg PO DAILY@1200 12/27/23 12/27/23 12/27/23 History gabapentin 300 mg capsule 600 mg PO TID 12/27/23 12/27/23 12/27/23 History olanzapine 10 mg tablet 10 mg PO BEDTIME 12/27/23 12/27/23 12/26/23 History olanzapine 5 mg tablet 5 mg PO BID@1200,2100 12/27/23 12/27/23 12/27/23 History oxcarbazepine 300 mg tablet 300 mg PO DAILY@1200 12/27/23 12/27/23 12/27/23 History oxcarbazepine 300 mg tablet 600 mg PO BID 12/27/23 12/27/23 12/27/23 History Physical Exam Vital Signs and Narrative: Vital Signs: Last Vital Signs Temp 98.1 F 12/27/23 18:43 Pulse 80 12/27/23 18:43 Resp 16 12/27/23 18:43 BP 169/103 H 12/27/23 18:43 Pulse Ox 94 12/27/23 18:43 O2 Del Method Room Air 12/27/23 18:43 BMI result Body Mass Index 30.5 Constitutional: Alert, in no acute distress. Mental Status: Oriented to person, place and time. Eyes: Pupils are equal, round, and reactive to light. Ear, Nose, and Throat: Oropharynx clear, mucous membranes moist. Ears and nose without deformities. Trachea midline. Respiratory: Diffuse coarse expiratory breath sounds bilaterally. Cardiovascular: S1, S2 regular. No murmurs, rubs, or gallops. Gastrointestinal: Abdomen soft, non-tender, non-distended. Normal bowel sounds. Neurologic: Cranial nerves II-XII are grossly intact bilaterally. No focal neurological deficits. Moves all extremities spontaneously. Skin: Warm, dry. Extremities: No edema. Psychiatric: Normal mood and affect. Results Labs 12/27/23 16:05 12/27/23 16:05 Labs: Laboratory Results - last 24 hr 12/27/23 12/27/23 16:05 16:35 MCV 85.5 MCH 32.3 MCHC 37.7 H RDW 12.0 Plt Count 355 MPV 8.1 L Immature Gran % (Auto) 1.1 H Neut % (Auto) 67.9 Lymph % (Auto) 22.2 [place] % (Auto) 8.0 Eos % (Auto) 0.6 Baso % (Auto) 0.2 Lymph # (Auto) 2.7 [place] # (Auto) 1.0 Eos # (Auto) 0.1 Baso # (Auto) 0.0 Abs Immat Gran (auto) 0.13 H Absolute Neuts (auto) 8.3 Absolute Nucleated RBC 0.000 Nucleated RBC % (auto) 0.0 Smear Tech's Comments VERIFIED Anion Gap 13 Estim Creat Clear Calc 105.4 Estimated GFR > 60 Random Glucose 97 Osmolality Cancelled Calcium 9.1 Total Bilirubin 0.2 AST 22 ALT 29 Alkaline Phosphatase 93 Total Protein 8.1 H Albumin 4.7 Urine Color Yellow Urine Appearance Clear Urine pH 6.5 Ur Specific [place] 1.025 Urine Protein Trace Urine Glucose (UA) Negative Urine Ketones Trace Urine Blood Negative Urine Nitrite Negative Ur Leukocyte Esterase Negative Urine Osmolality 595 Ur Random Sodium 73.0 Ur Random Potassium 71.0 Ur Random Chloride 47.0 Imaging Radiologist's Impressions: Impressions Abdomen/Pelvis CT 12/27/23 19:28 IMPRESSION: Normal-appearing kidneys, prostate gland and bladder. Mild diverticulosis of the colon. Small umbilical and bilateral inguinal hernias containing fat. Fleischner guidelines were followed. Assessment and Plan (1) Acute hyponatremia: Status: Acute Plan Pt is a 53-year-old male with a PMH significant for?HTN, GERD, opiate use disorder on suboxone, MDD, and schizophrenia who presents to the ED for evaluation of urinary hesitancy and polyuria. Pt will be admitted to the hospital for treatment and further evaluation of hyponatremia. Hyponatremia Patient's sodium 121 at time of presentation Likely secondary to SIADH in the setting of oxcarbazepine use Urine osmolality 595, urine sodium 73.0, urine potassium 71.0, urine chloride 47.0 Patient received 1 L NS in ED Patient will be placed on fluid restriction of 1 L daily Monitor sodium levels Hold oxcarbazepine Nephrology consult Urinary hesitancy Patient with urinary hesitancy and dribbling for many months, significantly worse past two days Unclear etiology: pt with strong family hx of prostate cancer, PSA WNL at 0.73 on 10/25/23, CT of abd/pelvis negative for acute abd Treat as above Consider urology consult if symptoms persist Otherwise f/u outpatient with urology Chronic constipation Continue Miralax Mood disorder Hold oxcarbazepine due to hyponatremia Continue mirtazapine and olanzapine Psychiatry consult for med reconciliation/alternatives to oxcarbazepine HTN Continue amlodipine Full Code Attending:?Dr. Iniguez DVT Prophylaxis: Lovenox Pt will require a hospitalization of at least two nights for treatment of?hyponatremia likely secondary to oxcarbazepine use. Given the severity of patient's hyponatremia, patient will require hospitalization for carefully monitored sodium correction. Patient require close monitoring of electrolytes and specialist consultation with Nephrology. Quality Stroke Does the patient have a stroke diagnosis?: No VTE Prior VTE?: No VTE Risk Level:: Medical - moderate - high VTE Device Contraindication: Treatment Not Indicated VTE Drug Contraindication: N/A - Med Ordered
--- NOTE | 2023-12-27 21:06 | PHA.MEDREC ---
Pharmacy Consult ? Medication Reconciliation Pharmacy has completed the medication reconciliation. Patient reports all dose of his medications. Madison Maria, AliciaD
[2023-12-27] MEDS: OLANZapine 5 MG TABLET PO (22:33)
[2023-12-27] MEDS: Gabapentin 300 MG CAPSULE 600 MG PO (22:33)
[2023-12-27] MEDS: OLANZapine 10 MG TABLET PO (22:34)
[2023-12-27] MEDS: Mirtazapine 15 MG TABLET 45 MG PO (22:34)
[2023-12-27] MEDS: polyethylene glycoL 3350 17 GM POWD.PACK PO (22:34)
[2023-12-28 02:03] LABS: Anion Gap 14 (12-20); Blood Urea Nitrogen 8 mg/dL (9-16); Calcium 9.7 mg/dL (8.4-10.2); Carbon Dioxide 24 mmol/L (22-29); Chloride 90 mmol/L (96-108); Creatinine Clr Calc Pharmacy 119.7; Estimated Glomerular Filt Rate > 60; Glucose Random 95 mg/dL (60-115); Potassium 3.7 mmol/L (3.3-5.1); Sodium 124 mmol/L (135-145)
[2023-12-28] MEDS: Omeprazole 20 MG CAPSULE.DR PO (05:35)
[2023-12-28 05:58] LABS: MANUAL DIFF FLAG NO
[2023-12-28 06:00] VITALS: BP 128/72; PULSE 67; RESP 17; TEMP 36.4; O2SAT 94
[2023-12-28 06:01] LABS: Basophils Percent Auto 0.4 % (0-2); Eosinophils Absolute Auto 0.1 X10*3/uL (0.0-0.4); Eosinophils Percent Auto 1.5 % (0-4); Hematocrit 39.7 % (42.0-52.0); Hemoglobin 14.6 g/dl (14.0-18.0); Imm Gran Abs Auto 0.07 X10*3/uL (0.00-0.03); Imm Gran Pct Auto 0.9 % (0.0-0.4); Lymphocytes Absolute Auto 2.3 X10*3/uL (1.2-4.9); Lymphocytes Percent Auto 29.3 % (20-40); Mean Corpuscular HGB Conc 36.8 g/dl (31.0-36.0); Mean Corpuscular Hemoglobin 31.5 pg (27.0-33.0); Mean Corpuscular Volume 85.6 fL (80.0-98.0); Mean Platelet Volume 8.2 fL (9.4-12.4); Monocytes Absolute Auto 0.9 X10*3/uL (0.1-1.2); Monocytes Percent Auto 10.7 % (2-11); Neutrophils Absolute Auto 4.5 x10*3/uL (2.0-8.3); Neutrophils Percent Auto 57.2 % (45-73); Platelet Count 302 X10*3/uL (160-400); Red Blood Count 4.64 X10*6/uL (4.60-5.80); White Blood Count 7.9 X10*3/uL (4.8-10.8)
[2023-12-28 06:29] LABS: Anion Gap 17 (12-20); Blood Urea Nitrogen 8 mg/dL (9-16); Calcium 9.6 mg/dL (8.4-10.2); Carbon Dioxide 20 mmol/L (22-29); Chloride 92 mmol/L (96-108); Creatinine Clr Calc Pharmacy 118.1; Estimated Glomerular Filt Rate > 60; Glucose Random 89 mg/dL (60-115); Potassium 3.8 mmol/L (3.3-5.1); Sodium 125 mmol/L (135-145)
[2023-12-28 06:43] LABS: Cortisol Random 18.5 ug/dL
[2023-12-28 06:46] LABS: Thyroid Stimulating Hormone 1.86 uIU/mL (0.32-4.0)
[2023-12-28 08:10] VITALS: BP 126/78
[2023-12-28] MEDS: amLODIPine Besylate 2.5 MG TABLET PO (08:10)
[2023-12-28] MEDS: Gabapentin 300 MG CAPSULE 600 MG PO ×3 (08:10→19:28)
[2023-12-28] MEDS: Nicotine 21 MG PATCH.TD24 TRANSDERMA (08:10)
[2023-12-28] MEDS: 0.9 % Sodium Chloride Flush 3 ML SYRINGE IVFLUSH ×3 (08:13→23:57)
[2023-12-28 08:19] VITALS: BP 126/78; PULSE 72; RESP 16; TEMP 36.4; O2SAT 92
[2023-12-28] MEDS: Buprenorphine/Naloxone 4/1 mg FILM 1 FILM SUBLINGUAL (09:08)
[2023-12-28 09:29] LABS: Anion Gap 16 (12-20); Blood Urea Nitrogen 9 mg/dL (9-16); Calcium 10.7 mg/dL (8.4-10.2); Carbon Dioxide 24 mmol/L (22-29); Chloride 92 mmol/L (96-108); Creatinine Clr Calc Pharmacy 105.4; Estimated Glomerular Filt Rate > 60; Glucose Random 91 mg/dL (60-115); Potassium 4.2 mmol/L (3.3-5.1); Sodium 128 mmol/L (135-145)
[2023-12-28] MEDS: OLANZapine 5 MG TABLET PO ×2 (11:50→19:28)
[2023-12-28] MEDS: clonazePAM 0.5 MG TABLET PO (11:50)
--- NOTE | 2023-12-28 12:59 | PM.CNNEP ---
History of Present Illness Reason for Consult Consult date: 01/03/24 Reason for consult: Hyponatremia Chief Complaint Chief complaint: Abnormal labs History of Present Illness Narrative: 53-year-old male with ?HTN, GERD, opiate use disorder on suboxone, MDD, and schizophrenia who presents to the ED for evaluation of urinary hesitancy and polyuria. Patient states has been experiencing urinary hesitancy and dribbling for a number of months, but since Monday has felt a constant urge to urinate yet has found it difficult to initiate urination. He was diagnosed with UTI and prescribed Bactrim. At the time of admission he was found to have severe hyponatremia and in this consultation. Prior to admission he was also on gabapentin 600 mg t.i.d. and oxcarbazepine. Urine studies reveal urine sodium of 73 osmolality of a 575. Review of Systems Constitutional: Denies anorexia, Denies fever(s) and Denies weakness Eyes: Denies blurry vision Cardiovascular: Denies no additional cardiovascular complaints and Denies dyspnea Respiratory: Reports no additional respiratory complaints, Reports cough and Denies dyspnea Gastrointestinal: Denies melena and Denies diarrhea Genitourinary: Denies hematuria and Reports urinary frequency Musculoskeletal: Denies tingling Skin/Breast: Denies rash Denies focal weakness, Denies tingling, Denies tremor(s) and Denies weakness PMFSH Past Medical History Medical History (Updated 01/03/24 @ 00:03 by Background Daemon) Chronic constipation Schizophrenia Bronchopneumonia Rash Polysubstance abuse Fall Surgical History Surgical History (Updated 01/03/24 @ 00:03 by Background Daemon) S/P ACL reconstruction Social History Social History Household Members: None Housing: Apartment Do you presently have visiting nurse or other home services: Yes Comment: Pt refusing bed alarm Patient Tobacco Use Status: Current everyday Tobacco user Tobacco use type: Cigarette Cigarette Packs Per Day: 1 Cigarettes Per Day: 20.0 Years Smoked: 34 e-Cigarette/Vaping Use: Never Used Second Hand Smoke Exposure: No Substance Use Type: Crack/Cocaine and Opiates service: No Current occupational status: disabled Sexual orientation: Straight/Heterosexual Meds Allergies Allergy/AdvReac Type Severity Reaction Status Date / Time diclofenac [From Voltaren] Allergy Mild NAUSEA, Verified 12/27/23 15:53 nausea and vomiting naproxen Allergy Unknown nausea and Verified 12/27/23 15:53 vomiting fluoxetine [From Prozac] Allergy Rash Verified 12/27/23 15:53 VELVET Allergy Mild HIVES Uncoded 12/26/23 09:06 Active Medications: Current Medications Acetaminophen (Acetaminophen 325 Mg Tablet) 650 mg PO Q6H PRN PRN Reason: Pain, Mild (Pain Scale 1-3) Amlodipine Besylate (Amlodipine Besylate 2.5 Mg Tablet) 2.5 mg PO DAILY [facility]; Protocol Last Admin: 12/28/23 08:10 Dose: 2.5 mg Buprenorphine/Naloxone (Buprenorphine/Naloxone 4/1 Mg Film) 1 film SUBLINGUAL DAILY [facility] Last Admin: 12/28/23 09:08 Dose: 1 film Clonazepam (Clonazepam 0.5 Mg Tablet) 0.5 mg PO DAILY@1200 [facility] Last Admin: 12/28/23 11:50 Dose: 0.5 mg Enoxaparin Sodium (Enoxaparin Sodium 40 Mg/0.4 Ml Syringe) 40 mg SUBCUT Q24H [facility] Last Admin: 12/27/23 20:41 Dose: 40 mg Gabapentin (Gabapentin 300 Mg Capsule) 600 mg PO TID [facility] Last Admin: 12/28/23 08:10 Dose: 600 mg Melatonin (Melatonin 3 Mg Tablet) 6 mg PO BEDTIME PRN PRN Reason: Insomnia Mirtazapine (Mirtazapine 15 Mg Tablet) 45 mg PO BEDTIME [facility] Last Admin: 12/27/23 22:34 Dose: 45 mg Nicotine (Nicotine 21 Mg Patch.Td24) 21 mg TRANSDERMA DAILY [facility] Last Admin: 12/28/23 08:10 Dose: 21 mg Olanzapine (Olanzapine 5 Mg Tablet) 5 mg PO BID@1200,2100 [facility] Last Admin: 12/28/23 11:50 Dose: 5 mg Olanzapine (Olanzapine 10 Mg Tablet) 10 mg PO BEDTIME [facility] Last Admin: 12/27/23 22:34 Dose: 10 mg Omeprazole (Omeprazole 20 Mg Capsule.Dr) 20 mg PO DAILY@0630 [facility] Last Admin: 12/28/23 05:35 Dose: 20 mg Ondansetron HCl (Ondansetron Hcl 4 Mg/2 Ml Vial) 4 mg IVPUSH Q8H PRN PRN Reason: Nausea and Vomiting Polyethylene Glycol (Polyethylene Glycol 3350 17 Gm Powd.Pack) 17 gm PO BEDTIME [facility] Last Admin: 12/27/23 22:34 Dose: 17 gm Sodium Chloride (0.9 % Sodium Chloride Flush 3 Ml Syringe) 3 ml IVFLUSH QSHIFT [facility] Last Admin: 12/28/23 08:13 Dose: 3 ml Home Medications ?Medication ?Instructions ?Recorded ?Confirmed ?Last Taken ?Type buprenorphine 4 mg-naloxone 1 mg 1 film sublingual DAILY 12/26/23 12/27/23 12/27/23 History sublingual film (Suboxone) melatonin 5 mg tablet 10 mg PO BEDTIME Insomnia 12/26/23 12/27/23 12/26/23 History mirtazapine 45 mg tablet 45 mg PO BEDTIME 12/26/23 12/27/23 12/26/23 History clonazepam 0.5 mg tablet 0.5 mg PO DAILY@1200 12/27/23 12/27/23 12/27/23 History gabapentin 300 mg capsule 600 mg PO TID 12/27/23 12/27/23 12/27/23 History olanzapine 10 mg tablet 10 mg PO BEDTIME 12/27/23 12/27/23 12/26/23 History olanzapine 5 mg tablet 5 mg PO BID@1200,2100 12/27/23 12/27/23 12/27/23 History oxcarbazepine 300 mg tablet 300 mg PO DAILY@1200 12/27/23 12/27/23 12/27/23 History oxcarbazepine 300 mg tablet 600 mg PO BID 12/27/23 12/27/23 12/27/23 History clonidine HCl 0.1 mg tablet 0.1 mg PO BEDTIME PRN Anxiety 12/28/23 12/28/23 Unknown History Physical Exam Vital Signs: Last Vital Signs Temp 97.5 F 12/28/23 08:19 Pulse 72 12/28/23 08:19 Resp 16 12/28/23 08:19 BP 126/78 12/28/23 08:19 Pulse Ox 92 12/28/23 08:19 O2 Del Method Room Air 12/28/23 08:19 BMI result Body Mass Index 30.5 Const General: comfortable Nutritional Appearance: well nourished Orientation/consciousness: patient oriented x3 HEENT Head: No normal to inspection Mouth: moist mucous membranes Neck Neck: Yes supple and Yes no JVD Resp Auscultation: clear to auscultation bilaterally, no rales and rub present Cardio Jugular venous distension: no JVD Palpation: no palpable S3 and no palpable S4 Heart sounds: no rubs GI Palpation (GI): Soft to palpation and nontender Percussion: No Fluid wave present General: Yes no CVA tenderness Back/Spine/Pelvis Back: no CVA tenderness Skin General skin exam: no rashes or lesions noted Neuro General: patient oriented x3 Extrem General: Yes no pedal edema and No clubbing Results Lab Results 12/28/23 04:46 12/29/23 07:27 Lab results: Chemistry 12/27/23 12/28/23 12/28/23 16:05 01:44 04:46 Sodium 121 L 124 L 125 L Potassium 4.4 3.7 3.8 Carbon Dioxide 25 24 20 L BUN 10 8 L 8 L Creatinine 0.84 0.74 0.75 Calcium 9.1 9.7 D 9.6 12/28/23 08:45 Sodium 128 L Potassium 4.2 Carbon Dioxide 24 BUN 9 Creatinine 0.84 Calcium 10.7 H D Hematology 12/27/23 12/28/23 16:05 04:46 WBC 12.2 H 7.9 Hgb 14.0 14.6 Plt Count 355 302 Urinalysis 12/27/23 16:35 Urine Color Yellow Urine Appearance Clear Urine pH 6.5 Ur Specific [place] 1.025 Urine Protein Trace Urine Glucose (UA) Negative Urine Ketones Trace Urine Blood Negative Urine Nitrite Negative Ur Leukocyte Esterase Negative Urine Studies 12/27/23 16:35 Urine Osmolality 595 Assessment and Plan (1) Acute hyponatremia: Status: Acute Plan Middle-aged man with a significant hyponatremia due to decreased free water clearance secondary to non osmotic ADH release/medication induced. He was prescribed Bactrim while he was already on both carbazepine and gabapentin . This combined with increased free water intake has probably precipitated the hyponatremia. Recommendation discontinue Bactrim. Hold gabapentin and oxcarbazepine mental serum sodium normalizes. Restrict all free water intake to 1.2 L per 24 hours. Watch serum sodium every 4-6 hours to avoid rapid correction. Will start serum sodium rate of 0.5-1 millimole per L/hr not more than 10 millimoles in a 10 hour. Recheck the urine culture Follow urine output. She will follow along with the team. Thank you Procedures Date of Service Date of Service: 01/03/24
--- NOTE | 2023-12-28 13:27 | MHC.CM.PN ---
Met with patient in regards to discharge planning. Patient lives alone, ambulates independently and is active with [facility] for medication administration. Patient denies the need for additional services at d/c. PCP verified. Patient denies having a HCP. Information provided. Patient not interested in completing one at this time. When medically stable patient will arrange a ride or book an Uber. Continue to monitor for d/c needs.
[2023-12-28] MEDS: Acetaminophen 325 MG TABLET 650 MG PO (14:42)
--- NOTE | 2023-12-28 15:37 | HO.PM.IMPN ---
Subjective Subjective Date of Service: 12/28/23 Interval History: hyponatremia Review of Systems Denies any chest pain or shortness of breath Mental status seems fine no weakness or numbness Physical Exam Vital Signs: Vital Signs: Last Vital Signs Temp 97.5 F 12/28/23 08:19 Pulse 72 12/28/23 08:19 Resp 16 12/28/23 08:19 BP 126/78 12/28/23 08:19 Pulse Ox 92 12/28/23 08:19 O2 Del Method Room Air 12/28/23 08:19 BMI result Body Mass Index 30.5 Appearance: Alert.? Oriented X3.? cvs: rrr, [id number] , no murmur res: clear to auscultation ,no rhonchii or wheezing abd: no rebound or guarding ,nt, bs present. ext pulses present , no cyanosis . neuro: axo3 , nonfocal. Objective Data Active Medications Acetaminophen (Acetaminophen 325 Mg Tablet) 650 mg PO Q6H PRN PRN Reason: Pain, Mild (Pain Scale 1-3) Last Admin: 12/28/23 14:42 Dose: 650 mg Documented By: SAHIL Amlodipine Besylate (Amlodipine Besylate 2.5 Mg Tablet) 2.5 mg PO DAILY [facility]; Protocol Last Admin: 12/28/23 08:10 Dose: 2.5 mg Documented By: SAHIL Buprenorphine/Naloxone (Buprenorphine/Naloxone 4/1 Mg Film) 1 film SUBLINGUAL DAILY [facility] Last Admin: 12/28/23 09:08 Dose: 1 film Documented By: SAHIL Clonazepam (Clonazepam 0.5 Mg Tablet) 0.5 mg PO DAILY@1200 [facility] Last Admin: 12/28/23 11:50 Dose: 0.5 mg Documented By: SAHIL Enoxaparin Sodium (Enoxaparin Sodium 40 Mg/0.4 Ml Syringe) 40 mg SUBCUT Q24H [facility] Last Admin: 12/27/23 20:41 Dose: 40 mg Documented By: DARIEN Gabapentin (Gabapentin 300 Mg Capsule) 600 mg PO TID [facility] Last Admin: 12/28/23 14:43 Dose: 600 mg Documented By: SAHIL Melatonin (Melatonin 3 Mg Tablet) 6 mg PO BEDTIME PRN PRN Reason: Insomnia Mirtazapine (Mirtazapine 15 Mg Tablet) 45 mg PO BEDTIME [facility] Last Admin: 12/27/23 22:34 Dose: 45 mg Documented By: CHANEL Nicotine (Nicotine 21 Mg Patch.Td24) 21 mg TRANSDERMA DAILY [facility] Last Admin: 12/28/23 08:10 Dose: 21 mg Documented By: SAHIL Olanzapine (Olanzapine 5 Mg Tablet) 5 mg PO BID@1200,2100 [facility] Last Admin: 12/28/23 11:50 Dose: 5 mg Documented By: SAHIL Olanzapine (Olanzapine 10 Mg Tablet) 10 mg PO BEDTIME [facility] Last Admin: 12/27/23 22:34 Dose: 10 mg Documented By: CHANEL Omeprazole (Omeprazole 20 Mg Capsule.Dr) 20 mg PO DAILY@0630 [facility] Last Admin: 12/28/23 05:35 Dose: 20 mg Documented By: GAVIN Ondansetron HCl (Ondansetron Hcl 4 Mg/2 Ml Vial) 4 mg IVPUSH Q8H PRN PRN Reason: Nausea and Vomiting Polyethylene Glycol (Polyethylene Glycol 3350 17 Gm Powd.Pack) 17 gm PO BEDTIME [facility] Last Admin: 12/27/23 22:34 Dose: 17 gm Documented By: CHANEL Sodium Chloride (0.9 % Sodium Chloride Flush 3 Ml Syringe) 3 ml IVFLUSH QSHIFT [facility] Last Admin: 12/28/23 08:13 Dose: 3 ml Documented By: SAHIL Labs 12/28/23 04:46 12/28/23 08:45 Labs: Laboratory Results - last 24 hr 12/27/23 12/27/23 12/28/23 16:05 16:35 01:44 MCV 85.5 MCH 32.3 MCHC 37.7 H RDW 12.0 Plt Count 355 MPV 8.1 L Immature Gran % (Auto) 1.1 H Neut % (Auto) 67.9 Lymph % (Auto) 22.2 [place] % (Auto) 8.0 Eos % (Auto) 0.6 Baso % (Auto) 0.2 Lymph # (Auto) 2.7 [place] # (Auto) 1.0 Eos # (Auto) 0.1 Baso # (Auto) 0.0 Abs Immat Gran (auto) 0.13 H Absolute Neuts (auto) 8.3 Absolute Nucleated RBC 0.000 Nucleated RBC % (auto) 0.0 Smear Tech's Comments VERIFIED Anion Gap 13 14 Estim Creat Clear Calc 105.4 119.7 Estimated GFR > 60 > 60 Random Glucose 97 95 Osmolality Cancelled Calcium 9.1 9.7 D Total Bilirubin 0.2 AST 22 ALT 29 Alkaline Phosphatase 93 Total Protein 8.1 H Albumin 4.7 TSH Random Cortisol Urine Color Yellow Urine Appearance Clear Urine pH 6.5 Ur Specific [place] 1.025 Urine Protein Trace Urine Glucose (UA) Negative Urine Ketones Trace Urine Blood Negative Urine Nitrite Negative Ur Leukocyte Esterase Negative Urine Osmolality 595 Ur Random Sodium 73.0 Ur Random Potassium 71.0 Ur Random Chloride 47.0 12/28/23 12/28/23 04:46 08:45 MCV 85.6 MCH 31.5 MCHC 36.8 H RDW 12.0 Plt Count 302 MPV 8.2 L Immature Gran % (Auto) 0.9 H Neut % (Auto) 57.2 Lymph % (Auto) 29.3 [place] % (Auto) 10.7 Eos % (Auto) 1.5 Baso % (Auto) 0.4 Lymph # (Auto) 2.3 [place] # (Auto) 0.9 Eos # (Auto) 0.1 Baso # (Auto) 0.0 Abs Immat Gran (auto) 0.07 H Absolute Neuts (auto) 4.5 Absolute Nucleated RBC 0.000 Nucleated RBC % (auto) 0.0 Smear Tech's Comments Anion Gap 17 16 Estim Creat Clear Calc 118.1 105.4 Estimated GFR > 60 > 60 Random Glucose 89 91 Osmolality Calcium 9.6 10.7 H D Total Bilirubin AST ALT Alkaline Phosphatase Total Protein Albumin TSH 1.86 Random Cortisol 18.5 Urine Color Urine Appearance Urine pH Ur Specific [place] Urine Protein Urine Glucose (UA) Urine Ketones Urine Blood Urine Nitrite Ur Leukocyte Esterase Urine Osmolality Ur Random Sodium Ur Random Potassium Ur Random Chloride Assessment and Plan (1) Acute hyponatremia: Status: Acute Assessment and Plan: 53-year-old male with a PMH significant for?HTN, GERD, opiate use disorder on suboxone, MDD, and schizophrenia who presents to the ED for evaluation of urinary hesitancy and polyuria. Pt will be admitted to the hospital for treatment and further evaluation of hyponatremia. 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 Chronic constipation Continue Miralax Mood disorder Hold oxcarbazepine due to hyponatremia Continue mirtazapine and olanzapine Psychiatry consult for med reconciliation/alternatives to oxcarbazepine HTN Continue amlodipine Full Code DVT Prophylaxis: Lovenox ongoing hospitalization o for treatment of?hyponatremia likely secondary to oxcarbazepine use. Given the severity of patient's hyponatremia, patient will require hospitalization for carefully monitored sodium correction. Patient require close monitoring of electrolytes and specialist consultation with Nephrology. Quality Stroke Does the patient have a stroke diagnosis?: No VTE Prior VTE?: No VTE Risk Level:: Medical - moderate - high VTE Device Contraindication: Treatment Not Indicated VTE Drug Contraindication: N/A - Med Ordered
--- NOTE | 2023-12-28 15:39 | PC.NURSE ---
Pt A/Ox4. Independently walking to bathroom. Seen by Nephrology and MD, updated on plan of care. Transferred to [facility]3 at ~1540. Report given to CAMRYN Irby
[2023-12-28 15:51] VITALS: BP 122/76; PULSE 76; RESP 16; TEMP 36.1; O2SAT 95
[2023-12-28 16:27] LABS: Anion Gap 15 (12-20); Blood Urea Nitrogen 12 mg/dL (9-16); Calcium 9.5 mg/dL (8.4-10.2); Carbon Dioxide 22 mmol/L (22-29); Chloride 94 mmol/L (96-108); Creatinine Clr Calc Pharmacy 109.3; Estimated Glomerular Filt Rate > 60; Glucose Random 91 mg/dL (60-115); Potassium 4.3 mmol/L (3.3-5.1); Sodium 127 mmol/L (135-145)
[2023-12-28] MEDS: Mirtazapine 15 MG TABLET 45 MG PO (19:28)
[2023-12-28] MEDS: OLANZapine 10 MG TABLET PO (19:28)
[2023-12-28] MEDS: Enoxaparin Sodium 40 MG/0.4 ML SYRINGE SUBCUT (19:28)
[2023-12-28] MEDS: polyethylene glycoL 3350 17 GM POWD.PACK PO (19:29)
[2023-12-28 20:00] VITALS: BP 124/74; PULSE 65; RESP 20; TEMP 36.2; O2SAT 95
[2023-12-28 21:55] LABS: Anion Gap 17 (12-20); Blood Urea Nitrogen 15 mg/dL (9-16); Calcium 9.9 mg/dL (8.4-10.2); Carbon Dioxide 21 mmol/L (22-29); Chloride 95 mmol/L (96-108); Estimated Glomerular Filt Rate > 60; Glucose Random 98 mg/dL (60-115); Potassium 4.5 mmol/L (3.3-5.1); Sodium 128 mmol/L (135-145)
[2023-12-29 03:34] VITALS: BP 126/74; PULSE 67; RESP 20; TEMP 36.3; O2SAT 95
[2023-12-29] MEDS: Omeprazole 20 MG CAPSULE.DR PO (06:09)
[2023-12-29 08:00] VITALS: BP 121/88; PULSE 85; RESP 18; TEMP 36.2; O2SAT 99
[2023-12-29 08:54] VITALS: BP 121/88
[2023-12-29] MEDS: Nicotine 21 MG PATCH.TD24 TRANSDERMA (08:54)
[2023-12-29] MEDS: Buprenorphine/Naloxone 4/1 mg FILM 1 FILM SUBLINGUAL (08:54)
[2023-12-29] MEDS: amLODIPine Besylate 2.5 MG TABLET PO (08:54)
[2023-12-29] MEDS: Gabapentin 300 MG CAPSULE 600 MG PO (08:54)
[2023-12-29] MEDS: 0.9 % Sodium Chloride Flush 3 ML SYRINGE IVFLUSH (08:56)
[2023-12-29 09:29] LABS: Anion Gap 17 (12-20); Blood Urea Nitrogen 15 mg/dL (9-16); Calcium 10.5 mg/dL (8.4-10.2); Carbon Dioxide 25 mmol/L (22-29); Chloride 95 mmol/L (96-108); Estimated Glomerular Filt Rate > 60; Glucose Random 88 mg/dL (60-115); Potassium 4.5 mmol/L (3.3-5.1); Sodium 132 mmol/L (135-145)
[2023-12-29] MEDS: clonazePAM 0.5 MG TABLET PO (11:51)
[2023-12-29] MEDS: OLANZapine 5 MG TABLET PO (11:51)
--- NOTE | 2023-12-29 12:02 | PM.DS ---
DS: Providers Provider Date of Service: 12/29/23 Date of admission: 12/27/23 19:34 Date of discharge: 12/29/23 Primary care physician: NEPTALI Tyson Consults: 12/27/23 21:04 Consult to Psychiatry Routine Consulting Provider: Psych Covering Reason for consultation: Medical management; holding Trileptal d/t hyponatremia 12/27/23 22:03 Consult to Nephrology Routine Consulting Provider: [facility] Reason for consultation: Hyponatremia 12/29/23 11:19 Addiction Medicine Routine Consulting Provider: Addiction Covering Reason for consultation: on subaxone Has provider been notified: No Attending physician on discharge: Regina Fortune Discharging clinician: Regina Fortune DS: Diagnosis Discharge Diagnosis (1) Acute hyponatremia: Status: Acute DS: Summary Hospital Course Hospital Course: 53-year-old male with a PMH significant for?HTN, GERD, opiate use disorder on suboxone, MDD, and schizophrenia who presents to the ED for evaluation of urinary hesitancy and polyuria. Patient states has been experiencing urinary hesitancy and dribbling for a number of months, but since Monday has felt a constant urge to urinate yet has found it difficult to initiate urination. Reports feeling a ?dull soreness? in his bladder and penis, and is ?running to the bathroom every 15 minutes?. Does not feel like he is fully emptying his bladder. Presented to urgent care yesterday and was started on Bactrim for a UTI. Symptoms worsened further this morning when he found he could not urinate at all and decided to come to the ED for further evaluation. While here states he has been able to urinate 3 times. Has a strong family hx of prostate cancer -- a brother and half-brother diagnosed around his age -- though PSA on 10/25/2023 was WNL. Was scheduled to visit a urologist last week but missed appointment. Of note, reports was noted to be hyponatremic in June of last year, but does not recall any treatment or follow up. Most recent medication changes include starting oxcarbazepine in January 2024 and switching from Seroquel to olazapine in June 2024. Pt denies chest pain/pressure, palpitations. No SOB or difficulty breathing. Denies fever, chills, N/V/D, or abdominal pain. In the ED pt was hypertensive up to 169/103, vitals otherwise WNL. Labs were significant for leukocytosis of 12.2 (chronically elevated), sodium of 121, and chloride 87. Stable H&H. Renal and hepatic function WNL.UA negative for UTI. CT?of abd/pelvis negative for acute abdomen, finding normal-appearing kidneys, prostate gland, and bladder. Pt was treated with IVF. Pt will be admitted to the hospital for treatment and further evaluation of hyponatremia. Hospital course: Patient was admitted to for hyponatremia possibly secondary to Trileptal: Patient was strongly advised to hold off Trileptal for now and follow-up with psych outpatient. With holding Trileptal and fluid restrictions-patient's sodium seems to be improved, monitor BMP outpatient. advised fluid resrictions around 1.8 to 2 liters until bmp repeated. Follow-up with psych also. plan: hold off Trileptal for now and follow-up with psych outpatient. moniter bmp outpatient Above management discussed with the patient in detail length he understand and in agreement with the above plan, time spent 40 min. Time Attestation Total time managing care of this patient today: 40 mintues. Discharge Coordination Time (in mins): 40 min Quality: Safe Use of Opioids Does Pt have an Active Cancer Diagnosis on the Problem List?: No Quality: Stroke Does the patient have a stroke diagnosis?: No Physical Exam Vital Signs: Vital Signs: Last Vital Signs Temp 97.2 F 12/29/23 08:00 Pulse 85 12/29/23 08:00 Resp 18 12/29/23 08:00 BP 121/88 12/29/23 08:54 Pulse Ox 99 12/29/23 08:00 O2 Del Method Room Air 12/29/23 08:00 BMI result Body Mass Index 30.5 Appearance: Alert.? Oriented X3.? cvs: rrr, [id number] , no murmur res: clear to auscultation ,no rhonchii or wheezing abd: no rebound or guarding ,nt, bs present. ext pulses present , no cyanosis . neuro: axo3 , nonfocal. DS: Data Data Completed and Pending Labs on day of discharge: Laboratory Results - last 24 hr 12/28/23 12/28/23 12/29/23 16:05 21:25 07:27 Sodium 127 L 128 L 132 L Potassium 4.3 4.5 4.5 Chloride 94 L 95 L 95 L Carbon Dioxide 22 21 L 25 Anion Gap 15 17 17 BUN 12 15 15 Creatinine 0.81 0.77 0.82 Estim Creat Clear Calc 109.3 115.0 108.0 Estimated GFR > 60 > 60 > 60 Random Glucose 91 98 88 Calcium 9.5 D 9.9 10.5 H D Imaging Chest x-ray: Radiologist's impression: ITS Impressions Abdomen/Pelvis CT 12/27/23 19:28 IMPRESSION: Normal-appearing kidneys, prostate gland and bladder. Mild diverticulosis of the colon. Small umbilical and bilateral inguinal hernias containing fat. Fleischner guidelines were followed. Discharge Plan Discharge Anticipated Discharge Date/Time: 12/29/23 11:56 Patient Disposition: Home, Self-Care Discharge Diagnosis: Hyponatremia Referrals: Catherine Conklin FNP [Primary Care Provider] - 1 Week Discharge Medications: New buprenorphine-naloxone [Suboxone] 4-1 mg film 1 film buccal Q24H Qty: 5 0RF Rx Instructions: place 1 strip/tab under (each) side of tongue nicotine 21 mg/24 hr Patch 24 Hour 21 mg transdermal DAILY Qty: 7 0RF Continued amlodipine 2.5 mg Tablet 2.5 mg PO DAILY 30 Days Qty: 30 0RF Protocol: Hold for SBP< HOLD for SBP < : 90 omeprazole 20 mg Capsule,Delayed Release(Dr/Ec) 20 mg PO DAILY@0630 30 Days Qty: 30 0RF clonazepam 0.5 mg tablet 0.5 mg PO DAILY@1200 olanzapine 5 mg tablet 5 mg PO BID@1200,2100 gabapentin 300 mg capsule 600 mg PO TID olanzapine 10 mg tablet 10 mg PO BEDTIME clonidine HCl 0.1 mg tablet 0.1 mg PO BEDTIME PRN (Reason: Anxiety) buprenorphine-naloxone [Suboxone] 4-1 mg film 1 film sublingual DAILY mirtazapine 45 mg tablet 45 mg PO BEDTIME melatonin 5 mg tablet 10 mg PO BEDTIME sulfamethoxazole-trimethoprim [Bactrim DS] 800-160 mg tablet 1 tab PO Q12H Qty: 14 0RF Held oxcarbazepine 300 mg tablet 600 mg PO BID Hold Instructions: Resume on 01/23/24. oxcarbazepine 300 mg tablet 300 mg PO DAILY@1200 Hold Instructions: Resume on 01/23/24. Discharge Orders: Discharge Order (Routine); Ordered 12/29/23 Ordered By: Regina Fortune Diet: Advance to usual diet Activity on Discharge: As tolerated Stand Alone Forms: Patient Portal Discharge page Print Language: Romanian Other Ambulatory Orders: Basic Metabolic Panel (Routine) Timeframe: 1 Week Facility: [facility] - Location: Laboratory Ordered By: Regina Fortune Care Plan Goals: Patient was admitted to for hyponatremia possibly secondary to Trileptal: Patient was strongly advised to hold off Trileptal for now and follow-up with psych outpatient. With holding Trileptal and fluid restrictions-patient's sodium seems to be improved, monitor BMP outpatient. advised fluid resrictions around 1.8 to 2 liters until bmp repeated. Follow-up with psych also. Health Concerns: as above Plan of Treatment: as above.. Assessment: as above.
--- NOTE | 2023-12-29 12:28 | MHC.CM.PN ---
pt dcd home [facility] notified of dcarranged own transport home
--- NOTE | 2023-12-29 12:36 | P.CNPS_ITS ---
History of Present Illness Date of Service: Chief Complaint: Abnormal labs Reason for Consult: anxiety and medication recommendations Requesting physician: Regina Fortune Discussed with referring provider: Yes Sources of Information: patient interviewed and chart reviewed HPI Narrative: 53-year-old male with a PMH significant for?HTN, GERD, opiate use disorder on suboxone, MDD, and schizophrenia who presents to the ED for evaluation of urinary hesitancy and polyuria. Patient states has been experiencing urinary hesitancy and dribbling for a number of months, but since Monday has felt a constant urge to urinate yet has found it difficult to initiate urination. Reports feeling a ?dull soreness? in his bladder and penis, and is ?running to the bathroom every 15 minutes?. Does not feel like he is fully emptying his bladder. Presented to urgent care yesterday and was started on Bactrim for a UTI. Symptoms worsened when he found he could not urinate at all and decided to come to the ED for further evaluation. While here states he has been able to urinate 3 times. Has a strong family hx of prostate cancer -- a brother and half-brother diagnosed around his age -- though PSA on 10/25/2023 was WNL. Was scheduled to visit a urologist last week but missed appointment. Of note, reports was noted to be hyponatremic in June of last year, but does not recall any treatment or follow up. Most recent medication changes include starting oxcarbazepine in January 2024 and switching from Seroquel to olazapine in June 2024. Pt denies chest pain/pressure, palpitations. No SOB or difficulty breathing. Denies fever, chills, N/V/D, or abdominal pain. In the ED pt was hypertensive up to 169/103, vitals otherwise WNL. Labs were significant for leukocytosis of 12.2 (chronically elevated), sodium of 121, and chloride 87. Stable H&H. Renal and hepatic function WNL.UA negative for UTI. CT?of abd/pelvis negative for acute abdomen, finding normal-appearing kidneys, prostate gland, and bladder. Pt was treated with IVF. Pt will be admitted to the hospital for treatment and further evaluation of hyponatremia. Patient was admitted to for hyponatremia possibly secondary to Trileptal: Patient was strongly advised to hold off Trileptal for now and follow-up with psych outpatient. With holding Trileptal and fluid restrictions-patient's sodium seems to be improved, monitor BMP outpatient. advised fluid resrictions around 1.8 to 2 liters until bmp repeated. Past Psychiatric History: Inpatient: 2019 [facility]; [facility] 2020; M5 2018 OP: none currently, PCP prescribing seroquel Suicide attempts: 2018 cut his wrist. Past medication trials: seroquel. hyponatremai, urinary retention possibly due to trileptal Personal & Social History: lives alone, has VNA, and [facility] supports [facility] Medical History (Updated 12/29/23 @ 12:58 by Michelle Dewitt APRN) Chronic constipation Schizophrenia Bronchopneumonia Rash Polysubstance abuse Fall Surgical History S/P ACL reconstruction Family History: mother with AD Social History: currently homeless. No children. Completed GED, not working. Source of income is [employer]. He has 2 brothers with whom he has limited contact due to ongoing use of substances. Trauma History: unknown Diagnostics Vital Signs (24Hr): Vital Signs - 24 hr 12/28/23 15:51 12/28/23 20:00 12/29/23 03:34 Temperature 96.9 F 97.2 F 97.3 F Pulse Rate 76 65 67 Respiratory Rate 16 20 20 Blood Pressure 122/76 124/74 126/74 Pulse Oximetry 95 95 95 Oxygen Delivery Method Room Air Room Air Room Air 12/29/23 08:00 12/29/23 08:54 Temperature 97.2 F Pulse Rate 85 Respiratory Rate 18 Blood Pressure 121/88 121/88 Pulse Oximetry 99 Oxygen Delivery Method Room Air BMI result Body Mass Index 30.5 Labs 12/28/23 04:46 12/29/23 07:27 Labs: Laboratory Results - last 48 hr 12/27/23 12/27/23 12/28/23 16:05 16:35 01:44 WBC 12.2 H RBC 4.34 L Hgb 14.0 Hct 37.1 L MCV 85.5 MCH 32.3 MCHC 37.7 H RDW 12.0 Plt Count 355 MPV 8.1 L Immature Gran % (Auto) 1.1 H Neut % (Auto) 67.9 Lymph % (Auto) 22.2 [place] % (Auto) 8.0 Eos % (Auto) 0.6 Baso % (Auto) 0.2 Lymph # (Auto) 2.7 [place] # (Auto) 1.0 Eos # (Auto) 0.1 Baso # (Auto) 0.0 Abs Immat Gran (auto) 0.13 H Absolute Neuts (auto) 8.3 Absolute Nucleated RBC 0.000 Nucleated RBC % (auto) 0.0 Smear Tech's Comments VERIFIED Sodium 121 L 124 L Potassium 4.4 3.7 Chloride 87 L 90 L Carbon Dioxide 25 24 Anion Gap 13 14 BUN 10 8 L Creatinine 0.84 0.74 Estim Creat Clear Calc 105.4 119.7 Estimated GFR > 60 > 60 Random Glucose 97 95 Osmolality Cancelled Calcium 9.1 9.7 D Total Bilirubin 0.2 AST 22 ALT 29 Alkaline Phosphatase 93 Total Protein 8.1 H Albumin 4.7 TSH Random Cortisol Urine Color Yellow Urine Appearance Clear Urine pH 6.5 Ur Specific [place] 1.025 Urine Protein Trace Urine Glucose (UA) Negative Urine Ketones Trace Urine Blood Negative Urine Nitrite Negative Ur Leukocyte Esterase Negative Urine Osmolality 595 Ur Random Sodium 73.0 Ur Random Potassium 71.0 Ur Random Chloride 47.0 12/28/23 12/28/23 12/28/23 04:46 08:45 16:05 WBC 7.9 RBC 4.64 Hgb 14.6 Hct 39.7 L MCV 85.6 MCH 31.5 MCHC 36.8 H RDW 12.0 Plt Count 302 MPV 8.2 L Immature Gran % (Auto) 0.9 H Neut % (Auto) 57.2 Lymph % (Auto) 29.3 [place] % (Auto) 10.7 Eos % (Auto) 1.5 Baso % (Auto) 0.4 Lymph # (Auto) 2.3 [place] # (Auto) 0.9 Eos # (Auto) 0.1 Baso # (Auto) 0.0 Abs Immat Gran (auto) 0.07 H Absolute Neuts (auto) 4.5 Absolute Nucleated RBC 0.000 Nucleated RBC % (auto) 0.0 Smear Tech's Comments Sodium 125 L 128 L 127 L Potassium 3.8 4.2 4.3 Chloride 92 L 92 L 94 L Carbon Dioxide 20 L 24 22 Anion Gap 17 16 15 BUN 8 L 9 12 Creatinine 0.75 0.84 0.81 Estim Creat Clear Calc 118.1 105.4 109.3 Estimated GFR > 60 > 60 > 60 Random Glucose 89 91 91 Osmolality Calcium 9.6 10.7 H D 9.5 D Total Bilirubin AST ALT Alkaline Phosphatase Total Protein Albumin TSH 1.86 Random Cortisol 18.5 Urine Color Urine Appearance Urine pH Ur Specific [place] Urine Protein Urine Glucose (UA) Urine Ketones Urine Blood Urine Nitrite Ur Leukocyte Esterase Urine Osmolality Ur Random Sodium Ur Random Potassium Ur Random Chloride 12/28/23 12/29/23 21:25 07:27 WBC RBC Hgb Hct MCV MCH MCHC RDW Plt Count MPV Immature Gran % (Auto) Neut % (Auto) Lymph % (Auto) [place] % (Auto) Eos % (Auto) Baso % (Auto) Lymph # (Auto) [place] # (Auto) Eos # (Auto) Baso # (Auto) Abs Immat Gran (auto) Absolute Neuts (auto) Absolute Nucleated RBC Nucleated RBC % (auto) Smear Tech's Comments Sodium 128 L 132 L Potassium 4.5 4.5 Chloride 95 L 95 L Carbon Dioxide 21 L 25 Anion Gap 17 17 BUN 15 15 Creatinine 0.77 0.82 Estim Creat Clear Calc 115.0 108.0 Estimated GFR > 60 > 60 Random Glucose 98 88 Osmolality Calcium 9.9 10.5 H D Total Bilirubin AST ALT Alkaline Phosphatase Total Protein Albumin TSH Random Cortisol Urine Color Urine Appearance Urine pH Ur Specific [place] Urine Protein Urine Glucose (UA) Urine Ketones Urine Blood Urine Nitrite Ur Leukocyte Esterase Urine Osmolality Ur Random Sodium Ur Random Potassium Ur Random Chloride Imaging Radiology Impressions: ITS Impressions Abdomen/Pelvis CT 12/27/23 19:28 IMPRESSION: Normal-appearing kidneys, prostate gland and bladder. Mild diverticulosis of the colon. Small umbilical and bilateral inguinal hernias containing fat. Fleischner guidelines were followed. Mental Status Exam Mental Status Exam Patient Appearance: Well Grooomed and Appropriate Patient Orientation: Person and Time Level of Consciousness: Awake Patient Behavior: Appropriate Mood Description: Anxious Affect Description: Anxious Patient Cognition Impaired: No Ability to Follow Directions: Good Speech Pattern: Clear Memory Description: Intact Hallucinations: None Delusions: Not Present Thought Process: Intact, Distracted (wanting to leave because ride was waiting for him) and Goal Oriented Thought Content: positive for Intact and positive for Goal Oriented Judgement: Good Medications Medications Current Medications Acetaminophen (Acetaminophen 325 Mg Tablet) 650 mg PO Q6H PRN PRN Reason: Pain, Mild (Pain Scale 1-3) Last Admin: 12/28/23 14:42 Dose: 650 mg Amlodipine Besylate (Amlodipine Besylate 2.5 Mg Tablet) 2.5 mg PO DAILY ON LICENSE OF [facility]; Protocol Last Admin: 12/29/23 08:54 Dose: 2.5 mg Buprenorphine/Naloxone (Buprenorphine/Naloxone 4/1 Mg Film) 1 film SUBLINGUAL DAILY ON LICENSE OF [facility] Last Admin: 12/29/23 08:54 Dose: 1 film Clonazepam (Clonazepam 0.5 Mg Tablet) 0.5 mg PO DAILY@1200 ON LICENSE OF [facility] Last Admin: 12/29/23 11:51 Dose: 0.5 mg Enoxaparin Sodium (Enoxaparin Sodium 40 Mg/0.4 Ml Syringe) 40 mg SUBCUT Q24H ON LICENSE OF [facility] Last Admin: 12/28/23 19:28 Dose: 40 mg Gabapentin (Gabapentin 300 Mg Capsule) 600 mg PO TID ON LICENSE OF [facility] Last Admin: 12/29/23 08:54 Dose: 600 mg Melatonin (Melatonin 3 Mg Tablet) 6 mg PO BEDTIME PRN PRN Reason: Insomnia Mirtazapine (Mirtazapine 15 Mg Tablet) 45 mg PO BEDTIME ON LICENSE OF [facility] Last Admin: 12/28/23 19:28 Dose: 45 mg Nicotine (Nicotine 21 Mg Patch.Td24) 21 mg TRANSDERMA DAILY ON LICENSE OF [facility] Last Admin: 12/29/23 08:54 Dose: 21 mg Olanzapine (Olanzapine 5 Mg Tablet) 5 mg PO BID@1200,2100 ON LICENSE OF [facility] Last Admin: 12/29/23 11:51 Dose: 5 mg Olanzapine (Olanzapine 10 Mg Tablet) 10 mg PO BEDTIME ON LICENSE OF [facility] Last Admin: 12/28/23 19:28 Dose: 10 mg Omeprazole (Omeprazole 20 Mg Capsule.Dr) 20 mg PO DAILY@0630 ON LICENSE OF [facility] Last Admin: 12/29/23 06:09 Dose: 20 mg Ondansetron HCl (Ondansetron Hcl 4 Mg/2 Ml Vial) 4 mg IVPUSH Q8H PRN PRN Reason: Nausea and Vomiting Polyethylene Glycol (Polyethylene Glycol 3350 17 Gm Powd.Pack) 17 gm PO BEDTIME ON LICENSE OF [facility] Last Admin: 12/28/23 19:29 Dose: 17 gm Sodium Chloride (0.9 % Sodium Chloride Flush 3 Ml Syringe) 3 ml IVFLUSH QSHIFT ON LICENSE OF [facility] Last Admin: 12/29/23 08:56 Dose: 3 ml Allergies Allergies Allergy/AdvReac Type Severity Reaction Status Date / Time diclofenac [From Voltaren] Allergy Mild NAUSEA, Verified 12/27/23 15:53 nausea and vomiting naproxen Allergy Unknown nausea and Verified 12/27/23 15:53 vomiting fluoxetine [From Prozac] Allergy Rash Verified 12/27/23 15:53 VELVET Allergy Mild HIVES Uncoded 12/26/23 09:06 Assessment & Plan Assessment & Plan (1) Acute hyponatremia: Status: Acute Code(s): E87.1 - Hypo-osmolality and hyponatremia (2) Anxiety: Status: Acute Code(s): F41.9 - Anxiety disorder, unspecified Plan agree with hold trileptal until can see psychiatric provider t/c to [facility] on [address] and they will call patient to get him sooner appt with prescriber. request [facility] send discharge summary to [facility] at [phone] informed SW Total time managing care of this patient today __45__ minutes. Patient educated on: diagnosis, medication risk/benefits, therapeutic strategies and medical condition Informed Consent: understands
== END 2023-12-29 12:58 | disposition home health service (06) | DRG 426 ==
LOC: HO.ED 18:55 → HO.EDOVER 20:09 → HO.S3 12-28 15:08
PROVIDERS: Admitting Provider Student in an Organized Health Care Education/Training Program; Emergency Provider Emergency Medicine; PCP Registered Nurse; Visit Provider Internal Medicine
DX: E22.2 Syndrome of inappropriate secretion of antidiuretic hormone (principal); F11.20 Opioid dependence, uncomplicated; R39.11 Hesitancy of micturition; F17.210 Nicotine dependence, cigarettes, uncomplicated; I10 Essential (primary) hypertension; N39.0 Urinary tract infection, site not specified; K21.9 Gastro-esophageal reflux disease without esophagitis; F41.9 Anxiety disorder, unspecified; F20.9 Schizophrenia, unspecified; K59.09 Other constipation; T42.1X5A Adverse effect of iminostilbenes, initial encounter; Z71.6 Tobacco abuse counseling; Z79.899 Other long term (current) drug therapy
CPT/HCPCS: 36415; 74176; 80048; 80053; 81003; 82436; 82533; 83935; 84133; 84300; 84443; 85025; 99221; 99285; J1650

== ENCOUNTER → 2023-12-27 19:34 | Outpatient (BNV) | payer OTHER, SELFPAY | PROVIDERS: Admitting Provider Student in an Organized Health Care Education/Training Program; Emergency Provider Emergency Medicine; PCP Registered Nurse; Visit Provider Clinical Nurse Specialist Psychiatric/Mental Health | DX: F41.9 Anxiety disorder, unspecified (principal); E87.1 Hypo-osmolality and hyponatremia | CPT/HCPCS: 99232 ==

== ENCOUNTER → 2023-12-27 19:34 | Outpatient (BNV) | payer MEDICAID, SELFPAY | PROVIDERS: Admitting Provider Student in an Organized Health Care Education/Training Program; Emergency Provider Emergency Medicine; PCP Registered Nurse; Visit Provider Student in an Organized Health Care Education/Training Program | DX: E87.1 Hypo-osmolality and hyponatremia (principal) | CPT/HCPCS: 99223; 99232; 99239 ==

== ENCOUNTER → 2023-12-27 19:34 | Outpatient (BNV) | payer MEDICAID, SELFPAY | PROVIDERS: Admitting Provider Student in an Organized Health Care Education/Training Program; Emergency Provider Emergency Medicine; PCP Registered Nurse; Visit Provider Internal Medicine Hypertension Specialist | DX: E87.1 Hypo-osmolality and hyponatremia (principal) | CPT/HCPCS: 99223 ==

== ENCOUNTER 2024-01-05 10:18 | Outpatient (REF) | payer MEDICAID, SELFPAY ==
[2024-01-05 11:59] LABS: Anion Gap 15 (12-20); Blood Urea Nitrogen 11 mg/dL (9-16); Calcium 9.8 mg/dL (8.4-10.2); Carbon Dioxide 28 mmol/L (22-29); Chloride 103 mmol/L (96-108); Estimated Glomerular Filt Rate > 60; Glucose Random 89 mg/dL (60-115); Potassium 4.7 mmol/L (3.3-5.1); Sodium 141 mmol/L (135-145)
== END 2024-01-05 10:19 | disposition home or self-care (01) ==
LOC: HO.LAB 10:18
PROVIDERS: PCP Registered Nurse; Visit Provider Internal Medicine
DX: E78.1 Pure hyperglyceridemia (principal)
CPT/HCPCS: 36415; 80048

== ENCOUNTER 2024-01-20 09:04 | Emergency (ER) | payer MEDICAID, SELFPAY ==
[2024-01-20 09:23] VITALS: BP 148/98; PULSE 97; RESP 16; TEMP 36.6; O2SAT 99; BMI 29.8
[2024-01-20 09:41] LABS: MANUAL DIFF FLAG NO
[2024-01-20 09:42] LABS: Appearance Urine Clear; Color Urine Yellow; Glucose Urine UA Negative (Negative); Leukocyte Esterase Urine Negative (Negative); Nitrite Urine Negative (Negative); PH 5.5 (5.0-9.0); Urine Blood Negative (Negative); Urine Ketones Trace mg/dL (Negative); Urine Protein Negative (Neg-Trace)
[2024-01-20 09:49] LABS: Basophils Percent Auto 0.2 % (0-2); Eosinophils Absolute Auto 0.1 X10*3/uL (0.0-0.4); Eosinophils Percent Auto 0.5 % (0-4); Hematocrit 44.7 % (42.0-52.0); Hemoglobin 16.1 g/dl (14.0-18.0); Imm Gran Abs Auto 0.06 X10*3/uL (0.00-0.03); Imm Gran Pct Auto 0.6 % (0.0-0.4); Lymphocytes Absolute Auto 2.7 X10*3/uL (1.2-4.9); Lymphocytes Percent Auto 26.6 % (20-40); Mean Corpuscular Hemoglobin 32.3 pg (27.0-33.0); Mean Corpuscular Volume 89.6 fL (80.0-98.0); Mean Platelet Volume 8.5 fL (9.4-12.4); Monocytes Absolute Auto 0.7 X10*3/uL (0.1-1.2); Monocytes Percent Auto 6.9 % (2-11); Neutrophils Absolute Auto 6.6 x10*3/uL (2.0-8.3); Neutrophils Percent Auto 65.2 % (45-73); Platelet Count 322 X10*3/uL (160-400); Red Blood Count 4.99 X10*6/uL (4.60-5.80); Red Cell Distribution Width 12.3 % (11.0-16.0); White Blood Count 10.1 X10*3/uL (4.8-10.8)
[2024-01-20 10:03] LABS: Alanine Aminotransferase 32 U/L (0-40); Albumin Level 4.9 g/dL (3.5-5.0); Alkaline Phosphatase 96 U/L (39-117); Anion Gap 15 (12-20); Aspartate Amino Transferase 20 U/L (5-37); Bilirubin Total 0.4 mg/dL (0.0-1.0); Blood Urea Nitrogen 12 mg/dL (9-16); Calcium 9.9 mg/dL (8.4-10.2); Carbon Dioxide 27 mmol/L (22-29); Chloride 103 mmol/L (96-108); Creatinine Clr Calc Pharmacy 101.7; Estimated Glomerular Filt Rate > 60; Glucose Random 96 mg/dL (60-115); Potassium 4.1 mmol/L (3.3-5.1); Sodium 141 mmol/L (135-145); Total Protein 8.4 g/dL (6.5-8.0)
--- NOTE | 2024-01-20 11:28 | ED.MALEGU ---
HPI - Male Genitourinary General Chief complaint: Urogenital-Male Stated complaint: quest uti Time Seen by Provider: 01/20/24 11:17 Source: patient Mode of arrival: ambulatory Limitations: no limitations History of Present Illness ED Provider: Alta Minor APRN HPI Narrative: 53 yo with PMH of schizophrenia, OUD on suboxone here with complaints of urinary urgency/frequency since yesterday. Patient reports about a month ago he was diagnosed with a UTI at urgent care and was treated with Bactrim. At that time he had similar symptoms. He denies any current dysuria, abdominal pain, flank pain, penile discharge, testicular pain. Patient reports he has not currently sexually active, does not have concern for STDs and does not want to be tested for STDs. He also wants his blood work checked because he recently was hyponatremic. He reports he takes multiple psychiatric medications daily. Related Data Home Medications ?Medication ?Instructions ?Recorded ?Confirmed buprenorphine 4 mg-naloxone 1 mg 1 film sublingual DAILY 12/26/23 12/27/23 sublingual film (Suboxone) melatonin 5 mg tablet 10 mg PO BEDTIME Insomnia 12/26/23 12/27/23 mirtazapine 45 mg tablet 45 mg PO BEDTIME 12/26/23 12/27/23 clonazepam 0.5 mg tablet 0.5 mg PO DAILY@1200 12/27/23 12/27/23 gabapentin 300 mg capsule 600 mg PO TID 12/27/23 12/27/23 olanzapine 10 mg tablet 10 mg PO BEDTIME 12/27/23 12/27/23 olanzapine 5 mg tablet 5 mg PO BID@1200,2100 12/27/23 12/27/23 oxcarbazepine 300 mg tablet 300 mg PO DAILY@1200 12/27/23 12/27/23 oxcarbazepine 300 mg tablet 600 mg PO BID 12/27/23 12/27/23 clonidine HCl 0.1 mg tablet 0.1 mg PO BEDTIME PRN Anxiety 12/28/23 12/28/23 Previous Rx's ?Medication ?Instructions ?Recorded amlodipine 2.5 mg tablet 2.5 mg PO DAILY 30 days #30 tabs 12/15/21 omeprazole 20 mg capsule,delayed 20 mg PO DAILY@0630 30 days #30 12/15/21 release caps sulfamethoxazole 800 1 tab PO Q12H #14 tabs 12/26/23 mg-trimethoprim 160 mg tablet (Bactrim DS) buprenorphine 4 mg-naloxone 1 mg 1 film buccal Q24H #5 ea 12/29/23 sublingual film (Suboxone) nicotine 21 mg/24 hr daily 21 mg transdermal DAILY #7 ea 12/29/23 transdermal patch tamsulosin 0.4 mg capsule (Flomax) 0.4 mg PO DAILY #14 caps 01/20/24 Allergies Allergy/AdvReac Type Severity Reaction Status Date / Time diclofenac [From Voltaren] Allergy Mild NAUSEA, Verified 01/20/24 09:25 nausea and vomiting naproxen Allergy Unknown nausea and Verified 01/20/24 09:25 vomiting fluoxetine [From Prozac] Allergy Rash Verified 01/20/24 09:25 VELVET Allergy Mild HIVES Uncoded 12/26/23 09:06 Review of Systems Review of Systems: Yes all other systems are reviewed and are negative Constitutional: Constitutional: Reports no additional constitutional complaints, Denies body ache(s), Denies chills, Denies fever(s), Denies headache(s) and Denies weakness Eyes: Eyes: Reports no additional eye complaints and Denies change in vision ENT: Reports system reviewed and no additional complaints, except as documented, Denies dizziness, Denies headache(s), Denies nasal congestion, Denies nasal discharge and Denies neck pain Cardiovascular: Cardiovascular: Reports no additional cardiovascular complaints, Denies chest pain, Denies leg edema and Denies dyspnea Respiratory: Respiratory: Reports no additional respiratory complaints, Denies cough and Denies dyspnea Gastrointestinal: Gastrointestinal: Reports no additional gastrointestinal complaints, Denies abdominal pain, Denies diarrhea, Denies nausea and Denies vomiting Genitourinary: Genitourinary: Denies dysuria, Denies flank pain, Denies penile discharge, Denies testicular mass, Denies testicular pain, Reports urinary frequency, Denies urinary hesitancy, Denies urinary incontinence and Reports urinary urgency Musculoskeletal: Musculoskeletal: Reports no additional musculoskeletal complaints, Denies back pain, Denies arthralgias, Denies joint swelling, Denies neck pain, Denies numbness and Denies tingling Integumentary/Breasts: Skin/Breast: Reports system reviewed and no additional complaints, except as docu and Denies rash Neurologic: Reports system reviewed and no additional complaints, except as documented, Denies Abnormal speech present, Denies dizziness, Denies headache(s), Denies numbness, Denies tingling and Denies weakness PMFSH Past Medical History Attestation statement: The following information was validated with the patient. Source: old records reviewed and nursing notes reviewed Medical History Chronic constipation Schizophrenia Bronchopneumonia Rash Polysubstance abuse Fall Surgical History S/P ACL reconstruction Social History Social History Household Members: None Housing: Apartment Do you presently have visiting nurse or other home services: Yes Comment: Pt refusing bed alarm Patient Tobacco Use Status: Current everyday Tobacco user Tobacco use type: Cigarette Cigarette Packs Per Day: 1 Cigarettes Per Day: 20.0 Years Smoked: 34 e-Cigarette/Vaping Use: Never Used Second Hand Smoke Exposure: No Substance Use Type: Crack/Cocaine and Opiates Advance Directives: No Advance Directives Information Provided: No service: No Current occupational status: disabled Sexual orientation: Straight/Heterosexual Physical Exam Vital Signs: Vital Signs: Last Vital Signs Temp 97.7 F 01/20/24 11:40 Pulse 92 01/20/24 11:40 Resp 16 01/20/24 11:40 BP 142/96 H 01/20/24 11:40 Pulse Ox 100 01/20/24 11:40 O2 Del Method Room Air 01/20/24 11:40 BMI result Body Mass Index 29.8 Const: General: cooperative, healthy appearing, comfortable and no acute distress Orientation/consciousness: patient oriented x3 Limitations: no limitations HEENT: Head: Yes normal to inspection Ears: hearing grossly normal bilaterally General nose exam: Normal external nose present Face and sinus: Yes normal facial exam Mouth: Normal oral and palatal mucosa present Throat: Yes posterior oropharynx normal Eyes: General: appearance normal, both eyes and all related structures Pupils: Equal, round and reactive pupils present Neck: Neck: Yes normal visual inspection Chest: Chest palpation & inspection: normal inspection of the chest Resp: Effort & Inspection: normal respiratory effort Auscultation: clear to auscultation bilaterally Cardio: Rate: regular rate Rhythm: regular rhythm Peripheral pulses: Peripheral pulses 2+ throughout GI: Inspection: Yes normal to inspection Palpation (GI): Soft to palpation and nontender Auscultation: normal bowel sounds : Other: Deferred exam General: Yes no CVA tenderness Back/Spine/Pelvis: Back: no CVA tenderness Thoracic/Lumbar Spine: thoracic and lumbar spine normal to inspection Skin: General skin exam: no rashes or lesions noted Neuro: General: patient oriented x3, no focal motor deficits and normal sensation to monofilament Cranial nerves: Yes Equal, round and reactive pupils present Cognition (Neuro): normal cognition Speech: No Abnormal speech present Gait exam (Neuro): Normal gait present Motor exam (neuro): 5/5 motor strength present throughout Extrem: General: Yes normal to inspection Course Course Course Narrative: Labs are unremarkable. Urine shows no signs of infection. Patient does not want STD testing. Low suspicion for UTI. May be secondary to multiple psychiatric medications or anxiety. Postvoid residual is 0. Low suspicion for retention or BPH. will be given flomax and discharged home. Medical Decision Making Medical Decision Making [facility] Narrative: 53 yo with PMH of schizophrenia, OUD on suboxone here with complaints of urinary urgency/frequency since yesterday.? Patient reports about a month ago he was diagnosed with a UTI at urgent care and was treated with Bactrim.? At that time he had similar symptoms.? He denies any current dysuria, abdominal pain, flank pain, penile discharge, testicular pain.? Patient reports he has not currently sexually active, does not have concern for STDs and does not want to be tested for STDs.? He also wants his blood work checked because he recently was hyponatremic.? He reports he takes multiple psychiatric medications daily. Defers exam No focal abdominal pain, no CVAT VSS Will obtain labs,UA Differential Diagnosis Differential Diagnoses: The differential diagnosis associated with the presentation includes uti sti bladder spasm anxiety medication side effect Admission/Observation Consideration of admission/observation: Escalation of care including admission/observation considered Lab Data [facility] Lab Attestation statement: I reviewed the patient's lab results. 01/20/24 09:36 01/20/24 09:36 Labs: Lab Results 01/20/24 Range/Units 09:36 WBC 10.1 (4.8-10.8) X10*3/uL RBC 4.99 (4.60-5.80) X10*6/uL Hgb 16.1 (14.0-18.0) g/dl Hct 44.7 (42.0-52.0) % MCV 89.6 (80.0-98.0) fL MCH 32.3 (27.0-33.0) pg MCHC 36.0 (31.0-36.0) g/dl RDW 12.3 (11.0-16.0) % Plt Count 322 (160-400) X10*3/uL MPV 8.5 L (9.4-12.4) fL Immature Gran % (Auto) 0.6 H (0.0-0.4) % Neut % (Auto) 65.2 (45-73) % Lymph % (Auto) 26.6 (20-40) % [place] % (Auto) 6.9 (2-11) % Eos % (Auto) 0.5 (0-4) % Baso % (Auto) 0.2 (0-2) % Lymph # (Auto) 2.7 (1.2-4.9) X10*3/uL [place] # (Auto) 0.7 (0.1-1.2) X10*3/uL Eos # (Auto) 0.1 (0.0-0.4) X10*3/uL Baso # (Auto) 0.0 (0.0-0.2) X10*3/uL Abs Immat Gran (auto) 0.06 H (0.00-0.03) X10*3/uL Absolute Neuts (auto) 6.6 (2.0-8.3) x10*3/uL Absolute Nucleated RBC 0.000 (0.0-0.012) X10*3/uL Nucleated RBC % (auto) 0.0 (0.0-0.2) /100WBC Sodium 141 (135-145) mmol/L Potassium 4.1 (3.3-5.1) mmol/L Chloride 103 (96-108) mmol/L Carbon Dioxide 27 (22-29) mmol/L Anion Gap 15 (12-20) BUN 12 (9-16) mg/dL Creatinine 0.86 (0.5-1.4) mg/dL Estim Creat Clear Calc 101.7 Estimated GFR > 60 Random Glucose 96 (60-115) mg/dL Calcium 9.9 (8.4-10.2) mg/dL Total Bilirubin 0.4 (0.0-1.0) mg/dL AST 20 (5-37) U/L ALT 32 (0-40) U/L Alkaline Phosphatase 96 (39-117) U/L Total Protein 8.4 H (6.5-8.0) g/dL Albumin 4.9 (3.5-5.0) g/dL Urine Color Yellow Urine Appearance Clear Urine pH 5.5 (5.0-9.0) Ur Specific [place] 1.020 (1.005-1.025) Urine Protein Negative (Neg-Trace) mg/dL Urine Glucose (UA) Negative (Negative) mg/dL Urine Ketones Trace (Negative) mg/dL Urine Blood Negative (Negative) Urine Nitrite Negative (Negative) Ur Leukocyte Esterase Negative (Negative) Tests considered The following testing was considered but not selected: No abdominal pain or flank pain to suggest need for CT abdomen and pelvis Prescription Management I considered prescription management with: Antibiotic Discharge Plan Discharge Clinical Impression: Urinary urgency Patient Disposition: Home, Self-Care Instructions: Urinary Urgency and Frequency (DC) Additional Instructions: Your blood work is normal. Your urine shows no signs of infection. Take the medications as prescribed Follow-up with your primary care doctor as needed Prescriptions: New tamsulosin [Flomax] 0.4 mg capsule 0.4 mg PO DAILY Qty: 14 0RF No Action amlodipine 2.5 mg Tablet 2.5 mg PO DAILY 30 Days Qty: 30 0RF Protocol: Hold for SBP< HOLD for SBP < : 90 omeprazole 20 mg Capsule,Delayed Release(Dr/Ec) 20 mg PO DAILY@0630 30 Days Qty: 30 0RF clonazepam 0.5 mg tablet 0.5 mg PO DAILY@1200 olanzapine 5 mg tablet 5 mg PO BID@1200,2100 oxcarbazepine 300 mg tablet 600 mg PO BID Hold Instructions: Resume on 01/23/24. gabapentin 300 mg capsule 600 mg PO TID olanzapine 10 mg tablet 10 mg PO BEDTIME oxcarbazepine 300 mg tablet 300 mg PO DAILY@1200 Hold Instructions: Resume on 01/23/24. clonidine HCl 0.1 mg tablet 0.1 mg PO BEDTIME PRN (Reason: Anxiety) buprenorphine-naloxone [Suboxone] 4-1 mg film 1 film buccal Q24H Qty: 5 0RF Rx Instructions: place 1 strip/tab under (each) side of tongue nicotine 21 mg/24 hr Patch 24 Hour 21 mg transdermal DAILY Qty: 7 0RF buprenorphine-naloxone [Suboxone] 4-1 mg film 1 film sublingual DAILY mirtazapine 45 mg tablet 45 mg PO BEDTIME melatonin 5 mg tablet 10 mg PO BEDTIME sulfamethoxazole-trimethoprim [Bactrim DS] 800-160 mg tablet 1 tab PO Q12H Qty: 14 0RF Referrals: Catherine Conklin FNP [Primary Care Provider] - 1 week Interventions: ED Discharge Assessment Last Done: 01/20/24 11:40 Discharge Date/Time: 01/20/24 11:42 Print Language: Citizen Of [place]
[2024-01-20 11:40] VITALS: BP 142/96; PULSE 92; RESP 16; TEMP 36.5; O2SAT 100
== END 2024-01-20 11:42 | disposition home or self-care (01) ==
PROVIDERS: Emergency Provider Student in an Organized Health Care Education/Training Program; PCP Registered Nurse
DX: R39.15 Urgency of urination (principal); R35.0 Frequency of micturition; F11.20 Opioid dependence, uncomplicated; F17.210 Nicotine dependence, cigarettes, uncomplicated; Z79.899 Other long term (current) drug therapy
CPT/HCPCS: 36415; 51798; 80053; 81003; 85025; 99283

== ENCOUNTER 2024-01-25 14:34 | Outpatient (AMB) | payer MEDICAID, SELFPAY ==
[2024-01-25 14:33] VITALS: BP 98/76; PULSE 94; O2SAT 97; BMI 30.2
--- NOTE | 2024-01-25 14:33 | HO.NEPHOV_ITS ---
Vital Signs 01/25/24 14:33 Height 5 ft 7 in Weight 193 lb BMI 30.2 BP 98/76 Blood Pressure Location Lt brachial Position Sitting Pulse 94 Pulse Source Pulse Oximeter Pulse Oximetry (%) 97 Oxygen Delivery Method Room Air Intake Visit Reasons: [facility]/ Confirmed Photograph Mounter Required: No Accompanied by: Self / Same As Patient Allergies diclofenac [From Voltaren] Allergy (Mild, Verified 01/25/24 14:35) NAUSEA, nausea and vomiting naproxen Allergy (Unknown, Verified 01/25/24 14:35) nausea and vomiting fluoxetine [From Prozac] Allergy (Verified 01/25/24 14:35) Rash VELVET Allergy (Mild, Uncoded 12/26/23 09:06) HIVES HPI Comments Details: Patient is a 53-year-old male in today for sick visit. The patient states that 1 day prior he developed symptoms of urinary urgency. Patient states that he has history of urinary tract infections in this feels similar. Patient denies fevers, chest pain, shortness a breath, nausea, vomiting, diarrhea patient denies back pain. Patient denies blood in his urine but states he has a hard time identifying is he is cover color blind. In office urinalysis demonstrated +15 leukocyte esterase. 01/25/24 c/o increased urinary frequency Recent UA was unremarkable No c/s done [facility] Medical History Chronic constipation Schizophrenia Bronchopneumonia Rash Polysubstance abuse Fall Surgical History S/P ACL reconstruction Social History Household Members: None Housing: Apartment Do you presently have visiting nurse or other home services: Yes Comment: Pt refusing bed alarm Patient Tobacco Use Status: Current everyday Tobacco user Tobacco use type: Cigarette Cigarette Packs Per Day: 1 Cigarettes Per Day: 20.0 Years Smoked: 34 e-Cigarette/Vaping Use: Never Used Second Hand Smoke Exposure: No Substance Use Type: Crack/Cocaine and Opiates service: No Current occupational status: disabled Sexual orientation: Straight/Heterosexual Physical Exam Vital Signs: Last Vital Signs Pulse 94 01/25/24 14:33 BP 98/76 01/25/24 14:33 Pulse Ox 97 05/30/24 14:33 Oxygen Delivery Method Room Air 01/25/24 14:33 BMI result Body Mass Index 30.2 Last Vital Signs Temp 97.5 F 12/28/23 08:19 Pulse 72 12/28/23 08:19 Resp 16 12/28/23 08:19 BP 126/78 12/28/23 08:19 Pulse Ox 92 12/28/23 08:19 O2 Del Method Room Air 12/28/23 08:19 BMI result Body Mass Index 30.5 Const General: comfortable Nutritional Appearance: well nourished Orientation/consciousness: patient oriented x3 HEENT Head: No normal to inspection Mouth: moist mucous membranes Neck Neck: Yes supple and Yes no JVD Resp Auscultation: clear to auscultation bilaterally, no rales and rub present Cardio Jugular venous distension: no JVD Palpation: no palpable S3 and no palpable S4 Heart sounds: no rubs GI Palpation (GI): Soft to palpation and nontender Percussion: No Fluid wave present General: Yes no CVA tenderness Back/Spine/Pelvis Back: no CVA tenderness Skin General skin exam: no rashes or lesions noted Neuro General: patient oriented x3 Extrem General: Yes no pedal edema and No clubbing Results Reviewed Nephrology Results: Hgb 16.1 g/dl (14.0-18.0) 01/20/24 WBC 10.1 X10*3/uL (4.8-10.8) 01/20/24 Plt Count 322 X10*3/uL (160-400) 01/20/24 Sodium 141 mmol/L (135-145) 01/20/24 Potassium 4.1 mmol/L (3.3-5.1) 01/20/24 Chloride 103 mmol/L (96-108) 01/20/24 Carbon Dioxide 27 mmol/L (22-29) 01/20/24 BUN 12 mg/dL (9-16) 01/20/24 Creatinine 0.86 mg/dL (0.5-1.4) 01/20/24 Calcium 9.9 mg/dL (8.4-10.2) 01/20/24 Urine Protein Negative mg/dL (Neg-Trace) 01/20/24 Assessment & Plan Assessment & Plan (1) Acute hyponatremia: Code(s): E87.1 - Hypo-osmolality and hyponatremia Category: Medical Plan Middle-aged man with a significant hyponatremia due to decreased free water clearance secondary to non osmotic ADH release/medication induced. He was prescribed Bactrim while he was already on both carbazepine and gabapentin . This combined with increased free water intake has probably precipitated the hyponatremia. Sodium back to normal Increased frequency Recommendation Avoid Bactrim. r/o UTI Await evaluation Coding Level of Care Code Est Pt Level 3 (21941) Diagnoses Acute hyponatremia E87.1
== END 2024-01-25 14:48 | disposition home or self-care (01) ==
PROVIDERS: PCP Registered Nurse; Referring Provider Registered Nurse; Visit Provider Internal Medicine Hypertension Specialist
DX: E87.1 Hypo-osmolality and hyponatremia (principal)
CPT/HCPCS: 99213

== ENCOUNTER → 2024-01-25 14:34 | Outpatient (BNVA) | payer MEDICAID, SELFPAY | PROVIDERS: PCP Registered Nurse; Visit Provider Internal Medicine Hypertension Specialist | DX: E87.1 Hypo-osmolality and hyponatremia (principal) | CPT/HCPCS: 99212 ==

== ENCOUNTER 2024-02-14 14:34 | Outpatient (AMB) | payer MEDICAID, SELFPAY ==
--- NOTE | 2024-02-14 14:52 | A.OFFVIS_ITS ---
Intake Visit Reasons: incomplete bladder emptying/weak stream Intake Note: NEW Patient presents today to established treatment for Incomplete Bladder Emptying/Weak Stream: Meds- Tamsulosin Allergies to Antibiotic- No Known Allergies Blood Thinner- None Post Void Residual: 24 mL Director Financial Planning Required: No Accompanied by: Self / Same As Patient Allergies diclofenac [From Voltaren] Allergy (Mild, Verified 02/14/24 14:53) NAUSEA, nausea and vomiting naproxen Allergy (Unknown, Verified 02/14/24 14:53) nausea and vomiting fluoxetine [From Prozac] Allergy (Verified 02/14/24 14:53) Rash VELVET Allergy (Mild, Uncoded 02/14/24 14:53) HIVES HPI Comments Details: Ronaldo is a 53-year-old male who is here with concerns regarding urination. Weak urinary stream. Denies dysuria. He was in the hospital for urgency feeling that he could not empty, urinalysis negative. He was started on tamsulosin about 3 weeks ago which he feels is starting to help a little bit. Family history prostate cancer Brothers x2 prostate cancer age 64, and age 55. Follow-up 3-4 months re-evaluate urinary. Continue. PSA screening. Discussed follow-up with office cystoscopy at that time. Patient wants to think about it. Labs reviewed--PSA 10/25/2023 0.73; prostate exam-enlarged smooth no suspicious nodules palpated. [facility] Medical History Chronic constipation Schizophrenia Bronchopneumonia Rash Polysubstance abuse Fall Surgical History S/P ACL reconstruction Social History Household Members: None Housing: Apartment Do you presently have visiting nurse or other home services: Yes Comment: Pt refusing bed alarm Patient Tobacco Use Status: Current everyday Tobacco user Tobacco use type: Cigarette Cigarette Packs Per Day: 1 Cigarettes Per Day: 20.0 Years Smoked: 34 e-Cigarette/Vaping Use: Never Used Second Hand Smoke Exposure: No Substance Use Type: Crack/Cocaine and Opiates service: No Current occupational status: disabled Sexual orientation: Straight/Heterosexual Review of Systems Const All systems reviewed & are unremarkable except as noted in HPI and below Reports no additional complaints Eyes Reports no additional complaints ENT Reports no additional complaints Card Reports no additional complaints Resp Reports no additional complaints GI Reports no additional complaints Reports as per HPI Musc Reports no additional complaints Skin/Breast Reports system reviewed and no additional complaints, except as documented Neuro Reports no additional complaints Psych Reports no additional complaints Endo Reports no additional complaints Josué/Lymph Reports no additional complaints Aller/Immun Reports no additional complaints Physical Exam Const General: healthy appearing, no acute distress and well developed Orientation/consciousness: patient oriented x3 HEENT Head: Yes normocephalic and Yes atraumatic Eyes Conjunctivae: conjunctivae normal Neck Neck: Yes normal visual inspection Chest Chest palpation & inspection: normal inspection of the chest Resp Effort & Inspection: normal respiratory effort Cardio Rate: regular rate GI Inspection: Yes normal to inspection Palpation (GI): Soft to palpation Other: Prostate Exam: Smooth no nodularities palpated Skin General skin exam: no rashes or lesions noted Neuro General: patient oriented x3 Extrem General: No pedal edema Psych Appearance: grossly normal Affect: normal affect Office Procedures Post Void Residual Post Residual Void Post Void Residual (PVR): 24 [id number] Void Residual by ultrasound Results AMB Urinalysis, Automated UA Leukoctes 0 Claudine/uL Last Edit by FORREST Hooker on 02/14/24 15:36 UA Nitrite Negative Last Edit by FORREST Hooker on 02/14/24 15:36 UA Urobilinogen 0.2 mg/dL Last Edit by FORREST Hooker on 02/14/24 15:3 6 UA Protein 15 mg/dL Last Edit by FORREST Hooker on 02/14/24 15:36 UA pH 5.5 Last Edit by FORREST Hooker on 02/14/24 15:36 UA Blood 0 Jun/uL Last Edit by FORREST Hooker on 02/14/24 15:36 UA Specific [place] 1.025 Last Edit by FORREST Hooker on 02/14/24 15: 36 UA Ketone Positive Last Edit by FORREST Hooker on 02/14/24 15:36 5 mg/dL Alecia Burgos 02/14/24 15:36 UA Bilirubin 0 mg/dL Last Edit by FORREST Hooker on 02/14/24 15:36 UA Glucose 0 mg/dL Last Edit by FORREST Hooker on 02/14/24 15:36 Results Reviewed Results Reviewed: Laboratory Last Values Urine pH (Auto) 5.5 02/14/24 15:03 Specific [place] (Auto) 1.025 02/14/24 15:03 Urine Protein (Auto) 15 mg/dL 02/14/24 15:03 Glucose (UA)(Auto) 0 mg/dL 02/14/24 15:03 Urine Ketones (Auto) Positive 02/14/24 15:03 Urine Blood (Auto) 0 Jun/uL 02/14/24 15:03 Urine Nitrite (Auto) Negative 02/14/24 15:03 Urine Bilirubin (Auto) 0 mg/dL 02/14/24 15:03 Urine Urobilinogen (Auto) 0.2 mg/dL 02/14/24 15:03 Leukocyte Esterase (Auto) 0 Claudine/uL 02/14/24 15:03 Assessment & Plan Assessment & Plan (1) BPH loc w urin obs/LUTS: Code(s): N40.1 - Benign prostatic hyperplasia with lower urinary tract symptoms Category: Medical (2) Weak urinary stream: Code(s): R39.12 - Poor urinary stream Category: Medical (3) Family history of prostate cancer: Code(s): Z80.42 - Family history of malignant neoplasm of prostate Category: Medical Plan PSA screening. Discussed follow-up with office cystoscopy at that time. Patient declines. Patient wants to think about it. Orders: Orders AMB Urinalysis Automated 02/14/24 Z13.9 - Encounter for screening, unspecified Prostate Specific Antigen 02/14/24 N40.1 - Benign prostatic hyperplasia with lower urinary tract symptoms AMB Post Void Residual by ultrasound 06/19/24 N39.8 - Other specified disorders of urinary system Patient Instructions: The patient had an opportunity to ask questions regarding treatment plan. The patient expressed understanding and agreement with the above treatment plan. The patient is aware they should contact our office by phone for worsening of their current condition or the appearance of new symptoms. Compliance is encouraged with any medications and followup testing that is ordered. It is a privilege to be allowed the opportunity to participate in the urologic care of your patient. If you have any questions or concerns regarding treatment for the above conditions please do not hesitate to contact me. The office telephone contact is [phone]. This note is constructed in part using voice recognition software. While every effort has been made to ensure accuracy manager account management errors may have been included. Yours sincerely, Shyanne Sun MD Coding Level of Care Code New Pt Level 4 (44387) Diagnoses BPH loc w urin obs/LUTS N40.1 Weak urinary stream R39.12 Family history of prostate cancer Z80.42 CPT Codes Post Residual Void - PVR CPT Code: 19223-Epbk Void Residual by ultrasound ([id number])
== END 2024-02-14 16:03 | disposition home or self-care (01) ==
PROVIDERS: PCP Registered Nurse; Referring Provider Registered Nurse; Visit Provider Urology
DX: N40.1 Benign prostatic hyperplasia with lower urinary tract symptoms (principal); R39.12 Poor urinary stream; Z80.42 Family history of malignant neoplasm of prostate
CPT/HCPCS: 99204

== ENCOUNTER → 2024-02-14 14:34 | Outpatient (BNVA) | payer MEDICAID, SELFPAY | PROVIDERS: PCP Registered Nurse; Visit Provider Urology | DX: N40.1 Benign prostatic hyperplasia with lower urinary tract symptoms (principal); R39.12 Poor urinary stream; Z80.42 Family history of malignant neoplasm of prostate | CPT/HCPCS: 51798; 81003; 99202 ==

== ENCOUNTER 2024-03-15 13:45 | Outpatient (REF) | payer MEDICAID, SELFPAY ==
--- NOTE | ~2024-03-15 | XR_ITS ---
EXAMINATION: XR HIP, RIGHT CLINICAL INFORMATION: Pain nine months ago. COMPARISON: CT abdomen and pelvis 12/27/2023. TECHNIQUE: Two views of the right hip. FINDINGS: No fracture. Alignment is anatomic. Hip joint space is maintained. Some minimal supra-acetabular sclerosis and lateral acetabular osteophyte is present. Soft tissues are unremarkable. XR/XR hip RT min 2V IMPRESSION: Minimal degenerative changes in the right hip. Electronically signed by: Ryan Linn MD 05/02/2024 09:58 PM EDT
== END 2024-03-15 13:46 | disposition home or self-care (01) ==
LOC: HO.HHCX 13:45
PROVIDERS: Visit Provider Student in an Organized Health Care Education/Training Program
DX: M25.551 Pain in right hip (principal)
CPT/HCPCS: 73502

== ENCOUNTER 2024-05-08 07:30 | Outpatient (REF) | payer MEDICAID, SELFPAY ==
[2024-05-08 07:46] LABS: MANUAL DIFF FLAG NO
[2024-05-08 07:59] LABS: Basophils Percent Auto 0.3 % (0-2); Eosinophils Absolute Auto 0.1 X10*3/uL (0.0-0.4); Eosinophils Percent Auto 0.5 % (0-4); Hematocrit 48.9 % (42.0-52.0); Imm Gran Abs Auto 0.05 X10*3/uL (0.00-0.03); Imm Gran Pct Auto 0.5 % (0.0-0.4); Lymphocytes Absolute Auto 2.5 X10*3/uL (1.2-4.9); Lymphocytes Percent Auto 26.1 % (20-40); Mean Corpuscular HGB Conc 34.8 g/dl (31.0-36.0); Mean Corpuscular Hemoglobin 31.8 pg (27.0-33.0); Mean Corpuscular Volume 91.4 fL (80.0-98.0); Mean Platelet Volume 8.8 fL (9.4-12.4); Monocytes Absolute Auto 0.7 X10*3/uL (0.1-1.2); Monocytes Percent Auto 7.1 % (2-11); Neutrophils Absolute Auto 6.3 x10*3/uL (2.0-8.3); Neutrophils Percent Auto 65.5 % (45-73); Platelet Count 310 X10*3/uL (160-400); Red Blood Count 5.35 X10*6/uL (4.60-5.80); Red Cell Distribution Width 12.3 % (11.0-16.0); White Blood Count 9.6 X10*3/uL (4.8-10.8)
[2024-05-08 08:09] LABS: Estimated Average Glucose 103 mg/dL; Hemoglobin A1c % 5.2 % (<6.0)
[2024-05-08 08:30] LABS: Glucose Fasting 103 mg/dL (60-99)
[2024-05-08 08:34] LABS: Cholesterol 208 mg/dL (<200); HDL Cholesterol 34 mg/dL (>40); LDL Cholesterol Calculated 105 mg/dL (<100); Triglycerides 349 mg/dL (<150)
== END 2024-05-08 07:31 | disposition home or self-care (01) ==
LOC: HO.LAB 07:30
PROVIDERS: PCP Registered Nurse; Visit Provider Nurse Practitioner Psychiatric/Mental Health
DX: Z79.899 Other long term (current) drug therapy (principal)
CPT/HCPCS: 36415; 80061; 82947; 83036; 85025

== ENCOUNTER 2024-05-20 13:15 | Outpatient (AMB) | payer MEDICAID, SELFPAY ==
--- NOTE | 2024-05-20 13:17 | A.OFFVIS_ITS ---
Intake Visit Reasons: OV-B/L knee pain/left knee worse Intake Note: Ronaldo is a 54 year old male who presents today for a follow up of his left knee OA. Last Injection done 07/31/23. Patient reports that his left is worse than the right. He continues to have pain and swelling of the left knee. He takes Tylenol for his pain which only provides mild relief. He has increased pain with walking and prolonged standing. Allergies diclofenac [From Voltaren] Allergy (Mild, Verified 02/14/24 14:53) NAUSEA, nausea and vomiting naproxen Allergy (Unknown, Verified 02/14/24 14:53) nausea and vomiting fluoxetine [From Prozac] Allergy (Verified 02/14/24 14:53) Rash VELVET Allergy (Mild, Uncoded 02/14/24 14:53) HIVES HPI HPI OV-B/L knee pain/left knee worse: Details: Ronaldo is a 54-year-old gentleman with left knee pain. He has had injections in the past and continues to have discomfort. He had ACL reconstruction many years ago and developed subsequent osteoarthritis. He states he remains active but is bothered periodically by the pain and it does limit him. He is satisfied with injections as the current treatment. [facility] Medical History Chronic constipation Schizophrenia Bronchopneumonia Rash Polysubstance abuse Fall Surgical History S/P ACL reconstruction Social History Household Members: None Housing: Apartment Do you presently have visiting nurse or other home services: Yes Comment: Pt refusing bed alarm Patient Tobacco Use Status: Current everyday Tobacco user Tobacco use type: Cigarette Cigarette Packs Per Day: 1 Cigarettes Per Day: 20.0 Years Smoked: 34 e-Cigarette/Vaping Use: Never Used Second Hand Smoke Exposure: No Substance Use Type: Crack/Cocaine and Opiates service: No Current occupational status: disabled Sexual orientation: Straight/Heterosexual Physical Exam Const General: no acute distress, alert and awake Orientation/consciousness: patient oriented x3 HEENT Head: Yes normocephalic and Yes atraumatic Eyes EOM: EOMs intact bilaterally Resp Effort & Inspection: normal respiratory effort and able to speak in complete sentences Cardio Jugular venous distension: no JVD Skin General skin exam: turgor normal Rashes: no rashes Neuro General: patient oriented x3 Extrem Other: left knee with mild effusion ttp medial compartment with negative steinmen's Psych Appearance: grossly normal Affect: normal affect Attitude: cooperative Office Procedures Joint Injection/Aspiration Joint Injection/Aspiration Details: Injected 1 mL of Decadron and 3 mL 1% lidocaine and 3 mL of 0.25% Marcaine. Site was prepped using aseptic technique. Patient tolerated the procedure well. Primary Site: left knee Approach Used: anterolateral Coding - Large joint Procedure code (CPT) selection complete Assessment & Plan Assessment & Plan (1) Osteoarthritis of left knee: Code(s): M17.12 - Unilateral primary osteoarthritis, left knee Category: Medical Plan: Left knee osteoarthritis. I injected his left knee today. He can follow up in 3 months if he would like a repeat injection. Coding Level of Care Code Est Pt Level 3 (59842) Diagnoses Osteoarthritis of left knee M17.12 CPT Codes Coding - Large joint: 60992 - Large joint ([id number])
== END 2024-05-20 16:37 | disposition home or self-care (01) ==
PROVIDERS: PCP Registered Nurse; Visit Provider Orthopaedic Surgery
DX: M17.12 Unilateral primary osteoarthritis, left knee (principal)
CPT/HCPCS: 20610; 99213

== ENCOUNTER → 2024-05-20 13:15 | Outpatient (BNVA) | payer MEDICAID, SELFPAY | PROVIDERS: PCP Registered Nurse; Visit Provider Orthopaedic Surgery | DX: M17.12 Unilateral primary osteoarthritis, left knee (principal); M25.561 Pain in right knee | CPT/HCPCS: 20610; 99212; J0665; J1100 ==

== ENCOUNTER 2024-06-06 08:57 | Outpatient (AMB) | payer MEDICAID, SELFPAY ==
[2024-06-06 09:05] VITALS: BP 110/76; PULSE 100; O2SAT 97; BMI 31.0
--- NOTE | 2024-06-06 09:05 | MHC.OFFWIV ---
Intake Vital Signs 06/06/24 09:05 Height 5 ft 7 in Weight 198 lb BMI 31.0 BP 110/76 Blood Pressure Location Rt brachial Position Sitting Pulse 100 Pulse Source Pulse Oximeter Pulse Oximetry (%) 97 Oxygen Delivery Method Room Air Intake Visit Reasons: EP-neck sore Intake Note: Patient her for sore on neck that has been present for about 3 weeks. Patient Tobacco Use Status: Current everyday Tobacco user Allergies diclofenac [From Voltaren] Allergy (Mild, Verified 06/06/24 09:06) NAUSEA, nausea and vomiting naproxen Allergy (Unknown, Verified 06/06/24 09:06) nausea and vomiting fluoxetine [From Prozac] Allergy (Verified 06/06/24 09:06) Rash VELVET Allergy (Mild, Uncoded 06/06/24 09:06) HIVES Do you need a note to return to daycare/school/sports/work: No HPI HPI Comments History of Present Illness Details Patient is a 54-year-old male complaining of a sore on the front of his neck that has been present for 3 weeks. He states it gets itchy at times and he does not know what it is or how it started. He tells me he has been applying salicylic acid and clindamycin ointment with no relief. He denies any knowledge of a bug bite or tick. [facility] Medical History Chronic constipation Schizophrenia Bronchopneumonia Rash Polysubstance abuse Fall Surgical History S/P ACL reconstruction Social History Household Members: None Housing: Apartment Do you presently have visiting nurse or other home services: Yes Comment: Pt refusing bed alarm Patient Tobacco Use Status: Current everyday Tobacco user Tobacco use type: Cigarette Cigarette Packs Per Day: 1 Cigarettes Per Day: 20.0 Years Smoked: 34 e-Cigarette/Vaping Use: Never Used Second Hand Smoke Exposure: No Substance Use Type: Crack/Cocaine and Opiates service: No Current occupational status: disabled Sexual orientation: Straight/Heterosexual Review of Systems Const All systems reviewed & are unremarkable except as noted in HPI and below Physical Exam Vital Signs: Last Vital Signs Pulse 100 06/06/24 09:05 BP 110/76 06/06/24 09:05 Pulse Ox 97 06/06/24 09:05 Oxygen Delivery Method Room Air 06/06/24 09:05 BMI result Body Mass Index 31.0 Const General: cooperative, healthy appearing, comfortable, no acute distress and well developed Orientation/consciousness: patient oriented x3 Limitations: no limitations HEENT Head: Yes normal to inspection Eyes General: appearance normal, both eyes and all related structures Neck Neck: Yes normal visual inspection and Yes full ROM Resp Effort & Inspection: normal respiratory effort and able to speak in complete sentences Skin Other: 0.5cm area of erythema with small central ulceration, no purulence, no ecchymosis, no lacerations, no warmth noted Neuro General: patient oriented x3 Extrem General: Yes normal to inspection Assessment & Plan Assessment & Plan (1) Abrasion of neck without infection: Code(s): S10.91XA - Abrasion of unspecified part of neck, initial encounter Plan: Recommended he stop it salicylic acid and the clindamycin ointment. Recommended instead that he apply hydrocortisone cream twice daily if he does not see any improvement after a few days, he should try Aquaphor ointment twice daily. If still no improvement, he should follow up with his PCP. Plan See above Coding Level of Care Code Est Pt Level 3 (89435) Diagnoses Abrasion of neck without infection S10.91XA
== END 2024-06-06 09:28 | disposition home or self-care (01) ==
PROVIDERS: PCP Registered Nurse; Visit Provider Physician Assistant
DX: S10.91XA Abrasion of unspecified part of neck, initial encounter (principal)

== ENCOUNTER → 2024-06-06 08:57 | Outpatient (BNVA) | payer MEDICAID, SELFPAY | PROVIDERS: PCP Registered Nurse; Visit Provider Physician Assistant | DX: S10.91XA Abrasion of unspecified part of neck, initial encounter (principal) | CPT/HCPCS: 99212 ==

== ENCOUNTER 2024-07-03 16:35 | Outpatient (REF) | payer MEDICAID, SELFPAY | END 2024-07-03 16:36 | disposition home or self-care (01) | LOC: HO.LNP 16:35 | PROVIDERS: Visit Provider Registered Nurse | DX: L98.9 Disorder of the skin and subcutaneous tissue, unspecified (principal) | CPT/HCPCS: 87070; 87073; 87205 ==

== ENCOUNTER 2025-01-17 07:04 | Outpatient (REF) | payer MEDICAID, SELFPAY ==
[2025-01-17 07:49] LABS: Cholesterol 179 mg/dL (<200); HDL Cholesterol 33 mg/dL (>40); LDL Cholesterol Calculated 91 mg/dL (<100); Triglycerides 275 mg/dL (<150)
[2025-01-17 08:11] LABS: Prostate Specific Antigen 1.12 ng/mL (<0.05-4.0)
== END 2025-01-17 07:05 | disposition home or self-care (01) ==
LOC: HO.LAB 07:04
PROVIDERS: Urology; PCP Registered Nurse; Visit Provider Registered Nurse
DX: N40.1 Benign prostatic hyperplasia with lower urinary tract symptoms (principal); E78.2 Mixed hyperlipidemia
CPT/HCPCS: 36415; 80061; 84153

== ENCOUNTER 2025-04-14 07:57 | Outpatient (REF) | payer MEDICAID, SELFPAY ==
--- OUTSIDE RECORDS SUMMARY | 2025-04-14 08:00 | XMS_ITS | Patient Health Record ---
Author Organization [facility] Address [address] [place] [address] Care Team Providers Care Radio Personality Name Role Phone HEVER MURPHY MD Primary Care Provider Christiano Medina Jr Unavailable Allergies Allergen (clinical drug ingredient) Drug/Non Drug Allergy documented on EMR Reaction Allergy Type Onset Date Status fluoxetine PROzac Unknown Drug Allergy Active Reason For Referral No Information Medications Medication SIG (Take, Route, Frequency, Duration) Notes [...] Gabapentin 300 MG Oral for 30 Active Social History Tobacco Use: Social History Observation Description Date Details (start date - stop date) Current Smoker NA - NA Tobacco Use/Smoking Question Answer Notes Patient is a current smoker How often do you smoke cigarettes? every day How many cigarettes a day do you smoke? 31 or mo re Alcohol Screen Question Answer Notes Did you have a drink containing alcohol in the p ast year? No Points 0 Interpretation Negative Problems Problem Type SNOMED Code ICD Code Onset Dates Problem Status W/U Status Risk Notes Problem [id number] Abnormal finding s in stool (R19.5) Active confirmed Problem Gastritis (6215043) Gastritis (K29.70) Active confirmed Problem [id number] Gastroesophageal reflux disease, unspecified whether esophagitis present (K21.9) Active confirmed Problem Chronic GERD (K21.9) Active confirmed Plan Of Treatment Future Test Test Name Order Date UPPER GI ENDOSCOPY 08/03/2023 COLONOSCOPY 08/03/2023 Insurance Providers Payer Name Payer Address Payer Phone Subscriber Number Group Number Insured Name Patient Relationship to Insured Coverage Start Date Coverage End Date [facility] [address] [place] [id number] TAHMINA LEIVA Self - patient is the insured Medical (General) History Medical History History ICD Code Hypertension Anxiety/depression Constipation Osteoarthritis Gastroesophageal reflux disease Opioid dependence Surgical History Surgery Date(Month/Year) left knee ACL repair 1992
--- OUTSIDE RECORDS SUMMARY | 2025-04-14 08:00 | XMS_ITS | Encounter Summary ---
Author Organization [employer] Address [address] [place] [address] Care Team Providers Care Air Defense Control Officer Name Role Phone Catherine Conklin Primary Care Provider [phone] Shyanne Da Silva MD Unavailable Isreal Lal MD Unavailable Reason for Visit * Reason Comments Med Refill Encounter Details Date Type Department Care Team ([facility] st Contact Info) Description 01/31/2025 Refill [facility] [address] [place], [place] [phone] Catherine Conklin FNP [address] [place], [place] [phone] Lower urinary tract symptoms Social History Tobacco Use Types Packs/Day Years Used Date Smoking Tobacco: Every Day Cigarettes Smokeless Tobacco: Never Alcohol Use Standard Drinks/Week Comments Never 0 (1 standard drink = 0.6 oz pur e alcohol) Depression Answer Date Recorded Patient Health Questionnaire-9 Score 3 10/25/2023 Patient Health Questionnaire-9 Score 3 10/25/2023 Last PHQ-9: Questionnaire Data Not on file 0 10/25/2023 Housing Stability Answer Date Recorded What is your housing situation today? I have judi de la rosa 06/27/[address] you li ve. Do you have problems with any of the following? None of the above 06/27/2023 Food Insecurity Answer Date Recorded Within the past 12 months, y ou worried that your food would run out before you got money to buy more: Never True 06/27/2023 Within the past 12 months,th e food you bought just didn't last and you didn't have enough money to get more: Never True Transportation Answer Date Recorded In the past 12 months, has l ack of transportation kept you from medical appts, meetings, work or from getting things needed for daily living? No 06/27/2023 Utilities Answer Date Recorded In the past 12 months, has t he electric, gas, oil or water company threatened to shut off services in your home? No 06/27/2023 Depression Answer Date Recorded Patient Health Questionnaire-2 Score 1 10/25/2023 Sex and Gender Information Value Date Recorded Sex Assigned at Male 06/27/2022 10:24 AM EDT Legal Sex Male 10:24 AM EDT Gender Identity Male 06/27/2022 10:24 AM EDT Sexual Orientation Straight 06/27/2022 10 :24 AM EDT documented as of this encounter Plan of Treatment Upcoming Encounters Date Type Department Care Team (Late st Contact Info) Description 04/18/2025 10:15 AM EDT Office Visit [facility] [address] [place] [address] Catherine Conklin FNP [address] [place] [address] documented as of this encounter Visit Diagnoses Diagnosis Lower urinary tract symptoms Other symptoms involving urinary system documented in this encounter Additional Health Concerns Assessment Noted Time PHQ-9 Depression Total Score: 3 10/25/19 24 10:26 AM EST documented as of this encounter Care Teams Air Defense Control Officer Relationship Specialty Start Date End Date Catherine Conklin FNP [address] [place] [phone] PCP - General Family Medicine 10/27/21 Shyanne Da Silva MD [address] [place] [address] Urology 07/03/24 Isreal Lal MD [address] [place] [address] Orthopaedic Surgery 07/03/24 Millie Goodman APRN (PSYCH) Psychiatry 07/03/24 [facility] 01/12/25 documented as of this encounter
[2025-04-14 09:24] LABS: Alanine Aminotransferase 43 U/L (0-40); Albumin Level 5.0 g/dL (3.5-5.0); Alkaline Phosphatase 73 U/L (39-117); Aspartate Amino Transferase 35 U/L (5-37); Cholesterol 131 mg/dL (<200); HDL Cholesterol 32 mg/dL (>40); Total Protein 7.8 g/dL (6.5-8.0); Triglycerides 205 mg/dL (<150)
== END 2025-04-14 07:58 | disposition home or self-care (01) ==
LOC: HO.LAB 07:57
PROVIDERS: PCP Registered Nurse; Visit Provider Registered Nurse
DX: E78.2 Mixed hyperlipidemia (principal)
CPT/HCPCS: 36415; 80061; 80076

== ENCOUNTER 2025-06-13 10:04 | Outpatient (AMB) | payer MEDICAID, SELFPAY ==
--- NOTE | 2025-06-13 08:03 | MHC.OFFVIS ---
Intake Visit Reasons: Current Smoker Allergies diclofenac (From Voltaren) Allergy (Mild, Verified 06/06/24 09:06) NAUSEA, nausea and vomiting naproxen Allergy (Unknown, Verified 06/06/24 09:06) nausea and vomiting fluoxetine (From Prozac) Allergy (Verified 06/06/24 09:06) Rash VELVET Allergy (Mild, Uncoded 06/06/24 09:06) HIVES HPI HPI Current Smoker: Details: Initial visit for this 55yo smoker with a 30PYH. Patient started smoking at age 14 for 41 years at 1/2-1ppd. . Denies marijuana use. Denies second hand smoke exposure. Denies exposure to chemicals or substances like asbestos. . Denies known family history of lung cancer. Denies personal history of cancers. Denies chest CT in last year. . Denies recent travel outside the [place]. Denies recent respiratory illness or recent hospitalization for respiratory issues. History of testing positive for COVID. Admits receiving COVID Vaccine. . Denies fever, chills, new/worsening cough, hemoptysis, hoarseness or dysphagia. Denies significant chest pain, significant dyspnea or unintentional weight loss. Patient Lung Cancer Screening Questionnaire reviewed with patient by provider. . Shared Decision Making Completed. Patient meets criteria. Discussed in detail with patient, the risk vs benefit of LDCT screening. Patient consents to proceed with scan. Discussed smoking cessation. [facility] Medical History (Updated 06/13/25 @ 10:07 by Azeb Kent PA-C) Schizophrenia Polysubstance abuse BPH loc w urin obs/LUTS Hyperplastic colon polyp Chronic constipation Nicotine dependence, cigarettes, uncomplicated Fall Surgical History (Updated 06/13/25 @ 10:09 by Azeb Kent PA-C) History of colonoscopy History of esophagogastroduodenoscopy (EGD) S/P ACL reconstruction Social History (Updated 06/13/25 @ 10:08 by Azeb Kent PA-C) Household Members: None Housing: Apartment Do you presently have visiting nurse or other home services: Yes Comment: Pt refusing bed alarm Patient Tobacco Use Status: Current everyday Tobacco user Tobacco use type: Cigarette Cigarette Packs Per Day: 1 Cigarettes Per Day: 20.0 Years Smoked: (onset 14yo, 1/2-1ppd x 41yrs, 30pyh) e-Cigarette/Vaping Use: Never Used Second Hand Smoke Exposure: No Substance Use Type: Crack/Cocaine and Opiates service: No Current occupational status: disabled Sexual orientation: Straight/Heterosexual Assessment & Plan Assessment & Plan (1) Nicotine dependence, cigarettes, uncomplicated: Comment: (onset 14yo, 1/2-1ppd x 41yrs, 30pyh) Code(s): F17.210 - Nicotine dependence, cigarettes, uncomplicated Category: Medical Plan: - SDM visit completed today in office. - Patient meets criteria for LDCT for lung cancer screening purposes and is asymptomatic. - Smoking cessation counseling offered. Patients can always call [phone]. - Will arrange for a LDCT scan of the chest for screening purposes at [facility]. - Risks, benefits, and alternatives were discussed in detail and the patient agrees to proceed. - Risks discussed include but are not limited to: radiation exposure, anxiety during testing and while awaiting results, false negatives, false positives and possibility of additional intervention such as further imaging or surgical procedures for benign disease. - Benefits are obviously detection of lung cancer at an early stage which can lead to improved outcomes. - Discussed the importance of screening program compliance with adherence to yearly LDCT scan as scheduled - or sooner interval scans for personalized screening regimen. - Discussed follow up plan. Our office will send a letter discussing results and if needed set up phone call and office visit based on CT findings. - Patient educated on results categorization and the management decisions for suspicious findings potentially found on the screening LDCT scan. Any patient with a Lung RADS score of 3 or 4 will be reviewed by a multidisciplinary team at [facility] to form a plan of action in regards to scan findings. - If further work up is warranted for a suspicious lung finding this will be followed by the Lung Cancer Screening program in conjunction with the Thoracic Surgery Department at [facility]. - A copy of the office note and LDCT will be sent to the patient's PCP - as well as documentation on any associated further plans of care. - Incidental findings on LDCT are the PCP's responsibility. These findings are indicated with an S finding on the LDCT Assessment. A note discussing the findings will be sent to the PCP who is then responsible for further management. - All questions answered.? Coding Level of Care Code Lung Cancer Screening G0296 Diagnoses Nicotine dependence, cigarettes, uncomplicated F17.210
--- OUTSIDE RECORDS SUMMARY | 2025-06-13 11:45 | XMS_ITS | Encounter Summary ---
Author Organization [email or web address] Address [address] [facility] [address] [place] [address] Care Team Providers Care Enamel Applier Name Role Phone Catherine Conklin Primary Care Provider [phone] Shyanne Da Silva MD Unavailable Isreal Lal MD Unavailable Reason for Visit * Reason Comments Med Refill Encounter Details Date Type Department Care Team ([facility] st Contact Info) Description 01/31/2025 Refill [facility] [address] [place], [place] [phone] Catherine Conklin FNP [address] [place], [place] [phone] Lower urinary tract symptoms Social History Tobacco [...] as of this encounter Plan of Treatment Not on file documented as of this encounter Visit Diagnoses Diagnosis Lower urinary tract symptoms Other symptoms involving urinary system documented in this encounter Additional Health Concerns Assessment Noted Time PHQ-9 Depression Total Score: 3 10/25/19 24 10:26 AM EST documented as of this encounter Care Teams Enamel Applier Relationship Specialty Start Date End Date Catherine Conklin FNP [address] [place] [id number] PCP - General Family Medicine 10/27/21 Shyanne Da Silva MD [address] [place] [address] Urology 07/03/24 Isreal Lal MD [address] [place] [address] Orthopaedic Surgery 07/03/24 Millie Goodman APRN (PSYCH) Psychiatry 07/03/24 [facility] 01/12/25 documented as of this encounter
--- OUTSIDE RECORDS SUMMARY | 2025-06-13 11:45 | XMS_ITS | Encounter Summary ---
Author Organization [employer] Address [address] [facility] [address] [place] [address] Care Team Providers Care Remotely Operated Vehicle Name Role Phone RobertCatherine mckeon NEPTALI Primary Care Provider [phone] Shyanne Da Silva MD Unavailable Isreal Lal MD Unavailable Encounter Details Date Type Department Care Team (Late st Contact Info) Description 01/25/2024 Orders Only [facility] [address] [place], [place] [phone] Gilson Laguna MD [address] [place], [place] [phone] Incomplete emptying of bladder (Primary Dx) Social History Tobacco Use Types Packs/Day Years [...] as of this encounter Plan of Treatment Scheduled Orders Name Type Priority Associated Diagnoses Orde r Schedule Culture, Urine, Routine Microbiology Routine Incomplete emptying of bladder Expected: 01/25/2024 (Approximate), Expires: 01/24/2025 documented as of this encounter Visit Diagnoses Diagnosis Incomplete emptying of bladder- Primary Incomplete bladder emptying documented in this encounter Additional Health Concerns Assessment Noted Time PHQ-9 Depression Total Score: 3 10/25/19 24 10:26 AM EST documented as of this encounter Care Teams Remotely Operated Vehicle Relationship Specialty Start Date End Date Catherine Conklin FNP [address] [place] [id number] PCP - General Family Medicine 10/27/21 Shyanne Da Silva MD [address] [place] [address] Urology 07/03/24 Isreal Lal MD [address] [place] [address] Orthopaedic Surgery 07/03/24 Millie Goodman APRN (PSYCH) Psychiatry 07/03/24 [facility] 01/12/25 documented as of this encounter
--- OUTSIDE RECORDS SUMMARY | 2025-06-13 11:46 | XMS_ITS | Clinical Summary ---
Author Organization [address] [facility] Address [address] [place] [address] Phone Care Team Providers Care Pressure Test Operator Name Role Phone Stefany Florez MD Primary Care Provider [phone] Surgical History Surgery Date Site/Laterality Comments KNEE SURGERY 1992 PROCEDURE: HISTORICAL KNEE SURGERY; COMMENT: reconstructive left knee Medical History Medical History Date Comments Allergic rhinitis, cause unspecified 09/23/2005 DX:Allergic rhinitis, cause unspecified Pain in joint, lower leg 09/23/2005 DX:Pain in joint, lower leg; COMMENT: h/o ACL reconstruction, meniscal repair Depression 08/09/2013 DX:Depression; C OMMENT: [facility] Narcotic abuse in remission ([facility] V24, [facility] V28) 08/09/2013 DX:Narcotic abuse in remissi on ([facility]); COMMENT: On suboxone.on clean slate Hyperlipidemia 08/09/2013 DX:Hyperlipidemi a Inguinal hernia 09/03/2013 DX:Inguinal nadia ia Family History Medical History Relation Name Comments Hyperlipidemia Brother Liver cancer Father Alzheimer's disease Mother htn, tia s, Relation Name Status Comments Brother Alive 2 full brother and one half.estranged Father liver cancer Mother Alive dementia Sister Alive 1,half has not seen her since pt was 5 Social History Tobacco Use Types Packs/Day Years Used Date Smoking Tobacco: Every Day Cigarettes Smokeless Tobacco: Never Alcohol Use Standard Drinks/Week Comments No 0 (1 standard drink = 0.6 oz pur e alcohol) Sex and Gender Information Value Date Recorded Sex Assigned at Not on file Legal Sex Male 6:46 PM EST Gender Identity Not on file Sexual Orientation Not on file Obstetrics History Plan of Treatment Upcoming Encounters Date Type Department Care Team ([facility] st Contact Info) Description 07/08/2025 10:00 AM EST Office Visit Orthopedic Surgery - [place] [address] [facility] [address] [place] [address] Davin Malik, DPM [address] [facility] [address] [place] [address] Health Maintenance Due Date Last Done Comments Colorectal Cancer Screening: Colonoscopy 1968 DTaP,Tdap,and Td Vaccines (1 - Tdap) 1987 Hepatitis A Vaccines (1 of 2 - Risk 2-dose series) 1987 Hepatitis B Vaccines (1 of 3 - 19+ 3-dose series) 1987 Pneumococcal Vaccine: 50+ Ye ars (1 of 2 - PCV) 1987 Zoster Vaccines (1 of 2) 2018 Depression Screening 08/28/2024 Cholesterol Screening (Lipid Panel) 04/22/2025 HIV Screening 04/22/2025 Hepatitis C Screening 04/22/2025 Social Influencers of Health Screening 04/22/2025 COVID-19 Vaccine (1 - 2023-2 5 season) 2025 Influenza Vaccine (#1) 2025 RSV Immunization Adult Patie nts (1 - 1-dose 75+ series) 2043 HIB Vaccines Aged Out No longer eligi ble based on patient's age to complete this topic HPV Vaccines Aged Out No longer eligi ble based on patient's age to complete this topic IPV Vaccines Aged Out No longer eligi ble based on patient's age to complete this topic MMR Vaccines Aged Out No longer eligi ble based on patient's age to complete this topic Meningococcal ACWY Vaccine Aged Out N o longer eligible based on patient's age to complete this topic Meningococcal B Vaccine Aged Out No l onger eligible based on patient's age to complete this topic RSV Immunization Patients Un kashif 20 months Aged Out No longer eligible b ased on patient's age to complete this topic Varicella Vaccines Aged Out No longer eligible based on patient's age to complete this topic Insurance MEDICAID - [place] Care Teams Pressure Test Operator Relationship Specialty Start Date End Date Stefany Florez MD PCP - General Internal Medicine 09/01/15
--- OUTSIDE RECORDS SUMMARY | 2025-06-13 11:46 | XMS_ITS | Clinical Summary ---
Author Organization [employer] Address [address] [place] [address] [address] [place] [address] Care Team Providers Care Sample Body Builder Name Role Phone RobertCatherine mckeon NEPTALI Primary Care Provider [phone] Shyanne Da Silva MD Unavailable Isreal Lal MD Unavailable Allergies Active Allergy Reactions Criticality Noted Date Comments Diclofenac Nausea And Vomiting 12/05/2007 Nsaids 09/10/2013 Medications bisacodyl (Dulcolax) 10 MG suppository Insert 1 suppository into the rectum. 03/15/20 22 Active cloNIDine (Catapres) 0.1 MG tablet Take 0.1 mg by mouth if needed in the morning, at noon, and at bedtime. 11/09/19 23 Active docusate sodium (Colace) 100 MG capsule TAKE 1 CAPSULE BY ORAL ROUTE EVERY DAY AT BEDTIME NEEDED FOR CONSTIPATION. MAY DOSE 2X/DAY IF ONE PILL NOT EFFECTIVE. 10/11/19 23 Active melatonin 5 MG tablet 01/27/20 23 Active chlorhexidine (Hibiclens) 4 % external liquidIndications: Skin abrasion Wash with hibiclens daily for 2-3 days as needed for recurrent abscesses, Scrub for 2-3 mins in the shower, rinse off with water. Do not use on face or genitals. 118 mL 1 01/31/20 23 Active Suboxone 4-1 MG per sublingual film 06/19/20 23 Active clonazePAM (KlonoPIN) 0.5 MG tablet 1 / day 05/19/20 23 Active OLANZapine (ZyPREXA) 10 MG tablet 06/09/20 23 Active clindamycin (Clindagel) 1 % gelIndications:His tory of MRSA infection Apply by topical route daily as needed for sores 60 g 2 03/06/20 24 Active cyclobenzaprine (Flexeril) 10 MG tablet Take 1 tablet (10 mg) by mouth at bedtime for 10 days. 10 tablet 03/15/20 24 Active Salicylic Acid 40 % padsIndications:Ve rruca pedis Apply by topical route to lesion on bottom of right foot per package directions. 10 each 07/03/20 24 Active mirtazapine (Remeron) 45 MG tablet 06/25/20 24 Active ketoconazole (NIZOral) 2 % cream Apply 1 Application. topically 2 times daily. 60 g 1 08/01/20 24 Active mupirocin (Bactroban) 2 % ointmentIndication s:Skin lesion APPLY TOPICALLY TWICE A DAY FOR 10 DAYS NEEDED 15 g 3 08/02/20 24 Active omeprazole (PriLOSEC) [address] capsuleIndications :Gastroesophageal reflux disease, unspecified whether esophagitis present TAKE 1 CAPSULE BY MOUTH EVERY DAY 30 MINUTES TO 1 HOUR BEFORE A MEAL 90 capsule 3 01/16/20 25 Active nicotine (Nicoderm CQ) 14 MG/24HR patch After completion of 21mg/day patch: Apply 1 patch on the skin (one) time each day at the same time x 2 weeks. 14 patch 01/16/20 25 Active nicotine (Nicoderm CQ) 21 MG/24HR patch Apply 1 patch on the skin (one) time each day at the same time x 6 weeks. 42 patch 01/16/20 25 Active nicotine (Nicoderm CQ) 7 MG/24HR patch After completion of 14mg/day patch: Apply 1 patch on the skin (one) time each day at the same time x 2 weeks. 14 patch 01/16/20 25 Active albuterol 108 (90 Base) MCG/ACT inhaler Inhale 2 puffs every 4 (four) hours if needed for wheezing. 18 g 2 01/16/20 25 026 Active rosuvastatin (Crestor) 10 MG tabletIndications: Mixed hyperlipidemia Take 1 tablet (10 mg) by mouth Once per day. 30 tablet 11 01/18/20 25 026 Active amLODIPine (Norvasc) 2.5 MG tabletIndications: Primary hypertension TAKE 1 TABLET BY MOUTH EVERY DAY 90 tablet 03/20/20 25 Active tamsulosin (Flomax) 0.4 MG 24 hr capsuleIndications :Lower urinary tract symptoms TAKE 1 CAPSULE (0.4 MG) BY MOUTH ONCE PER DAY. 90 capsule 04/24/20 25 Active Active Problems Problem Noted Date Diagnosed Date Lower urinary tract symptoms 02/04/2024 Assessment & Plan (07/03/2024 2:26 PM EST): Lab Results Component Value Date PSA 0.73 10/25/2023 -First degree family member x 2 w/ prostate CA (brothers at 55 y/o and 64 y/o) -Multiple ED and UC visits over October - December 2023 related to urinary symptoms. Tx for UTI, as well as hyponatremia (suspected d/t interaction between Trileptal and Bactrim). Has since discontinued Trileptal with psych prescriber -Pt currently well controlled on Flomax 0.4mg daily -Following with [facility] Urology - Dr. Silas Da Silva. Declined cystoscopy in January 2024 -Reviewed concerning signs/symptoms Assessment & Plan (02/04/2024 5:44 PM EDT): Lab Results Component Value Date PSA 0.73 10/25/2023 -First degree family member w/ prostate CA -Multiple ED and UC visits over October - December 2023 related to urinary symptoms. Tx for UTI, as well as hyponatremia (suspected d/t interaction between Trileptal and Bactrim). Has since discontinued Trileptal with psych prescriber -Pt currently well controlled on Flomax 0.4mg daily -Follow up with Urology as scheduled Healthcare maintenance 06/28/2023 Overview (10/25/2023): -Colon CA screening: Cologuard POSITIVE Jun 2023. Colonoscopy Aug 2023 w/ 2 hyperplastic polyps. Plan to repeat in 5-10 years per pt. -PSA: WNL Sep 2023 Assessment & Plan (07/09/2023 4:10 PM EST): -Colon CA screening: Cologuard ordered 06/28/23 Opioid use disorder 02/01/2023 Assessment & Plan (10/25/2023 4:25 PM EST): OBAT Suboxone 4-1 mg/day managed through outside clinic Well controlled Assessment & Plan (07/09/2023 4:10 PM EST): OBAT Suboxone 4-1 mg/day managed through outside clinic Symptoms and SE of dose taper being managed by psych team and OBAT provider Assessment & Plan (02/01/2023 7:32 PM EDT): Continues on methadone, current dose 12mg daily with plan to taper off completely Symptoms and SE of dose taper being managed by psych team and OBAT provider Current smoker 02/01/2023 Overview (01/15/2025): -Cigg/day: 20 -Age started: 14 years old -Total years smokin -Pack year history: Greater than 20 Encouraged smoking cessation resources such as pharmacomtherapy, [facility] smoking cessation group, and [facility] pharmacy smoking cessation clinic -START NRT patches -Referred to [facility] LDCT for lung CA screening on 01/15/2025 Assessment & Plan (04/20/2025 3:49 PM EDT): Called and scheduled for LDCT at [facility] with pt today Assessment & Plan (01/15/2025 4:09 PM EDT): Had previously declined referral for lung cancer screening program, although in agreement to proceed today. Faxed to [facility]. Assessment & Plan (07/03/2024 2:30 PM EST): -Currently smoking 20 cigg/day -Encouraged smoking cessation resources such as pharmacomtherapy, [facility] smoking cessation group, and [facility] pharmacy smoking cessation clinic -NRT patches available -Discussed LDCT for Lung CA screening. Declined Jun 2023, pt to let us know if/when interested Assessment & Plan (02/04/2024 5:39 PM EDT): -Currently smoking 20 cigg/day -Encouraged smoking cessation resources such as pharmacomtherapy, [facility] smoking cessation group, and [facility] pharmacy smoking cessation clinic -NRT patches available -Discussed LDCT for Lung CA screening. Declined Jun 2023, pt to let us know if/when interested Assessment & Plan (10/25/2023 4:25 PM EST): -Currently smoking 20 cigg/day -Encouraged smoking cessation resources such as pharmacomtherapy, [facility] smoking cessation group, and [facility] pharmacy smoking cessation clinic -Discussed LDCT for Lung CA screening. Declined Jun 2023, pt to let us know if/when interested Assessment & Plan (07/09/2023 4:09 PM EST): -Currently smoking 20 cigg/day -Encouraged smoking cessation resources such as pharmacomtherapy, [facility] smoking cessation group, and [facility] pharmacy smoking cessation clinic -Discussed LDCT for Lung CA screening. Pt declines conversation today and would like to discuss at future appt Assessment & Plan (02/01/2023 7:38 PM EDT): -Currently smoking 15 cigg/day -Encouraged smoking cessation resources such as pharmacomtherapy, [facility] smoking cessation group, and [facility] pharmacy smoking cessation clinic Degeneration of cervical intervertebral disc 11/2022 Primary hypertension 01/29/2023 Overview (02/01/2023): BP goal < 140/90 mmHg Continue with amlodipine 2.5mg daily Encouraged to continue with lifestyle interventions such as low salt diet and routine physical movement/activity Assessment & Plan (04/20/2025 3:49 PM EDT): Well-controlled, continue with current plan Assessment & Plan (01/15/2025 4:08 PM EDT): Well-controlled, continue with current plan Osteoarthritis of both knees 11/23/2021 Overview (07/22/2023): XR from 10/07/21 with impression of degenerative changes bilateral knees (history of ACL reconstruction to the left knee) Followed by [facility] Ortho - Dr. Lal. History of steroid injection, with plan for consideration of viscosupplementation if not effective Assessment & Plan (07/03/2024 2:27 PM EST): Continues following with [facility] Ortho, stable at this time. Assessment & Plan (07/22/2023 10:49 AM EST): -Pt planning to call to schedule follow up with Ortho. Will call our office if new referral is needed. Anxiety state 12/20/2013 Inguinal hernia 09/03/2013 Depression 08/09/2013 Assessment & Plan (01/15/2025 4:11 PM EDT): Followed by mental health team Psych prescriber: Millie Cota APRN Current psych med regimen: Clonidine 0.1mg TID Olanzapine 5mg in the morning, 15mg before bed Mirtazapine 45mg nightly Clonazepam 0.5mg daily PRN Previous medications: Oxcarbazepine - DC December 2023 d/t hyponatremia Buspirone, gabapentin, risperidone Assessment & Plan (02/04/2024 5:42 PM EDT): Followed by mental health team Psych prescriber: Millie Cota APRN Current psych med regimen: Buspirone 7.5mg TID Clonidine 0.1mg TID Gabapentin 300mg TID Risperidone Olanzapine Previous medications: Oxcarbazepine - DC December 2023 d/t hyponatremia Assessment & Plan (07/09/2023 4:08 PM EST): Followed by mental health team Psych prescriber: Millie Cota APRN Current psych med regimen: Buspirone 7.5mg TID Clonidine 0.1mg TID Gabapentin 300mg TID Risperidone Olanzapine Oxcarbazepine Assessment & Plan (02/01/2023 7:34 PM EDT): Followed by mental health team Psych prescriber: Millie Cota APRN Continues with current psych regimen: Buspirone 7.5mg TID Clonidine 0.1mg TID Gabapentin 300mg TID Mirtazepine 15mg nightly Risperidone 1.5mg in the morning and 2mg nightly - reports dose has been lowered, and feels less tired throughout the day. Hyperlipidemia 08/09/2013 Assessment & Plan (04/20/2025 3:48 PM EDT): - Cont rosuvastatin 10mg nightly - Nutrition interventions and routine exercise encouraged as well. - Repeat FLP in 6mo Assessment & Plan (01/15/2025 4:08 PM EDT): - Plan to repeat fasting lipid panel as the 1 patient shows me was greater than 6 months ago. In agreement to start statin if levels are elevated. Reports has been on medication in the past without side effects. Nutrition interventions and routine exercise encouraged as well. Encounters Date Type Department Care Team Description 04/24/2025 Refill [facility] [address] [place] [address] Catherine Conklin FNP Lower urinary tract symptoms 04/18/2025 10:15 AM EDT Office Visit [facility] [address] [place] [address] Catherine Conklin FNP Plantar wart of both feet (Primary Dx); Dietary counseling; Exercise counseling; Pure hypertriglyceridemia; Primary hypertension; Current smoker 04/18/2025 Travel 04/17/2025 Telephone [facility] [address] [place] [address] Catherine Conklin FNP Chart Prep 03/20/2025 Refill [facility] [address] [place] [phone] Catherine Conklin FNP Primary hypertension 03/13/2025 Telephone [facility] [address] [place], [place] [phone] Catherine Conklin FNP Paperwork/Forms from Last 3 Months Immunizations Immunization Administration Dates Next Due Hep B, adult 01/15/2025,11/12/2021 INFLUENZA INJECTABLE QUADRIV ALANT CCIIV4 MDCK Multi-dose vial 12/29/2021 Influenza injectable quadrivalent preservative f ree 06/28/2023,05/04/2022 Moderna Covid-19 Vaccine 12+ 10/26/2020,09/28/19 21 Pneumococcal Conjugate PCV 20 06/28/2023 Tdap 06/28/2023 Social History Tobacco Use Types Packs/Day Years Used Date Smoking Tobacco: Every Day Cigarettes Smokeless Tobacco: Never Tobacco Cessation:Ready to Q uit: Not Asked; Counseling Given: Not Answered Alcohol Use Standard Drinks/Week Comments Never 0 (1 standard drink = 0.6 oz pur e alcohol) Depression Answer Date Recorded Patient Health Questionnaire-9 Score 9 04/18/2025 Patient Health Questionnaire-9 Score 9 04/18/2025 Last PHQ-9: Questionnaire Data Not on file 0 04/18/2025 Housing Stability Answer Date Recorded What is your housing situation today? I have judi estrella 04/18/[address] you li ve. Do you have problems with any of the following? None of the above 04/18/2025 Food Insecurity Answer Date Recorded Within the past 12 months, y ou worried that your food would run out before you got money to buy more: Never True 04/18/2025 Within the past 12 months,th e food you bought just didn't last and you didn't have enough money to get more: Never True Transportation Answer Date Recorded In the past 12 months, has l ack of transportation kept you from medical appts, meetings, work or from getting things needed for daily living? No 04/18/2025 Utilities Answer Date Recorded In the past 12 months, has t he electric, gas, oil or water company threatened to shut off services in your home? No 04/18/2025 Depression Answer Date Recorded Patient Health Questionnaire-2 Score 2 04/18/2025 Internet Access Answer Date Recorded Internet Access Q1 Yes 04/18/2025 Internet Access Q2 Not on file 04/18/2025 Sex and Gender Information Value Date Recorded Sex Assigned at Male 06/27/2022 10:24 AM EDT Legal Sex Male 10:24 AM EDT Gender Identity Male 06/27/2022 10:24 AM EDT Sexual Orientation Straight 06/27/2022 10 :24 AM EDT Last Filed Vital Signs Vital Sign Reading Time Taken Comments Blood Pressure 120/80 04/18/2025 10:12 AM EDT Pulse 98 04/18/2025 10:12 AM EDT Temperature 36.7 C (98.1 F) 04/18/2025 10:12 AM EDT Respiratory Rate 20 04/18/2025 10:12 AM EDT Oxygen Saturation 99% 04/18/2025 10:12 AM EDT Inhaled Oxygen Concentration - - Weight 86.2 kg (190 lb) 04/18/2025 10:12 AM EDT Height 170.2 cm (5' 7 ) 04/18/2025 10:12 AM EDT Body Mass Index 29.76 04/18/2025 10:12 AM EDT Plan of Treatment Health Maintenance Due Date Last Done Comments CT Colonography 1968 Colonoscopy 1968 FIT 1968 Sigmoidoscopy 1968 Zoster Vaccines (1 of 2) 2018 FOBT 07/05/2024 07/05/2023 Hepatitis B Vaccines (3 of 3 - 19+ 3-dose series) 03/12/2025 01/15/2025, 11/12/2021 COVID-19 Vaccine ( season) 2025 05/11/2022, 12/22/2021, 10/26/2020, Additional history exists Influenza Vaccine (#1) 2025 , 05/04/2022, 12/29/2021 Alcohol/Substance Use Screening 07/03/2025 07/03/2024 Depression Monitoring 10/19/2025 04/18/2025, 025 Tobacco Screening 01/15/2026 01/15/2025 Disability Screening 04/18/2026 04/18/2025 SDOH Screening 04/18/2026 04/18/2025 Colorectal Cancer Screening 07/05/2026 FIT DNA/Cologuard 07/05/2026 07/05/2023 Lipid Panel 04/14/2030 04/14/2025, 12/27, 10/28/2021 DTaP/Tdap/Td Vaccines (2 - Td or Tdap) 06/28/2033 06/28/2023 RSV Patients and Patients Aged 60 years or older (1 - 1-dose 75+ series) 2043 HIV Screening Completed 10/28/2021 Hepatitis C Screening Completed 10/28/2021 Pneumococcal Vaccine: 50+ Years Completed 06/28/2023 HIB Vaccines Aged Out No longer eligi ble based on patient's age to complete this topic HPV Vaccines Aged Out No longer eligi ble based on patient's age to complete this topic Hepatitis A Vaccines Aged Out No long er eligible based on patient's age to complete this topic IPV Vaccines Aged Out No longer eligi ble based on patient's age to complete this topic Meningococcal B Vaccine Aged Out No l onger eligible based on patient's age to complete this topic Meningococcal Vaccine Aged Out No terry neyda eligible based on patient's age to complete this topic RSV under 20 months Aged Out No longe r eligible based on patient's age to complete this topic Rotavirus Vaccines Aged Out No longer eligible based on patient's age to complete this topic Procedures Procedure Name Priority Date/Time Associated Diagnosis Comments HEPATIC FUNCTION PANEL Routine 04/14/2025 8:07 AM EDT Mixed hyperlipidemia LIPID PANEL, STANDARD Routine 04/14/2025 8:07 AM EDT Mixed hyperlipidemia LAB COLOGUARD COLON CANCER SCREEN Routine 07/05/2023 7:30 AM EST Screening for colon cancer ZZZ HISTORICAL HEPATITIS C AB W/REFL TO HCV RNA, QN, PCR Routine 10/28/2021 9:51 AM EST HIV 1/2 ANTIGEN/ANTIBODY, FOURTH GENERATION W/RFL Routine 10/28/2021 9:51 AM EST from Last 3 Months or Most Recently Relevant to Health Maintenance Results * (ABNORMAL) Hepatic Function Panel (04/14/2025 8:07 AM EDT) Bilirubin, Total 0.5 0.0 - 1.0 mg/dL [facility] Bilirubin, Direct 0.2 0.0 - 0.5 mg/dL [facility] Aspartate Amino Transferase 35 5 - 37 U/L [facility] Alanine Aminotransferase 43(H) 0 - 40 U/L [facility] Total Protein 7.8 6.5 - 8.0 g/dL [facility] Albumin Level 5.0 3.5 - 5.0 g/dL [facility] Alkaline Phosphatase 73 39 - 117 U/L [facility] Blood Venous blood specimen / Unknown 04/14/2025 8:07 AM EDT 04/14/2025 8:07 AM EDT Catherine Conklin WHARFINGER CHIEF LAB BLOOD ORDERABLES Final Res ult Performing Organization Address [facility] Co de Phone Number [facility] [address] [place] [phone] * (ABNORMAL) Lipid Panel, Standard (04/14/2025 8:07 AM EDT) Triglycerides 205(H) <150 mg/dL [facility] Comment:Desirable Triglyceri de: less than 150 mg/dLBorderline High Triglyceride 150-199 mg/dLHigh Triglyceride: 200-499 mg/dLVery High Triglyceride: greater than or equal to 5OO mg/dL Cholesterol 131 <200 mg/dL [facility] Comment:Desirable Cholestero l: less than 200 mg/dLBorderline High Cholesterol: 200-239 mg/dLHigh Cholesterol: greater than 239 mg/dL LDL Cholesterol Calculated 58 <100 mg/dL [facility] Comment:Desirable LDL: less than 100 mg/dLNear Optimal/Above Optimal LDL: 110- 129 mg/dLBorderline High LDL: 130-159 mg/dLHigh LDL: 160-189 mg/dLVery High LDL: greater than or equal to 190 mg/dL HDL Cholesterol 32(L) >40 mg/dL [facility] Comment:Desirable HDL: great er than 40 mg/dL Note: This HDL assay may give artificially low results in patients with liver disease. Blood Venous blood specimen / Unknown 04/14/2025 8:07 AM EDT 04/14/2025 8:07 AM EDT us Catherine Conklin [employer] LAB BLOOD ORDERABLES Final Res ult Performing Organization Address [facility]/ZIP Co de Phone Number [facility] [address] [place] [phone] * (ABNORMAL) Cologuard?? colon cancer screening (07/05/2023 7:30 AM EST) Cologuard Result Positive( A) Negative 07/26/2023 4:51 AM EST [employer] (CLIA #:[id number]) Comment: POSITIVE TEST RESULT. A positive Cologuard result should be followed with a colonoscopy or visual examination of the colon. The normal value (reference range) for this assay is negative. TEST DESCRIPTION: Composite algorithmic analysis of stool DNA-biomarkers with hemoglobin immunoassay. Quantitative values of individual biomarkers are not reportable and are not associated with individual biomarker result reference ranges. Cologuard is intended for colorectal cancer screening of adults of either sex, 45 years or older, who are at average-risk for colorectal cancer (CRC). Cologuard has been approved for use by the U.S. FDA. The performance of Cologuard was established in a cross sectional study of average-risk adults aged 50-84. Cologuard performance in patients ages 45 to 49 years was estimated by sub-group analysis of near-age groups. Colonoscopies performed for a positive result may find as the most clinically significant lesion: colorectal cancer [4.0%], advanced adenoma (including sessile serrated polyps greater than or equal to 1cm diameter) [20%] or non- advanced adenoma [31%]; or no colorectal neoplasia [45%]. These estimates are derived from a prospective cross-sectional screening study of 10,000 individuals at average risk for colorectal cancer who were screened with both Cologuard and colonoscopy. (Satya Espinal al, N Engl J Med 2014;370(14):6567-8650.) Cologuard may produce a false negative or false positive result (no colorectal cancer or precancerous polyp present at colonoscopy follow up). A negative Cologuard test result does not guarantee the absence of CRC or advanced adenoma (pre-cancer). The current Cologuard screening interval is every 3 years. ([employer] and U.S. Multi-Society Task Force). Cologuard performance data in a 10,000 patient pivotal study using colonoscopy as the reference method can be accessed at the following location: www.[employer]/results. Additional description of the Cologuard test process, warnings and precautions can be found at [email or web address]. Stool specimen (specimen) 07/05/2023 7:30 AM EST 07/06/2023 8:01 PM EST Catherine Conklin [facility] MOLECULAR DIAGNOSTICS ORDE RABPAULA Final Result Performing Organization Address City/[facility] Co de Phone Number [employer] (CLIA #:[id number]) [place] [address], * HEPATITIS C AB W/REFL TO HCV RNA, QN, PCR (10/28/2021 9:51 AM EST) HEPATITIS C ANTIBODY NON-REACT SANTI NON-REACT SANTI [facility] INDEX 0.03 <1.00 [facility] Comment: HCV antibody was non-reactive. There is no laboratory evidence of HCV infection. In most cases, no further action is required. However, if recent HCV exposure is suspected, a test for HCV RNA (test code 52500) is suggested. For additional information please refer to http://education.charming charlie/faq/JPR12k2 (This link is being provided for informational/ educational purposes only.) 10/28/2021 9:51 AM EST Catherine Joneslinda [facility] HISTORICAL/NON ORDERABLE LABS Final Result Performing Organization Address [facility] Co de Phone Number [facility] [address] * HIV 1/2 ANTIGEN/ANTIBODY,FOURTH GENERATION W/RFL (10/28/2021 9:51 AM EST) HIV-1/2 ANTIGEN AND ANTIBODIES, 4TH GENERATION W/ REFLEX NON-REACT SANTI NON-REACT SANTI [facility] Comment: HIV-1 antigen and HIV-1/HIV-2 antibodies were not detected. There is no laboratory evidence of HIV infection. PLEASE NOTE: This information has been disclosed to you from records whose confidentiality may be protected by state law. If your state requires such protection, then the state law prohibits you from making any further disclosure of the information without the specific written consent of the person to whom it pertains, or as otherwise permitted by law. A general authorization for the release of medical or other information is NOT sufficient for this purpose. For additional information please refer to http://education.charming charlie/faq/DZP694 (This link is being provided for informational/ educational purposes only.) The performance of this assay has not been clinically validated in patients less than 2 years old. 10/28/2021 9:51 AM EST us Catherine Conklin [facility] BLOOD ORDERABLES Final Res ult Performing Organization Address City/State/[facility] Co de Phone Number [facility] [address] from Last 3 Months or Most Recently Relevant to Health Maintenance [facility] C[facility] Care Teams Sample Body Builder Relationship Specialty Start Date End Date Catherine Conklin FNP [address] [place] [address] PCP - General Family Medicine 10/27/21 Shyanne Da Silva MD [address] [place] [address] Urology 07/03/24 Isreal Lal MD [address] [place] [address] Orthopaedic Surgery 07/03/24 Millie Goodman APRN (PSYCH) Psychiatry 07/03/24 [facility] 01/12/25
--- OUTSIDE RECORDS SUMMARY | 2025-06-13 11:46 | XMS_ITS | Encounter Summary ---
Author Organization [employer] Address [address] [facility] [address] [place] [address] Care Team Providers Care Crop Nutrition Scientist Name Role Phone RobertCatherine mckeon NEPTALI Primary Care Provider [phone] Shyanne Da Silva MD Unavailable Isreal Lal MD Unavailable Encounter Details Date Type Department Care Team (Late st Contact Info) Description 07/24/2023 Abstract [facility] [address] [place] [address] Abby Barry Social History Tobacco Use Types Packs/Day Years Used Date Smoking Tobacco: Every Day Cigarettes Smokeless Tobacco: Never Alcohol Use Standard Drinks/Week Comments Never 0 (1 standard drink = 0.6 oz pur e alcohol) Depression Answer Date Recorded Patient Health Questionnaire-9 Score 12 01/30/2023 Housing Stability Answer Date Recorded What is [...] t he electric, gas, oil or water [employer] threatened to shut off services in your home? No 06/27/2023 Depression Answer Date Recorded Patient Health Questionnaire-2 Score 2 01/30/2023 Sex and Gender Information Value Date Recorded Sex Assigned at Male 06/27/2022 10:24 AM EDT Legal Sex Male 10:24 AM EDT Gender Identity Male 06/27/2022 10:24 AM EDT Sexual Orientation Straight 06/27/2022 10 :24 AM EDT documented as of this encounter Plan of Treatment Not on file documented as of this encounter Visit Diagnoses Not on filedocumented in this encounter Additional Health Concerns Assessment Noted Time PHQ-9 Depression Total Score: 12 023 9:12 AM EDT documented as of this encounter Care Teams Crop Nutrition Scientist Relationship Specialty Start Date End Date Catherine Conklin FNP [address] [place] [id number] PCP - General Family Medicine 10/27/21 Shyanne Da Silva MD [address] [place] [address] Urology 07/03/24 Isreal Lal MD [address] [place] [address] Orthopaedic Surgery 07/03/24 Millie Goodman APRN (PSYCH) Psychiatry 07/03/24 [facility] 01/12/25 documented as of this encounter
--- OUTSIDE RECORDS SUMMARY | 2025-06-13 11:46 | XMS_ITS | Encounter Summary ---
Author Organization [employer] Address [address] [facility] [address] [place] [address] Care Team Providers Care Contact Clerk Name Role Phone Catherine Conklin Primary Care Provider [phone] Shyanne Da Silva MD Unavailable Isreal Lal MD Unavailable Encounter Details Date Type Department Care Team (Late st Contact Info) Description 07/29/2024 Telephone [facility] [address] [place] [address] Catherine Conklin FNP [address] [place], [place] [id number] Social History Tobacco Use Types Packs/Day Years [...] documented as of this encounter Care Teams Contact Clerk Relationship Specialty Start Date End Date Catherine Conklin FNP [address] [place] [id number] PCP - General Family Medicine 10/27/21 Shyanne Da Silva MD [address] [place] [address] Urology 07/03/24 Isreal Lal MD [address] [place] [address] Orthopaedic Surgery 07/03/24 Millie Goodman APRN (PSYCH) Psychiatry 07/03/24 [facility] 01/12/25 documented as of this encounter
== END 2025-06-13 10:34 | disposition home or self-care (01) ==
LOC: HO.HPS 10:05
PROVIDERS: PCP Registered Nurse; Referring Provider Registered Nurse; Visit Provider Physician Assistant Medical
DX: F17.210 Nicotine dependence, cigarettes, uncomplicated (principal)
CPT/HCPCS: G0296

== ENCOUNTER 2025-06-13 10:14 | Outpatient (REF) | payer MEDICAID, SELFPAY ==
--- NOTE | ~2025-06-13 | CT_ITS ---
CLINICAL HISTORY: F17.210 - Nicotine dependence, cigarettes, uncomplicated CT lung cancer screening (LDCT) Comparison: 12/08/2021 Technique: Axial CT images of the chest using low-dose technique. Referring provider counseled the patient on shared decision-making for LDCT screening. Additional counseling was provided on smoking cessation. Effective radiation dose total: DLP 103 mGycm, CTDIvol 2.7 mGy. Findings: Lung: No new solid or semi solid lesion. Left upper and lower lobe scarring. Coronary artery calcifications: Mild Limited upper abdomen: Unremarkable Other: None IMPRESSION: Lung-RADS 1, negative. Annual screening recommended. This document has been electronically signed by: Hollis Marcano MD on 06/15/2025 06:51:43
--- OUTSIDE RECORDS SUMMARY | 2025-06-13 12:04 | XMS_ITS | Patient Health Record ---
Author Organization [employer] [facility] Address [address] [place] [address] Care Team Providers Care Tail Worker Name Role Phone HEVER MURPHY MD Primary Care Provider Christiano Medina Jr Unavailable [phone] Allergies Allergen (clinical drug ingredient) Drug/Non Drug Allergy documented on EMR Reaction Allergy Type Onset Date Status fluoxetine PROzac Unknown Drug Allergy Active Reason For Referral No Information Medications Medication SIG (Take, Route, Frequency, Duration) Notes Start Date End Date Status MiraLax (colon prep) 8.3 ounce ((238) grams mixed with Gatorade or Crystal Light orally begin at 5:00 p.m. the day before the procedure; Duration: 1 day 08/03/2023 Active Omeprazole 20 MG Oral; Duration: 30 Active amLODIPine Besylate 2.5 MG Oral; Duration: 30 Active Remeron Active Trileptal Active BuSpar Active KlonoPIN Active Suboxone 4-1 MG Sublingual; Duration: 14 Active OLANZapine 5 MG Oral; Duration: 30 Active Gabapentin 300 MG Oral; Duration: 30 Active Social History Tobacco Use: Social [...] Problem Status W/U Status Risk Notes Problem Abnormal feces (597005379) Abnormal findings in stool (R19.5) Active confirmed Problem Gastritis (1188199) Gastritis (K29.70) Active c onfirmed Problem Gastroesophageal reflux disease (575913157) Gastroesophageal reflux disease, unspecified whether esophagitis present (K21.9) Active confirmed Problem Gastroesophageal reflux disease (disorder) (252119435) Chronic GERD (K21.9) Active confirmed Plan Of Treatment Future Test Test Name Order Date UPPER GI ENDOSCOPY 08/03/2023 COLONOSCOPY 08/03/2023 Insurance Providers Payer Name Payer Address Payer Phone Subscriber Number Group Number Insured Name Patient Relationship to Insured Coverage Start Date Coverage End Date MEDICAID [facility] [address] [place] [id number] TAHMINA LEIVA Self - patient is the insured Medical (General) History Medical History History ICD Code Hypertension Anxiety/depression Constipation Osteoarthritis Gastroesophageal reflux disease Opioid dependence Surgical History Surgery Date(Month/Year) left knee ACL repair 1992
== END 2025-06-13 10:15 | disposition home or self-care (01) ==
LOC: HO.CT 10:14
PROVIDERS: PCP Registered Nurse; Visit Provider Physician Assistant Medical
DX: Z12.2 Encounter for screening for malignant neoplasm of respiratory organs (principal); F17.210 Nicotine dependence, cigarettes, uncomplicated
CPT/HCPCS: 71271; G0296

== ENCOUNTER → 2025-06-13 10:15 | Outpatient (BNV) | payer MEDICAID, SELFPAY | PROVIDERS: PCP Registered Nurse; Visit Provider Specialist | DX: F17.210 Nicotine dependence, cigarettes, uncomplicated (principal) | CPT/HCPCS: 71271 ==